=== PATIENT | male | born 1945 | race Caucasian/White ===

== ENCOUNTER → 2016-09-15 | Outpatient (CLI) | payer MEDICARE, OTHER ==
[2016-07-16 10:25] VITALS: BP 118/55
[~2016-09-15] MED LIST: ALLO300T PO; ASPI-482 PO; ATOR20TA PO; CEPH500C PO; CYAN1TAB28 PO; DICY10CA3 PO; FAMO-63 PO; FAMO20TA5 PO; FOLI0.8T3 PO; FURO80TA3 PO; HYDR-963 PO; HYDR200T5 PO; MAGN400C PO; OMEP40CA5 PO; OXYC-250 PO; POTA20TA4 PO; TAMS0.4C2 PO; TRAM50TA PO; VIT1CAPS7 PO; WARF1TAB7 PO; WARF3TAB7 PO
--- NOTE | 2016-09-15 11:56 | CARD ---
APPROVED REPORT EXAM: Two-dimensional and M-mode echocardiogram with Doppler and color Doppler. Other Information Quality : GoodHR: 82bpm Rhythm : NSR INDICATION Edema Surgery/Intervention Status/Post Mitral Valve Replacement: Bioprosthetic Pacemaker: CABD DIMENSIONS RVDd2.6 (2.9-3.5cm)Left Atrium(2D)5.6 (1.6-4.0cm) IVSd0.8 (0.7-1.1cm)Aortic Root(2D)2.8 (2.0-3.7cm) LVDd5.7 (3.9-5.9cm)LVOT Diameter2.4 (1.8-2.4cm) PWd0.8 (0.7-1.1cm)LVDs4.7 (2.5-4.0cm) FS (%) 17.1 %SV55.7 ml LVEF(%)35.3 (>50%) Aortic Valve AoV Peak Sher.126.9cm/sAoV VTI30.8cm AO Peak GR.6.4mmHgLVOT Peak Sher.89.7cm/s AO Mean GR.4mmHgAVA (VMAX)3.21cm2 Mitral Valve MV E Lrcihinu281.2cm/sMV E Peak Gr.29mmHg MV DECEL [id number] A Muwuxqqu717.1cm/s MV E Mean Gr.11mmHgE/A Ratio1.6 MV A Hfnegxzw96oo Pulmonary Valve PV Peak Inazecvx826.7cm/s Tricuspid Valve TR P. Fqizktzm880ur/sRAP CMGMDYBW9soLh TR Peak Gr.79zfJiTETL93hxKp Pulmonary Vein S1 Yzcstmrs53.4cm/sD2 Lmcnzxmx98.1cm/s PVa ezngukro44kadd LEFT VENTRICLE The left ventricle is normal size. There is normal left ventricular wall thickness. Left ventricle ej ection fraction is moderately impaired. The Ejection Fraction is 35-40%. There is global hypokinesis of the left ventricle. The anterior wall, septum and apex are moderately hypokinetic. Tissue Doppler imaging reveals moderate left ventricular diastolic dysfunction. RIGHT VENTRICLE The right ventricle is moderately dilated. There is normal right ventricular wall thickness. The righ t ventricular systolic function is normal. There is a pacemaker lead in the right ventricle. ATRIA The left atrium is severely dilated. The right atrium size is normal. The interatrial septum is intac t with no evidence for an atrial septal defect or patent foramen ovale as noted on 2-D or Doppler olvin ging. AORTIC VALVE The aortic valve is mildly sclerotic. Doppler and Color Flow revealed no significant aortic regurgita tion. There is no significant aortic valvular stenosis. MITRAL VALVE Mitral annular calcification is moderate. There is no evidence of mitral valve prolapse. Doppler and Color Flow revealed trace mitral regurgitation. There is a porcine mitral valve. TRICUSPID VALVE The tricuspid valve is normal in structure and function. Doppler and Color Flow revealed moderate tri cuspid regurgitation. There is moderate pulmonary hypertension. The PA pressure was estimated at 52 m mHg. PULMONIC VALVE Doppler and Color Flow revealed trace pulmonic valvular regurgitation. GREAT VESSELS The aortic root is normal in size. The ascending aorta is normal in size. The pulmonary artery is nor mal. The IVC is normal in size and collapses >50% with inspiration. PERICARDIAL EFFUSION There is no evidence of significant pericardial effusion. Critical Notification Critical Value: No <Conclusion> Left ventricle ejection fraction is moderately impaired. The Ejection Fraction is 35-40%. There is global hypokinesis of the left ventricle. The anterior wall, septum and apex are moderately hypokinetic. The right ventricle is moderately dilated. There is a pacemaker lead in the right ventricle. There is a porcine mitral valve. Doppler and Color Flow revealed moderate tricuspid regurgitation. There is moderate pulmonary hyperte nsion. The PA pressure was estimated at 52 mmHg.
--- NOTE | 2016-09-15 12:29 | RAD ---
APPROVED REPORT Patient Location : OUT-PATIENT Indications Lower Extremity Edema : Skin Changes Risk Factors Obesity Medications Aspirin Deep System Deep Venous Reflux present : No Accessory Veins Right Anterior Accessory Vein : Present : Yes Reflux : No Leftt Anterior Accessory Vein : Present : Yes Reflux : No Right Posterior Accessory Vein : Present : No Reflux : No Left Posterior Accessory Vein : Present : No Reflux : No Findings Grayscale images of the bilateral greater saphenous veins and saphenofemoral junctions were performed . Grayscale images were also obtained of the short saphenous veins bilaterally. The right great saphenous vein measures approximately 8.4 mm without any evidence of reflux. The lef t great saphenous vein measures approximately 10 mm without any evidence of reflux. The bilateral le sser saphenous veins did not demonstrate any reflux. Multiple Perforators are noted on the right karina e without any evidence of reflux. Critical Notification Critical Value: No <Conclusion> Negative for reflux in the bilateral greater saphenous and lesser saphenous veins. No evidence of reflux in the bilateral calf perforators.
== END | disposition home or self-care (01) ==
LOC: ECHO 08:42
PROVIDERS: ATTEND Internal Medicine Cardiovascular Disease
DX: R60.9 Edema, unspecified (principal); M79.89 Other specified soft tissue disorders
CPT/HCPCS: 93306; 93970

== ENCOUNTER 2016-09-22 07:49 | Inpatient (IN) | payer MEDICARE, OTHER ==
[~2016-09-22] VITALS: Ht 177.8 cm; Wt 102.5 kg
[2016-09-22] VITALS (14 sets, daily range): BP systolic 89–145; BP diastolic 48–75
[2016-09-22] MEDS ORDERED: L GA1CAP2 PO (08:12)
[2016-09-22] MEDS ORDERED: CEPH500C PO (08:12)
[2016-09-22] MEDS ORDERED: HYDR-2680 PO (08:18)
[2016-09-22 08:29] LABS: CALCIUM 8.8 mg/dL (8.5-10.1); CREATININE 2.7 mg/dL (0.7-1.3); GFR 23.5; POTASSIUM 4.2 mmol/L (3.5-5.1)
[2016-09-22 08:38] LABS: INR 1.2 (0.8-1.1); PROTHROMBIN TIME PATIENT 14.2 SEC (11.7-14.0)
[2016-09-22 08:41] LABS: BASO % 1 % (0-3); EOS % 3 % (0-3); HEMATOCRIT 43.4 % (39.0-53.0); HEMOGLOBIN 13.8 g/dL (13.0-17.5); LYMPH # 1.1 x10^3/uL (1.0-4.8); LYMPH % 22 % (24-48); MEAN CORPUSCULAR HEMOGLOBIN 29 pg (25-35); MEAN CORPUSCULAR HGB CONC 32 g/dL (31-37); MEAN CORPUSCULAR VOLUME 93 fL (79-100); MONO % 13 % (0-9); NEUT % 62 % (31-73); PLATELET COUNT 110 x10^3/uL (140-400); RED BLOOD COUNT 4.68 x10^6/uL (4.30-5.70); RED CELL DISTRIBUTION WIDTH 18.1 % (11.5-14.5); WHITE BLOOD COUNT 5.1 x10^3/uL (4.0-11.0)
[2016-09-22] MEDS: ACETYLCYSTEINE 20% ORAL SOLN 600 MG/3 ML SYRINGE. PO SCH ×2 (09:09→20:37)
[2016-09-22] MEDS: IV NORMAL SALINE 1000ML BAG 1,000 ML IV SCH (09:10)
[2016-09-22] MEDS ORDERED: LIDOCAINE 2% 20 ML VIAL. ONE (09:58)
[2016-09-22] MEDS ORDERED: IODIXANOL 320 MG/ML 100 ML VIAL. ONE (09:58)
[2016-09-22] MEDS ORDERED: VERAPAMIL 5 MG/2 ML VIAL. ONE (10:03)
[2016-09-22] MEDS ORDERED: NITROGLYCERIN 200 MCG/2 ML SYRINGE FOR CATH/VASC LAB. ONE (10:03)
[2016-09-22] MEDS ORDERED: HEPARIN for IV BOLUS 10,000 UNIT/10 ML VIAL. ONE (10:03)
[2016-09-22] MEDS ORDERED: FENTANYL PF 100 MCG/2 ML VIAL. ONE (10:03)
[2016-09-22] MEDS ORDERED: MIDAZOLAM HCL 2 MG/2 ML VIAL. ONE (10:04)
--- NOTE | 2016-09-22 10:05 | PDOC ---
MODERATE SEDATION ASSESSMENT RISKS/ALTERNATIVES Risks/Alternatives Risks and alternatives of this type of sedation and procedure discussed with: RISK/ALTERNATIVES: Patient H & P ON CHART H & P H & P on chart and reviewed for co-morbid conditions and appropriate labs. H&P ON CHART: Yes STATUS PREG STATUS ASSESSED: N/A MEDS/ALLERGIES REVIEWED Meds/Allergies Reviewed Medications and Allergies including time and route of recently administered narcotics and sedatives. MEDS/ALLERGIES REVIEWED: Yes ASA RATING ASA RATING: II AIRWAY ASSESSMENT Airway Assessment Airway patency, oral function limitations, presence of caps, crowns, dentures, partials, and ability to extend neck assessed. AIRWAY ASSESSMENT: Yes MALLAMPATI SCORE MALLAMPATI SCORE: II PRE-SEDATION ASSESSMENT PRE-SEDATION ASSESSMENT: Yes JUNIOR BURRIS MD Sep 22, 2016 10:05
[2016-09-22] MEDS ORDERED: LIDOCAINE 2% 20 ML VIAL. IJ ONE (10:45)
[2016-09-22] MEDS ORDERED: FENTANYL PF 100 MCG/2 ML VIAL. IV ONE (10:45)
[2016-09-22] MEDS ORDERED: IODIXANOL 320 MG/ML 100 ML VIAL. IART ONE (10:45)
[2016-09-22] MEDS ORDERED: MIDAZOLAM HCL 2 MG/2 ML VIAL. IV ONE (10:45)
[2016-09-22] MEDS ORDERED: NITROGLYCERIN SUBLINGUAL 0.4 MG BOTTLE OF 25. SL PRN (12:30)
--- NOTE | 2016-09-22 12:43 | CARD ---
APPROVED REPORT Procedure(s) performed: Left heart catheterization, selective coronary angiography and selective minoo ography of the bypass grafts via right transfemoral approach. INDICATION The indication(s) include : Acute on chronic systolic heart failure, cardiomyopathy with diminished L V function. PROCEDURE NARRATIVE After explaining the risks, benefits and alternative options, informed consent was obtained from caren ent. Patient brought to the cardiac geotechnical laboratory technician and his right groin was prepped and draped in the usual fashion. 20 mL of 2% lidocaine was infiltrated into the skin and subcutaneous tissues for local ane sthesia. Arterial access was obtained in the right common femoral artery and a 6 Ecuadorean sheath was i nserted. 6 Ecuadorean JL4 and 6 Ecuadorean JR4 catheters wished to perform selective angiography of the left and right coronary arteries. The 6 Ecuadorean JR4 catheter was used to perform selective angiography of the saphenous vein graft to the right coronary artery and sequential saphenous vein graft to the klaus gonal/second obtuse marginal/left PDA. A 6 Ecuadorean IM catheter was used to perform selective angiogra phy of the left internal mammary artery graft to the left anterior descending artery. Left ventricul ography was not performed due to elevated BUN/creatinine level. Patient tolerated the procedure well . Hemostasis was achieved using Angio-Seal. There were no immediate complications. FINDINGS 1. The left main coronary artery arose from the left sinus of Valsalva, gave rise to the left anteri or descending and left circumflex arteries and did not show any significant stenosis. 2. The left anterior descending artery showed 80% stenosis in the midsegment followed by 100% chroni c occlusion in the mid to distal segment. 3. The left circumflex artery appeared to be a codominant vessel that showed 80% stenosis in the pro ximal segment and 90% stenosis in the midsegment. 4. The right coronary artery showed 100% chronic occlusion in the midsegment. 5. The saphenous vein graft to the right coronary artery was widely patent. Distal to the anastomos is, the distal segment and the posterior descending branch did not show any significant stenosis. 6. The sequential saphenous vein graft to the diagonal branch, second obtuse marginal branch and lef t posterior descending branch of left circumflex artery did not show any significant stenosis. 7. The left internal mammary artery graft to the left anterior descending artery was widely patent. Distal to the anastomosis, the left anterior descending artery did not show any significant stenosis . Conclusion Severe [place] vessel coronary artery disease s/p coronary artery bypass surgery as stated above with patent left internal mammary artery graft to the left anterior descending artery, patent saphenous ve in graft to the right coronary artery, patent sequential saphenous vein graft to the diagonal branch of LAD/second obtuse marginal and left posterior descending branches of LCx. Recommendations Optimization of medical therapy.
[2016-09-22] MEDS: METOLAZONE 2.5 MG TABLET PO SCH (13:00)
[2016-09-22] MEDS ORDERED: ONDANSETRON PF 4 MG/2 ML VIAL. IV PRN (13:30)
[2016-09-22] MEDS ORDERED: ALBUTEROL SULFATE 2.5 MG/3 ML NEBU. NEB PRN (13:30)
[2016-09-22] MEDS ORDERED: hydrALAZINE 20 MG/ML VIAL. IVP PRN (13:30)
[2016-09-22] MEDS ORDERED: ACETAMINOPHEN 325 MG TABLET. PO PRN (13:30)
[2016-09-22] MEDS ORDERED: HYDROCODONE/APAP 5/325MG TABLET. PO PRN (13:30)
--- NOTE | 2016-09-22 16:00 | PDOC1 ---
History and Physical Past Medical History Cardiovascular: CAD, HTN Renal/: Chronic renal insuff Past Surgical History Past Surgical History: CABG, Other Family History Family History: Hypertension Social History ALCOHOL: none Drugs: None Current Medications Current Medications Current Medications Medications (Trade) Dose Ordered Sig/Toña Start Time Stop Time Status Last Admin Dose Admin Acetaminophen (Tylenol) 325 mg PRN Q6HRS PRN 09/22/16 13:30 Acetaminophen/ Hydrocodone Bitart (Lortab 5/325) 1 tab PRN Q6HRS PRN 09/22/16 13:30 Acetylcysteine (Mucomyst 20% Oral Solution) 600 mg BID 09/22/16 21:00 09/24/16 09:01 Cancel Albuterol Sulfate (Ventolin Neb Soln) 2.5 mg PRN Q4HRS PRN 09/22/16 13:30 Aspirin (Ecotrin) 81 mg DAILY 09/23/16 09:00 Atorvastatin Calcium (Lipitor) 20 mg HS 09/22/16 21:00 Famotidine (Pepcid) 40 mg DAILY 09/23/16 09:00 Fentanyl Citrate (Fentanyl 2ml Vial) 100 mcg 1X ONCE 09/22/16 10:45 09/22/16 11:06 DC 09/22/16 11:21 75 MCG Furosemide (Lasix) 80 mg BID92 09/22/16 21:00 Heparin Sodium (Porcine) 10,000 unit STK-MED ONCE 09/22/16 10:03 09/22/16 10:04 DC Heparin Sodium/ Sodium Chloride 1,000 unit 1X ONCE 09/22/16 10:45 09/22/16 11:06 DC 09/22/16 11:20 1,000 UNIT Hydralazine HCl (Apresoline) 10 mg PRN Q4HRS PRN 09/22/16 13:30 Iodixanol (Visipaque 320) 100 ml 1X ONCE 09/22/16 10:45 09/22/16 11:06 DC 09/22/16 11:20 117 ML Lidocaine HCl 20 ml 1X ONCE 09/22/16 10:45 09/22/16 11:06 DC 09/22/16 11:20 20 ML Metolazone (Zaroxolyn) 5 mg DAILY 09/22/16 13:00 Midazolam HCl (Versed) 2 mg 1X ONCE 09/22/16 10:45 09/22/16 11:06 DC 09/22/16 11:21 1.5 MG Nitroglycerin (Nitroglycerin) 200 mcg STK-MED ONCE 09/22/16 10:03 09/22/16 10:04 DC Nitroglycerin (Nitrostat) 0.4 mg PRN Q5MIN PRN 09/22/16 12:30 Ondansetron HCl (Zofran) 4 mg PRN Q8HRS PRN 09/22/16 13:30 Potassium Chloride (Klor-Con) 20 meq DAILY 09/23/16 09:00 Sodium Chloride (Iv Sodium Chloride 0.9% 1000ml Bag) 1,000 ml @ 100 mls/hr Q10H 09/22/16 08:30 09/22/16 09:10 100 MLS/HR Tamsulosin HCl (Flomax) 0.4 mg DAILY 09/23/16 09:00 Verapamil HCl (Verapamil) 5 mg STK-MED ONCE 09/22/16 10:03 09/22/16 10:04 DC Allergies Allergies Allergies Coded Allergies Type Severity Reaction Last Updated Verified NSAIDS (Non-Steroidal Anti-Inflamma Allergy Intermediate Hives 06/12/15 Yes Sulfa (Sulfonamide Antibiotics) Allergy Intermediate HIVES 07/08/14 Yes hydroxyzine Adverse Reaction Intermediate insomnia 06/12/15 Yes ROS Review of System CONSTITUTIONAL: No fever or chills EYES: No recent changes SKIN: No rash or itching CARDIOVASCULAR: No chest pain, syncope, palpitations, or edema RESPIRATORY: No SOB or cough GASTROINTESTINAL: No nausea, vomiting or abdominal pain NEUROLOGICAL: No headaches or weakness ENDOCRINE: No cold or heat intolerance GENITOURINARY: No urgency or frequency of urination MUSCULOSKELETAL: No back pain or joint pain LYMPHATICS: No enlarged lymph nodes PSYCHIATRIC: No anxiety or depression Physical Exam Physical Exam GEN.: No apparent distress. Alert and oriented. HEENT: Head is normocephalic, atraumatic NECK: Supple. no jvd LUNGS: Clear to auscultation. normal airflow HEART: RRR, S1, S2 present. Peripheral pulses intact ABDOMEN: Soft, nontender. Positive bowel sounds. EXTREMITIES: Without any cyanosis. edema bilateral. NEUROLOGIC: Normal speech, normal tone PSYCHIATRIC: Normal affect, normal mood. SKIN: No visible ulcerations Vitals Vitals Vital Signs Date Time Temp Pulse Resp B/P Pulse Ox O2 Delivery O2 Flow Rate FiO2 09/22/16 13:50 Room Air 09/22/16 13:45 97.5 80 20 112/65 95 97.5 Labs Labs Laboratory Tests Test 09/22/16 08:10 White Blood Count 5.1x10^3/uL (4.0-11.0) Red Blood Count 4.68x10^6/uL (4.30-5.70) Hemoglobin 13.8g/dL (13.0-17.5) Hematocrit 43.4% (39.0-53.0) Mean Corpuscular Volume 93fL (79-100) Mean Corpuscular Hemoglobin 29pg (25-35) Mean Corpuscular Hemoglobin Concent 32g/dL (31-37) Red Cell Distribution Width 18.1% (11.5-14.5) Platelet Count 110x10^3/uL (140-400) Neutrophils (%) (Auto) 62% (31-73) Lymphocytes (%) (Auto) 22% (24-48) Monocytes (%) (Auto) 13% (0-9) Eosinophils (%) (Auto) 3% (0-3) Basophils (%) (Auto) 1% (0-3) Neutrophils # (Auto) 3.2x10^3uL (1.8-7.7) Lymphocytes # (Auto) 1.1x10^3/uL (1.0-4.8) Monocytes # (Auto) 0.7x10^3/uL (0.0-1.1) Eosinophils # (Auto) 0.1x10^3/uL (0.0-0.7) Basophils # (Auto) 0.0x10^3/uL (0.0-0.2) Prothrombin Time 14.2SEC (11.7-14.0) Prothromb Time International Ratio 1.2 (0.8-1.1) Sodium Level 146mmol/L (136-145) Potassium Level 4.2mmol/L (3.5-5.1) Chloride Level 106mmol/L (98-107) Carbon Dioxide Level 31mmol/L (21-32) Anion Gap 9 (6-14) Blood Urea Nitrogen 36mg/dL (8-26) Creatinine 2.7mg/dL (0.7-1.3) Estimated GFR (Cockcroft-Gault) 23.5 Glucose Level 108mg/dL (70-99) Calcium Level 8.8mg/dL (8.5-10.1) Laboratory Tests Test 09/22/16 08:10 White Blood Count 5.1x10^3/uL (4.0-11.0) Red Blood Count 4.68x10^6/uL (4.30-5.70) Hemoglobin 13.8g/dL (13.0-17.5) Hematocrit 43.4% (39.0-53.0) Mean Corpuscular Volume 93fL (79-100) Mean Corpuscular Hemoglobin 29pg (25-35) Mean Corpuscular Hemoglobin Concent 32g/dL (31-37) Red Cell Distribution Width 18.1% (11.5-14.5) Platelet Count 110x10^3/uL (140-400) Neutrophils (%) (Auto) 62% (31-73) Lymphocytes (%) (Auto) 22% (24-48) Monocytes (%) (Auto) 13% (0-9) Eosinophils (%) (Auto) 3% (0-3) Basophils (%) (Auto) 1% (0-3) Neutrophils # (Auto) 3.2x10^3uL (1.8-7.7) Lymphocytes # (Auto) 1.1x10^3/uL (1.0-4.8) Monocytes # (Auto) 0.7x10^3/uL (0.0-1.1) Eosinophils # (Auto) 0.1x10^3/uL (0.0-0.7) Basophils # (Auto) 0.0x10^3/uL (0.0-0.2) Prothrombin Time 14.2SEC (11.7-14.0) Prothromb Time International Ratio 1.2 (0.8-1.1) Sodium Level 146mmol/L (136-145) Potassium Level 4.2mmol/L (3.5-5.1) Chloride Level 106mmol/L (98-107) Carbon Dioxide Level 31mmol/L (21-32) Anion Gap 9 (6-14) Blood Urea Nitrogen 36mg/dL (8-26) Creatinine 2.7mg/dL (0.7-1.3) Estimated GFR (Cockcroft-Gault) 23.5 Glucose Level 108mg/dL (70-99) Calcium Level 8.8mg/dL (8.5-10.1) VTE Prophylaxis Ordered VTE Prophylaxis Devices: Yes VTE Pharmacological Prophylaxi: No LUTHER BEE MD Sep 22, 2016 16:00
--- NOTE | 2016-09-22 17:16 | HP ---
ADMIT DATE: 09/22/2016 CHIEF COMPLAINT: Abnormal renal functions. HISTORY OF PRESENT ILLNESS: This is a 70-year-old male patient with prior history of hypertension, coronary artery disease and CKD 3/4 who had elective CABG today. As per Cardiology report, he has a clean normal cardiac catheterization, no PCI was done. However, the patient's renal functions, creatinine is 2.7 and bilateral lower extremity swellings were noted and the patient was on hemodialysis in 2011 and later he was not having any hemodialysis. Cardiology requested ____ for further evaluation by Nephrology. The patient denies any complaints of chest pain, shortness of breath or fever; however, he has chronic swellings in lower extremities which are slowly getting worse and he says he is getting good urine and his life specialist is Dr. Alvarez. Given his renal functions and contrast, we will give him low dose IV fluids and order CBC, BMP and consult Nephrology for further evaluation. PAST MEDICAL HISTORY: Please see my electronic H and P. REVIEW OF SYSTEMS: Please see my electronic H and P. PHYSICAL EXAMINATION: Please see my electronic H and P. LABORATORY FINDINGS: WBC 5.1, hemoglobin 13.8 and platelets 110. Chemistry: Sodium is 146, potassium is 4.2, chloride is 106, BUN is 36, GFR is 23.5, creatinine is 2.7 and glucose 108. ASSESSMENT: 1. Abnormal renal functions, SONNY with CKD 3/4. 2. Coronary artery disease. 3. Hypertension. 4. Peripheral artery disease. 5. Bilateral lower extremity swelling. PLAN: 1. IV fluids at 50 mL per hour. 2. Nephrology has been consulted ____. 3. Labs, CBC and BMP in a.m. 4. Home medications reviewed and reconciled. 5. Optimal medical therapy for severe coronary artery disease. 6. Echocardiogram as per Cardiology recommendations. LUTHER BEE MD DR: SABRINA/juancho JOB#: [id number] / [id number]
[2016-09-22] MEDS: HYDROCODONE/APAP 10/325 TABLET. PO PRN (18:37)
[2016-09-22] MEDS: FUROSEMIDE 80 MG TABLET PO SCH (20:16)
[2016-09-22] MEDS: CEPHALEXIN 250 MG CAPSULE PO SCH (20:36)
[2016-09-22] MEDS: ATORVASTATIN CALCIUM 20 MG TABLET PO SCH (20:36)
[2016-09-22] MEDS ORDERED: ACETYLCYSTEINE 20% ORAL SOLN 600 MG/3 ML SYRINGE. PO SCH (21:00)
[2016-09-23] MEDS: IV NORMAL SALINE 1000ML BAG 1,000 ML IV SCH ×2 (01:08→20:22)
[2016-09-23 03:25] VITALS: BP 126/63
[2016-09-23 03:41] LABS: BASO % 1 % (0-3); EOS % 3 % (0-3); HEMATOCRIT 40.3 % (39.0-53.0); HEMOGLOBIN 12.7 g/dL (13.0-17.5); LYMPH # 1.3 x10^3/uL (1.0-4.8); LYMPH % 27 % (24-48); MEAN CORPUSCULAR HEMOGLOBIN 29 pg (25-35); MEAN CORPUSCULAR HGB CONC 32 g/dL (31-37); MEAN CORPUSCULAR VOLUME 93 fL (79-100); MONO % 13 % (0-9); NEUT % 56 % (31-73); PLATELET COUNT 94 x10^3/uL (140-400); RED BLOOD COUNT 4.33 x10^6/uL (4.30-5.70); RED CELL DISTRIBUTION WIDTH 17.8 % (11.5-14.5); WHITE BLOOD COUNT 4.7 x10^3/uL (4.0-11.0)
[2016-09-23 04:04] LABS: CALCIUM 8.2 mg/dL (8.5-10.1); CREATININE 2.2 mg/dL (0.7-1.3); GFR 29.7; POTASSIUM 3.6 mmol/L (3.5-5.1)
[2016-09-23] MEDS: HYDROCODONE/APAP 10/325 TABLET. PO PRN (06:33)
[2016-09-23 07:12] VITALS: BP 99/73
[2016-09-23] MEDS: FAMOTIDINE 20 MG TABLET. PO SCH (08:40)
[2016-09-23] MEDS: MAGNESIUM OXIDE 400 MG TABLET PO SCH (08:40)
[2016-09-23] MEDS: ASPIRIN ENTERIC COATED 81 MG TABLET.DR. PO SCH (08:40)
[2016-09-23] MEDS: CEPHALEXIN 250 MG CAPSULE PO SCH ×2 (08:40→20:21)
[2016-09-23] MEDS: FOLIC/VIT B COMP W-C (RENAL) TABLET. PO SCH (08:41)
[2016-09-23] MEDS: TAMSULOSIN 0.4 MG CAP.ER.24H. PO SCH (08:41)
[2016-09-23] MEDS: PANTOPRAZOLE 40 MG TABLET. PO SCH (08:41)
[2016-09-23] MEDS: ACETYLCYSTEINE 20% ORAL SOLN 600 MG/3 ML SYRINGE. PO SCH ×2 (08:47→20:21)
[2016-09-23] MEDS: FUROSEMIDE 80 MG TABLET PO SCH ×2 (09:00→12:38)
[2016-09-23] MEDS: METOLAZONE 2.5 MG TABLET PO SCH (09:00)
--- NOTE | 2016-09-23 09:30 | PDOC ---
LISA ARCHER COMMUNICATIONS PROFESSIONAL 09/23/16 0930: CARDIO Progress Notes Date and Time Date of Service 09/23/16 Time of Evaluation 0930 Subjective Subjective: No Chest Pain, No shortness of breath, Other (frustrated, wanting to go home) Vitals Vitals Vital Signs Date Time Temp Pulse Resp B/P Pulse Ox O2 Delivery O2 Flow Rate FiO2 09/23/16 07:12 98.3 74 18 99/73 94 Room Air 98.3 09/22/16 19:30 2.0 Weight Weight [ ] Input and Output Intake and Output Intake and Output 09/23/16 07:00 Intake Total 1550 ml Balance 1550 ml Intake Oral 1300 ml IV Total 250 ml # Voids 3 Laboratory Labs Laboratory Tests Test 09/23/16 03:06 White Blood Count 4.7x10^3/uL (4.0-11.0) Red Blood Count 4.33x10^6/uL (4.30-5.70) Hemoglobin 12.7g/dL (13.0-17.5) Hematocrit 40.3% (39.0-53.0) Mean Corpuscular Volume 93fL (79-100) Mean Corpuscular Hemoglobin 29pg (25-35) Mean Corpuscular Hemoglobin Concent 32g/dL (31-37) Red Cell Distribution Width 17.8% (11.5-14.5) Platelet Count 94x10^3/uL (140-400) Neutrophils (%) (Auto) 56% (31-73) Lymphocytes (%) (Auto) 27% (24-48) Monocytes (%) (Auto) 13% (0-9) Eosinophils (%) (Auto) 3% (0-3) Basophils (%) (Auto) 1% (0-3) Neutrophils # (Auto) 2.7x10^3uL (1.8-7.7) Lymphocytes # (Auto) 1.3x10^3/uL (1.0-4.8) Monocytes # (Auto) 0.6x10^3/uL (0.0-1.1) Eosinophils # (Auto) 0.1x10^3/uL (0.0-0.7) Basophils # (Auto) 0.0x10^3/uL (0.0-0.2) Sodium Level 143mmol/L (136-145) Potassium Level 3.6mmol/L (3.5-5.1) Chloride Level 105mmol/L (98-107) Carbon Dioxide Level 29mmol/L (21-32) Anion Gap 9 (6-14) Blood Urea Nitrogen 33mg/dL (8-26) Creatinine 2.2mg/dL (0.7-1.3) Estimated GFR (Cockcroft-Gault) 29.7 Glucose Level 96mg/dL (70-99) Calcium Level 8.2mg/dL (8.5-10.1) Physical Exam HEENT: Neck Supple W Full Motion Chest: Symmetric LUNGS: Clear to Auscultation Heart: S1S2, RRR, other (SR with PVCs) Abdomen: Soft N/T Extremities: 2+ Dorsalis Pedis, Other (2+ pitting bilateral LE edema with chronic venous stasis changes. right groin arteriotomy site CDI. neurovascular status intact) Neurology: alert, oriented, follow commands Assessment Assessment 1. Coronary artery disease s/p CABG LHC revealed patent grafts Continue secondary prevention. Add low-dose BB. May discharge from a cardiac standpoint and f/u in our office with Dr. Rasheed in 1 month as previously scheduled 2. Ischemic cardiomyopathy 09/15/16 echo shows moderately impaired LV function with an EF of 35-40% along with moderate TR Add coreg for optimization will hold off on adding any nephrotoxic agents such as TIAGO given contrast exposure. Will re-evaluate on an outpatient basis. diuretics per renal Will repeat echo in 3 months to re-evaluate LV function and assess need for AICD implantation in prevention of SCD 3. Hypertension controlled 4. Pulmonary HTN PA pressure 52 per echo 5. H/o endocarditis s/p bioprosthetic MVR continue medical management 6. CKD Cr stable at 2.2. repeat BMP in am gentle hydration ongoing per renal . 7. Hyperlipidemia statin therapy 8. PAD s/p recent DRAFTING TEACHER to left SFA stable. no claudication symptoms. 9. SSS s/p PPM recent device check showed normal device function JUNIOR RASHEED MD 09/23/16 1521: CARDIO Progress Notes Assessment Assessment Patient seen and examined. Agree with INTERMEDIATE TEACHER's assessment and plan. Continue diuretics per nephrology team. CAD status stable. Cardiac catheterization results as noted. Continue medical management. Follow-up with our office in one month. LISA ARCHER APRN Sep 23, 2016 09:30 JUNIOR RASHEED MD Sep 23, 2016 15:21
[2016-09-23 11:13] VITALS: BP 138/65
--- NOTE | 2016-09-23 11:24 | PDOC2 ---
CONSULT Date of Consult Date of Consult DATE: 09/23/16 TIME: 11:19 Reason for Consult Reason for Consult: RENAL FAILURE Referring Physician Referring Physician: DAYTON Identification/Chief Complaint Chief Complaint SWELLING Source Source: Chart review, Patient History of Present Illness Reason for Visit: THIS IS A 70 YR OLD WHO UNDERWENT A HEART CATH YESTERDAY. HE HAS HAD A DECREASE IN HIS EF OVER THE LAST COUPLE YEARS. HE HAS ALSO BEEN HAVING PROGRESSIVE LE EDEMA AND SOME ORTHOPNEA. CR WAS 2.7 AND HE WAS GIVEN IVF'S AND HE UNDERWENT A HEART CATH AFTER THAT YESTERDAY. 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 AND HAS A HX OF SONNY REQUIRING HD IN 2011 Past Medical History Cardiovascular: CAD, HTN Renal/: Chronic renal insuff Past Surgical History Past Surgical History: CABG, Other Family History Family History: Hypertension Social History ALCOHOL: none Drugs: None Lives: with Family Current Medications Current Medications Current Medications Sodium Chloride (Iv Sodium Chloride 0.9% 1000ml Bag) 1,000 ml @ 50 mls/hr Q20H IV Last administered on 09/23/16 01:08; Start 09/22/16 at 08:30 Acetylcysteine 600 mg 600 mg BID PO Last administered on 09/23/16 08:47; Start 09/22/16 at 09:00; Stop 09/24/16 at 08:59 Heparin Sodium/ Sodium Chloride 500 ml @ As Directed STK-MED ONCE .ROUTE ; Start 09/22/16 at 09:58; Stop 09/22/16 at 09:59; Status DC Lidocaine HCl 20 ml STK-MED ONCE .ROUTE ; Start 09/22/16 at 09:58; Stop at 09:59; Status DC Iodixanol (Visipaque 320) 100 ml STK-MED ONCE .ROUTE ; Start 09/22/16 at 09:58; Stop 09/22/16 at 09:59; Status DC Nitroglycerin (Nitroglycerin) 200 mcg STK-MED ONCE .ROUTE ; Start 09/22/16 at 10 :03; Stop 09/22/16 at 10:04; Status DC Verapamil HCl (Verapamil) 5 mg STK-MED ONCE .ROUTE ; Start 09/22/16 at 10:03; Stop 09/22/16 at 10:04; Status DC Heparin Sodium (Porcine) 10,000 unit STK-MED ONCE .ROUTE ; Start 09/22/16 at 10: 03; Stop 09/22/16 at 10:04; Status DC Fentanyl Citrate (Fentanyl 2ml Vial) 100 mcg STK-MED ONCE .ROUTE ; Start at 10:03; Stop 09/22/16 at 10:04; Status DC Midazolam HCl (Versed) 2 mg STK-MED ONCE .ROUTE ; Start 09/22/16 at 10:04; Stop 09/22/16 at 10:05; Status DC Heparin Sodium/ Sodium Chloride 1,000 unit 1X ONCE IART Last administered on 11:20; Start 09/22/16 at 10:45; Stop 09/22/16 at 11:06; Status DC Heparin Sodium/ Sodium Chloride 1,000 unit 1X ONCE IART Last administered on 11:20; Start 09/22/16 at 10:45; Stop 09/22/16 at 11:06; Status DC Midazolam HCl (Versed) 2 mg 1X ONCE IV Last administered on 09/22/16 11:21; Start 09/22/16 at 10:45; Stop 09/22/16 at 11:06; Status DC Fentanyl Citrate (Fentanyl 2ml Vial) 100 mcg 1X ONCE IV Last administered on 11:21; Start 09/22/16 at 10:45; Stop 09/22/16 at 11:06; Status DC Iodixanol (Visipaque 320) 100 ml 1X ONCE IART Last administered on 09/22/16 11:20; Start 09/22/16 at 10:45; Stop 09/22/16 at 11:06; Status DC Lidocaine HCl 20 ml 1X ONCE IJ Last administered on 09/22/16 11:20; Start at 10:45; Stop 09/22/16 at 11:06; Status DC Nitroglycerin (Nitrostat) 0.4 mg PRN Q5MIN PRN SL CHEST PAIN; Start 09/22/16 at 12:30 Acetylcysteine (Mucomyst 20% Oral Solution) 600 mg BID PO ; Start 09/22/16 at 21 :00; Stop 09/24/16 at 09:01; Status Cancel Aspirin (Ecotrin) 81 mg DAILY PO Last administered on 09/23/16 08:40; Start at 09:00 Atorvastatin Calcium (Lipitor) 20 mg HS PO Last administered on 09/22/16 20:36 ; Start 09/22/16 at 21:00 Famotidine (Pepcid) 40 mg DAILY PO Last administered on 09/23/16 08:40; Start 09/23/16 at 09:00 Furosemide (Lasix) 80 mg BID92 PO ; Start 09/22/16 at 21:00 Potassium Chloride (Klor-Con) 20 meq DAILY PO ; Start 09/23/16 at 09:00 Tamsulosin HCl (Flomax) 0.4 mg DAILY PO Last administered on 09/23/16 08:41; Start 09/23/16 at 09:00 Metolazone (Zaroxolyn) 5 mg DAILY PO ; Start 09/22/16 at 13:00 Acetaminophen (Tylenol) 325 mg PRN Q6HRS PRN PO MILD PAIN / TEMP; Start at 13:30 Acetaminophen/ Hydrocodone Bitart (Lortab 5/325) 1 tab PRN Q6HRS PRN PO MODERATE TO SEVERE PAIN; Start 09/22/16 at 13:30 Hydralazine HCl (Apresoline) 10 mg PRN Q4HRS PRN IVP ELEVATED BP, SEE COMMENTS ; Start 09/22/16 at 13:30 Ondansetron HCl (Zofran) 4 mg PRN Q8HRS PRN IV NAUSEA/VOMITING; Start 09/22/16 at 13:30 Albuterol Sulfate (Ventolin Neb Soln) 2.5 mg PRN Q4HRS PRN NEB SHORTNESS OF BREATH; Start 09/22/16 at 13:30 Cephalexin HCl (Keflex) 500 mg BID PO Last administered on 09/23/16 08:40; Start 09/22/16 at 21:00 Folic Acid/ Multivitamins/Vit B12 (Nephro-Brett) 1 tab DAILY PO Last administered on 09/23/16 08:41; Start 09/23/16 at 09:00 Magnesium Oxide (Magnesium Oxide) 400 mg DAILY PO Last administered on 08:40; Start 09/23/16 at 09:00 Pantoprazole Sodium (Protonix) 40 mg DAILYAC PO Last administered on 1/24/17at 08:41; Start 09/23/16 at 07:30 Acetaminophen/ Hydrocodone Bitart (Lortab 10/325) 2 tab PRN Q6HRS PRN PO PAIN Last administered on 09/22/16t 18:37; Start 09/22/16 at 18:15 Active Scripts Active Reported Lortab 10-325 mg Tablet (Hydrocodone/Acetaminophen) 1 Each Tablet 1 Tab PO PRN Q6HRS PRN [place] Capsule (L Gasseri/B Bifidum/B Longum) 1 Each Capsule 1 Each PO DAILY Cephalexin 500 Mg Capsule 1 Cap PO BID Magnesium (Magnesium Oxide) 400 Mg Capsule 1 Cap PO DAILY Tart Sidhu Capsule (Vit C/Sidhu & Celery Ex/Grp E) 1 Each Capsule 1 Each PO DAILY Tamsulosin Hcl 0.4 Mg Cap.er.24h 0.4 Mg PO DAILY LAST DOSE GIVEN: DATE: 06-13-15 TIME: 9:00 am NEXT DOSE DUE: DATE: 06-14-15 TIME: 9:00 am Famotidine 20 Mg Tablet 40 Mg PO DAILY LAST DOSE GIVEN: DATE: 06-13-15 TIME: 9:00 am NEXT DOSE DUE: DATE: 06-13-15 TIME: 9 pm Vitamin [id number] Acid Tablet (Cyanocobalamin/Folic Acid) 1 Each Tablet 1 Each PO DAILY LAST DOSE GIVEN: DATE: 06-13-15 TIME: 9:00 am NEXT DOSE DUE: DATE: 06-14-15 TIME: 9 am Lipitor (Atorvastatin Calcium) 20 Mg Tablet 1 Tab PO DAILY LAST DOSE GIVEN: DATE: 06-12-15 TIME: 9:00 pm NEXT DOSE DUE: DATE: 06-13-15 TIME: 9 pm Dicyclomine Hcl 10 Mg Capsule 1 Cap PO TID LAST DOSE GIVEN: DATE: 06-13-15 TIME: 9:00 am NEXT DOSE DUE: DATE: 06-13-15 TIME: 9 pm Aspir 81 (Aspirin) 81 Mg Tablet.dr 1 Tab PO DAILY LAST DOSE GIVEN: DATE: 06-13-15 TIME: 9:00 am NEXT DOSE DUE: DATE: 06-14-15 TIME: 9 am Furosemide 80 Mg Tablet 1 Tab PO BID LAST DOSE GIVEN: DATE: 06-13-15 TIME: 9:00 am NEXT DOSE DUE: DATE: 06-13-15 TIME: 9:00 pm Omeprazole 40 Mg Capsule.dr 1 Cap PO DAILY LAST DOSE GIVEN: DATE: 06-13-15 TIME: 9:00 am NEXT DOSE DUE: DATE: 06-13-15 TIME: 9:00 pm Nephro-Brett Tablet (Folic Acid/Vitamin B Comp W-C) 0.8 Mg Tablet 1 Tab PO DAILY LAST DOSE GIVEN: DATE: 06-13-15 TIME: 9:00 am NEXT DOSE DUE: DATE: 06-14-15 TIME: 9 am Allergies Allergies: Coded Allergies: NSAIDS (Non-Steroidal Anti-Inflamma (Verified Allergy, Intermediate, Hives , 06/12/15) Sulfa (Sulfonamide Antibiotics) (Verified Allergy, Intermediate, HIVES, ) hydroxyzine (Verified Adverse Reaction, Intermediate, insomnia, 06/12/15) ROS General: YES: Fatigue PSYCHOLOGICAL ROS: YES: Anxiety Eyes: Yes Decreased vision HEENT: YES: Heacaches Respiratory: YES: Cough, Orthopnea, Shortness of breath Cardiovascular: yes Edema, yes Orthopnea Gastrointestinal: Yes Constipation Genitourinary: YES Other (NOCTURIA) Neurological: Yes Weakness Physical Exam General: Alert, Oriented X3, Cooperative, No acute distress HEENT: Atraumatic, PERRLA, EOMI, Mucous membr. moist/pink Lungs: Other (SOME BASILAR RALES) Heart: Regular rate, Normal S1 Abdomen: Normal bowel sounds, Soft Extremities: No clubbing, No cyanosis Skin: No rashes, No significant lesion Neuro: Normal speech, Cranial nerves 3-12 NL Psych/Mental Status: Mental status NL, Mood NL MUSCULOSKELETAL: No deformity, No swelling Vitals VITALS Vital Signs Date Time Temp Pulse Resp B/P Pulse Ox O2 Delivery O2 Flow Rate FiO2 09/23/16 08:00 Room Air 2.0 09/23/16 07:12 98.3 74 18 99/73 94 98.3 Labs Labs Laboratory Tests Test 09/22/16 08:10 09/23/16 03:06 White Blood Count 5.1x10^3/uL (4.0-11.0) 4.7x10^3/uL (4.0-11.0) Red Blood Count 4.68x10^6/uL (4.30-5.70) 4.33x10^6/uL (4.30-5.70) Hemoglobin 13.8g/dL (13.0-17.5) 12.7g/dL (13.0-17.5) Hematocrit 43.4% (39.0-53.0) 40.3% (39.0-53.0) Mean Corpuscular Volume 93fL (79-100) 93fL (79-100) Mean Corpuscular Hemoglobin 29pg (25-35) 29pg (25-35) Mean Corpuscular Hemoglobin Concent 32g/dL (31-37) 32g/dL (31-37) Red Cell Distribution Width 18.1% (11.5-14.5) 17.8% (11.5-14.5) Platelet Count 110x10^3/uL (140-400) 94x10^3/uL (140-400) Neutrophils (%) (Auto) 62% (31-73) 56% (31-73) Lymphocytes (%) (Auto) 22% (24-48) 27% (24-48) Monocytes (%) (Auto) 13% (0-9) 13% (0-9) Eosinophils (%) (Auto) 3% (0-3) 3% (0-3) Basophils (%) (Auto) 1% (0-3) 1% (0-3) Neutrophils # (Auto) 3.2x10^3uL (1.8-7.7) 2.7x10^3uL (1.8-7.7) Lymphocytes # (Auto) 1.1x10^3/uL (1.0-4.8) 1.3x10^3/uL (1.0-4.8) Monocytes # (Auto) 0.7x10^3/uL (0.0-1.1) 0.6x10^3/uL (0.0-1.1) Eosinophils # (Auto) 0.1x10^3/uL (0.0-0.7) 0.1x10^3/uL (0.0-0.7) Basophils # (Auto) 0.0x10^3/uL (0.0-0.2) 0.0x10^3/uL (0.0-0.2) Prothrombin Time 14.2SEC (11.7-14.0) Prothromb Time International Ratio 1.2 (0.8-1.1) Sodium Level 146mmol/L (136-145) 143mmol/L (136-145) Potassium Level 4.2mmol/L (3.5-5.1) 3.6mmol/L (3.5-5.1) Chloride Level 106mmol/L (98-107) 105mmol/L (98-107) Carbon Dioxide Level 31mmol/L (21-32) 29mmol/L (21-32) Anion Gap 9 (6-14) 9 (6-14) Blood Urea Nitrogen 36mg/dL (8-26) 33mg/dL (8-26) Creatinine 2.7mg/dL (0.7-1.3) 2.2mg/dL (0.7-1.3) Estimated GFR (Cockcroft-Gault) 23.5 29.7 Glucose Level 108mg/dL (70-99) 96mg/dL (70-99) Calcium Level 8.8mg/dL (8.5-10.1) 8.2mg/dL (8.5-10.1) Laboratory Tests Test 09/23/16 03:06 White Blood Count 4.7x10^3/uL (4.0-11.0) Red Blood Count 4.33x10^6/uL (4.30-5.70) Hemoglobin 12.7g/dL (13.0-17.5) Hematocrit 40.3% (39.0-53.0) Mean Corpuscular Volume 93fL (79-100) Mean Corpuscular Hemoglobin 29pg (25-35) Mean Corpuscular Hemoglobin Concent 32g/dL (31-37) Red Cell Distribution Width 17.8% (11.5-14.5) Platelet Count 94x10^3/uL (140-400) Neutrophils (%) (Auto) 56% (31-73) Lymphocytes (%) (Auto) 27% (24-48) Monocytes (%) (Auto) 13% (0-9) Eosinophils (%) (Auto) 3% (0-3) Basophils (%) (Auto) 1% (0-3) Neutrophils # (Auto) 2.7x10^3uL (1.8-7.7) Lymphocytes # (Auto) 1.3x10^3/uL (1.0-4.8) Monocytes # (Auto) 0.6x10^3/uL (0.0-1.1) Eosinophils # (Auto) 0.1x10^3/uL (0.0-0.7) Basophils # (Auto) 0.0x10^3/uL (0.0-0.2) Sodium Level 143mmol/L (136-145) Potassium Level 3.6mmol/L (3.5-5.1) Chloride Level 105mmol/L (98-107) Carbon Dioxide Level 29mmol/L (21-32) Anion Gap 9 (6-14) Blood Urea Nitrogen 33mg/dL (8-26) Creatinine 2.2mg/dL (0.7-1.3) Estimated GFR (Cockcroft-Gault) 29.7 Glucose Level 96mg/dL (70-99) Calcium Level 8.2mg/dL (8.5-10.1) Assessment/Plan Assessment/Plan IMP CKD STAGE 4 HYPERVOLEMIA MILD CHF-CHRONIC SYSTOLIC LE EDEMA PLAN LOW FLOW NS THROUGH TODAY HOLD THIS AM DOSE OF LASIX RESUME LASIX JANNETTE WILL ADD METOLAZONE TO HIS DIURETIC REGIMEN MOST LIKELY D/C TOMORROW HE WILL THEN F/U WITH MY PARTNER DR LUNA IN THE OFFICE WILL FOLLOW UPDATED FAMILY SANGEETHA PHILLIPS MD Sep 23, 2016 11:24
--- NOTE | 2016-09-23 11:52 | PDOC ---
PROGRESS NOTES Chief Complaint Chief Complaint - CAD with cardiac cath on 09/22/16 and hx of CABG - Chronic renal insufficiency - HTN - Pulmonary HTN - Ischemic cardiomyopathy with EF 35-40% - Hyperlipidemia History of Present Illness History of Present Illness 70 year old male examined with present in room. He was seated with feet of the side of the bed, apparently in pain. States he has chronic pain issues, noting that arthritis is flaring today and that nursing has been "slow to get here" with his pain medications, so he had taken some of his home Lortabs during this stay. Denies chest pain or SOA today. States that his renal issues have been going on for several years and that at one point he had been on dialysis from [id number]. Vitals Vitals Vital Signs Date Time Temp Pulse Resp B/P Pulse Ox O2 Delivery O2 Flow Rate FiO2 09/23/16 11:13 97.9 75 20 138/65 93 Room Air 97.9 09/23/16 08:00 2.0 Physical Exam General: Alert, Oriented X3, Cooperative, No acute distress Heart: Regular rate, Normal S1 Lungs: Clear, Other (No wheezes) Abdomen: Normal bowel sounds, Soft Extremities: No clubbing, No cyanosis Skin: No rashes, No significant lesion Labs LABS Laboratory Tests Test 09/23/16 03:06 White Blood Count 4.7x10^3/uL (4.0-11.0) Red Blood Count 4.33x10^6/uL (4.30-5.70) Hemoglobin 12.7g/dL (13.0-17.5) Hematocrit 40.3% (39.0-53.0) Mean Corpuscular Volume 93fL (79-100) Mean Corpuscular Hemoglobin 29pg (25-35) Mean Corpuscular Hemoglobin Concent 32g/dL (31-37) Red Cell Distribution Width 17.8% (11.5-14.5) Platelet Count 94x10^3/uL (140-400) Neutrophils (%) (Auto) 56% (31-73) Lymphocytes (%) (Auto) 27% (24-48) Monocytes (%) (Auto) 13% (0-9) Eosinophils (%) (Auto) 3% (0-3) Basophils (%) (Auto) 1% (0-3) Neutrophils # (Auto) 2.7x10^3uL (1.8-7.7) Lymphocytes # (Auto) 1.3x10^3/uL (1.0-4.8) Monocytes # (Auto) 0.6x10^3/uL (0.0-1.1) Eosinophils # (Auto) 0.1x10^3/uL (0.0-0.7) Basophils # (Auto) 0.0x10^3/uL (0.0-0.2) Sodium Level 143mmol/L (136-145) Potassium Level 3.6mmol/L (3.5-5.1) Chloride Level 105mmol/L (98-107) Carbon Dioxide Level 29mmol/L (21-32) Anion Gap 9 (6-14) Blood Urea Nitrogen 33mg/dL (8-26) Creatinine 2.2mg/dL (0.7-1.3) Estimated GFR (Cockcroft-Gault) 29.7 Glucose Level 96mg/dL (70-99) Calcium Level 8.2mg/dL (8.5-10.1) Review of Systems Review of Systems Denies chest pain or SOA Some LE swelling Assessment and Plan Assessmemt and Plan Assessment: - CAD with cardiac cath on 09/22/16 and hx of CABG - Chronic renal insufficiency - HTN - Pulmonary HTN - Ischemic cardiomyopathy with EF 35-40% - Hyperlipidemia Plan: - Nephrology following. Trend Cr, IVF management per their recommendations - Control pain. Patient counseled not to take his home supply of medications - Recheck labs in a.m. Trend Cr - Continue cardiac medications - PT/OT as tolerated - Appreciate subspecialty input Problems: Comment Review of Relevant I have reviewed the following items zoey (where applicable) has been applied. Labs Laboratory Tests Test 09/22/16 08:10 09/23/16 03:06 White Blood Count 5.1x10^3/uL (4.0-11.0) 4.7x10^3/uL (4.0-11.0) Red Blood Count 4.68x10^6/uL (4.30-5.70) 4.33x10^6/uL (4.30-5.70) Hemoglobin 13.8g/dL (13.0-17.5) 12.7g/dL (13.0-17.5) Hematocrit 43.4% (39.0-53.0) 40.3% (39.0-53.0) Mean Corpuscular Volume 93fL (79-100) 93fL (79-100) Mean Corpuscular Hemoglobin 29pg (25-35) 29pg (25-35) Mean Corpuscular Hemoglobin Concent 32g/dL (31-37) 32g/dL (31-37) Red Cell Distribution Width 18.1% (11.5-14.5) 17.8% (11.5-14.5) Platelet Count 110x10^3/uL (140-400) 94x10^3/uL (140-400) Neutrophils (%) (Auto) 62% (31-73) 56% (31-73) Lymphocytes (%) (Auto) 22% (24-48) 27% (24-48) Monocytes (%) (Auto) 13% (0-9) 13% (0-9) Eosinophils (%) (Auto) 3% (0-3) 3% (0-3) Basophils (%) (Auto) 1% (0-3) 1% (0-3) Neutrophils # (Auto) 3.2x10^3uL (1.8-7.7) 2.7x10^3uL (1.8-7.7) Lymphocytes # (Auto) 1.1x10^3/uL (1.0-4.8) 1.3x10^3/uL (1.0-4.8) Monocytes # (Auto) 0.7x10^3/uL (0.0-1.1) 0.6x10^3/uL (0.0-1.1) Eosinophils # (Auto) 0.1x10^3/uL (0.0-0.7) 0.1x10^3/uL (0.0-0.7) Basophils # (Auto) 0.0x10^3/uL (0.0-0.2) 0.0x10^3/uL (0.0-0.2) Prothrombin Time 14.2SEC (11.7-14.0) Prothromb Time International Ratio 1.2 (0.8-1.1) Sodium Level 146mmol/L (136-145) 143mmol/L (136-145) Potassium Level 4.2mmol/L (3.5-5.1) 3.6mmol/L (3.5-5.1) Chloride Level 106mmol/L (98-107) 105mmol/L (98-107) Carbon Dioxide Level 31mmol/L (21-32) 29mmol/L (21-32) Anion Gap 9 (6-14) 9 (6-14) Blood Urea Nitrogen 36mg/dL (8-26) 33mg/dL (8-26) Creatinine 2.7mg/dL (0.7-1.3) 2.2mg/dL (0.7-1.3) Estimated GFR (Cockcroft-Gault) 23.5 29.7 Glucose Level 108mg/dL (70-99) 96mg/dL (70-99) Calcium Level 8.8mg/dL (8.5-10.1) 8.2mg/dL (8.5-10.1) Laboratory Tests Test 09/23/16 03:06 White Blood Count 4.7x10^3/uL (4.0-11.0) Red Blood Count 4.33x10^6/uL (4.30-5.70) Hemoglobin 12.7g/dL (13.0-17.5) Hematocrit 40.3% (39.0-53.0) Mean Corpuscular Volume 93fL (79-100) Mean Corpuscular Hemoglobin 29pg (25-35) Mean Corpuscular Hemoglobin Concent 32g/dL (31-37) Red Cell Distribution Width 17.8% (11.5-14.5) Platelet Count 94x10^3/uL (140-400) Neutrophils (%) (Auto) 56% (31-73) Lymphocytes (%) (Auto) 27% (24-48) Monocytes (%) (Auto) 13% (0-9) Eosinophils (%) (Auto) 3% (0-3) Basophils (%) (Auto) 1% (0-3) Neutrophils # (Auto) 2.7x10^3uL (1.8-7.7) Lymphocytes # (Auto) 1.3x10^3/uL (1.0-4.8) Monocytes # (Auto) 0.6x10^3/uL (0.0-1.1) Eosinophils # (Auto) 0.1x10^3/uL (0.0-0.7) Basophils # (Auto) 0.0x10^3/uL (0.0-0.2) Sodium Level 143mmol/L (136-145) Potassium Level 3.6mmol/L (3.5-5.1) Chloride Level 105mmol/L (98-107) Carbon Dioxide Level 29mmol/L (21-32) Anion Gap 9 (6-14) Blood Urea Nitrogen 33mg/dL (8-26) Creatinine 2.2mg/dL (0.7-1.3) Estimated GFR (Cockcroft-Gault) 29.7 Glucose Level 96mg/dL (70-99) Calcium Level 8.2mg/dL (8.5-10.1) Medications Current Medications Sodium Chloride (Iv Sodium Chloride 0.9% 1000ml Bag) 1,000 ml @ 50 mls/hr Q20H IV Last administered on 09/23/16 01:08; Start 09/22/16 at 08:30 Acetylcysteine 600 mg 600 mg BID PO Last administered on 09/23/16 08:47; Start 09/22/16 at 09:00; Stop 09/24/16 at 08:59 Heparin Sodium/ Sodium Chloride 500 ml @ As Directed STK-MED ONCE .ROUTE ; Start 09/22/16 at 09:58; Stop 09/22/16 at 09:59; Status DC Lidocaine HCl 20 ml STK-MED ONCE .ROUTE ; Start 09/22/16 at 09:58; Stop at 09:59; Status DC Iodixanol (Visipaque 320) 100 ml STK-MED ONCE .ROUTE ; Start 09/22/16 at 09:58; Stop 09/22/16 at 09:59; Status DC Nitroglycerin (Nitroglycerin) 200 mcg STK-MED ONCE .ROUTE ; Start 09/22/16 at 10 :03; Stop 09/22/16 at 10:04; Status DC Verapamil HCl (Verapamil) 5 mg STK-MED ONCE .ROUTE ; Start 09/22/16 at 10:03; Stop 09/22/16 at 10:04; Status DC Heparin Sodium (Porcine) 10,000 unit STK-MED ONCE .ROUTE ; Start 09/22/16 at 10: 03; Stop 09/22/16 at 10:04; Status DC Fentanyl Citrate (Fentanyl 2ml Vial) 100 mcg STK-MED ONCE .ROUTE ; Start at 10:03; Stop 09/22/16 at 10:04; Status DC Midazolam HCl (Versed) 2 mg STK-MED ONCE .ROUTE ; Start 09/22/16 at 10:04; Stop 09/22/16 at 10:05; Status DC Heparin Sodium/ Sodium Chloride 1,000 unit 1X ONCE IART Last administered on 11:20; Start 09/22/16 at 10:45; Stop 09/22/16 at 11:06; Status DC Heparin Sodium/ Sodium Chloride 1,000 unit 1X ONCE IART Last administered on 11:20; Start 09/22/16 at 10:45; Stop 09/22/16 at 11:06; Status DC Midazolam HCl (Versed) 2 mg 1X ONCE IV Last administered on 09/22/16 11:21; Start 09/22/16 at 10:45; Stop 09/22/16 at 11:06; Status DC Fentanyl Citrate (Fentanyl 2ml Vial) 100 mcg 1X ONCE IV Last administered on 11:21; Start 09/22/16 at 10:45; Stop 09/22/16 at 11:06; Status DC Iodixanol (Visipaque 320) 100 ml 1X ONCE IART Last administered on 09/22/16 11:20; Start 09/22/16 at 10:45; Stop 09/22/16 at 11:06; Status DC Lidocaine HCl 20 ml 1X ONCE IJ Last administered on 09/22/16 11:20; Start at 10:45; Stop 09/22/16 at 11:06; Status DC Nitroglycerin (Nitrostat) 0.4 mg PRN Q5MIN PRN SL CHEST PAIN; Start 09/22/16 at 12:30 Acetylcysteine (Mucomyst 20% Oral Solution) 600 mg BID PO ; Start 09/22/16 at 21 :00; Stop 09/24/16 at 09:01; Status Cancel Aspirin (Ecotrin) 81 mg DAILY PO Last administered on 09/23/16 08:40; Start at 09:00 Atorvastatin Calcium (Lipitor) 20 mg HS PO Last administered on 09/22/16 20:36 ; Start 09/22/16 at 21:00 Famotidine (Pepcid) 40 mg DAILY PO Last administered on 09/23/16 08:40; Start 09/23/16 at 09:00 Furosemide (Lasix) 80 mg BID92 PO ; Start 09/22/16 at 21:00 Potassium Chloride (Klor-Con) 20 meq DAILY PO ; Start 09/23/16 at 09:00 Tamsulosin HCl (Flomax) 0.4 mg DAILY PO Last administered on 09/23/16 08:41; Start 09/23/16 at 09:00 Metolazone (Zaroxolyn) 5 mg DAILY PO ; Start 09/22/16 at 13:00 Acetaminophen (Tylenol) 325 mg PRN Q6HRS PRN PO MILD PAIN / TEMP; Start at 13:30 Acetaminophen/ Hydrocodone Bitart (Lortab 5/325) 1 tab PRN Q6HRS PRN PO MODERATE TO SEVERE PAIN; Start 09/22/16 at 13:30 Hydralazine HCl (Apresoline) 10 mg PRN Q4HRS PRN IVP ELEVATED BP, SEE COMMENTS ; Start 09/22/16 at 13:30 Ondansetron HCl (Zofran) 4 mg PRN Q8HRS PRN IV NAUSEA/VOMITING; Start 09/22/16 at 13:30 Albuterol Sulfate (Ventolin Neb Soln) 2.5 mg PRN Q4HRS PRN NEB SHORTNESS OF BREATH; Start 09/22/16 at 13:30 Cephalexin HCl (Keflex) 500 mg BID PO Last administered on 09/23/16 08:40; Start 09/22/16 at 21:00 Folic Acid/ Multivitamins/Vit B12 (Nephro-Brett) 1 tab DAILY PO Last administered on 09/23/16 08:41; Start 09/23/16 at 09:00 Magnesium Oxide (Magnesium Oxide) 400 mg DAILY PO Last administered on 08:40; Start 09/23/16 at 09:00 Pantoprazole Sodium (Protonix) 40 mg DAILYAC PO Last administered on 09/23/16 08:41; Start 09/23/16 at 07:30 Acetaminophen/ Hydrocodone Bitart (Lortab 10/325) 2 tab PRN Q6HRS PRN PO PAIN Last administered on 09/22/16 18:37; Start 09/22/16 at 18:15 Active Scripts Active Reported Lortab 10-325 mg Tablet (Hydrocodone/Acetaminophen) 1 Each Tablet 1 Tab PO PRN Q6HRS PRN [place] 1stdib[facility] Capsule (L Gasseri/B Bifidum/B Longum) 1 Each Capsule 1 Each PO DAILY Cephalexin 500 Mg Capsule 1 Cap PO BID Magnesium (Magnesium Oxide) 400 Mg Capsule 1 Cap PO DAILY Tart Sidhu Capsule (Vit C/Sidhu & Celery Ex/Grp E) 1 Each Capsule 1 Each PO DAILY Tamsulosin Hcl 0.4 Mg Cap.er.24h 0.4 Mg PO DAILY LAST DOSE GIVEN: DATE: 06-13-15 TIME: 9:00 am NEXT DOSE DUE: DATE: 06-14-15 TIME: 9:00 am Famotidine 20 Mg Tablet 40 Mg PO DAILY LAST DOSE GIVEN: DATE: 06-13-15 TIME: 9:00 am NEXT DOSE DUE: DATE: 06-13-15 TIME: 9 pm Vitamin Z10-Payws Acid Tablet (Cyanocobalamin/Folic Acid) 1 Each Tablet 1 Each PO DAILY LAST DOSE GIVEN: DATE: 06-13-15 TIME: 9:00 am NEXT DOSE DUE: DATE: 06-14-15 TIME: 9 am Lipitor (Atorvastatin Calcium) 20 Mg Tablet 1 Tab PO DAILY LAST DOSE GIVEN: DATE: 06-12-15 TIME: 9:00 pm NEXT DOSE DUE: DATE: 06-13-15 TIME: 9 pm Dicyclomine Hcl 10 Mg Capsule 1 Cap PO TID LAST DOSE GIVEN: DATE: 06-13-15 TIME: 9:00 am NEXT DOSE DUE: DATE: 06-13-15 TIME: 9 pm Aspir 81 (Aspirin) 81 Mg Tablet.dr 1 Tab PO DAILY LAST DOSE GIVEN: DATE: 06-13-15 TIME: 9:00 am NEXT DOSE DUE: DATE: 06-14-15 TIME: 9 am Furosemide 80 Mg Tablet 1 Tab PO BID LAST DOSE GIVEN: DATE: 06-13-15 TIME: 9:00 am NEXT DOSE DUE: DATE: 06-13-15 TIME: 9:00 pm Omeprazole 40 Mg Capsule. 1 Cap PO DAILY LAST DOSE GIVEN: DATE: 06-13-15 TIME: 9:00 am NEXT DOSE DUE: DATE: 06-13-15 TIME: 9:00 pm Nephro-Brett Tablet (Folic Acid/Vitamin B Comp W-C) 0.8 Mg Tablet 1 Tab PO DAILY LAST DOSE GIVEN: DATE: 06-13-15 TIME: 9:00 am NEXT DOSE DUE: DATE: 06-14-15 TIME: 9 am Vitals/I & O Vital Sign - Last 24 Hours 09/22/16 09/22/16 09/22/16 09/22/16 12:00 12:30 13:00 13:45 Temp 97.5 97.5 Pulse 70 70 70 80 Resp 17 20 B/P 112/65 Pulse Ox 95 95 95 95 O2 Delivery Room Air Room Air Room Air Room Air 09/22/16 09/22/16 09/22/16 09/22/16 13:50 13:50 14:10 14:40 Pulse 70 74 72 B/P 135/68 145/75 125/62 O2 Delivery Room Air 09/22/16 09/22/16 09/22/16 09/22/16 15:00 16:36 18:37 19:20 Temp 97.7 97.7 Pulse 72 Resp 20 B/P 111/62 Pulse Ox 95 90 90 O2 Delivery Nasal Cannula Room Air Room Air Room Air O2 Flow Rate 2.0 09/22/16 09/22/16 09/22/16 09/23/16 19:30 19:37 23:20 03:25 Temp 97.8 97.8 98.0 97.8 97.8 98.0 Pulse 70 78 70 Resp 18 20 20 18 B/P 115/56 136/70 126/63 Pulse Ox 95 94 93 O2 Delivery Nasal Cannula Room Air Room Air Room Air O2 Flow Rate 2.0 09/23/16 09/23/16 09/23/16 09/23/16 06:33 07:12 08:00 11:13 Temp 98.3 97.9 98.3 97.9 Pulse 74 75 Resp 20 18 20 B/P 99/73 138/65 Pulse Ox 94 93 O2 Delivery Room Air Room Air Room Air Room Air O2 Flow Rate 2.0 Intake and Output 09/22/16 09/22/1609/23/17 15:00 23:00 07:00 Intake Total 650 ml 900 ml Balance 650 ml 900 ml LOYD NORTH III, DO Sep 23, 2016 11:52
[2016-09-23] MEDS: POTASSIUM CHLORIDE 20 MEQ TABLET.ER. PO SCH (12:38)
[2016-09-23 14:20] VITALS: BP 105/71
[2016-09-23] MEDS: CARVEDILOL 3.125 MG TABLET PO SCH (17:00)
[2016-09-23 19:27] VITALS: BP 130/66
[2016-09-23] MEDS: ATORVASTATIN CALCIUM 20 MG TABLET PO SCH (20:21)
[2016-09-23 23:25] VITALS: BP 114/63
[2016-09-24 07:40] VITALS: BP 119/66
[2016-09-24] MEDS: CEPHALEXIN 250 MG CAPSULE PO SCH (09:26)
[2016-09-24] MEDS: ASPIRIN ENTERIC COATED 81 MG TABLET.DR. PO SCH (09:27)
[2016-09-24] MEDS: TAMSULOSIN 0.4 MG CAP.ER.24H. PO SCH (09:27)
[2016-09-24] MEDS: METOLAZONE 2.5 MG TABLET PO SCH (09:27)
[2016-09-24] MEDS: FOLIC/VIT B COMP W-C (RENAL) TABLET. PO SCH (09:27)
[2016-09-24] MEDS: POTASSIUM CHLORIDE 20 MEQ TABLET.ER. PO SCH (09:27)
[2016-09-24] MEDS: FAMOTIDINE 20 MG TABLET. PO SCH (09:27)
[2016-09-24] MEDS: MAGNESIUM OXIDE 400 MG TABLET PO SCH (09:28)
[2016-09-24] MEDS: FUROSEMIDE 80 MG TABLET PO SCH (09:28)
[2016-09-24] MEDS: CARVEDILOL 3.125 MG TABLET PO SCH (09:28)
[2016-09-24] MEDS: PANTOPRAZOLE 40 MG TABLET. PO SCH (09:28)
[2016-09-24 09:51] LABS: CALCIUM 8.9 mg/dL (8.5-10.1); CREATININE 2.1 mg/dL (0.7-1.3); GFR 31.4; POTASSIUM 3.7 mmol/L (3.5-5.1)
[2016-09-24 09:53] LABS: BASO % 1 % (0-3); EOS % 3 % (0-3); HEMATOCRIT 42.8 % (39.0-53.0); HEMOGLOBIN 13.7 g/dL (13.0-17.5); LYMPH # 1.4 x10^3/uL (1.0-4.8); LYMPH % 25 % (24-48); MEAN CORPUSCULAR HEMOGLOBIN 29 pg (25-35); MEAN CORPUSCULAR HGB CONC 32 g/dL (31-37); MEAN CORPUSCULAR VOLUME 92 fL (79-100); MONO % 10 % (0-9); NEUT % 62 % (31-73); PLATELET COUNT 102 x10^3/uL (140-400); RED BLOOD COUNT 4.67 x10^6/uL (4.30-5.70); RED CELL DISTRIBUTION WIDTH 18.2 % (11.5-14.5); WHITE BLOOD COUNT 5.4 x10^3/uL (4.0-11.0)
--- NOTE | 2016-09-24 10:27 | PDOC ---
Renal-Progress Notes Subjective Notes Notes FEELS WELL History of Present Illness Hx of present illness BETTER Vitals Vitals Vital Signs Date Time Temp Pulse Resp B/P Pulse Ox O2 Delivery O2 Flow Rate FiO2 09/24/16 09:28 67 119/66 09/24/16 07:40 97.9 16 93 Room Air 97.9 09/23/16 08:00 2.0 Weight Weight [ ] I.O. Intake and Output Intake and Output 09/24/16 07:00 Intake Total 2300 ml Balance 2300 ml Intake Oral 2300 ml # Voids 6 # Bowel Movements 1 Labs Labs Laboratory Tests Test 09/24/16 09:15 White Blood Count 5.4x10^3/uL (4.0-11.0) Red Blood Count 4.67x10^6/uL (4.30-5.70) Hemoglobin 13.7g/dL (13.0-17.5) Hematocrit 42.8% (39.0-53.0) Mean Corpuscular Volume 92fL (79-100) Mean Corpuscular Hemoglobin 29pg (25-35) Mean Corpuscular Hemoglobin Concent 32g/dL (31-37) Red Cell Distribution Width 18.2% (11.5-14.5) Platelet Count 102x10^3/uL (140-400) Neutrophils (%) (Auto) 62% (31-73) Lymphocytes (%) (Auto) 25% (24-48) Monocytes (%) (Auto) 10% (0-9) Eosinophils (%) (Auto) 3% (0-3) Basophils (%) (Auto) 1% (0-3) Neutrophils # (Auto) 3.3x10^3uL (1.8-7.7) Lymphocytes # (Auto) 1.4x10^3/uL (1.0-4.8) Monocytes # (Auto) 0.5x10^3/uL (0.0-1.1) Eosinophils # (Auto) 0.2x10^3/uL (0.0-0.7) Basophils # (Auto) 0.0x10^3/uL (0.0-0.2) Sodium Level 145mmol/L (136-145) Potassium Level 3.7mmol/L (3.5-5.1) Chloride Level 107mmol/L (98-107) Carbon Dioxide Level 27mmol/L (21-32) Anion Gap 11 (6-14) Blood Urea Nitrogen 29mg/dL (8-26) Creatinine 2.1mg/dL (0.7-1.3) Estimated GFR (Cockcroft-Gault) 31.4 Glucose Level 120mg/dL (70-99) Calcium Level 8.9mg/dL (8.5-10.1) Review of Systems Constitutional: yes: alert, oriented, weakness Ears/Nose/Throat: Yes: no symptom reported Eyes: Yes: no symptom reported Pulmonary: Yes no symptom reported Cardiovascular: Yes edema Gastrointestional: Yes: no symptom reported Genitourinary: Yes: no symptom reported Musculoskeletal: Yes: muscle stiffness Skin: Yes no symptom reported Physical Exam General Appearance: no apparent distress Skin: warm Respiratory: bilateral CTA Heart: S1S2, RRR Abdomen: soft, bowel sounds present Extremities: edema Neurology: alert, oriented, follow commands Assessment Assessment IMP CKD STAGE 4 CHF EDEMA PLAN RENAL FXN IS STABLE WITH CR OF 2.1 CONT LASIX AND ADD METOLAZONE ON D/C PT WILL F/U WITH MY PARTNER DR LUNA IN THE NEXT 4 TO 6 WEEKS INSTRUCTIONS GIVEN OK TO D/C FROM RENAL STANDPOINT SANGEETHA PHILLIPS MD Sep 24, 2016 10:26
[2016-09-24 11:14] VITALS: BP 122/71
[2016-09-24] MEDS ORDERED: METO2.5T PO (11:49)
--- NOTE | 2016-09-24 12:04 | PDOC3 ---
Discharge Summary Visit Information Date of Admission: Sep 22, 2016 Date of Discharge: Sep 24, 2016 Admitting Diagnosis: acute on chronic renal failure Final Diagnosis acute renal failure - CAD with cardiac cath on 09/22/16 and hx of CABG - Chronic renal insufficiency, CKD 4 - HTN - Pulmonary HTN - Ischemic cardiomyopathy with EF 35-40% - Hyperlipidemia Problems Medical Problems: (1) Acute renal failure Status: Acute Brief Hospital Course Allergies Allergies Coded Allergies Type Severity Reaction Last Updated Verified NSAIDS (Non-Steroidal Anti-Inflamma Allergy Intermediate Hives 06/12/15 Yes Sulfa (Sulfonamide Antibiotics) Allergy Intermediate HIVES 07/08/14 Yes hydroxyzine Adverse Reaction Intermediate insomnia 06/12/15 Yes Vital Signs Vital Signs Date Time Temp Pulse Resp B/P Pulse Ox O2 Delivery O2 Flow Rate FiO2 09/24/16 11:14 98.3 75 16 122/71 94 Room Air 98.3 09/23/16 08:00 2.0 Lab Results Laboratory Tests Test 09/23/16 03:06 09/24/16 09:15 White Blood Count 4.7x10^3/uL (4.0-11.0) 5.4x10^3/uL (4.0-11.0) Red Blood Count 4.33x10^6/uL (4.30-5.70) 4.67x10^6/uL (4.30-5.70) Hemoglobin 12.7g/dL (13.0-17.5) 13.7g/dL (13.0-17.5) Hematocrit 40.3% (39.0-53.0) 42.8% (39.0-53.0) Mean Corpuscular Volume 93fL (79-100) 92fL (79-100) Mean Corpuscular Hemoglobin 29pg (25-35) 29pg (25-35) Mean Corpuscular Hemoglobin Concent 32g/dL (31-37) 32g/dL (31-37) Red Cell Distribution Width 17.8% (11.5-14.5) 18.2% (11.5-14.5) Platelet Count 94x10^3/uL (140-400) 102x10^3/uL (140-400) Neutrophils (%) (Auto) 56% (31-73) 62% (31-73) Lymphocytes (%) (Auto) 27% (24-48) 25% (24-48) Monocytes (%) (Auto) 13% (0-9) 10% (0-9) Eosinophils (%) (Auto) 3% (0-3) 3% (0-3) Basophils (%) (Auto) 1% (0-3) 1% (0-3) Neutrophils # (Auto) 2.7x10^3uL (1.8-7.7) 3.3x10^3uL (1.8-7.7) Lymphocytes # (Auto) 1.3x10^3/uL (1.0-4.8) 1.4x10^3/uL (1.0-4.8) Monocytes # (Auto) 0.6x10^3/uL (0.0-1.1) 0.5x10^3/uL (0.0-1.1) Eosinophils # (Auto) 0.1x10^3/uL (0.0-0.7) 0.2x10^3/uL (0.0-0.7) Basophils # (Auto) 0.0x10^3/uL (0.0-0.2) 0.0x10^3/uL (0.0-0.2) Sodium Level 143mmol/L (136-145) 145mmol/L (136-145) Potassium Level 3.6mmol/L (3.5-5.1) 3.7mmol/L (3.5-5.1) Chloride Level 105mmol/L (98-107) 107mmol/L (98-107) Carbon Dioxide Level 29mmol/L (21-32) 27mmol/L (21-32) Anion Gap 9 (6-14) 11 (6-14) Blood Urea Nitrogen 33mg/dL (8-26) 29mg/dL (8-26) Creatinine 2.2mg/dL (0.7-1.3) 2.1mg/dL (0.7-1.3) Estimated GFR (Cockcroft-Gault) 29.7 31.4 Glucose Level 96mg/dL (70-99) 120mg/dL (70-99) Calcium Level 8.2mg/dL (8.5-10.1) 8.9mg/dL (8.5-10.1) Laboratory Tests Test 09/24/16 09:15 White Blood Count 5.4x10^3/uL (4.0-11.0) Red Blood Count 4.67x10^6/uL (4.30-5.70) Hemoglobin 13.7g/dL (13.0-17.5) Hematocrit 42.8% (39.0-53.0) Mean Corpuscular Volume 92fL (79-100) Mean Corpuscular Hemoglobin 29pg (25-35) Mean Corpuscular Hemoglobin Concent 32g/dL (31-37) Red Cell Distribution Width 18.2% (11.5-14.5) Platelet Count 102x10^3/uL (140-400) Neutrophils (%) (Auto) 62% (31-73) Lymphocytes (%) (Auto) 25% (24-48) Monocytes (%) (Auto) 10% (0-9) Eosinophils (%) (Auto) 3% (0-3) Basophils (%) (Auto) 1% (0-3) Neutrophils # (Auto) 3.3x10^3uL (1.8-7.7) Lymphocytes # (Auto) 1.4x10^3/uL (1.0-4.8) Monocytes # (Auto) 0.5x10^3/uL (0.0-1.1) Eosinophils # (Auto) 0.2x10^3/uL (0.0-0.7) Basophils # (Auto) 0.0x10^3/uL (0.0-0.2) Sodium Level 145mmol/L (136-145) Potassium Level 3.7mmol/L (3.5-5.1) Chloride Level 107mmol/L (98-107) Carbon Dioxide Level 27mmol/L (21-32) Anion Gap 11 (6-14) Blood Urea Nitrogen 29mg/dL (8-26) Creatinine 2.1mg/dL (0.7-1.3) Estimated GFR (Cockcroft-Gault) 31.4 Glucose Level 120mg/dL (70-99) Calcium Level 8.9mg/dL (8.5-10.1) Brief Hospital Course Mr. Dubois is a 70 old admit adter cardiac cath history of hypertension, coronary artery disease and CKD 4 who had elective had a clean normal cardiac catheterization, no PCI was done. the patient's renal functions, creatinine is 2.7 and bilateral lower extremity swellings were noted and the patient was on hemodialysis in 2011 and later he was not having any hemodialysis. Nephrology sheyla flores f/u Dr. Alvarez Discharge Information Condition at Discharge: Improved Follow Up: Weeks Disposition/Orders: D/C to Home Scheduled Aspirin (Aspir 81) 1 TAB PO DAILY (Reported) Atorvastatin Calcium (Lipitor) 1 TAB PO DAILY (Reported) Cephalexin (Cephalexin) 1 CAP PO BID (Reported) Cyanocobalamin/Folic Acid (Vitamin N96-Cqado Acid Tablet) 1 EACH PO DAILY ( Reported) Dicyclomine Hcl (Dicyclomine Hcl) 1 CAP PO TID (Reported) Famotidine (Famotidine) 40 MG PO DAILY (Reported) Folic Acid/Vitamin B Comp W-C (Nephro-Brett Tablet) 1 TAB PO DAILY (Reported) Furosemide (Furosemide) 1 TAB PO BID (Reported) L Gasseri/B Bifidum/B Longum (VerbalizeIt Colon Health Capsule) 1 EACH PO DAILY ( Reported) Magnesium Oxide (Magnesium) 1 CAP PO DAILY (Reported) Metolazone (Metolazone) 5 MG PO DAILY Omeprazole (Omeprazole) 1 CAP PO DAILY (Reported) Potassium Chloride (Klor-Con M20) 20 MEQ PO DAILY (Reported) Tamsulosin Hcl (Tamsulosin Hcl) 0.4 MG PO DAILY (Reported) Vit C/Sidhu & Celery Ex/Grp E (Tart Sidhu Capsule) 1 EACH PO DAILY (Reported) Scheduled PRN Hydrocodone/Acetaminophen (Lortab 10-325 mg Tablet) 1 TAB PO PRN Q6HRS PRN PRN PAIN (Reported) Patient Instructions Patient Instructions cont lassheyla melgoza, f/u Dr. Alvarez closely may need HD soon CORWIN BHAKTA MD Sep 24, 2016 12:04
--- NOTE | 2016-09-24 16:10 | PDOC ---
PROGRESS NOTES Subjective Subjective Patient feels slightly better today. Wants to go home. Objective Objective Vital Signs Date Time Temp Pulse Resp B/P Pulse Ox O2 Delivery O2 Flow Rate FiO2 09/24/16 11:14 98.3 75 16 122/71 94 Room Air 98.3 09/24/16 08:00 2.0 Intake and Output 09/24/16 07:00 Intake Total 2300 ml Balance 2300 ml Intake Oral 2300 ml # Voids 6 # Bowel Movements 1 Physical Exam Abdomen: Normal bowel sounds, Soft Heart: Regular rate, Normal S1 Extremities: Other (2+ edema) General: Alert, Oriented X3, Cooperative, No acute distress HEENT: Atraumatic, PERRLA, EOMI, Mucous membr. moist/pink Lungs: Other (SOME BASILAR RALES) MUSCULOSKELETAL: No deformity, No swelling Neuro: Normal speech, Cranial nerves 3-12 NL Psych/Mental Status: Mental status NL, Mood NL Skin: No rashes, No significant lesion Assessment Assessment 1. Coronary artery disease s/p CABG LHC revealed patent grafts Continue secondary prevention. Add low-dose BB. May discharge from a cardiac standpoint and f/u in our office in 1 month as previously scheduled 2. Ischemic cardiomyopathy, acute on chronic systolic heart failure 09/15/16 echo shows moderately impaired LV function with an EF of 35-40% along with moderate TR Continue diuretics per nephrology team including metolazone. Will repeat echo in 3 months to re-evaluate LV function and assess need for AICD implantation in prevention of SCD 3. Hypertension controlled 4. Pulmonary HTN PA pressure 52 per echo 5. H/o endocarditis s/p bioprosthetic MVR continue medical management 6. CKD Cr stable at 2.2. repeat BMP in am gentle hydration ongoing per renal . 7. Hyperlipidemia statin therapy 8. PAD s/p recent [employer] to left SFA stable. no claudication symptoms. 9. SSS s/p PPM recent device check showed normal device function Plan Plan of Care Problems Medical Problems: (1) Acute renal failure Status: Acute Comment Review of Relevant I have reviewed the following items zoey (where applicable) has been applied. Labs Laboratory Tests Test 09/24/16 09:15 White Blood Count 5.4x10^3/uL (4.0-11.0) Red Blood Count 4.67x10^6/uL (4.30-5.70) Hemoglobin 13.7g/dL (13.0-17.5) Hematocrit 42.8% (39.0-53.0) Mean Corpuscular Volume 92fL (79-100) Mean Corpuscular Hemoglobin 29pg (25-35) Mean Corpuscular Hemoglobin Concent 32g/dL (31-37) Red Cell Distribution Width 18.2% (11.5-14.5) Platelet Count 102x10^3/uL (140-400) Neutrophils (%) (Auto) 62% (31-73) Lymphocytes (%) (Auto) 25% (24-48) Monocytes (%) (Auto) 10% (0-9) Eosinophils (%) (Auto) 3% (0-3) Basophils (%) (Auto) 1% (0-3) Neutrophils # (Auto) 3.3x10^3uL (1.8-7.7) Lymphocytes # (Auto) 1.4x10^3/uL (1.0-4.8) Monocytes # (Auto) 0.5x10^3/uL (0.0-1.1) Eosinophils # (Auto) 0.2x10^3/uL (0.0-0.7) Basophils # (Auto) 0.0x10^3/uL (0.0-0.2) Sodium Level 145mmol/L (136-145) Potassium Level 3.7mmol/L (3.5-5.1) Chloride Level 107mmol/L (98-107) Carbon Dioxide Level 27mmol/L (21-32) Anion Gap 11 (6-14) Blood Urea Nitrogen 29mg/dL (8-26) Creatinine 2.1mg/dL (0.7-1.3) Estimated GFR (Cockcroft-Gault) 31.4 Glucose Level 120mg/dL (70-99) Calcium Level 8.9mg/dL (8.5-10.1) Medications Current Medications Carvedilol (Coreg) 3.125 mg BIDWMEALS PO Last administered on 09/24/16t 09:28; Start 09/23/16 at 17:00; Stop 09/24/16 at 13:53; Status DC Vitals/I & O Vital Sign - Last 24 Hours 09/23/16 09/23/16 09/23/16 09/23/16 17:00 19:27 20:00 23:25 Temp 98.1 97.1 98.1 97.1 Pulse 86 77 73 Resp 18 18 B/P 105/71 130/66 114/63 Pulse Ox 91 91 O2 Delivery Room Air Room Air Room Air 09/24/16 09/24/16 09/24/16 09/24/16 07:40 08:00 09:28 11:14 Temp 97.9 98.3 97.9 98.3 Pulse 67 67 75 Resp 16 16 B/P 119/66 119/66 122/71 Pulse Ox 93 94 O2 Delivery Room Air Room Air Room Air O2 Flow Rate 2.0 Intake and Output 09/23/16 09/23/16 09/24/16 15:00 23:00 07:00 Intake Total 300 ml 1400 ml 600 ml Balance 300 ml 1400 ml 600 ml JUNIOR BURRIS MD Sep 24, 2016 16:10
== END 2016-09-24 13:53 | disposition home or self-care (01) | DRG 286 ==
LOC: CCL 07:49 → 2 NORTH 11:11
PROVIDERS: ADMIT Internal Medicine; ATTEND Internal Medicine
PROC: 4A023N7 Measurement of Cardiac Sampling and Pressure, Left Heart, Percutaneous Approach (ICD-10-PCS; principal; 2016-09-22)
PROC: B2111ZZ Fluoroscopy of Multiple Coronary Arteries using Low Osmolar Contrast (ICD-10-PCS; 2016-09-22)
PROC: B2131ZZ Fluoroscopy of Multiple Coronary Artery Bypass Grafts using Low Osmolar Contrast (ICD-10-PCS; 2016-09-22)
PROC: B2151ZZ Fluoroscopy of Left Heart using Low Osmolar Contrast (ICD-10-PCS; 2016-09-22)
DX: I25.10 Atherosclerotic heart disease of native coronary artery without angina pectoris (principal); I50.23 Acute on chronic systolic (congestive) heart failure; I13.0 Hypertensive heart and chronic kidney disease with heart failure and stage 1 through stage 4 chronic kidney disease, or unspecified chronic kidney disease; N17.9 Acute kidney failure, unspecified; N18.4 Chronic kidney disease, stage 4 (severe); E78.5 Hyperlipidemia, unspecified; G89.29 Other chronic pain; I25.5 Ischemic cardiomyopathy; I27.2 Other secondary pulmonary hypertension; I49.5 Sick sinus syndrome; I73.9 Peripheral vascular disease, unspecified; M19.90 Unspecified osteoarthritis, unspecified site; Z82.49 Family history of ischemic heart disease and other diseases of the circulatory system; Z88.2 Allergy status to sulfonamides; Z95.2 Presence of prosthetic heart valve; Z99.2 Dependence on renal dialysis; Z88.8 Allergy status to other drugs, medicaments and biological substances
CPT/HCPCS: 36415; 80048; 85027; 85610; 93459; 94250; 94760; C1769; C1771; C1892; J2250; J3010; J7030

== ENCOUNTER → 2017-01-12 | Outpatient (CLI) | payer MEDICARE, OTHER ==
[~2017-01-12] MED LIST changes: +HYDR-2680 PO; +L GA1CAP2 PO; +METO2.5T PO
--- NOTE | 2017-01-12 11:27 | KCIC ---
PROCEDURE PA and lateral chest radiographs 01/12/2017 HISTORY Shortness of breath. Coronary artery disease. CHF. Productive cough. Significant smoking history. FINDINGS PA and lateral digital radiographs of the chest were obtained. The patient is status post CABG procedure. A pacemaker is seen within the right anterior chest. Leads extend to the right atrium and right ventricle of the heart. The cardiac silhouette is mildly enlarged. Atherosclerotic calcification of the thoracic aorta is seen. The thoracic aorta is mildly tortuous. No acute pulmonary infiltrate is seen. No pneumothorax or definite pleural effusion is noted. Degenerative changes are seen involving the thoracic spine. IMPRESSION Mild cardiomegaly. No acute pulmonary infiltrate is seen. Electronically signed by: Michael Nieves MD (January 12, 2017 11:26:14)
== END | disposition home or self-care (01) ==
LOC: KCIC 10:27
PROVIDERS: ATTEND Family Medicine
DX: I51.7 Cardiomegaly (principal); I25.10 Atherosclerotic heart disease of native coronary artery without angina pectoris; I50.9 Heart failure, unspecified; M47.894 Other spondylosis, thoracic region
CPT/HCPCS: 71020

== ENCOUNTER → 2017-03-18 | Outpatient (CLI) | payer MEDICARE, OTHER ==
[~2017-03-18] MED LIST changes: -OXYC-250 PO; +OXYC-328 PO
--- NOTE | 2017-03-18 15:22 | RAD ---
INDICATION:BENIGN PROSTATIC HYPERPLASIA WITH LOWER URINARY TRACT COMPARISON: CT abdomen from May 2012 FINDINGS: Focused ultrasound images were obtained through the bilateral kidneys and bladder. Right kidney is 8.2 cm Left kidney 8.5 cm. The kidneys have an atrophic appearance bilaterally with thin cortex. There are calcifications within. Within the right kidney and there is a 15 x 13 mm hypoechoic lesion. There may be some internal echoes versus artifact. 51 x 42 mm cystic lesion right kidney. 2 cm left renal cystic lesion and additional smaller cystic lesions. Urinary bladder partially distended. Prostate has calcifications within IMPRESSION: The kidneys have an atrophic appearance bilaterally with calcifications within. Calcifications could be within the parenchyma but some renal stones may also be present. Multiple bilateral cystic lesions of the kidneys are identified. A couple of these lesions have some internal echoes within which could be artifactual in nature but some degree of internal complexity is within the differential. Further workup options include either obtaining a follow-up ultrasound in a few months to ensure no growth or obtaining a renal protocol MRI to more completely characterize
== END | disposition home or self-care (01) ==
LOC: US 14:23
PROVIDERS: ATTEND Urology
DX: N40.0 Benign prostatic hyperplasia without lower urinary tract symptoms (principal); N28.89 Other specified disorders of kidney and ureter; N20.0 Calculus of kidney
CPT/HCPCS: 76770

== ENCOUNTER → 2017-08-20 | Outpatient (CLI) | payer MEDICARE, OTHER ==
--- NOTE | 2017-08-20 15:26 | KCIC ---
CT LUMBAR SPINE WO CONTRAST Indication: Low back pain, right hip pain Technique: NoncontrastCT imaging was performed of the lumbar spine, multiplanar reconstruction images submitted. One or more of the following individualized dose reduction techniques were utilized for this examination: 1. Automated exposure control 2. Adjustment of the mA and/or kV according to patient size 3. Use of iterative reconstruction technique. Contrast: None Comparison: None Findings: There is bone demineralization. There is advanced degenerative disc disease at L4-5 and L5-S1, minimally at L4-3. There is grade 1 anterior spondylolisthesis at L3-4, negligible anterior spondylolisthesis is L2-3. There is vacuum disc disease L5-S1. There is very mild lumbar levoscoliosis. There is multilevel lumbar facet hypertrophic change. There is suspected at least moderate spinal stenosis at L2-3 mostly from posteriorly by facet hypertrophic change. There is probable mild narrowing of the far lateral recesses bilaterally at L4-5 and L3-4. There is [id number] neural foramina compromise on the right at L4-5 and L5-S1 by disc osteophyte complexes and facet degenerative change, somewhat lesser degree of narrowing at other levels. There is calcified plaque of the abdominal aorta and iliac arteries. There are stenoses of the common iliac arteries bilaterally. There are multiple small calculi near the calyceal margins of the visualized right kidney. IMPRESSION: 1. There is advanced degenerative disc disease L4-5 and L5-S1 and to lesser degree at L2-3. 2. There is multilevel facet degenerative change, contributes to probable moderate spinal stenosis at L2-3 with some other variable lateral recess stenosis. 3. There are stenoses of the common iliac arteries bilaterally by calcified plaque. 4. There are multiple small calculi near the calyceal margin of the visualized right kidney. Electronically signed by: Felix Bergeron MD (08/20/2017 3:23 PM) [id number]
--- NOTE | 2017-08-20 15:28 | KCIC ---
LUMBAR SPINE 2-3V, THORACIC SPINE 3V History: Osteoarthritis at multiple sites Comparison: Two-view chest January 12, 2017 Thoracic spine: Findings: 3 views of the thoracic spine are submitted. Thoracic vertebral body stature and AP alignment have not convincingly changed. There is degenerative disc disease most notable about mid thoracic levels, multilevel mild spondylosis. There is relative bone demineralization. There has been a median sternotomy. There is enlargement of the pericardial cardiac silhouette. Impression: 1. There is degenerative disc disease greatest about mid thoracic levels. There is multilevel mild spondylosis. There is bone demineralization. Lumbar spine: FINDINGS: 3 views lumbar spine are submitted. There is bony demineralization. Lumbar vertebral body stature is overall preserved. There is multilevel mild spondylosis. There is multilevel facet degenerative change. There is degenerative disc disease greatest at L4-5 and L5-S1. There is atherosclerotic calcification of the abdominal aorta. IMPRESSION: 1. There is multilevel facet degenerative change. There is degenerative disc disease greatest L4-5 and L5-S1. There is bone demineralization. Electronically signed by: Felix Bergeron MD (08/20/2017 3:25 PM) [email or web address]
--- NOTE | 2017-08-20 15:31 | KCIC ---
HIP RIGHT 2 VIEW History: Osteoarthritis, right hip pain Comparison: None. Findings: 2 views of the right hip are submitted. No no displaced fracture is identified. There is some subtle lucency at the cortical surfaces of the femoral neck although difficult to identify discrete fracture plane otherwise. There is vascular calcification. There is suggestion there could be some mild chondrocalcinosis. Right femoral head morphology is preserved. There is mild narrowing of the right hip joint space Impression: 1. There is some subtle lucency of the cortical surfaces of the right femoral neck although discrete fracture plane otherwise not confidently identified. If there is clinical suspicion for occult recent fracture, MRI evaluation could be beneficial. There is mild osteoarthritic change of the right hip. There is bone demineralization. Electronically signed by: Felix Bergeron MD (08/20/2017 3:28 PM) [email or web address]
== END | disposition home or self-care (01) ==
LOC: KCIC CT 13:44
PROVIDERS: ATTEND Family Medicine
DX: M16.11 Unilateral primary osteoarthritis, right hip (principal); M48.061 Spinal stenosis, lumbar region without neurogenic claudication; M51.36 Other intervertebral disc degeneration, lumbar region; M51.37 Other intervertebral disc degeneration, lumbosacral region; M81.8 Other osteoporosis without current pathological fracture; I70.0 Atherosclerosis of aorta
CPT/HCPCS: 72072; 72100; 72131; 73502

== ENCOUNTER → 2017-10-15 | Outpatient (CLI) | payer MEDICARE, OTHER ==
[2017-10-15 12:00] LABS: PROSTATE SPECIFIC ANTIGEN 0.11 ng/mL (0.00-4.00)
== END | disposition home or self-care (01) ==
LOC: LAB 09:54
DX: Z12.5 Encounter for screening for malignant neoplasm of prostate (principal); N40.1 Benign prostatic hyperplasia with lower urinary tract symptoms
CPT/HCPCS: 36415; G0103

== ENCOUNTER → 2018-01-19 | Outpatient (CLI) | payer MEDICARE, OTHER | END | disposition home or self-care (01) | LOC: ECHO 07:50 | DX: I25.810 Atherosclerosis of coronary artery bypass graft(s) without angina pectoris (principal); I08.1 Rheumatic disorders of both mitral and tricuspid valves; I13.0 Hypertensive heart and chronic kidney disease with heart failure and stage 1 through stage 4 chronic kidney disease, or unspecified chronic kidney disease; I50.9 Heart failure, unspecified; N18.4 Chronic kidney disease, stage 4 (severe); Z95.1 Presence of aortocoronary bypass graft | CPT/HCPCS: 93306 ==

== ENCOUNTER 2018-03-19 10:01 | Outpatient (CLI) | payer MEDICARE, OTHER ==
[~2018-03-19] VITALS: Ht 177.8 cm; Wt 99.8 kg
[~2018-03-19 10:01] MED LIST changes: +CARV3.12 PO; +CEPH500T PO; +CYAN100070 PO; +FINA5TAB4 PO; +HYDR10CA3 PO; +MIDAZOLAM HCL/PF 5 MG/5 ML VIAL. ONE; +POTA20PA21 PO; +WARF1TAB69 PO; -WARF1TAB7 PO; +WARF3TAB50 PO; -WARF3TAB7 PO; +fentaNYL PF VIAL 100 MCG/2 ML VIAL ONE
[2018-03-19 10:33] VITALS: BP 134/68
[2018-03-19 10:51] LABS: BASO % 1 % (0-3); EOS % 1 % (0-3); HEMATOCRIT 23.6 % (39.0-53.0); HEMOGLOBIN 8.2 g/dL (13.0-17.5); LYMPH # 0.9 x10^3/uL (1.0-4.8); LYMPH % 40 % (24-48); MEAN CORPUSCULAR HEMOGLOBIN 36 pg (25-35); MEAN CORPUSCULAR HGB CONC 35 g/dL (31-37); MEAN CORPUSCULAR VOLUME 105 fL (79-100); MONO # 1.3 x10^3/uL (0.0-1.1); MONO % 55 % (0-9); NEUT # 0.1 x10^3uL (1.8-7.7); NEUT % 5 % (31-73); RED BLOOD COUNT 2.25 x10^6/uL (4.30-5.70); RED CELL DISTRIBUTION WIDTH 26.1 % (11.5-14.5); WHITE BLOOD COUNT 2.3 x10^3/uL (4.0-11.0)
[2018-03-19] MEDS ORDERED: LIDOCAINE 1%/EPI 1:100,000 20 ML VIAL. ONE (10:58)
[2018-03-19 10:59] LABS: PLATELET COUNT 13 x10^3/uL (140-400)
[2018-03-19 11:02] LABS: PROTHROMBIN TIME PATIENT 13.2 SEC (11.7-14.0)
[2018-03-19 12:56] LABS: % BANDS 4 % (0-9); % BLASTS 27 % (0-0); % LYMPHS 59 % (24-48); % METAS 1 % (0-0); % MONOS 3 % (0-10); % SEGS 6 % (35-66)
[2018-03-19 12:57] LABS: PLT ESTIMATE DECREASED (ADEQUATE)
[2018-03-19 12:58] LABS: ANISOCYTOSIS MARKED; OVALOCYTES FEW; SCHISTOCYTES OCC
[2018-03-28] MEDS ORDERED: ALLO100T PO (07:13)
[2018-03-28] MEDS ORDERED: FERR325T14 PO (07:13)
[2018-03-28] MEDS ORDERED: LIDO30CR TP (07:13)
[2018-03-28] MEDS ORDERED: CHOL10003 PO (07:13)
[2018-03-28] MEDS ORDERED: ACYC400T PO (07:13)
[2018-03-28] MEDS ORDERED: FLUC200T4 PO (07:13)
== END 2018-03-19 11:50 | disposition home or self-care (01) ==
LOC: INTRAD 10:01
PROVIDERS: ATTEND Internal Medicine Hematology & Oncology
DX: C92.00 Acute myeloblastic leukemia, not having achieved remission (principal); Z53.9 Procedure and treatment not carried out, unspecified reason; I13.2 Hypertensive heart and chronic kidney disease with heart failure and with stage 5 chronic kidney disease, or end stage renal disease; N18.5 Chronic kidney disease, stage 5; I50.20 Unspecified systolic (congestive) heart failure; M19.90 Unspecified osteoarthritis, unspecified site; I73.9 Peripheral vascular disease, unspecified; N25.81 Secondary hyperparathyroidism of renal origin; E78.00 Pure hypercholesterolemia, unspecified; I25.10 Atherosclerotic heart disease of native coronary artery without angina pectoris; I42.9 Cardiomyopathy, unspecified; K21.9 Gastro-esophageal reflux disease without esophagitis; Z96.1 Presence of intraocular lens; Z99.2 Dependence on renal dialysis; Z79.01 Long term (current) use of anticoagulants; Z79.899 Other long term (current) drug therapy; Z90.49 Acquired absence of other specified parts of digestive tract; Z88.1 Allergy status to other antibiotic agents; Z88.8 Allergy status to other drugs, medicaments and biological substances; Z88.2 Allergy status to sulfonamides; Z88.6 Allergy status to analgesic agent; Z72.89 Other problems related to lifestyle; Z98.42 Cataract extraction status, left eye; Z98.41 Cataract extraction status, right eye; Z86.14 Personal history of Methicillin resistant Staphylococcus aureus infection; Z95.1 Presence of aortocoronary bypass graft; Z95.5 Presence of coronary angioplasty implant and graft; Z95.0 Presence of cardiac pacemaker; Z87.891 Personal history of nicotine dependence; Z82.61 Family history of arthritis; Z83.2 Family history of diseases of the blood and blood-forming organs and certain disorders involving the immune mechanism; Z82.0 Family history of epilepsy and other diseases of the nervous system; Z81.8 Family history of other mental and behavioral disorders; Z83.79 Family history of other diseases of the digestive system; Z82.49 Family history of ischemic heart disease and other diseases of the circulatory system; Z82.5 Family history of asthma and other chronic lower respiratory diseases; Z83.3 Family history of diabetes mellitus; Z80.1 Family history of malignant neoplasm of trachea, bronchus and lung; Z80.59 Family history of malignant neoplasm of other urinary tract organ
CPT/HCPCS: 36415; 85007; 85025; 85610; 85730

== ENCOUNTER 2018-03-22 06:54 | Outpatient (CLI) | payer MEDICARE, OTHER ==
[2018-03-22 07:42] LABS: ADD MAN DIFF? NO
[2018-03-22 07:49] LABS: BASO % 1 % (0-3); EOS % 1 % (0-3); LYMPH # 0.9 x10^3/uL (1.0-4.8); LYMPH % 40 % (24-48); MEAN CORPUSCULAR HEMOGLOBIN 36 pg (25-35); MEAN CORPUSCULAR HGB CONC 34 g/dL (31-37); MEAN CORPUSCULAR VOLUME 105 fL (79-100); MONO # 1.2 x10^3/uL (0.0-1.1); MONO % 54 % (0-9); NEUT # 0.1 x10^3uL (1.8-7.7); NEUT % 4 % (31-73); RED BLOOD COUNT 1.94 x10^6/uL (4.30-5.70); RED CELL DISTRIBUTION WIDTH 26.5 % (11.5-14.5)
[2018-03-22 08:02] LABS: HEMATOCRIT 20.3 % (39.0-53.0); PLATELET COUNT 11 x10^3/uL (140-400)
[2018-03-22 08:04] LABS: WHITE BLOOD COUNT 2.1 x10^3/uL (4.0-11.0)
[2018-03-22 08:14] LABS: PROTHROMBIN TIME PATIENT 12.9 SEC (11.7-14.0)
[2018-03-22 08:48] LABS: IMMEDIATE SPIN CROSSMATCH 1 1
[2018-03-22 10:04] LABS: IMMEDIATE SPIN CROSSMATCH 1
[2018-03-22] MEDS ORDERED: LIDOCAINE 1%/EPI 1:100,000 20 ML VIAL. (11:34)
[2018-03-22] MEDS ORDERED: MIDAZOLAM HCL/PF 5 MG/5 ML VIAL. (12:09)
[2018-03-22] MEDS ORDERED: fentaNYL PF VIAL 100 MCG/2 ML VIAL (12:09)
[2018-03-22] MEDS: MIDAZOLAM HCL/PF 5 MG/5 ML VIAL. IV (12:52)
[2018-03-22] MEDS: LIDOCAINE 1%/EPI 1:100,000 20 ML VIAL. IJ (12:52)
[2018-03-22] MEDS: fentaNYL PF VIAL 100 MCG/2 ML VIAL IV (12:53)
== END 2018-03-22 14:30 | disposition home or self-care (01) ==
LOC: INTRAD 06:54
DX: C92.00 Acute myeloblastic leukemia, not having achieved remission (principal); Z98.42 Cataract extraction status, left eye; Z98.41 Cataract extraction status, right eye; Z96.1 Presence of intraocular lens; I49.5 Sick sinus syndrome; I42.9 Cardiomyopathy, unspecified; I25.10 Atherosclerotic heart disease of native coronary artery without angina pectoris; Z95.1 Presence of aortocoronary bypass graft; Z95.4 Presence of other heart-valve replacement; Z95.5 Presence of coronary angioplasty implant and graft; Z95.0 Presence of cardiac pacemaker; E78.00 Pure hypercholesterolemia, unspecified; Z86.010 Personal history of colon polyps; Z90.49 Acquired absence of other specified parts of digestive tract; K21.9 Gastro-esophageal reflux disease without esophagitis; Z96.653 Presence of artificial knee joint, bilateral; M19.90 Unspecified osteoarthritis, unspecified site; Z72.89 Other problems related to lifestyle; Z79.01 Long term (current) use of anticoagulants; F17.210 Nicotine dependence, cigarettes, uncomplicated; Z86.14 Personal history of Methicillin resistant Staphylococcus aureus infection; Z82.49 Family history of ischemic heart disease and other diseases of the circulatory system; Z83.79 Family history of other diseases of the digestive system; Z88.1 Allergy status to other antibiotic agents; Z88.8 Allergy status to other drugs, medicaments and biological substances; Z82.61 Family history of arthritis; Z83.3 Family history of diabetes mellitus; I13.2 Hypertensive heart and chronic kidney disease with heart failure and with stage 5 chronic kidney disease, or end stage renal disease; N18.6 End stage renal disease; I50.20 Unspecified systolic (congestive) heart failure; M10.9 Gout, unspecified; I25.2 Old myocardial infarction; I48.0 Paroxysmal atrial fibrillation; Z87.11 Personal history of peptic ulcer disease
CPT/HCPCS: 36415; 36561; 76937; 77001; 85025; 85610; 86850; 86900; 86901; 86920; 99152; 99153; C1751; C1788; C1892; J0690; J2250; J3010; J3490; P9016; P9035

== ENCOUNTER 2018-03-28 02:57 | Inpatient (IN) | payer MEDICARE, OTHER ==
[2018-03-28] MEDS ORDERED: IV NORMAL SALINE 1000ML BAG 1,000 ML IV (03:00)
[2018-03-28] MEDS ORDERED: 0.9 % SOD CHL for STERILE FIELD 10 ML DISP.SYRIN. (03:39)
[2018-03-28 04:06] LABS: BILIRUBIN,URINE NEGATIVE (NEG); CLARITY,URINE CLEAR; COLOR,URINE YELLOW; GLUCOSE,URINE NEGATIVE (NEG); NITRITE,URINE NEGATIVE (NEG); PROTEIN,URINE NEGATIVE (NEG-TRACE); UROBILINOGEN,URINE 0.2 mg/dL (0.2 mg/dL)
[2018-03-28 04:10] LABS: BACTERIA,URINE 0 /HPF (0-FEW); SQUAMOUS EPITHELIAL CELL,UR OCC /LPF; WBC,URINE 0 /HPF (0-4)
[2018-03-28 04:23] LABS: BASO % 1 % (0-3); EOS % 1 % (0-3); LYMPH # 0.5 x10^3/uL (1.0-4.8); LYMPH % 37 % (24-48); MEAN CORPUSCULAR HEMOGLOBIN 36 pg (25-35); MEAN CORPUSCULAR HGB CONC 36 g/dL (31-37); MEAN CORPUSCULAR VOLUME 101 fL (79-100); MONO # 0.8 x10^3/uL (0.0-1.1); MONO % 55 % (0-9); NEUT # 0.1 x10^3uL (1.8-7.7); NEUT % 7 % (31-73); RED BLOOD COUNT 1.86 x10^6/uL (4.30-5.70); RED CELL DISTRIBUTION WIDTH 26.1 % (11.5-14.5)
[2018-03-28 04:30] LABS: ANION GAP 7 (6-14); BLOOD UREA NITROGEN 79 mg/dL (8-26); BUN/CREATININE RATIO 19 (6-20); CALCIUM 9.4 mg/dL (8.5-10.1); CARBON DIOXIDE 27 mmol/L (21-32); CHLORIDE 102 mmol/L (98-107); CREATININE 4.1 mg/dL (0.7-1.3); GFR 14.4; GLUCOSE 114 mg/dL (70-99); HEMOGLOBIN 6.7 g/dL (13.0-17.5); POTASSIUM 5.5 mmol/L (3.5-5.1); SODIUM 136 mmol/L (136-145); WHITE BLOOD COUNT 1.4 x10^3/uL (4.0-11.0)
[2018-03-28 04:31] LABS: ADD MAN DIFF? YES; HEMATOCRIT 18.8 % (39.0-53.0); PLATELET COUNT 21 x10^3/uL (140-400)
[2018-03-28 04:36] LABS: ALBUMIN 3.1 g/dL (3.4-5.0); ALBUMIN/GLOBULIN RATIO 0.7 (1.0-1.7); ALK PHOS 140 U/L (46-116); ALT (SGPT) 26 U/L (16-63); AST (SGOT) 32 U/L (15-37); MAGNESIUM 2.3 mg/dL (1.8-2.4); TOTAL BILIRUBIN 0.5 mg/dL (0.2-1.0); TOTAL PROTEIN 7.3 g/dL (6.4-8.2)
[2018-03-28 04:36] LABS: TROPONINI 0.049 ng/mL (0.000-0.055)
[2018-03-28 04:44] LABS: NT-PRO BNP 9509 pg/mL (0-124)
[2018-03-28 04:44] LABS: CKMB MASS 2.1 ng/mL (0.0-3.6); CREATINE KINASE 53 U/L (39-308)
[2018-03-28] MEDS ORDERED: ONDANSETRON PF 4 MG/2 ML VIAL. IV ×2 (05:30→18:15)
[2018-03-28] MEDS: CEFEPIME HCL IV Push 2 GM VIAL. IVP (06:00)
[2018-03-28] MEDS ORDERED: CEFEPIME HCL 2 GM in IV DEXTROSE 5% 100ML 100 ML IV (06:00)
[2018-03-28 11:36] LABS: HEMOGLOBIN 7.1 g/dL (13.0-17.5)
[2018-03-28 11:39] LABS: PLATELET COUNT 18 x10^3/uL (140-400)
[2018-03-28 11:39] LABS: HEMATOCRIT 20.1 % (39.0-53.0)
[2018-03-28 11:42] LABS: FIBRINOGEN 379 mg/dL (200-440)
[2018-03-28 11:43] LABS: INR 1.3 (0.8-1.1); PROTHROMBIN TIME PATIENT 15.9 SEC (11.7-14.0)
[2018-03-28 14:18] LABS: IMMEDIATE SPIN CROSSMATCH 1
[2018-03-28] MEDS ORDERED: MORPHINE SULFATE 2 MG/ML DISP.SYRIN. IV (18:15)
[2018-03-28] MEDS ORDERED: ALBUTEROL SULFATE 2.5 MG/3 ML NEBU. NEB (18:15)
[2018-03-28] MEDS ORDERED: CALCIUM CARBONATE 500 MG TAB.CHEW PO (18:15)
[2018-03-28 18:25] LABS: HEMATOCRIT 23.2 % (39.0-53.0)
[2018-03-28 18:25] LABS: HEMOGLOBIN 8.2 g/dL (13.0-17.5)
[2018-03-28] MEDS: diphenhydrAMINE 50 MG/ML VIAL IVP (18:36)
[2018-03-28] MEDS: methylPREDNISolone SOD SUCC PF 125 MG/2 ML VIAL. IV (18:37)
[2018-03-28] MEDS: ACETAMINOPHEN 325 MG TABLET. PO (18:37)
[2018-03-28] MEDS: FAMOTIDINE 20 MG TABLET. PO (20:43)
[2018-03-28] MEDS: ATORVASTATIN CALCIUM 20 MG TABLET PO (20:43)
[2018-03-28] MEDS: ACYCLOVIR 200 MG CAPSULE. PO (20:43)
[2018-03-28] MEDS: DICYCLOMINE HCL 10 MG CAPSULE PO (20:43)
[2018-03-28] MEDS: TAMSULOSIN 0.4 MG CAP.ER.24H. PO (20:43)
[2018-03-28] MEDS: LIDOCAINE/PRILOCAINE TOPICAL CREAM 5GM TUBE. TP (20:45)
[2018-03-28] MEDS: HYDROCODONE PO (21:00)
[2018-03-29 05:20] LABS: ANION GAP 8 (6-14); BLOOD UREA NITROGEN 70 mg/dL (8-26); CALCIUM 9.5 mg/dL (8.5-10.1); CARBON DIOXIDE 28 mmol/L (21-32); CHLORIDE 101 mmol/L (98-107); CREATININE 3.1 mg/dL (0.7-1.3); GFR 19.9; GLUCOSE 139 mg/dL (70-99); POTASSIUM 4.9 mmol/L (3.5-5.1); SODIUM 137 mmol/L (136-145)
[2018-03-29] MEDS: CEFEPIME HCL IV Push 2 GM VIAL. IVP (05:23)
[2018-03-29] MEDS: HYDROcodone/APAP 10/325 1 TAB TABLET PO ×2 (07:31→19:06)
[2018-03-29] MEDS: CYANOCOBALAMIN (VITAMIN B-12) 1,000 MCG TABLET. PO (08:31)
[2018-03-29] MEDS: FERROUS SULFATE 325 MG TABLET. PO (08:31)
[2018-03-29] MEDS: metOLazone 2.5 MG TABLET PO ×3 (08:31→16:53)
[2018-03-29] MEDS: FLUCONAZOLE 100 MG TABLET. PO (08:31)
[2018-03-29] MEDS: FUROSEMIDE 80 MG TABLET. PO ×2 (08:31→16:53)
[2018-03-29] MEDS: FOLIC/VIT B COMP W-C (RENAL) TABLET. PO (08:31)
[2018-03-29] MEDS: LACTOBACILLUS RHAMNOSUS GG 1 CAPSULE. PO (08:31)
[2018-03-29] MEDS: TAMSULOSIN 0.4 MG CAP.ER.24H. PO ×2 (08:32→21:41)
[2018-03-29] MEDS: CHOLECALCIFEROL (VITAMIN D3) 1,000 UNIT TABLET PO (08:32)
[2018-03-29] MEDS: PANTOPRAZOLE 40 MG TABLET.DR. PO (08:32)
[2018-03-29] MEDS: ALLOPURINOL 300 MG TABLET. PO (08:32)
[2018-03-29] MEDS: MAGNESIUM OXIDE 400 MG TABLET PO (08:32)
[2018-03-29] MEDS: FINASTERIDE 5 MG TABLET. PO (08:32)
[2018-03-29] MEDS: DICYCLOMINE HCL 10 MG CAPSULE PO ×3 (08:32→21:40)
[2018-03-29] MEDS: ACYCLOVIR 200 MG CAPSULE. PO ×2 (08:33→21:40)
[2018-03-29] MEDS: HYDROCODONE PO ×2 (08:33→21:40)
[2018-03-29] MEDS ORDERED: DOCUSATE SODIUM 100 MG CAPSULE. PO (08:45)
[2018-03-29] MEDS ORDERED: POLYETHYLENE GLYCOL 3350 17 GM PACKET. PO (08:45)
[2018-03-29] MEDS ORDERED: NON FORMULARY ITEM (Omeprazole 1 CAP) PO (09:00)
[2018-03-29] MEDS ORDERED: GRP E PO (09:00)
[2018-03-29] MEDS ORDERED: CELERY EX PO (09:00)
[2018-03-29] MEDS ORDERED: HYDROcodone/APAP 10/325 1 TAB TABLET PO (09:00)
[2018-03-29] MEDS ORDERED: VIT C PO (09:00)
[2018-03-29] MEDS ORDERED: CHERRY PO (09:00)
[2018-03-29] MEDS: LIDOCAINE/PRILOCAINE TOPICAL CREAM 5GM TUBE. TP ×2 (09:00→21:00)
[2018-03-29 11:37] LABS: TRANSFUSION REACTION 1 1
[2018-03-29] MEDS: diphenhydrAMINE 50 MG/ML VIAL IVP (11:37)
[2018-03-29] MEDS: ACETAMINOPHEN 500 MG TABLET PO (11:37)
[2018-03-29 12:10] LABS: INR 1.2 (0.8-1.1); PROTHROMBIN TIME PATIENT 14.6 SEC (11.7-14.0)
[2018-03-29] MEDS: FAMOTIDINE 20 MG TABLET. PO (21:40)
[2018-03-29] MEDS: ATORVASTATIN CALCIUM 20 MG TABLET PO (21:41)
[2018-03-30] MEDS: CEFEPIME HCL IV Push 2 GM VIAL. IVP (05:34)
[2018-03-30 07:39] LABS: MRSA BY PCR Negative (Negative)
[2018-03-30] MEDS: LACTOBACILLUS RHAMNOSUS GG 1 CAPSULE. PO (09:00)
[2018-03-30] MEDS: LIDOCAINE/PRILOCAINE TOPICAL CREAM 5GM TUBE. TP (09:00)
[2018-03-30] MEDS: PANTOPRAZOLE 40 MG TABLET.DR. PO (09:45)
[2018-03-30] MEDS: HYDROCODONE PO (09:45)
[2018-03-30] MEDS: DICYCLOMINE HCL 10 MG CAPSULE PO ×2 (09:45→16:00)
[2018-03-30] MEDS: FLUCONAZOLE 100 MG TABLET. PO (09:45)
[2018-03-30] MEDS: CHOLECALCIFEROL (VITAMIN D3) 1,000 UNIT TABLET PO (09:46)
[2018-03-30] MEDS: FUROSEMIDE 80 MG TABLET. PO ×2 (09:46→16:00)
[2018-03-30] MEDS: CYANOCOBALAMIN (VITAMIN B-12) 1,000 MCG TABLET. PO (09:46)
[2018-03-30] MEDS: ACYCLOVIR 200 MG CAPSULE. PO (09:46)
[2018-03-30] MEDS: ALLOPURINOL 300 MG TABLET. PO (09:47)
[2018-03-30] MEDS: FOLIC/VIT B COMP W-C (RENAL) TABLET. PO (09:47)
[2018-03-30] MEDS: MAGNESIUM OXIDE 400 MG TABLET PO (09:47)
[2018-03-30] MEDS: FERROUS SULFATE 325 MG TABLET. PO (09:47)
[2018-03-30] MEDS: TAMSULOSIN 0.4 MG CAP.ER.24H. PO (09:48)
[2018-03-30] MEDS: FINASTERIDE 5 MG TABLET. PO (09:48)
[2018-03-30 12:32] LABS: % LYMPHS 28 % (24-48); % MONOS 52 % (0-10); % MYELOS 2 % (0-0); % SEGS 8 % (35-66)
[2018-03-30 12:34] LABS: % BLASTS 10 % (0-0); PLT ESTIMATE DECREASED (ADEQUATE)
[2018-03-30 13:08] LABS: ADD MAN DIFF? NO
[2018-03-30 13:10] LABS: BASO % 1 % (0-3); EOS % 0 % (0-3); HEMOGLOBIN 8.3 g/dL (13.0-17.5); LYMPH # 0.8 x10^3/uL (1.0-4.8); LYMPH % 52 % (24-48); MEAN CORPUSCULAR HEMOGLOBIN 34 pg (25-35); MEAN CORPUSCULAR HGB CONC 35 g/dL (31-37); MEAN CORPUSCULAR VOLUME 98 fL (79-100); MONO # 0.6 x10^3/uL (0.0-1.1); MONO % 43 % (0-9); NEUT # 0.1 x10^3uL (1.8-7.7); NEUT % 5 % (31-73); PLATELET COUNT 39 x10^3/uL (140-400); RED BLOOD COUNT 2.44 x10^6/uL (4.30-5.70); RED CELL DISTRIBUTION WIDTH 22.7 % (11.5-14.5)
[2018-03-30 13:22] LABS: WHITE BLOOD COUNT 1.5 x10^3/uL (4.0-11.0)
[2018-03-30 13:34] LABS: ANION GAP 8 (6-14); BLOOD UREA NITROGEN 79 mg/dL (8-26); CALCIUM 9.2 mg/dL (8.5-10.1); CARBON DIOXIDE 32 mmol/L (21-32); CHLORIDE 99 mmol/L (98-107); CREATININE 3.2 mg/dL (0.7-1.3); GFR 19.2; GLUCOSE 128 mg/dL (70-99); POTASSIUM 3.2 mmol/L (3.5-5.1); SODIUM 139 mmol/L (136-145)
[2018-03-30] MEDS: POTASSIUM CHLORIDE 20 MEQ TABLET.ER. PO (16:00)
== END 2018-03-30 18:00 | disposition home or self-care (01) | DRG 808 ==
LOC: ER 02:57 → 5 SOUTH 05:25
PROC: 30233R1 Transfusion of Nonautologous Platelets into Peripheral Vein, Percutaneous Approach (ICD-10-PCS; principal; 2018-03-28)
PROC: 30233N1 Transfusion of Nonautologous Red Blood Cells into Peripheral Vein, Percutaneous Approach (ICD-10-PCS; 2018-03-29)
DX: D61.810 Antineoplastic chemotherapy induced pancytopenia (principal); I50.23 Acute on chronic systolic (congestive) heart failure; C92.00 Acute myeloblastic leukemia, not having achieved remission; N17.9 Acute kidney failure, unspecified; I13.0 Hypertensive heart and chronic kidney disease with heart failure and stage 1 through stage 4 chronic kidney disease, or unspecified chronic kidney disease; D69.59 Other secondary thrombocytopenia; E78.5 Hyperlipidemia, unspecified; G89.29 Other chronic pain; I25.10 Atherosclerotic heart disease of native coronary artery without angina pectoris; I48.91 Unspecified atrial fibrillation; I25.2 Old myocardial infarction; K21.9 Gastro-esophageal reflux disease without esophagitis; N18.9 Chronic kidney disease, unspecified; N40.0 Benign prostatic hyperplasia without lower urinary tract symptoms; R04.0 Epistaxis; T45.1X5A Adverse effect of antineoplastic and immunosuppressive drugs, initial encounter; E21.3 Hyperparathyroidism, unspecified; M10.9 Gout, unspecified; M19.90 Unspecified osteoarthritis, unspecified site; Z96.659 Presence of unspecified artificial knee joint; Z80.1 Family history of malignant neoplasm of trachea, bronchus and lung; Z82.49 Family history of ischemic heart disease and other diseases of the circulatory system; Z87.891 Personal history of nicotine dependence; Z87.11 Personal history of peptic ulcer disease; Z95.0 Presence of cardiac pacemaker; Z95.1 Presence of aortocoronary bypass graft; Z95.2 Presence of prosthetic heart valve; Z99.2 Dependence on renal dialysis; Z87.01 Personal history of pneumonia (recurrent); Z88.8 Allergy status to other drugs, medicaments and biological substances; Z90.49 Acquired absence of other specified parts of digestive tract
CPT/HCPCS: 36415; 71046; 80048; 80053; 81001; 82553; 83605; 83735; 83880; 84484; 85007; 85014; 85018; 85025; 85049; 85384; 85610; 86078; 86850; 86900; 86901; 86920; 87040; 87641; 93005; 96374; 97161-GP; 97166-GO; 99285; 99285-25; J0692; J1200; J2930; P9016; P9035

== ENCOUNTER 2018-04-08 17:01 | Inpatient (IN) | payer MEDICARE, OTHER ==
[~2018-04-08] VITALS: Ht 177.8 cm; Wt 99.8 kg
[~2018-04-08 17:01] MED LIST changes: +ACYC400T PO; +ALLO100T PO; +CHOL10003 PO; +FERR325T14 PO; +FLUC200T4 PO; +LIDO30CR TP; -MIDAZOLAM HCL/PF 5 MG/5 ML VIAL. ONE; -fentaNYL PF VIAL 100 MCG/2 ML VIAL ONE
[2018-04-08 17:36] LABS: BASO % 0 % (0-3); EOS % 2 % (0-3); HEMATOCRIT 24.4 % (39.0-53.0); HEMOGLOBIN 8.5 g/dL (13.0-17.5); LYMPH # 0.6 x10^3/uL (1.0-4.8); LYMPH % 69 % (24-48); MEAN CORPUSCULAR HEMOGLOBIN 33 pg (25-35); MEAN CORPUSCULAR HGB CONC 35 g/dL (31-37); MEAN CORPUSCULAR VOLUME 94 fL (79-100); MONO % 0 % (0-9); NEUT # 0.2 x10^3uL (1.8-7.7); NEUT % 28 % (31-73); RED BLOOD COUNT 2.59 x10^6/uL (4.30-5.70); RED CELL DISTRIBUTION WIDTH 18.9 % (11.5-14.5)
[2018-04-08 17:43] LABS: CALCIUM 9.4 mg/dL (8.5-10.1); CREATININE 4.6 mg/dL (0.7-1.3); GFR 12.6; POTASSIUM 4.9 mmol/L (3.5-5.1)
[2018-04-08 17:49] LABS: PLATELET COUNT 20 x10^3/uL (140-400); WHITE BLOOD COUNT 0.9 x10^3/uL (4.0-11.0)
[2018-04-08 17:52] LABS: PROTHROMBIN TIME PATIENT 14.2 SEC (11.7-14.0)
--- NOTE | 2018-04-08 18:31 | PHYS DOC ---
Past Medical History Past Medical History: CAD, GERD, High Cholesterol, Hypertension, [place], Pancreatitis, Other Additional Past Medical Histor: ANGIOPLASTY, BLD TRANSFUSION, FORMER DIALYSIS, BPH, ULCERS, STAPH BLD Past Surgical History: Angioplasty, Cholecystectomy, Coronary Bypass Surgery, Knee Replacement, Pacemaker Additional Past Surgical Histo: MITRAL VALVE REPLACEMENT, Alcohol Use: Rarely Drug Use: None Adult General Chief Complaint Chief Complaint: ABNORMAL LABS HPI HPI Patient is a 72 year old male with history of leukemia currently on treatment, CAD, hypertension, high cholesterol, who presents today with abnormal labs. Patient states he was seen at [facility]. states they jenna blood this morning and patient's hemoglobin was 5.9 with potassium of 6.3 and creatinine was elevated. He was given 2 units of blood and 20 mg of Lasix. states they sent to the Ed by Dr. Demarco oncologist. states patient has chronic disorientation and is usually more disoriented when he doesn't wear his oxygen. She states he does not like wearing oxygen and has been slightly more disoriented around the times he has no oxygen. He was seen by the PCP this week and they addressed his disorientation. denies patient having any more disorientation than normal. Patient denies any chest pain states patient has history of renal failure. He was on dialysis around 2008 and it was discontinued after patient had an infection. PCP Dr. Morris Review of Systems Review of Systems Constitutional: Denies fever or chills [] Eyes: Denies change in visual acuity, redness, or eye pain [] HENT: Denies nasal congestion or sore throat [] Respiratory: Denies cough or shortness of breath [] Cardiovascular: Elevated potassium GI: Denies abdominal pain, nausea, vomiting, bloody stools or diarrhea [] : Denies dysuria or hematuria [] Musculoskeletal: Denies back pain or joint pain [] Integument: Denies rash or skin lesions [] Neurologic: Chronic disorientation. Denies headache, focal weakness or sensory changes [] Endocrine: Elevated creatinine All other systems were reviewed and found to be within normal limits, except as documented in this note. Allergies Allergies Allergies Coded Allergies Type Severity Reaction Last Updated Verified NSAIDS (Non-Steroidal Anti-Inflamma Allergy Intermediate Hives 04/05/18 Yes Sulfa (Sulfonamide Antibiotics) Allergy Intermediate HIVES 04/05/18 Yes I S O L A T I O N *CONTACT* Allergy Unknown 04/05/18 Yes hydroxyzine Adverse Reaction Intermediate insomnia 04/05/18 Yes Physical Exam Physical Exam Constitutional: Well developed, well nourished, no acute distress, non-toxic appearance. [] HENT: Normocephalic, atraumatic, bilateral external ears normal, oropharynx moist, no oral exudates, nose normal. [] Eyes: PERRLA, EOMI, conjunctiva normal, no discharge. [] Neck: Normal range of motion, no tenderness, supple, no stridor. [] Cardiovascular: Paced rhythm, left upper chest pacemaker, left chest port cath. Lungs & Thorax: Slightly diminished breath sounds to posterior lung bases, patient is on oxygen 3 L. Abdomen: Bowel sounds normal, soft, no tenderness, no masses, no pulsatile masses. [] Skin: Warm, dry, and jaundice Back: No tenderness, no CVA tenderness. [] Extremities: No tenderness, no cyanosis, no clubbing, ROM intact, +2 chronic bilateral lower extremity edema Neurologic: Alert and oriented X 3, normal motor function, normal sensory function, no focal deficits noted. Cranial nerves II through XII intact Psychologic: Affect normal, judgement normal, mood normal. [] Current Patient Data Vital Signs Vital Signs Date Time Temp Pulse Resp B/P (MAP) Pulse Ox O2 Delivery O2 Flow Rate FiO2 04/08/18 17:01 98.1 94 20 126/59 (81) 93 Nasal Cannula 3.0 98.1 Lab Values Laboratory Tests Test 04/08/18 17:20 White Blood Count 0.9 x10^3/uL (4.0-11.0) *L Red Blood Count 2.59 x10^6/uL (4.30-5.70) L Hemoglobin 8.5 g/dL (13.0-17.5) #L Hematocrit 24.4 % (39.0-53.0) L Mean Corpuscular Volume 94 fL (79-100) Mean Corpuscular Hemoglobin 33 pg (25-35) Mean Corpuscular Hemoglobin Concent 35 g/dL (31-37) Red Cell Distribution Width 18.9 % (11.5-14.5) H Platelet Count 20 x10^3/uL (140-400) *L Neutrophils (%) (Auto) 28 % (31-73) L Lymphocytes (%) (Auto) 69 % (24-48) H Monocytes (%) (Auto) 0 % (0-9) Eosinophils (%) (Auto) 2 % (0-3) Basophils (%) (Auto) 0 % (0-3) Neutrophils # (Auto) 0.2 x10^3uL (1.8-7.7) L Lymphocytes # (Auto) 0.6 x10^3/uL (1.0-4.8) L Monocytes # (Auto) 0.0 x10^3/uL (0.0-1.1) Eosinophils # (Auto) 0.0 x10^3/uL (0.0-0.7) Basophils # (Auto) 0.0 x10^3/uL (0.0-0.2) Platelet Estimate Pending Prothrombin Time 14.2 SEC (11.7-14.0) H Prothrombin Time INR 1.2 (0.8-1.1) H PTT 38 SEC (24-38) Sodium Level 132 mmol/L (136-145) L Potassium Level 4.9 mmol/L (3.5-5.1) Chloride Level 96 mmol/L (98-107) L Carbon Dioxide Level 29 mmol/L (21-32) Anion Gap 7 (6-14) Blood Urea Nitrogen 103 mg/dL (8-26) H Creatinine 4.6 mg/dL (0.7-1.3) H Estimated GFR (Cockcroft-Gault) 12.6 Glucose Level 148 mg/dL (70-99) H Calcium Level 9.4 mg/dL (8.5-10.1) Laboratory Tests 04/08/18 17:20 Laboratory Tests 04/08/18 17:20 EKG EKG 17:[address] Alonzo paced rhythm, peaked T waves in V1 and V2, no STEMI, heart rate 90 Radiology/Procedures Radiology/Procedures [] Course & Med Decision Making Course & Med Decision Making Pertinent Labs and Imaging studies reviewed. (See chart for details) This is a 72-year-old male patient presenting to the ED today with abnormal labs. Patient has leukemia and is currently on treatment. Had labs drawn at the doctors office and his hemoglobin was 5.9 he was given 2 units of blood, potassium of 6.3, patient was also given Lasix 20 mg. His creatinine was elevated at the doctors office and he was sent to the emergency room to be evaluated. Patient has history of renal failure. Has been on dialysis before. His last dialysis session was in 2011, he had to be removed from dialysis because of infection. CBC with a WBC of 0.9 platelet 20 neutrophils 0.2 this is all chronic patient was placed on neutropenic precautions. Patient received platelets a couple days ago. Hemoglobin 8.5 hematocrit 24.4. BMP with sodium of 132, BUN 100 creatinine 4.6. Spoke with Dr. Fang requested we admit patient and have nephrology see patient. Spoke with Dr. Deluca who accepted patient for admission. 18:[address] Porter nephrology who will follow-up with patient-she states patient was removed from dialysis because his kidney function and got better. She requested we start patient on IV fluids unless he has signs of fluid overload. Patient does not have signs of fluid overload. Dragon Disclaimer Dragon Disclaimer This electronic medical record was generated, in whole or in part, using a voice recognition dictation system. Departure Departure Impression: Primary Impression: Leukemia Additional Impressions: Acute on chronic renal failure Leukocytopenia Pancytopenia Anemia Neutropenia Disposition: ADMITTED INPATIENT Condition: STABLE Referrals: DANIEL TROY MD (PCP) Problem Qualifiers Primary Impression: Leukemia Leukemia type: unspecified Leukemia Active/Remission status: without remission Qualified Codes: C95.90 - Leukemia, unspecified not having achieved remission Additional Impressions: Acute on chronic renal failure Acute renal failure type: unspecified Chronic kidney disease stage: stage 3 (moderate) Qualified Codes: N17.9 - Acute kidney failure, unspecified; N18.3 - Chronic kidney disease, stage 3 (moderate) Leukocytopenia Leukopenia type: neutropenia Neutropenia type: other Qualified Codes: D70.8 - Other neutropenia Anemia Anemia type: unspecified type Qualified Codes: D64.9 - Anemia, unspecified Neutropenia Neutropenia type: other Qualified Codes: D70.8 - Other neutropenia PURNIMA MENDOSA WHEEL ALIGNER Apr 08, 2018 18:31
[2018-04-08] MEDS ORDERED: ONDANSETRON PF 4 MG/2 ML VIAL. IV PRN (19:00)
[2018-04-08] MEDS ORDERED: IV NORMAL SALINE 1000ML BAG 1,000 ML IV ONE ×2 (19:00)
[2018-04-08] MEDS ORDERED: MORPHINE SULFATE 4 MG/ML DISP.SYRIN. IV PRN (19:00)
[2018-04-08] MEDS ORDERED: ACETAMINOPHEN 325 MG TABLET. PO PRN (19:00)
[2018-04-08 19:30] VITALS: BP 133/66
[2018-04-08 20:44] LABS: % EOS 1 % (0-5); PLT ESTIMATE DECREASED (ADEQUATE)
[2018-04-08 20:45] LABS: ANISOCYTOSIS SLIGHT; POIKILOCYTOSIS SLIGHT
[2018-04-08 20:46] LABS: OVALOCYTES OCC
[2018-04-08 20:47] LABS: % BLASTS 12 % (0-0); % LYMPHS 81 % (24-48); % MONOS 1 % (0-10); % OTHERS 2 % (0-0); % SEGS 3 % (35-66); SCHISTOCYTES OCC
[2018-04-08 23:00] VITALS: BP 119/83
[2018-04-09] VITALS (10 sets, daily range): BP systolic 91–131; BP diastolic 49–75
--- NOTE | 2018-04-09 06:22 | EKG ---
[facility] [address] [place] [address] Test Date: 2018-04-08 Test Time: 17:25:53 Pat Name: LEONIDAS GRECO Department: Room: Gender: M Marinator: : 1945 Requested By: PURNIMA MENDOSA Order Number: [id number] Reading MD: Measurements Intervals [place] Rate: 90 P: 126 NE: 242 QRS: -28 QRSD: 142 T: 139 QT: 390 QTc: 481 Interpretive Statements SINUS RHYTHM PROLONGED NE INTERVAL LEFTWARD AXIS RIGHT BUNDLE BRANCH BLOCK RVH WITH REPOLARIZATION ABNORMALITY QRS(T) CONTOUR ABNORMALITY CONSIDER ANTEROSEPTAL MYOCARDIAL DAMAGE ABNORMAL ECG RI6.01 No previous ECG available for comparison
[2018-04-09 08:41] LABS: BASO % 1 % (0-3); EOS % 2 % (0-3); HEMOGLOBIN 7.1 g/dL (13.0-17.5); LYMPH # 0.3 x10^3/uL (1.0-4.8); LYMPH % 69 % (24-48); MEAN CORPUSCULAR HEMOGLOBIN 33 pg (25-35); MEAN CORPUSCULAR HGB CONC 35 g/dL (31-37); MEAN CORPUSCULAR VOLUME 94 fL (79-100); MONO % 0 % (0-9); NEUT # 0.1 x10^3uL (1.8-7.7); NEUT % 28 % (31-73); RED BLOOD COUNT 2.17 x10^6/uL (4.30-5.70); RED CELL DISTRIBUTION WIDTH 18.4 % (11.5-14.5)
[2018-04-09 08:46] LABS: ALBUMIN 2.7 g/dL (3.4-5.0); ALBUMIN/GLOBULIN RATIO 0.8 (1.0-1.7); CALCIUM 8.5 mg/dL (8.5-10.1); CREATININE 3.7 mg/dL (0.7-1.3); GFR 16.2; PHOSPHORUS 4.7 mg/dL (2.6-4.7); POTASSIUM 4.3 mmol/L (3.5-5.1); TOTAL PROTEIN 6.2 g/dL (6.4-8.2); URIC ACID 8.4 mg/dL (3.5-7.2)
[2018-04-09 09:00] LABS: WHITE BLOOD COUNT 0.4 x10^3/uL (4.0-11.0)
[2018-04-09] MEDS ORDERED: LIDOCAINE/PRILOCAINE TOPICAL CREAM 5GM TUBE. TP PRN (09:00)
[2018-04-09] MEDS ORDERED: HYDROCODONE BITARTRATE 20 MG PO SCH (09:00)
--- NOTE | 2018-04-09 09:11 | PDOC1 ---
History and Physical Date of Admission Date of Admission DATE: 04/09/18 TIME: 08:56 Identification/Chief Complaint Chief Complaint weakness Source Source: Caregiver, Chart review, Patient History of Present Illness History of Present Illness Mr. 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 no pain, Dr. Demarco is his Hematologis,t, and outpatient Hgb 5.9 with potassium of 6.3. Past Medical History Past Medical History CAD, hypertension, high cholesterol, CHF Cardiovascular: AFIB, CAD, HTN, Hyperlipidemia, Valve insufficiency, Other GI: GERD Heme/Onc: Anemia NOS, Cancer Hepatobiliary: No pertinent hx Psych: No pertinent hx Musculoskeletal: Other Rheumatologic: Gout Infectious disease: Other Renal/: Chronic renal insuff Endocrine: No pertinent hx Past Surgical History Past Surgical History: Pacemaker, CABG Family History Family History: No Significant, Other Social History ALCOHOL: none Drugs: None Current Problem List Problem List Problems Medical Problems: (1) Anemia Status: Acute (2) Leukocytopenia Status: Acute (3) Neutropenia Status: Acute (4) Pancytopenia Status: Acute Current Medications Current Medications Current Medications Sodium Chloride 1,000 ml @ 125 mls/hr 1X ONCE IV Last administered on at 22:14; Start 04/08/18 at 19:00; Stop 04/09/18 at 01:33; Status DC Ondansetron HCl (Zofran) 4 mg PRN Q8HRS PRN IV NAUSEA/VOMITING; Start 04/08/18 at 19:00; Stop 04/09/18 at 18:59 Morphine Sulfate (Morphine Sulfate) 4 mg PRN Q2HR PRN IV MODERATE PAIN; Start 04/08/18 at 19:00; Stop 04/09/18 at 18:59 Acetaminophen (Tylenol) 650 mg PRN Q4HRS PRN PO FEVER; Start 04/08/18 at 19:00; Stop 04/09/18 at 18:59 Sodium Chloride 1,000 ml @ 125 mls/hr 1X ONCE IV ; Start 04/08/18 at 19:00; Stop 04/09/18 at 02:59; Status DC Allopurinol (Zyloprim) 150 mg DAILY PO ; Start 04/09/18 at 09:00; Status UNV Aspirin (Ecotrin) 81 mg DAILY PO ; Start 04/09/18 at 09:00; Status UNV Atorvastatin Calcium (Lipitor) 20 mg HS PO ; Start 04/09/18 at 21:00; Status UNV Dicyclomine HCl (Bentyl) 10 mg TID PO ; Start 04/09/18 at 09:00; Status UNV Famotidine (Pepcid) 40 mg BID PO ; Start 04/09/18 at 09:00; Status UNV Ferrous Sulfate (Feosol) 325 mg DAILY PO ; Start 04/09/18 at 09:00; Status UNV Finasteride (Proscar) 5 mg DAILY PO ; Start 04/09/18 at 09:00; Status UNV Vitamin B Complex/ Vitamin C (Lupis-Brett) 1 tab DAILY PO ; Start 04/09/18 at 09: 00; Status UNV Furosemide (Lasix) 40 mg BID PO ; Start 04/09/18 at 09:00; Status UNV Lidocaine/ Prilocaine (Emla) 1 meka Q4HRS PRN TP rash; Start 04/09/18 at 09:00; Status UNV Tamsulosin HCl (Flomax) 0.4 mg BID PO ; Start 04/09/18 at 09:00; Status UNV Non-Formulary Medication (Acyclovir ) 1 tab BID PO ; Start 04/09/18 at 09:00; Status UNV Non-Formulary Medication (Fluconazole ) 1 tab DAILY PO ; Start 04/09/18 at 09:00 ; Status UNV Non-Formulary Medication (Hydrocodone Bitartrate (Zohydro ER)) 20 mg BID PO ; Start 04/09/18 at 09:00; Status UNV Non-Formulary Medication (Hydrocodone/ Acetaminophen (Lortab 10-325 mg Tablet)) 1 tab PRN Q4HRS PRN PO PAIN; Start 04/09/18 at 09:00; Status UNV Non-Formulary Medication (Magnesium Oxide (Magnesium)) 1 cap DAILY PO ; Start at 09:00; Status UNV Non-Formulary Medication (Omeprazole ) 1 cap DAILY PO ; Start 04/09/18 at 09:00 ; Status UNV Active Scripts Active Reported Vitamin D3 (Cholecalciferol (Vitamin D3)) 1,000 Unit Tablet 1 Tab PO DAILY Lidocaine-Prilocaine Cream (Lidocaine/Prilocaine) 30 Gm Cream..g. 1 Meka TP UD Fluconazole 200 Mg Tablet 1 Tab PO DAILY Ferrous Sulfate 325 Mg Tablet 1 Tab PO DAILY Allopurinol 100 Mg Tablet 150 Mg PO DAILY Acyclovir 400 Mg Tablet 1 Tab PO BID Galeano Fortumo Capsule (L Gasseri/B Bifidum/B Longum) 1 Each Capsule 1 Each PO DAILY Not given on this admission May resume tomorrow Tart Sidhu Capsule (Vit C/Sidhu & Celery Ex/Grp E) 1 Each Capsule 1 Each PO DAILY not given on this admission May resume tomorrow Zohydro ER (Hydrocodone Bitartrate) 10 Mg Cap.er.12h 20 Mg PO BID LAST DOSE GIVEN: DATE: today TIME: 6:40 NEXT DOSE DUE: DATE: Tonight Magnesium (Magnesium Oxide) 400 Mg Capsule 1 Cap PO DAILY Medication not given here May resume tomorrow Potassium Chloride Packet (Potassium Chloride) 20 Meq Packet 20 Meq PO DAILY Not given today due to procedure Take a dose tonight Metolazone 2.5 Mg Tablet 2.5 Mg PO QMWF Dose given Thursday morning Take a dose Thursday morning Finasteride 5 Mg Tablet 5 Mg PO DAILY LAST DOSE GIVEN: DATE: last night TIME: 9pm NEXT DOSE DUE: DATE: Tonight TIME: 9 pm Furosemide 80 Mg Tablet 80 Mg PO BID LAST DOSE GIVEN: DATE: today TIME: 3pm NEXT DOSE DUE: DATE: Tomorrow TIME: 9 am Dicyclomine Hcl 10 Mg Capsule 1 Cap PO TID Not given on this admission Take this evening Vitamin B-12 (Cyanocobalamin (Vitamin B-12)) 1,000 Mcg Tablet.er 1,000 Mcg PO DAILY LAST DOSE GIVEN: DATE: today TIME: 3pm NEXT DOSE DUE: DATE: Tomorrow TIME: 9 am Lortab 10-325 mg Tablet (Hydrocodone/Acetaminophen) 1 Each Tablet 1 Tab PO PRN Q4HRS PRN LAST DOSE GIVEN: DATE: last night TIME: 11pm NEXT DOSE DUE: when needed Tamsulosin Hcl 0.4 Mg Cap.er.24h 0.4 Mg PO BID LAST DOSE GIVEN: DATE: last night TIME: 9 pm NEXT DOSE DUE: DATE: Tonight TIME: 9pm Famotidine 20 Mg Tablet 40 Mg PO BID Famotidine 20mg was given last night may take tonight Lipitor (Atorvastatin Calcium) 20 Mg Tablet 1 Tab PO HS LAST DOSE GIVEN: DATE: last night TIME: 9pm NEXT DOSE DUE: DATE: Tonight TIME: 9 pm Aspir 81 (Aspirin) 81 Mg Tablet. 1 Tab PO DAILY LAST DOSE GIVEN: DATE: today TIME: 3pm NEXT DOSE DUE: DATE: Tomorrow TIME: 9 am Omeprazole 40 Mg Capsule.dr 1 Cap PO DAILY Not given on this admission May resume in the morning TIME: 9:00 am NEXT DOSE DUE: DATE: 06-13-15 TIME: 9:00 pm Nephro-Brett Tablet (Folic Acid/Vitamin B Comp W-C) 0.8 Mg Tablet 1 Tab PO DAILY LAST DOSE GIVEN: DATE: today TIME: 3pm NEXT DOSE DUE: DATE: Tomorrow TIME: 9 am Allergies Allergies: Coded Allergies: NSAIDS (Non-Steroidal Anti-Inflamma (Verified Allergy, Intermediate, Hives , 04/05/18) Sulfa (Sulfonamide Antibiotics) (Verified Allergy, Intermediate, HIVES, 04/05/18) I S O L A T I O N *CONTACT* (Verified Allergy, Unknown, 04/05/18) mrsa hydroxyzine (Verified Adverse Reaction, Intermediate, insomnia, 04/05/18) ROS General: No: Chills, Night Sweats, Fatigue, Malaise, Appetite, Other PSYCHOLOGICAL ROS: No: Anxiety, Behavioral Disorder, Concentration difficultie , Decreased libido, Depression, Disorientation, Hallucinations, Hostility, Irritablity, Memory difficulties, Mood Swings, Obsessive thoughts, Physical abuse, Sexual abuse, Sleep disturbances, Suicidal ideation, Other Eyes: No Blurry vision, No Decreased vision, No Double vision, No Dry eyes, No Excessive tearing, No Eye Pain, No Itchy Eyes, No Loss of vision, No Photophobia , No Scotomata, No Uses contacts, No Uses glasses, No Other HEENT: No: Heacaches, Visual Changes, Hearing change, Nasal congestion, Nasal discharge, Oral lesions, Sinus pain, Sore Throat, Epistaxis, Sneezing, Snoring, Tinnitus, Vertigo, Vocal changes, Other Respiratory: No: Cough, Hemoptysis, Orthopnea, Pleuritic Pain, Shortness of breath, SOB with excertion, Sputum Changes, Stridor, Tachypnea, Wheezing, Other Cardiovascular: No Chest Pain, No Palpitations, No Orthopnea, No Paroxysmal Noc. Dyspnea, No Edema, No Lt Headedness, No Other Gastrointestinal: No Nausea, No Vomiting, No Abdominal Pain, No Diarrhea, No Constipation, No Melena, No Hematochezia, No Other Genitourinary: No Dysuria, No Frequency, No Incontinence, No Hematuria, No Retention, No Discharge, No Urgency, No Pain, No Flank Pain, No Other, No , No , No , No , No , No , No Musculoskeletal: No Gait Disturbance, No Joint Pain, No Joint Stiffness, No Joint Swelling, No Muscle Pain, No Muscular Weakness, No Pain In:, No Swelling In:, No Other Neurological: No Behavorial Changes, No Bowel/Bladder ControlChng, No Confusion , No Dizziness, No Gait Disturbance, No Headaches, No Impaired Coord/balance, No Memory Loss, No Numbness/Tingling, No Seizures, No Speech Problems, No Tremors, No Visual Changes, No Weakness, No Other Skin: Yes Dry Skin; No Eczema, No Hair Changes, No Lumps, No Mole Changes, No Mottling, No Nail Changes, No Pruritus, No Rash, No Skin Lesion Changes, No Other, No Acne Vitals Vitals Vital Signs Date Time Temp Pulse Resp B/P (MAP) Pulse Ox O2 Delivery O2 Flow Rate FiO2 04/09/18 07:00 97.7 89 18 120/68 (85) 96 Room Air 97.7 04/08/18 19:30 2.0 Labs Labs Laboratory Tests Test 04/08/18 17:20 04/09/18 08:15 White Blood Count 0.9 x10^3/uL (4.0-11.0) Red Blood Count 2.59 x10^6/uL (4.30-5.70) Hemoglobin 8.5 g/dL (13.0-17.5) Hematocrit 24.4 % (39.0-53.0) Mean Corpuscular Volume 94 fL (79-100) Mean Corpuscular Hemoglobin 33 pg (25-35) Mean Corpuscular Hemoglobin Concent 35 g/dL (31-37) Red Cell Distribution Width 18.9 % (11.5-14.5) Platelet Count 20 x10^3/uL (140-400) Neutrophils (%) (Auto) 28 % (31-73) Lymphocytes (%) (Auto) 69 % (24-48) Monocytes (%) (Auto) 0 % (0-9) Eosinophils (%) (Auto) 2 % (0-3) Basophils (%) (Auto) 0 % (0-3) Neutrophils # (Auto) 0.2 x10^3uL (1.8-7.7) Lymphocytes # (Auto) 0.6 x10^3/uL (1.0-4.8) Monocytes # (Auto) 0.0 x10^3/uL (0.0-1.1) Eosinophils # (Auto) 0.0 x10^3/uL (0.0-0.7) Basophils # (Auto) 0.0 x10^3/uL (0.0-0.2) Segmented Neutrophils % 3 % (35-66) Lymphocytes % 81 % (24-48) Monocytes % 1 % (0-10) Eosinophils % 1 % (0-5) Blast Cells % (Manual) 12 % (0-0) Other Cells % 2 % (0-0) Platelet Estimate Decreased (ADEQUATE) Poikilocytosis Slight Anisocytosis Slight Ovalocytes Occ Schistocytes Occ Prothrombin Time 14.2 SEC (11.7-14.0) Prothromb Time International Ratio 1.2 (0.8-1.1) Activated Partial Thromboplast Time 38 SEC (24-38) Sodium Level 132 mmol/L (136-145) 135 mmol/L (136-145) Potassium Level 4.9 mmol/L (3.5-5.1) 4.3 mmol/L (3.5-5.1) Chloride Level 96 mmol/L (98-107) 99 mmol/L (98-107) Carbon Dioxide Level 29 mmol/L (21-32) 29 mmol/L (21-32) Anion Gap 7 (6-14) 7 (6-14) Blood Urea Nitrogen 103 mg/dL (8-26) 85 mg/dL (8-26) Creatinine 4.6 mg/dL (0.7-1.3) 3.7 mg/dL (0.7-1.3) Estimated GFR (Cockcroft-Gault) 12.6 16.2 Glucose Level 148 mg/dL (70-99) 115 mg/dL (70-99) Calcium Level 9.4 mg/dL (8.5-10.1) 8.5 mg/dL (8.5-10.1) BUN/Creatinine Ratio 23 (6-20) Uric Acid 8.4 mg/dL (3.5-7.2) Phosphorus Level 4.7 mg/dL (2.6-4.7) Total Bilirubin 1.0 mg/dL (0.2-1.0) Aspartate Amino Transf (AST/SGOT) 27 U/L (15-37) Alanine Aminotransferase (ALT/SGPT) 22 U/L (16-63) Alkaline Phosphatase 121 U/L (46-116) Total Protein 6.2 g/dL (6.4-8.2) Albumin 2.7 g/dL (3.4-5.0) Albumin/Globulin Ratio 0.8 (1.0-1.7) Laboratory Tests Test 04/08/18 17:20 04/09/18 08:15 White Blood Count 0.9 x10^3/uL (4.0-11.0) Red Blood Count 2.59 x10^6/uL (4.30-5.70) Hemoglobin 8.5 g/dL (13.0-17.5) Hematocrit 24.4 % (39.0-53.0) Mean Corpuscular Volume 94 fL (79-100) Mean Corpuscular Hemoglobin 33 pg (25-35) Mean Corpuscular Hemoglobin Concent 35 g/dL (31-37) Red Cell Distribution Width 18.9 % (11.5-14.5) Platelet Count 20 x10^3/uL (140-400) Neutrophils (%) (Auto) 28 % (31-73) Lymphocytes (%) (Auto) 69 % (24-48) Monocytes (%) (Auto) 0 % (0-9) Eosinophils (%) (Auto) 2 % (0-3) Basophils (%) (Auto) 0 % (0-3) Neutrophils # (Auto) 0.2 x10^3uL (1.8-7.7) Lymphocytes # (Auto) 0.6 x10^3/uL (1.0-4.8) Monocytes # (Auto) 0.0 x10^3/uL (0.0-1.1) Eosinophils # (Auto) 0.0 x10^3/uL (0.0-0.7) Basophils # (Auto) 0.0 x10^3/uL (0.0-0.2) Segmented Neutrophils % 3 % (35-66) Lymphocytes % 81 % (24-48) Monocytes % 1 % (0-10) Eosinophils % 1 % (0-5) Blast Cells % (Manual) 12 % (0-0) Other Cells % 2 % (0-0) Platelet Estimate Decreased (ADEQUATE) Poikilocytosis Slight Anisocytosis Slight Ovalocytes Occ Schistocytes Occ Prothrombin Time 14.2 SEC (11.7-14.0) Prothromb Time International Ratio 1.2 (0.8-1.1) Activated Partial Thromboplast Time 38 SEC (24-38) Sodium Level 132 mmol/L (136-145) 135 mmol/L (136-145) Potassium Level 4.9 mmol/L (3.5-5.1) 4.3 mmol/L (3.5-5.1) Chloride Level 96 mmol/L (98-107) 99 mmol/L (98-107) Carbon Dioxide Level 29 mmol/L (21-32) 29 mmol/L (21-32) Anion Gap 7 (6-14) 7 (6-14) Blood Urea Nitrogen 103 mg/dL (8-26) 85 mg/dL (8-26) Creatinine 4.6 mg/dL (0.7-1.3) 3.7 mg/dL (0.7-1.3) Estimated GFR (Cockcroft-Gault) 12.6 16.2 Glucose Level 148 mg/dL (70-99) 115 mg/dL (70-99) Calcium Level 9.4 mg/dL (8.5-10.1) 8.5 mg/dL (8.5-10.1) BUN/Creatinine Ratio 23 (6-20) Uric Acid 8.4 mg/dL (3.5-7.2) Phosphorus Level 4.7 mg/dL (2.6-4.7) Total Bilirubin 1.0 mg/dL (0.2-1.0) Aspartate Amino Transf (AST/SGOT) 27 U/L (15-37) Alanine Aminotransferase (ALT/SGPT) 22 U/L (16-63) Alkaline Phosphatase 121 U/L (46-116) Total Protein 6.2 g/dL (6.4-8.2) Albumin 2.7 g/dL (3.4-5.0) Albumin/Globulin Ratio 0.8 (1.0-1.7) VTE Prophylaxis Ordered VTE Prophylaxis Devices: Contraindicated VTE Pharmacological Prophylaxi: Contraindicated Assessment/Plan Assessment/Plan acute on chronic renal failure, acute on chronic systolic CHF< with exacerbationm, LE edema severe malnutrition, with obesity, BMI 31 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 Fermin and his , and they seem to have no idea about the problems to be faced with AML CORWIN BHAKTA MD Apr 09, 2018 09:11
[2018-04-09] MEDS ORDERED: LEVO750T5 PO (09:13)
[2018-04-09] MEDS ORDERED: CARV3.12 PO (09:13)
[2018-04-09] MEDS ORDERED: ONDA4TAB12 PO (09:14)
[2018-04-09] MEDS ORDERED: ONDANSETRON ODT 4 MG TAB.RAPDIS. PO PRN (09:30)
[2018-04-09] MEDS: FUROSEMIDE 40 MG TABLET. PO SCH ×2 (09:30→14:48)
[2018-04-09] MEDS ORDERED: FAMOTIDINE 20 MG TABLET. PO SCH (09:30)
[2018-04-09] MEDS: FERROUS SULFATE 325 MG TABLET. PO SCH (09:30)
--- NOTE | 2018-04-09 09:30 | PDOC2 ---
CONSULT Date of Consult Date of Consult DATE: 04/09/18 TIME: 09:25 Reason for Consult Reason for Consult: SONNY on CKD Identification/Chief Complaint Chief Complaint SONNY Source Source: Chart review, Patient History of Present Illness Reason for Visit: Hx Obtained from , Pt is resting Mr. Fermin is a 72 year old CM- Multiple Hospitalizations recently - admitted with hyperkalemia, renal failure and anemia He has AML Dx in in 02/2018, He was started on chemotherapy with Dacogen on . His reports he recently got PRBC (Hgb 5.9) as OP and after that his K was 6 .3 and he was sent to the ER for abnormal labs. He continues to take PO KCL as its the only thing which helps him with leg cramps . He has had poor oral intake, weakness. His thinks he is looking better. She denies that he has confusion. No fevers or chills. No nose bleeds or gum bleeding. No hematemesis,melena or hematochezia. No hemoptysis or hematuria. No nausea, vomiting, diarrhea . No urinary complaint. He was on HD in 2011 . He follows with Dr. toney Diagnosed on 03/04/2018 with a bone marrow biopsy that revealed 65% blasts consistent with AML. Significant PMHx chronic back pain, coronary artery disease, on hemodialysis in 2011; femur fracture, , gout, pneumonia, mitral regurgitation, myocardial infarction, pacemaker placement, atrial fibrillation. Past Medical History Cardiovascular: AFIB, CAD, HTN, Hyperlipidemia, Valve insufficiency, Other GI: GERD Heme/Onc: Anemia NOS, Cancer Hepatobiliary: No pertinent hx Psych: No pertinent hx Musculoskeletal: Other Rheumatologic: Gout Infectious disease: Other Renal/: Chronic renal insuff Endocrine: No pertinent hx Past Surgical History Past Surgical History: Pacemaker, CABG Family History Family History: No Significant, Other Social History ALCOHOL: none Drugs: None Lives: with Family Current Problem List Problem List Problems Medical Problems: (1) Anemia Status: Acute (2) Leukocytopenia Status: Acute (3) Neutropenia Status: Acute (4) Pancytopenia Status: Acute Current Medications Current Medications Current Medications Sodium Chloride 1,000 ml @ 125 mls/hr 1X ONCE IV Last administered on at 22:14; Start 04/08/18 at 19:00; Stop 04/09/18 at 01:33; Status DC Ondansetron HCl (Zofran) 4 mg PRN Q8HRS PRN IV NAUSEA/VOMITING; Start 04/08/18 at 19:00; Stop 04/09/18 at 18:59 Morphine Sulfate (Morphine Sulfate) 4 mg PRN Q2HR PRN IV MODERATE PAIN; Start 04/08/18 at 19:00; Stop 04/09/18 at 18:59 Acetaminophen (Tylenol) 650 mg PRN Q4HRS PRN PO FEVER; Start 04/08/18 at 19:00; Stop 04/09/18 at 18:59 Sodium Chloride 1,000 ml @ 125 mls/hr 1X ONCE IV ; Start 04/08/18 at 19:00; Stop 04/09/18 at 02:59; Status DC Allopurinol (Zyloprim) 150 mg DAILY PO ; Start 04/09/18 at 09:30 Aspirin (Ecotrin) 81 mg DAILY08 PO ; Start 04/09/18 at 09:30 Atorvastatin Calcium (Lipitor) 20 mg HS PO ; Start 04/09/18 at 21:00 Dicyclomine HCl (Bentyl) 10 mg TID PO ; Start 04/09/18 at 09:30 Famotidine (Pepcid) 20 mg BID PO ; Start 04/09/18 at 09:30; Status Cancel Ferrous Sulfate (Feosol) 325 mg DAILY08 PO ; Start 04/09/18 at 09:30 Finasteride (Proscar) 5 mg DAILY PO ; Start 04/09/18 at 09:30 Vitamin B Complex/ Vitamin C (Lupis-Brett) 1 tab DAILY PO ; Start 04/09/18 at 09: 30 Furosemide (Lasix) 40 mg BID92 PO ; Start 04/09/18 at 09:30 Lidocaine/ Prilocaine (Emla) 1 meka PRN Q4HRS PRN TP rash; Start 04/09/18 at 09: 00 Tamsulosin HCl (Flomax) 0.4 mg BID PO ; Start 04/09/18 at 09:30 Non-Formulary Medication (Acyclovir ) 1 tab BID PO ; Start 04/09/18 at 09:00; Status UNV Non-Formulary Medication (Fluconazole ) 1 tab DAILY PO ; Start 04/09/18 at 09:00 ; Status UNV Non-Formulary Medication (Hydrocodone Bitartrate (Zohydro ER)) 20 mg BID PO ; Start 04/09/18 at 09:00; Status UNV Acetaminophen/ Hydrocodone Bitart (Lortab 10/325) 1 tab PRN Q4HRS PRN PO PAIN MILD TO MODERATE; Start 04/09/18 at 09:15 Magnesium Oxide (Magnesium Oxide) 400 mg DAILY PO ; Start 04/09/18 at 09:30 Pantoprazole Sodium (Protonix) 40 mg DAILYAC PO ; Start 04/09/18 at 09:30 Active Scripts Active Reported Ondansetron Odt (Ondansetron) 4 Mg Tab.rapdis 1 Tab PO PRN Q8HRS PRN Levofloxacin 750 Mg Tablet 1 Tab PO QODAY Coreg (Carvedilol) 3.125 Mg Tablet 1 Tab PO BID Vitamin D3 (Cholecalciferol (Vitamin D3)) 1,000 Unit Tablet 1 Tab PO DAILY Lidocaine-Prilocaine Cream (Lidocaine/Prilocaine) 30 Gm Cream..g. 1 Meka TP UD Fluconazole 200 Mg Tablet 1 Tab PO DAILY Allopurinol 100 Mg Tablet 150 Mg PO DAILY Acyclovir 400 Mg Tablet 1 Tab PO BID [place] Capsule (L Gasseri/B Bifidum/B Longum) 1 Each Capsule 1 Each PO DAILY Not given on this admission May resume tomorrow Zohydro ER (Hydrocodone Bitartrate) 10 Mg Cap.er.12h 20 Mg PO BID LAST DOSE GIVEN: DATE: today TIME: 6:40 NEXT DOSE DUE: DATE: Tonight Magnesium (Magnesium Oxide) 400 Mg Capsule 1 Cap PO DAILY Medication not given here May resume tomorrow Potassium Chloride Packet (Potassium Chloride) 20 Meq Packet 20 Meq PO DAILY Not given today due to procedure Take a dose tonight Metolazone 2.5 Mg Tablet 2.5 Mg PO QMWF Dose given Thursday morning Take a dose Thursday morning Finasteride 5 Mg Tablet 5 Mg PO DAILY LAST DOSE GIVEN: DATE: last night TIME: 9pm NEXT DOSE DUE: DATE: Tonight TIME: 9 pm Furosemide 80 Mg Tablet 80 Mg PO BID LAST DOSE GIVEN: DATE: today TIME: 3pm NEXT DOSE DUE: DATE: Tomorrow TIME: 9 am Dicyclomine Hcl 10 Mg Capsule 1 Cap PO TID Not given on this admission Take this evening Vitamin B-12 (Cyanocobalamin (Vitamin B-12)) 1,000 Mcg Tablet.er 1,000 Mcg PO DAILY LAST DOSE GIVEN: DATE: today TIME: 3pm NEXT DOSE DUE: DATE: Tomorrow TIME: 9 am Lortab 10-325 mg Tablet (Hydrocodone/Acetaminophen) 1 Each Tablet 1 Tab PO PRN Q4HRS PRN LAST DOSE GIVEN: DATE: last night TIME: 11pm NEXT DOSE DUE: when needed Tamsulosin Hcl 0.4 Mg Cap.er.24h 0.4 Mg PO BID LAST DOSE GIVEN: DATE: last night TIME: 9 pm NEXT DOSE DUE: DATE: Tonight TIME: 9pm Famotidine 20 Mg Tablet 80 Mg PO BID Famotidine 20mg was given last night may take tonight Lipitor (Atorvastatin Calcium) 20 Mg Tablet 1 Tab PO HS LAST DOSE GIVEN: DATE: last night TIME: 9pm NEXT DOSE DUE: DATE: Tonight TIME: 9 pm Aspir 81 (Aspirin) 81 Mg Tablet.dr 1 Tab PO DAILY LAST DOSE GIVEN: DATE: today TIME: 3pm NEXT DOSE DUE: DATE: Tomorrow TIME: 9 am Omeprazole 40 Mg Capsule.dr 1 Cap PO BID Not given on this admission May resume in the morning TIME: 9:00 am NEXT DOSE DUE: DATE: 06-13-15 TIME: 9:00 pm Nephro-Brett Tablet (Folic Acid/Vitamin B Comp W-C) 0.8 Mg Tablet 1 Tab PO DAILY LAST DOSE GIVEN: DATE: today TIME: 3pm NEXT DOSE DUE: DATE: Tomorrow TIME: 9 am Allergies Allergies: Coded Allergies: NSAIDS (Non-Steroidal Anti-Inflamma (Verified Allergy, Intermediate, Hives , 04/05/18) Sulfa (Sulfonamide Antibiotics) (Verified Allergy, Intermediate, HIVES, 04/05/18) I S O L A T I O N *CONTACT* (Verified Allergy, Unknown, 04/05/18) mrsa hydroxyzine (Verified Adverse Reaction, Intermediate, insomnia, 04/05/18) ROS Review of System As per HPI Physical Exam Physical Exam GENERAL - NAD HEENT: No icterus. NECK: Supple. Lungs- CTA Bilat HEART: S1, S2 normal.RR ABDOMEN: Soft, nontender. FLASK [employer]KER: No focal deficits. LYMPHATICS: No lymphadenopathy. SKIN: No rashes. 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 toney as OP Hyperkalemia- Resolved Takes KCL PO Monitor Anemia- Hem/ Onc Following AML diagnosed on 03/04/2018 - 65% blasts and complex cytogenetics. He was started on chemotherapy with Dacogen on 03/22/2018 Severe pancytopenia CHF- compensated DW and RN Labs Labs Laboratory Tests Test 04/08/18 17:20 04/09/18 08:15 White Blood Count 0.9 x10^3/uL (4.0-11.0) 0.4 x10^3/uL (4.0-11.0) Red Blood Count 2.59 x10^6/uL (4.30-5.70) 2.17 x10^6/uL (4.30-5.70) Hemoglobin 8.5 g/dL (13.0-17.5) 7.1 g/dL (13.0-17.5) Hematocrit 24.4 % (39.0-53.0) 20.5 % (39.0-53.0) Mean Corpuscular Volume 94 fL (79-100) 94 fL (79-100) Mean Corpuscular Hemoglobin 33 pg (25-35) 33 pg (25-35) Mean Corpuscular Hemoglobin Concent 35 g/dL (31-37) 35 g/dL (31-37) Red Cell Distribution Width 18.9 % (11.5-14.5) 18.4 % (11.5-14.5) Platelet Count 20 x10^3/uL (140-400) 14 x10^3/uL (140-400) Neutrophils (%) (Auto) 28 % (31-73) 28 % (31-73) Lymphocytes (%) (Auto) 69 % (24-48) 69 % (24-48) Monocytes (%) (Auto) 0 % (0-9) 0 % (0-9) Eosinophils (%) (Auto) 2 % (0-3) 2 % (0-3) Basophils (%) (Auto) 0 % (0-3) 1 % (0-3) Neutrophils # (Auto) 0.2 x10^3uL (1.8-7.7) 0.1 x10^3uL (1.8-7.7) Lymphocytes # (Auto) 0.6 x10^3/uL (1.0-4.8) 0.3 x10^3/uL (1.0-4.8) Monocytes # (Auto) 0.0 x10^3/uL (0.0-1.1) 0.0 x10^3/uL (0.0-1.1) Eosinophils # (Auto) 0.0 x10^3/uL (0.0-0.7) 0.0 x10^3/uL (0.0-0.7) Basophils # (Auto) 0.0 x10^3/uL (0.0-0.2) 0.0 x10^3/uL (0.0-0.2) Segmented Neutrophils % 3 % (35-66) Lymphocytes % 81 % (24-48) Monocytes % 1 % (0-10) Eosinophils % 1 % (0-5) Blast Cells % (Manual) 12 % (0-0) Other Cells % 2 % (0-0) Platelet Estimate Decreased (ADEQUATE) Poikilocytosis Slight Anisocytosis Slight Ovalocytes Occ Schistocytes Occ Prothrombin Time 14.2 SEC (11.7-14.0) Prothromb Time International Ratio 1.2 (0.8-1.1) Activated Partial Thromboplast Time 38 SEC (24-38) Sodium Level 132 mmol/L (136-145) 135 mmol/L (136-145) Potassium Level 4.9 mmol/L (3.5-5.1) 4.3 mmol/L (3.5-5.1) Chloride Level 96 mmol/L (98-107) 99 mmol/L (98-107) Carbon Dioxide Level 29 mmol/L (21-32) 29 mmol/L (21-32) Anion Gap 7 (6-14) 7 (6-14) Blood Urea Nitrogen 103 mg/dL (8-26) 85 mg/dL (8-26) Creatinine 4.6 mg/dL (0.7-1.3) 3.7 mg/dL (0.7-1.3) Estimated GFR (Cockcroft-Gault) 12.6 16.2 Glucose Level 148 mg/dL (70-99) 115 mg/dL (70-99) Calcium Level 9.4 mg/dL (8.5-10.1) 8.5 mg/dL (8.5-10.1) BUN/Creatinine Ratio 23 (6-20) Uric Acid 8.4 mg/dL (3.5-7.2) Phosphorus Level 4.7 mg/dL (2.6-4.7) Total Bilirubin 1.0 mg/dL (0.2-1.0) Aspartate Amino Transf (AST/SGOT) 27 U/L (15-37) Alanine Aminotransferase (ALT/SGPT) 22 U/L (16-63) Alkaline Phosphatase 121 U/L (46-116) Total Protein 6.2 g/dL (6.4-8.2) Albumin 2.7 g/dL (3.4-5.0) Albumin/Globulin Ratio 0.8 (1.0-1.7) Laboratory Tests Test 04/08/18 17:20 04/09/18 08:15 White Blood Count 0.9 x10^3/uL (4.0-11.0) 0.4 x10^3/uL (4.0-11.0) Red Blood Count 2.59 x10^6/uL (4.30-5.70) 2.17 x10^6/uL (4.30-5.70) Hemoglobin 8.5 g/dL (13.0-17.5) 7.1 g/dL (13.0-17.5) Hematocrit 24.4 % (39.0-53.0) 20.5 % (39.0-53.0) Mean Corpuscular Volume 94 fL (79-100) 94 fL (79-100) Mean Corpuscular Hemoglobin 33 pg (25-35) 33 pg (25-35) Mean Corpuscular Hemoglobin Concent 35 g/dL (31-37) 35 g/dL (31-37) Red Cell Distribution Width 18.9 % (11.5-14.5) 18.4 % (11.5-14.5) Platelet Count 20 x10^3/uL (140-400) 14 x10^3/uL (140-400) Neutrophils (%) (Auto) 28 % (31-73) 28 % (31-73) Lymphocytes (%) (Auto) 69 % (24-48) 69 % (24-48) Monocytes (%) (Auto) 0 % (0-9) 0 % (0-9) Eosinophils (%) (Auto) 2 % (0-3) 2 % (0-3) Basophils (%) (Auto) 0 % (0-3) 1 % (0-3) Neutrophils # (Auto) 0.2 x10^3uL (1.8-7.7) 0.1 x10^3uL (1.8-7.7) Lymphocytes # (Auto) 0.6 x10^3/uL (1.0-4.8) 0.3 x10^3/uL (1.0-4.8) Monocytes # (Auto) 0.0 x10^3/uL (0.0-1.1) 0.0 x10^3/uL (0.0-1.1) Eosinophils # (Auto) 0.0 x10^3/uL (0.0-0.7) 0.0 x10^3/uL (0.0-0.7) Basophils # (Auto) 0.0 x10^3/uL (0.0-0.2) 0.0 x10^3/uL (0.0-0.2) Segmented Neutrophils % 3 % (35-66) Lymphocytes % 81 % (24-48) Monocytes % 1 % (0-10) Eosinophils % 1 % (0-5) Blast Cells % (Manual) 12 % (0-0) Other Cells % 2 % (0-0) Platelet Estimate Decreased (ADEQUATE) Poikilocytosis Slight Anisocytosis Slight Ovalocytes Occ Schistocytes Occ Prothrombin Time 14.2 SEC (11.7-14.0) Prothromb Time International Ratio 1.2 (0.8-1.1) Activated Partial Thromboplast Time 38 SEC (24-38) Sodium Level 132 mmol/L (136-145) 135 mmol/L (136-145) Potassium Level 4.9 mmol/L (3.5-5.1) 4.3 mmol/L (3.5-5.1) Chloride Level 96 mmol/L (98-107) 99 mmol/L (98-107) Carbon Dioxide Level 29 mmol/L (21-32) 29 mmol/L (21-32) Anion Gap 7 (6-14) 7 (6-14) Blood Urea Nitrogen 103 mg/dL (8-26) 85 mg/dL (8-26) Creatinine 4.6 mg/dL (0.7-1.3) 3.7 mg/dL (0.7-1.3) Estimated GFR (Cockcroft-Gault) 12.6 16.2 Glucose Level 148 mg/dL (70-99) 115 mg/dL (70-99) Calcium Level 9.4 mg/dL (8.5-10.1) 8.5 mg/dL (8.5-10.1) BUN/Creatinine Ratio 23 (6-20) Uric Acid 8.4 mg/dL (3.5-7.2) Phosphorus Level 4.7 mg/dL (2.6-4.7) Total Bilirubin 1.0 mg/dL (0.2-1.0) Aspartate Amino Transf (AST/SGOT) 27 U/L (15-37) Alanine Aminotransferase (ALT/SGPT) 22 U/L (16-63) Alkaline Phosphatase 121 U/L (46-116) Total Protein 6.2 g/dL (6.4-8.2) Albumin 2.7 g/dL (3.4-5.0) Albumin/Globulin Ratio 0.8 (1.0-1.7) Review All relevant outside records, renal labs, imaging studies, telemetry/EKG's were reviewed. Images Images None at this admission FREDI MINOR MD Apr 09, 2018 09:30
[2018-04-09] MEDS: FINASTERIDE 5 MG TABLET. PO SCH (10:42)
[2018-04-09] MEDS: ACYCLOVIR 200 MG CAPSULE. PO SCH ×2 (10:42→20:17)
[2018-04-09] MEDS: MAGNESIUM OXIDE 400 MG TABLET PO SCH (10:43)
[2018-04-09] MEDS: TAMSULOSIN 0.4 MG CAP.ER.24H. PO SCH ×2 (10:43→20:16)
[2018-04-09] MEDS: ALLOPURINOL 100 MG TABLET. PO SCH (10:43)
[2018-04-09] MEDS: PANTOPRAZOLE 40 MG TABLET.DR. PO SCH (10:43)
[2018-04-09] MEDS: FOLIC/VIT B COMP W-C (RENAL) TABLET. PO SCH (10:43)
[2018-04-09] MEDS: CARVEDILOL 3.125 MG TABLET. PO SCH ×2 (10:44→17:00)
[2018-04-09] MEDS: DICYCLOMINE HCL 10 MG CAPSULE PO SCH ×3 (10:44→20:16)
[2018-04-09] MEDS: ASPIRIN ENTERIC COATED 81 MG TABLET.DR. PO SCH (10:44)
[2018-04-09] MEDS: FLUCONAZOLE 100 MG TABLET. PO SCH (10:44)
--- NOTE | 2018-04-09 15:19 | PDOC2 ---
PALLIATIVE CARE Palliative Care Note Palliative Care Consult requested by Dr. Fang to address AD and code status. Medical condition per assessment and Dr. Fang Anemia--receiving blood transfusion; Neutropenia, Pancytopenia, AML; A/C Renal Failure; Patient alert. Visiting with . Discussed medical condition as above. Patient adamant that he wants attempt at resuscitation. tearful. Informed of risks and benefits. Patient has AD at home. will bring copy of the document when she returns. Will continue to follow and support ELINOR LEE Apr 09, 2018 15:19
[2018-04-09 15:55] LABS: HEMATOCRIT 23.2 % (39.0-53.0); HEMOGLOBIN 8.2 g/dL (13.0-17.5)
[2018-04-09] MEDS: POLYETHYLENE GLYCOL 3350 17 GM PACKET. PO PRN (16:02)
--- NOTE | 2018-04-09 17:02 | PDOC ---
Provider Note Provider Note Med Onc consult: Acute Myeloid Leukemia Not Having Achieved Remission (Hcc) Admission February 2018 due to pancytopenia@noted at dialysis facility, white count 1500, hemoglobin 7.8, platelets 17,000 Bone marrow biopsy 04 March 2018 showed hypercellular marrow, dyspoiesis with increased blasts to 65%, consistent with AML with MDS related changes, dyspoiesis noted in all cell lines, flow cytometry showed 54% blasts, positive for CD7 partial, 13, 33, 34, 38 partial, 117, HLA-DR, and myeloperoxidase. @ Cytogenetics complex@showing 43-44 XY cecily (2;17) (resulting in deletion of 2p and 17p TP53), add (3)p13, add 5(q31), -7, -8, cecily (11;12), + r, +13 mar cp[18]/ 46 XY [2] Plan to begin 10 day decitabine Received Dacogen x 10 days from 03/23/18 through 04/02/18. Was hospitalized on 03/28 with worsening renal function and pancytopenia. On 04/08/18, found to have hemoglobin of 5.8 and platelets of 21K. Sent to [facility] for 2 units of PRBC. CMP showed creatinine of 4.3, K+ 6.3 and uric acid of 9.1. Sent to [facility] ER for work up and admitted. Patient on renally-adjusted levaquin, diflucan and acyclovir for prophylaxis. Continue to monitor cbc and transfusional support. See dictation [id number] JANNETH SERRANO MD Apr 09, 2018 17:02
[2018-04-09] MEDS: ATORVASTATIN CALCIUM 20 MG TABLET PO SCH (20:16)
[2018-04-10] VITALS (14 sets, daily range): BP systolic 106–172; BP diastolic 47–65
--- NOTE | 2018-04-10 07:31 | CONS ---
DATE OF CONSULTATION: 04/09/2018 REQUESTING PHYSICIAN: Latisha Dickerson MD REASON FOR CONSULTATION: Acute myeloid leukemia, on chemotherapy, now admitted with worsening generalized weakness. HISTORY OF PRESENTING ILLNESS: The patient is a 72-year-old gentleman who was diagnosed with acute myeloid leukemia, on 03/04/2018 by a bone marrow aspiration and biopsy. Flow cytometry revealed 54% blasts and he had evidence of complex cytogenetics. He was started on chemotherapy with Dacogen from 03/23/2018 through 04/02/2018 for a total of 10 days. He was hospitalized on 03/28/2018 with worsening renal function and pancytopenia. On 04/08/2018, he was noted to have severe anemia with a hemoglobin of 5.8 and a creatinine of 4.3 and a potassium of 6.3 and uric acid of 9.1. He received 2 units of PRBC transfusion and subsequently sent to the Emergency Room for further evaluation. He was subsequently admitted and Nephrology consultation was also requested. He reports profound generalized weakness. No fevers or chills. No nausea or vomiting. Follow up CBC on 04/09/2018 revealed a WBC of 0.4 with a hemoglobin of 7.1 and a platelet count of 14,000. 12% blasts noted on 04/08/2018. PAST MEDICAL HISTORY: BPH, C. diff colitis, chronic back pain, coronary artery disease, end-stage renal disease with history of hemodialysis since 2011, GERD, gout, pneumonia, mitral regurgitation, myocardial infarction, pacemaker, paroxysmal atrial fibrillation. FAMILY HISTORY: Positive for coronary artery disease and lung cancer. SOCIAL HISTORY: He is , former smoker, quit in 2009. REVIEW OF SYSTEMS: A 12-point review of system was performed. Pertinent positives are mentioned in the history of presenting illness. Rest of the system review is negative. PHYSICAL EXAMINATION: GENERAL APPEARANCE: The patient is a 72-year-old gentleman who is in no acute cardiorespiratory distress. VITAL SIGNS: Blood pressure 91/49, temperature 99.1. HEENT: Head: Atraumatic, normocephalic. Eyes: No icterus. NECK: Supple. CHEST: Bilaterally symmetrical. HEART: S1, S2 normal. ABDOMEN: Soft, nontender. CENTRAL NERVOUS SYSTEM: No focal deficits. LYMPHATICS: No lymphadenopathy. SKIN: No rashes. PSYCHOLOGIC: Mood and affect are appropriate. LABORATORY DATA: WBC 0.4, hemoglobin 7.1, platelet count 14 on 04/09/2018. Creatinine 3.7 on 04/09/2018 and 4.6 on 04/08/2018. His phosphorus was normal at 4.7, calcium 8.5. Uric acid 8.4. IMPRESSION AND PLAN: 1. Acute myeloid leukemia diagnosed on 03/04/2018. He received chemotherapy with Dacogen for one cycle for a total of 10 days from 03/23/2018 through 04/02/2018. He has developed significant weakness and persistent pancytopenia. Agree to continue aggressive supportive care and transfusion as needed. I will also consult palliative care to discuss code status as the patient is still full code. 2. Severe neutropenia due to leukemia and chemotherapy. Continue neutropenic precautions. 3. Anemia due to leukemia and chemotherapy. Proceed with one more unit of packed red blood transfusion on 04/09/2018. 4. Thrombocytopenia due to leukemia. Continue to monitor. Plan to transfuse to keep the platelet count more than 10,000. At this point, his platelets are at 14,000. 5. Renal failure. He has chronic renal disease. Appreciate Nephrology consultation and management. JANNETH SERRANO MD DR: AARON/juancho JOB#: [id number] / [id number]
[2018-04-10] MEDS: HYDROcodone/APAP 10/325 1 TAB TABLET PO PRN (09:24)
[2018-04-10] MEDS: FLUCONAZOLE 100 MG TABLET. PO SCH (09:25)
[2018-04-10] MEDS: FOLIC/VIT B COMP W-C (RENAL) TABLET. PO SCH (09:25)
[2018-04-10] MEDS: ACYCLOVIR 200 MG CAPSULE. PO SCH ×2 (09:25→20:28)
[2018-04-10] MEDS: MAGNESIUM OXIDE 400 MG TABLET PO SCH (09:27)
[2018-04-10] MEDS: ALLOPURINOL 100 MG TABLET. PO SCH (09:27)
[2018-04-10] MEDS: FERROUS SULFATE 325 MG TABLET. PO SCH (09:27)
[2018-04-10] MEDS: TAMSULOSIN 0.4 MG CAP.ER.24H. PO SCH ×2 (09:27→20:28)
[2018-04-10] MEDS: DICYCLOMINE HCL 10 MG CAPSULE PO SCH ×3 (09:27→20:28)
[2018-04-10] MEDS: ASPIRIN ENTERIC COATED 81 MG TABLET.DR. PO SCH (09:27)
[2018-04-10] MEDS: FUROSEMIDE 40 MG TABLET. PO SCH ×2 (09:27→13:52)
[2018-04-10] MEDS: PANTOPRAZOLE 40 MG TABLET.DR. PO SCH (09:27)
[2018-04-10] MEDS: FINASTERIDE 5 MG TABLET. PO SCH (09:28)
[2018-04-10] MEDS: CARVEDILOL 3.125 MG TABLET. PO SCH ×2 (09:29→16:56)
--- NOTE | 2018-04-10 10:51 | PDOC ---
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 which began February, with pancytopenia acute on chronic systolic CHF with exacerbation , LE edema severe malnutrition, with obesity, BMI 31 symptomatic anemia, improved s/p 2 u PRBC CAD, lipids, weakness prior confusion, metabolic encephalopathy, Uremia, History of Present Illness History of Present Illness he has coughed up some blood some nosebleed, dry nose and congestion LE edema and str improved, he is up to chair, feels much better, has various complaints not related to his medical condition Vitals Vitals Vital Signs Date Time Temp Pulse Resp B/P (MAP) Pulse Ox O2 Delivery O2 Flow Rate FiO2 04/10/18 09:29 84 111/59 04/10/18 09:24 Room Air 04/10/18 07:40 98.3 18 95 3.0 98.3 Physical Exam Physical Exam nasal turbinates boggy and erythemtous, blood visualized, + epistaxis General: Alert, mild distress Heart: No murmurs Lungs: Clear, Other Abdomen: Normal bowel sounds Extremities: No cyanosis Skin: No breakdown Labs LABS Laboratory Tests Test 04/09/18 15:45 Hemoglobin 8.2 g/dL (13.0-17.5) Hematocrit 23.2 % (39.0-53.0) Review of Systems Review of Systems no n.v.d Assessment and Plan Assessmemt and Plan Problems Medical Problems: (1) Anemia Status: Acute (2) Leukocytopenia Status: Acute (3) Neutropenia Status: Acute (4) Pancytopenia Status: Acute Comment Review of Relevant I have reviewed the following items zoey (where applicable) has been applied. Labs Laboratory Tests Test 04/08/18 17:20 04/09/18 08:15 04/09/18 15:45 White Blood Count 0.9 x10^3/uL (4.0-11.0) 0.4 x10^3/uL (4.0-11.0) Red Blood Count 2.59 x10^6/uL (4.30-5.70) 2.17 x10^6/uL (4.30-5.70) Hemoglobin 8.5 g/dL (13.0-17.5) 7.1 g/dL (13.0-17.5) 8.2 g/dL (13.0-17.5) Hematocrit 24.4 % (39.0-53.0) 20.5 % (39.0-53.0) 23.2 % (39.0-53.0) Mean Corpuscular Volume 94 fL (79-100) 94 fL (79-100) Mean Corpuscular Hemoglobin 33 pg (25-35) 33 pg (25-35) Mean Corpuscular Hemoglobin Concent 35 g/dL (31-37) 35 g/dL (31-37) Red Cell Distribution Width 18.9 % (11.5-14.5) 18.4 % (11.5-14.5) Platelet Count 20 x10^3/uL (140-400) 14 x10^3/uL (140-400) Neutrophils (%) (Auto) 28 % (31-73) 28 % (31-73) Lymphocytes (%) (Auto) 69 % (24-48) 69 % (24-48) Monocytes (%) (Auto) 0 % (0-9) 0 % (0-9) Eosinophils (%) (Auto) 2 % (0-3) 2 % (0-3) Basophils (%) (Auto) 0 % (0-3) 1 % (0-3) Neutrophils # (Auto) 0.2 x10^3uL (1.8-7.7) 0.1 x10^3uL (1.8-7.7) Lymphocytes # (Auto) 0.6 x10^3/uL (1.0-4.8) 0.3 x10^3/uL (1.0-4.8) Monocytes # (Auto) 0.0 x10^3/uL (0.0-1.1) 0.0 x10^3/uL (0.0-1.1) Eosinophils # (Auto) 0.0 x10^3/uL (0.0-0.7) 0.0 x10^3/uL (0.0-0.7) Basophils # (Auto) 0.0 x10^3/uL (0.0-0.2) 0.0 x10^3/uL (0.0-0.2) Segmented Neutrophils % 3 % (35-66) Lymphocytes % 81 % (24-48) Monocytes % 1 % (0-10) Eosinophils % 1 % (0-5) Blast Cells % (Manual) 12 % (0-0) Other Cells % 2 % (0-0) Platelet Estimate Decreased (ADEQUATE) Poikilocytosis Slight Anisocytosis Slight Ovalocytes Occ Schistocytes Occ Prothrombin Time 14.2 SEC (11.7-14.0) Prothromb Time International Ratio 1.2 (0.8-1.1) Activated Partial Thromboplast Time 38 SEC (24-38) Sodium Level 132 mmol/L (136-145) 135 mmol/L (136-145) Potassium Level 4.9 mmol/L (3.5-5.1) 4.3 mmol/L (3.5-5.1) Chloride Level 96 mmol/L (98-107) 99 mmol/L (98-107) Carbon Dioxide Level 29 mmol/L (21-32) 29 mmol/L (21-32) Anion Gap 7 (6-14) 7 (6-14) Blood Urea Nitrogen 103 mg/dL (8-26) 85 mg/dL (8-26) Creatinine 4.6 mg/dL (0.7-1.3) 3.7 mg/dL (0.7-1.3) Estimated GFR (Cockcroft-Gault) 12.6 16.2 Glucose Level 148 mg/dL (70-99) 115 mg/dL (70-99) Calcium Level 9.4 mg/dL (8.5-10.1) 8.5 mg/dL (8.5-10.1) BUN/Creatinine Ratio 23 (6-20) Uric Acid 8.4 mg/dL (3.5-7.2) Phosphorus Level 4.7 mg/dL (2.6-4.7) Total Bilirubin 1.0 mg/dL (0.2-1.0) Aspartate Amino Transf (AST/SGOT) 27 U/L (15-37) Alanine Aminotransferase (ALT/SGPT) 22 U/L (16-63) Alkaline Phosphatase 121 U/L (46-116) Total Protein 6.2 g/dL (6.4-8.2) Albumin 2.7 g/dL (3.4-5.0) Albumin/Globulin Ratio 0.8 (1.0-1.7) Laboratory Tests Test 04/09/18 15:45 Hemoglobin 8.2 g/dL (13.0-17.5) Hematocrit 23.2 % (39.0-53.0) Medications Current Medications Sodium Chloride 1,000 ml @ 125 mls/hr 1X ONCE IV Last administered on at 22:14; Start 04/08/18 at 19:00; Stop 04/09/18 at 01:33; Status DC Ondansetron HCl (Zofran) 4 mg PRN Q8HRS PRN IV NAUSEA/VOMITING; Start 04/08/18 at 19:00; Stop 04/09/18 at 18:59; Status DC Morphine Sulfate (Morphine Sulfate) 4 mg PRN Q2HR PRN IV MODERATE PAIN; Start 04/08/18 at 19:00; Stop 04/09/18 at 18:59; Status DC Acetaminophen (Tylenol) 650 mg PRN Q4HRS PRN PO FEVER; Start 04/08/18 at 19:00; Stop 04/09/18 at 18:59; Status DC Sodium Chloride 1,000 ml @ 125 mls/hr 1X ONCE IV ; Start 04/08/18 at 19:00; Stop 04/09/18 at 02:59; Status DC Allopurinol (Zyloprim) 150 mg DAILY PO Last administered on 04/10/18at 09:27; Start 04/09/18 at 09:30 Aspirin (Ecotrin) 81 mg DAILY08 PO Last administered on 04/10/18at 09:27; Start 04/09/18 at 09:30 Atorvastatin Calcium (Lipitor) 20 mg HS PO Last administered on 04/09/18at 20:16 ; Start 04/09/18 at 21:00 Dicyclomine HCl (Bentyl) 10 mg TID PO Last administered on 04/10/18at 09:27; Start 04/09/18 at 09:30 Famotidine (Pepcid) 20 mg BID PO ; Start 04/09/18 at 09:30; Status Cancel Ferrous Sulfate (Feosol) 325 mg DAILY08 PO Last administered on 04/10/18at 09:27 ; Start 04/09/18 at 09:30 Finasteride (Proscar) 5 mg DAILY PO Last administered on 04/10/18at 09:28; Start 04/09/18 at 09:30 Vitamin B Complex/ Vitamin C (Lupis-Brett) 1 tab DAILY PO Last administered on 09:25; Start 04/09/18 at 09:30 Furosemide (Lasix) 40 mg BID92 PO Last administered on 04/10/18 09:27; Start 04/09/18 at 09:30 Lidocaine/ Prilocaine (Emla) 1 meka PRN Q4HRS PRN TP rash; Start 04/09/18 at 09: 00 Tamsulosin HCl (Flomax) 0.4 mg BID PO Last administered on 04/10/18 09:27; Start 04/09/18 at 09:30 Acyclovir (Zovirax) 400 mg BID PO Last administered on 04/10/18 09:25; Start 04/09/18 at 10:00 Fluconazole (Diflucan) 200 mg DAILY PO Last administered on 04/10/18 09:25; Start 04/09/18 at 10:00 Non-Formulary Medication (Hydrocodone Bitartrate (Zohydro ER)) 20 mg BID PO ; Start 04/09/18 at 09:00; Stop 04/09/18 at 15:02; Status DC Acetaminophen/ Hydrocodone Bitart (Lortab 10/325) 1 tab PRN Q4HRS PRN PO PAIN MILD TO MODERATE Last administered on 04/10/18 09:24; Start 04/09/18 at 09:15 Magnesium Oxide (Magnesium Oxide) 400 mg DAILY PO Last administered on 09:27; Start 04/09/18 at 09:30 Pantoprazole Sodium (Protonix) 40 mg DAILYAC PO Last administered on 04/10/18 09:27; Start 04/09/18 at 09:30 Carvedilol (Coreg) 3.125 mg BIDWMEALS PO Last administered on 04/10/18 09:29; Start 04/09/18 at 10:00 Levofloxacin (Levaquin) 750 mg Q48H PO Last administered on 04/09/18 10:43; Start 04/09/18 at 10:00 Ondansetron HCl (Zofran Odt) 4 mg PRN Q8HRS PRN PO NAUSEA 1ST CHOICE PO; Start 04/09/18 at 09:30 Polyethylene Glycol (miraLAX PACKET) 17 gm PRN BID PRN PO CONSTIPATION 1ST CHOICE Last administered on 04/09/18at 16:02; Start 04/09/18 at 15:45 Active Scripts Active Reported Ondansetron Odt (Ondansetron) 4 Mg Tab.rapdis 1 Tab PO PRN Q8HRS PRN Levofloxacin 750 Mg Tablet 1 Tab PO QODAY Coreg (Carvedilol) 3.125 Mg Tablet 1 Tab PO BID Vitamin D3 (Cholecalciferol (Vitamin D3)) 1,000 Unit Tablet 1 Tab PO DAILY Lidocaine-Prilocaine Cream (Lidocaine/Prilocaine) 30 Gm Cream..g. 1 Meka TP UD Fluconazole 200 Mg Tablet 1 Tab PO DAILY Allopurinol 100 Mg Tablet 150 Mg PO DAILY Acyclovir 400 Mg Tablet 1 Tab PO BID Bioregency Capsule (L Gasseri/B Bifidum/B Longum) 1 Each Capsule 1 Each PO DAILY Not given on this admission May resume tomorrow Zohydro ER (Hydrocodone Bitartrate) 10 Mg Cap.er.12h 20 Mg PO BID LAST DOSE GIVEN: DATE: today TIME: 6:40 NEXT DOSE DUE: DATE: Tonight Magnesium (Magnesium Oxide) 400 Mg Capsule 1 Cap PO DAILY Medication not given here May resume tomorrow Potassium Chloride Packet (Potassium Chloride) 20 Meq Packet 20 Meq PO DAILY Not given today due to procedure Take a dose tonight Metolazone 2.5 Mg Tablet 2.5 Mg PO QMWF Dose given Thursday morning Take a dose Thursday morning Finasteride 5 Mg Tablet 5 Mg PO DAILY LAST DOSE GIVEN: DATE: last night TIME: 9pm NEXT DOSE DUE: DATE: Tonight TIME: 9 pm Furosemide 80 Mg Tablet 80 Mg PO BID LAST DOSE GIVEN: DATE: today TIME: 3pm NEXT DOSE DUE: DATE: Tomorrow TIME: 9 am Dicyclomine Hcl 10 Mg Capsule 1 Cap PO TID Not given on this admission Take this evening Vitamin B-12 (Cyanocobalamin (Vitamin B-12)) 1,000 Mcg Tablet.er 1,000 Mcg PO DAILY LAST DOSE GIVEN: DATE: today TIME: 3pm NEXT DOSE DUE: DATE: Tomorrow TIME: 9 am Lortab 10-325 mg Tablet (Hydrocodone/Acetaminophen) 1 Each Tablet 1 Tab PO PRN Q4HRS PRN LAST DOSE GIVEN: DATE: last night TIME: 11pm NEXT DOSE DUE: when needed Tamsulosin Hcl 0.4 Mg Cap.er.24h 0.4 Mg PO BID LAST DOSE GIVEN: DATE: last night TIME: 9 pm NEXT DOSE DUE: DATE: Tonight TIME: 9pm Famotidine 20 Mg Tablet 80 Mg PO BID Famotidine 20mg was given last night may take tonight Lipitor (Atorvastatin Calcium) 20 Mg Tablet 1 Tab PO HS LAST DOSE GIVEN: DATE: last night TIME: 9pm NEXT DOSE DUE: DATE: Tonight TIME: 9 pm Aspir 81 (Aspirin) 81 Mg Tablet.dr 1 Tab PO DAILY LAST DOSE GIVEN: DATE: today TIME: 3pm NEXT DOSE DUE: DATE: Tomorrow TIME: 9 am Omeprazole 40 Mg Capsule.dr 1 Cap PO BID Not given on this admission May resume in the morning TIME: 9:00 am NEXT DOSE DUE: DATE: 06-13-15 TIME: 9:00 pm Nephro-Brett Tablet (Folic Acid/Vitamin B Comp W-C) 0.8 Mg Tablet 1 Tab PO DAILY LAST DOSE GIVEN: DATE: today TIME: 3pm NEXT DOSE DUE: DATE: Tomorrow TIME: 9 am Vitals/I & O Vital Sign - Last 24 Hours 04/09/18 04/09/18 04/09/18 04/09/18 11:45 12:00 13:00 14:02 Temp 98.6 99.0 99.1 98.4 98.6 99.0 99.1 98.4 Pulse 91 91 98 92 Resp 16 12 18 18 B/P (MAP) 112/53 114/58 107/75 100/52 04/09/18 04/09/18 04/09/18 04/09/18 15:00 15:04 17:00 19:43 Temp 99.1 99.1 97.3 99.1 99.1 97.3 Pulse 89 89 89 115 Resp 18 18 20 B/P (MAP) 91/49 (63) 91/49 91/49 131/70 (90) Pulse Ox 97 92 O2 Delivery Nasal Cannula Nasal Cannula O2 Flow Rate 3.0 3.0 04/09/18 04/09/18 04/10/18 04/10/18 20:00 23:13 03:02 07:40 Temp 97.3 98.3 98.3 97.3 98.3 98.3 Pulse 104 79 84 Resp 20 20 18 B/P (MAP) 108/61 (77) 112/59 (76) 111/59 (76) Pulse Ox 97 94 95 O2 Delivery Nasal Cannula Nasal Cannula Nasal Cannula Nasal Cannula O2 Flow Rate 3.0 3.0 3.0 3.0 04/10/18 04/10/18 09:24 09:29 Pulse 84 B/P (MAP) 111/59 O2 Delivery Room Air Intake and Output 04/09/18 04/09/18 04/10/18 15:00 23:00 07:00 Intake Total 32 ml 900 ml 500 ml Output Total 600 ml 500 ml 302 ml Balance -568 ml 400 ml 198 ml CORWIN BHAKTA MD Apr 10, 2018 10:51
[2018-04-10] MEDS ORDERED: OXYMETAZOLINE 0.05% NASAL SPRAY 30ML BOTTLE. NS ONE (11:00)
[2018-04-10 11:32] LABS: BASO % 1 % (0-3); EOS % 1 % (0-3); HEMATOCRIT 22.7 % (39.0-53.0); HEMOGLOBIN 7.9 g/dL (13.0-17.5); LYMPH # 0.4 x10^3/uL (1.0-4.8); LYMPH % 72 % (24-48); MEAN CORPUSCULAR HEMOGLOBIN 33 pg (25-35); MEAN CORPUSCULAR HGB CONC 35 g/dL (31-37); MEAN CORPUSCULAR VOLUME 94 fL (79-100); MONO # 0.1 x10^3/uL (0.0-1.1); MONO % 23 % (0-9); NEUT % 3 % (31-73); RED CELL DISTRIBUTION WIDTH 17.4 % (11.5-14.5)
[2018-04-10 11:39] LABS: CALCIUM 8.8 mg/dL (8.5-10.1); CREATININE 2.9 mg/dL (0.7-1.3); GFR 21.5; POTASSIUM 4.2 mmol/L (3.5-5.1)
[2018-04-10 11:42] LABS: PLATELET COUNT 10 x10^3/uL (140-400); WHITE BLOOD COUNT 0.6 x10^3/uL (4.0-11.0)
--- NOTE | 2018-04-10 12:31 | PDOC ---
Renal-Progress Notes Subjective Notes Notes TIRED History of Present Illness Hx of present illness STABLE Vitals Vitals Vital Signs Date Time Temp Pulse Resp B/P (MAP) Pulse Ox O2 Delivery O2 Flow Rate FiO2 04/10/18 11:47 98.3 82 18 112/51 (71) 91 Nasal Cannula 3.0 98.3 Weight Weight [ ] I.O. Intake and Output Intake and Output 04/10/18 07:00 Intake Total 1432 ml Output Total 1402 ml Balance 30 ml Intake Oral 1400 ml Blood Product IV Normal Saline Flush 32 ml Output Urine Total 1402 ml # Bowel Movements 2 Labs Labs Laboratory Tests Test 04/09/18 15:45 04/10/18 11:10 Hemoglobin 8.2 g/dL (13.0-17.5) 7.9 g/dL (13.0-17.5) Hematocrit 23.2 % (39.0-53.0) 22.7 % (39.0-53.0) White Blood Count 0.6 x10^3/uL (4.0-11.0) Red Blood Count 2.40 x10^6/uL (4.30-5.70) Mean Corpuscular Volume 94 fL (79-100) Mean Corpuscular Hemoglobin 33 pg (25-35) Mean Corpuscular Hemoglobin Concent 35 g/dL (31-37) Red Cell Distribution Width 17.4 % (11.5-14.5) Platelet Count 10 x10^3/uL (140-400) Neutrophils (%) (Auto) 3 % (31-73) Lymphocytes (%) (Auto) 72 % (24-48) Monocytes (%) (Auto) 23 % (0-9) Eosinophils (%) (Auto) 1 % (0-3) Basophils (%) (Auto) 1 % (0-3) Neutrophils # (Auto) 0.0 x10^3uL (1.8-7.7) Lymphocytes # (Auto) 0.4 x10^3/uL (1.0-4.8) Monocytes # (Auto) 0.1 x10^3/uL (0.0-1.1) Eosinophils # (Auto) 0.0 x10^3/uL (0.0-0.7) Basophils # (Auto) 0.0 x10^3/uL (0.0-0.2) Sodium Level 132 mmol/L (136-145) Potassium Level 4.2 mmol/L (3.5-5.1) Chloride Level 98 mmol/L (98-107) Carbon Dioxide Level 30 mmol/L (21-32) Anion Gap 4 (6-14) Blood Urea Nitrogen 60 mg/dL (8-26) Creatinine 2.9 mg/dL (0.7-1.3) Estimated GFR (Cockcroft-Gault) 21.5 Glucose Level 140 mg/dL (70-99) Calcium Level 8.8 mg/dL (8.5-10.1) Review of Systems Constitutional: yes: alert Ears/Nose/Throat: Yes: no symptom reported Eyes: Yes: no symptom reported Pulmonary: Yes no symptom reported Cardiovascular: Yes no symptom reported Gastrointestional: Yes: no symptom reported Genitourinary: Yes: no symptom reported Musculoskeletal: Yes: no symptom reported Skin: Yes no symptom reported Psychiatric/Neurological: Yes: no symptom reported Endocrine: Yes: no symptom reported Physical Exam General Appearance: no apparent distress Skin: warm Respiratory: decreased breath sounds Heart: S1S2 Abdomen: soft, bowel sounds present Genitourinary: bladder flat Extremities: pulses present Neurology: alert Musculoskeletal: Other Assessment Assessment IMP AML PANCYTOPENIA S/P CHEMO CKD STAGE 3 TO 4 WITH CR OF 3.0 SONNY-CR TO 3.7 FROM 4.6 PLAN PER HEME/ONC ENC PO WILL FOLLOW SANGEETHA PHILLIPS MD Apr 10, 2018 12:31
[2018-04-10] MEDS: OXYMETAZOLINE 0.05% NASAL SPRAY 30ML BOTTLE. NS SCH ×2 (13:53→20:27)
[2018-04-10] MEDS: FLUTICASONE 50MCG/NASAL SPRAY 16GM BOTTLE. NS SCH ×2 (13:53→20:27)
[2018-04-10] MEDS: ATORVASTATIN CALCIUM 20 MG TABLET PO SCH (20:29)
--- NOTE | 2018-04-11 00:40 | PN ---
DATE: ONCOLOGY PROGRESS NOTE SUBJECTIVE: Follow up AML, status post Dacogen. The patient is tired, but was able to sit up in chair. He complains of arthritic pain in his hands and feet, which his at bedside stated to be chronic and unchanged for years. He has had some oral secretion that was slightly bloody, but no bleeding elsewhere. He has been cold, but no shaking chills nor sweats or fever. PHYSICAL EXAMINATION: GENERAL: Examination reveals an ill-appearing, frail 72-year-old gentleman sitting up in chair. He was occasionally interactive, but his provided most of the information. VITAL SIGNS: Temperature 98.3, pulse 84, respiratory rate 18, blood pressure 111/59 and satting 95% on 3 liters of oxygen by nasal cannula. HEENT: No overt bleeding noted in the mouth or nose on inspection. CARDIOVASCULAR: Regular rhythm. No murmur. CHEST: Clear to auscultation, although slightly diminished breath sounds. ABDOMEN: Soft. EXTREMITIES: Show swollen hands and lower extremity edema with stasis changes in bilateral lower extremity. LABORATORY STUDIES: Most recent CBC was done yesterday morning, shows total white count 0.4, hemoglobin 7.1 and platelets of 14,000. This was a decrease from the previous day when platelet was 20,000. There is no lab done this morning. CMP from yesterday shows creatinine of 3.7. Uric acid 8.4. Total protein 6.2 and albumin 2.7. ASSESSMENT AND PLAN: 1. Acute myeloid leukemia, Dacogen treatment from 03/23/2018 through 04/02/2018. 2. Pancytopenia, due to a combination of acute myeloid leukemia as well as recent treatment with Dacogen. 3. Blood-tinged oral secretions, no bleeding elsewhere. However, his platelet counts could very well be lower today. I asked for a stat CBC, discussed this with nursing staff Howard this morning and asked to have results called to me upon availability. PLAN: 1. We will transfuse to keep hemoglobin above 8 and platelet count above 10 or higher threshold for platelet count if he exhibits more concerning bleeding. 2. We will obtain daily morning CBC. 3. I encouraged the patient to drink liquids and eat his food as best he can, although he reported the food in the hospital not being palatable. His will bring him some food from outside. 4. Morning CBC and daily morning CBC. SANAM Natalie JOHNSON MD DR: BABITA/juancho JOB#: [id number] / [id number]
[2018-04-11 03:08] VITALS: BP 96/49
[2018-04-11 06:27] LABS: BASO % 1 % (0-3); EOS % 2 % (0-3); HEMATOCRIT 24.3 % (39.0-53.0); HEMOGLOBIN 8.6 g/dL (13.0-17.5); LYMPH # 0.3 x10^3/uL (1.0-4.8); LYMPH % 67 % (24-48); MEAN CORPUSCULAR HEMOGLOBIN 33 pg (25-35); MEAN CORPUSCULAR HGB CONC 35 g/dL (31-37); MEAN CORPUSCULAR VOLUME 94 fL (79-100); MONO % 1 % (0-9); NEUT # 0.1 x10^3uL (1.8-7.7); NEUT % 30 % (31-73); PLATELET COUNT 32 x10^3/uL (140-400); RED BLOOD COUNT 2.59 x10^6/uL (4.30-5.70); RED CELL DISTRIBUTION WIDTH 16.4 % (11.5-14.5)
[2018-04-11 06:47] LABS: ALBUMIN 2.5 g/dL (3.4-5.0); ALBUMIN/GLOBULIN RATIO 0.7 (1.0-1.7); CALCIUM 8.6 mg/dL (8.5-10.1); CREATININE 2.7 mg/dL (0.7-1.3); GFR 23.3; POTASSIUM 3.6 mmol/L (3.5-5.1); TOTAL PROTEIN 6.1 g/dL (6.4-8.2)
[2018-04-11 06:54] LABS: WHITE BLOOD COUNT 0.5 x10^3/uL (4.0-11.0)
[2018-04-11 07:55] VITALS: BP 126/52
[2018-04-11] MEDS: OXYMETAZOLINE 0.05% NASAL SPRAY 30ML BOTTLE. NS SCH ×2 (09:00→20:28)
[2018-04-11] MEDS: FINASTERIDE 5 MG TABLET. PO SCH (09:05)
[2018-04-11] MEDS: DICYCLOMINE HCL 10 MG CAPSULE PO SCH ×3 (09:06→20:28)
[2018-04-11] MEDS: FLUCONAZOLE 100 MG TABLET. PO SCH (09:06)
[2018-04-11] MEDS: CARVEDILOL 3.125 MG TABLET. PO SCH ×2 (09:06→17:03)
[2018-04-11] MEDS: TAMSULOSIN 0.4 MG CAP.ER.24H. PO SCH ×2 (09:06→20:28)
[2018-04-11] MEDS: FERROUS SULFATE 325 MG TABLET. PO SCH (09:06)
[2018-04-11] MEDS: ALLOPURINOL 100 MG TABLET. PO SCH (09:07)
[2018-04-11] MEDS: MAGNESIUM OXIDE 400 MG TABLET PO SCH (09:07)
[2018-04-11] MEDS: FUROSEMIDE 40 MG TABLET. PO SCH ×2 (09:07→17:03)
[2018-04-11] MEDS: FOLIC/VIT B COMP W-C (RENAL) TABLET. PO SCH (09:07)
[2018-04-11] MEDS: ASPIRIN ENTERIC COATED 81 MG TABLET.DR. PO SCH (09:07)
[2018-04-11] MEDS: PANTOPRAZOLE 40 MG TABLET.DR. PO SCH (09:08)
[2018-04-11] MEDS ORDERED: POTASSIUM CHLORIDE 20 MEQ TABLET.ER. PO ONE (10:00)
--- NOTE | 2018-04-11 11:40 | PDOC ---
Renal-Progress Notes Subjective Notes Notes NO NEW COMPLAINTS History of Present Illness Hx of present illness STABLE Vitals Vitals Vital Signs Date Time Temp Pulse Resp B/P (MAP) Pulse Ox O2 Delivery O2 Flow Rate FiO2 04/11/18 09:06 96 126/52 04/11/18 08:00 Nasal Cannula 3.0 04/11/18 07:55 99.0 16 96 99.0 Weight Weight [ ] I.O. Intake and Output Intake and Output 04/11/18 07:00 Intake Total 831 ml Output Total 402 ml Balance 429 ml Intake Oral 800 ml Blood Product IV Normal Saline Flush 31 ml Output Urine Total 402 ml Labs Labs Laboratory Tests Test 04/11/18 06:00 White Blood Count 0.5 x10^3/uL (4.0-11.0) Red Blood Count 2.59 x10^6/uL (4.30-5.70) Hemoglobin 8.6 g/dL (13.0-17.5) Hematocrit 24.3 % (39.0-53.0) Mean Corpuscular Volume 94 fL (79-100) Mean Corpuscular Hemoglobin 33 pg (25-35) Mean Corpuscular Hemoglobin Concent 35 g/dL (31-37) Red Cell Distribution Width 16.4 % (11.5-14.5) Platelet Count 32 x10^3/uL (140-400) Neutrophils (%) (Auto) 30 % (31-73) Lymphocytes (%) (Auto) 67 % (24-48) Monocytes (%) (Auto) 1 % (0-9) Eosinophils (%) (Auto) 2 % (0-3) Basophils (%) (Auto) 1 % (0-3) Neutrophils # (Auto) 0.1 x10^3uL (1.8-7.7) Lymphocytes # (Auto) 0.3 x10^3/uL (1.0-4.8) Monocytes # (Auto) 0.0 x10^3/uL (0.0-1.1) Eosinophils # (Auto) 0.0 x10^3/uL (0.0-0.7) Basophils # (Auto) 0.0 x10^3/uL (0.0-0.2) Sodium Level 134 mmol/L (136-145) Potassium Level 3.6 mmol/L (3.5-5.1) Chloride Level 99 mmol/L (98-107) Carbon Dioxide Level 30 mmol/L (21-32) Anion Gap 5 (6-14) Blood Urea Nitrogen 58 mg/dL (8-26) Creatinine 2.7 mg/dL (0.7-1.3) Estimated GFR (Cockcroft-Gault) 23.3 BUN/Creatinine Ratio 21 (6-20) Glucose Level 129 mg/dL (70-99) Calcium Level 8.6 mg/dL (8.5-10.1) Total Bilirubin 1.0 mg/dL (0.2-1.0) Aspartate Amino Transf (AST/SGOT) 24 U/L (15-37) Alanine Aminotransferase (ALT/SGPT) 15 U/L (16-63) Alkaline Phosphatase 108 U/L (46-116) Total Protein 6.1 g/dL (6.4-8.2) Albumin 2.5 g/dL (3.4-5.0) Albumin/Globulin Ratio 0.7 (1.0-1.7) Review of Systems Constitutional: yes: alert Ears/Nose/Throat: Yes: no symptom reported Eyes: Yes: no symptom reported Pulmonary: Yes no symptom reported Cardiovascular: Yes no symptom reported Gastrointestional: Yes: no symptom reported Genitourinary: Yes: no symptom reported Musculoskeletal: Yes: no symptom reported Skin: Yes no symptom reported Psychiatric/Neurological: Yes: no symptom reported Endocrine: Yes: no symptom reported Physical Exam General Appearance: no apparent distress Skin: warm Respiratory: decreased breath sounds Heart: S1S2 Abdomen: soft, bowel sounds present Genitourinary: bladder flat Extremities: pulses present Neurology: alert Musculoskeletal: Other Assessment Assessment IMP AML PANCYTOPENIA S/P CHEMO CKD STAGE 3 TO 4 WITH CR OF 3.0 SONNY-CR TO 2.7 FROM 4.6 PLAN PER HEME/ONC ENC PO WILL FOLLOW SANGEETHA PHILLIPS MD Apr 11, 2018 11:40
[2018-04-11 12:00] VITALS: BP 113/64
[2018-04-11] MEDS: ACYCLOVIR 200 MG CAPSULE. PO SCH ×2 (13:31→20:28)
--- NOTE | 2018-04-11 14:42 | PDOC ---
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 which began February, with pancytopenia acute on chronic systolic CHF with exacerbation , LE edema severe malnutrition, with obesity, BMI 31 symptomatic anemia, improved s/p 2 u PRBC CAD, lipids, weakness prior confusion, metabolic encephalopathy, Uremia, History of Present Illness History of Present Illness very sleepy, lethargic today ate well last night, better today LE edema and str has been improved he wants to go home whenever I talk to him Vitals Vitals Vital Signs Date Time Temp Pulse Resp B/P (MAP) Pulse Ox O2 Delivery O2 Flow Rate FiO2 04/11/18 12:00 97.7 92 18 113/64 (80) 96 Nasal Cannula 3.0 97.7 Physical Exam Physical Exam nasal turbinates boggy and erythemtous, blood visualized, + epistaxis General: Alert, mild distress Heart: No murmurs Lungs: Clear, Other Abdomen: Normal bowel sounds Extremities: No cyanosis Skin: No breakdown Labs LABS Laboratory Tests Test 04/11/18 06:00 White Blood Count 0.5 x10^3/uL (4.0-11.0) Red Blood Count 2.59 x10^6/uL (4.30-5.70) Hemoglobin 8.6 g/dL (13.0-17.5) Hematocrit 24.3 % (39.0-53.0) Mean Corpuscular Volume 94 fL (79-100) Mean Corpuscular Hemoglobin 33 pg (25-35) Mean Corpuscular Hemoglobin Concent 35 g/dL (31-37) Red Cell Distribution Width 16.4 % (11.5-14.5) Platelet Count 32 x10^3/uL (140-400) Neutrophils (%) (Auto) 30 % (31-73) Lymphocytes (%) (Auto) 67 % (24-48) Monocytes (%) (Auto) 1 % (0-9) Eosinophils (%) (Auto) 2 % (0-3) Basophils (%) (Auto) 1 % (0-3) Neutrophils # (Auto) 0.1 x10^3uL (1.8-7.7) Lymphocytes # (Auto) 0.3 x10^3/uL (1.0-4.8) Monocytes # (Auto) 0.0 x10^3/uL (0.0-1.1) Eosinophils # (Auto) 0.0 x10^3/uL (0.0-0.7) Basophils # (Auto) 0.0 x10^3/uL (0.0-0.2) Sodium Level 134 mmol/L (136-145) Potassium Level 3.6 mmol/L (3.5-5.1) Chloride Level 99 mmol/L (98-107) Carbon Dioxide Level 30 mmol/L (21-32) Anion Gap 5 (6-14) Blood Urea Nitrogen 58 mg/dL (8-26) Creatinine 2.7 mg/dL (0.7-1.3) Estimated GFR (Cockcroft-Gault) 23.3 BUN/Creatinine Ratio 21 (6-20) Glucose Level 129 mg/dL (70-99) Calcium Level 8.6 mg/dL (8.5-10.1) Total Bilirubin 1.0 mg/dL (0.2-1.0) Aspartate Amino Transf (AST/SGOT) 24 U/L (15-37) Alanine Aminotransferase (ALT/SGPT) 15 U/L (16-63) Alkaline Phosphatase 108 U/L (46-116) Total Protein 6.1 g/dL (6.4-8.2) Albumin 2.5 g/dL (3.4-5.0) Albumin/Globulin Ratio 0.7 (1.0-1.7) Assessment and Plan Assessmemt and Plan Problems Medical Problems: (1) Anemia Status: Acute (2) Leukocytopenia Status: Acute (3) Neutropenia Status: Acute (4) Pancytopenia Status: Acute Comment Review of Relevant I have reviewed the following items zoey (where applicable) has been applied. Labs Laboratory Tests Test 04/09/18 15:45 04/10/18 11:10 04/11/18 06:00 Hemoglobin 8.2 g/dL (13.0-17.5) 7.9 g/dL (13.0-17.5) 8.6 g/dL (13.0-17.5) Hematocrit 23.2 % (39.0-53.0) 22.7 % (39.0-53.0) 24.3 % (39.0-53.0) White Blood Count 0.6 x10^3/uL (4.0-11.0) 0.5 x10^3/uL (4.0-11.0) Red Blood Count 2.40 x10^6/uL (4.30-5.70) 2.59 x10^6/uL (4.30-5.70) Mean Corpuscular Volume 94 fL (79-100) 94 fL (79-100) Mean Corpuscular Hemoglobin 33 pg (25-35) 33 pg (25-35) Mean Corpuscular Hemoglobin Concent 35 g/dL (31-37) 35 g/dL (31-37) Red Cell Distribution Width 17.4 % (11.5-14.5) 16.4 % (11.5-14.5) Platelet Count 10 x10^3/uL (140-400) 32 x10^3/uL (140-400) Neutrophils (%) (Auto) 3 % (31-73) 30 % (31-73) Lymphocytes (%) (Auto) 72 % (24-48) 67 % (24-48) Monocytes (%) (Auto) 23 % (0-9) 1 % (0-9) Eosinophils (%) (Auto) 1 % (0-3) 2 % (0-3) Basophils (%) (Auto) 1 % (0-3) 1 % (0-3) Neutrophils # (Auto) 0.0 x10^3uL (1.8-7.7) 0.1 x10^3uL (1.8-7.7) Lymphocytes # (Auto) 0.4 x10^3/uL (1.0-4.8) 0.3 x10^3/uL (1.0-4.8) Monocytes # (Auto) 0.1 x10^3/uL (0.0-1.1) 0.0 x10^3/uL (0.0-1.1) Eosinophils # (Auto) 0.0 x10^3/uL (0.0-0.7) 0.0 x10^3/uL (0.0-0.7) Basophils # (Auto) 0.0 x10^3/uL (0.0-0.2) 0.0 x10^3/uL (0.0-0.2) Sodium Level 132 mmol/L (136-145) 134 mmol/L (136-145) Potassium Level 4.2 mmol/L (3.5-5.1) 3.6 mmol/L (3.5-5.1) Chloride Level 98 mmol/L (98-107) 99 mmol/L (98-107) Carbon Dioxide Level 30 mmol/L (21-32) 30 mmol/L (21-32) Anion Gap 4 (6-14) 5 (6-14) Blood Urea Nitrogen 60 mg/dL (8-26) 58 mg/dL (8-26) Creatinine 2.9 mg/dL (0.7-1.3) 2.7 mg/dL (0.7-1.3) Estimated GFR (Cockcroft-Gault) 21.5 23.3 Glucose Level 140 mg/dL (70-99) 129 mg/dL (70-99) Calcium Level 8.8 mg/dL (8.5-10.1) 8.6 mg/dL (8.5-10.1) BUN/Creatinine Ratio 21 (6-20) Total Bilirubin 1.0 mg/dL (0.2-1.0) Aspartate Amino Transf (AST/SGOT) 24 U/L (15-37) Alanine Aminotransferase (ALT/SGPT) 15 U/L (16-63) Alkaline Phosphatase 108 U/L (46-116) Total Protein 6.1 g/dL (6.4-8.2) Albumin 2.5 g/dL (3.4-5.0) Albumin/Globulin Ratio 0.7 (1.0-1.7) Laboratory Tests Test 04/11/18 06:00 White Blood Count 0.5 x10^3/uL (4.0-11.0) Red Blood Count 2.59 x10^6/uL (4.30-5.70) Hemoglobin 8.6 g/dL (13.0-17.5) Hematocrit 24.3 % (39.0-53.0) Mean Corpuscular Volume 94 fL (79-100) Mean Corpuscular Hemoglobin 33 pg (25-35) Mean Corpuscular Hemoglobin Concent 35 g/dL (31-37) Red Cell Distribution Width 16.4 % (11.5-14.5) Platelet Count 32 x10^3/uL (140-400) Neutrophils (%) (Auto) 30 % (31-73) Lymphocytes (%) (Auto) 67 % (24-48) Monocytes (%) (Auto) 1 % (0-9) Eosinophils (%) (Auto) 2 % (0-3) Basophils (%) (Auto) 1 % (0-3) Neutrophils # (Auto) 0.1 x10^3uL (1.8-7.7) Lymphocytes # (Auto) 0.3 x10^3/uL (1.0-4.8) Monocytes # (Auto) 0.0 x10^3/uL (0.0-1.1) Eosinophils # (Auto) 0.0 x10^3/uL (0.0-0.7) Basophils # (Auto) 0.0 x10^3/uL (0.0-0.2) Sodium Level 134 mmol/L (136-145) Potassium Level 3.6 mmol/L (3.5-5.1) Chloride Level 99 mmol/L (98-107) Carbon Dioxide Level 30 mmol/L (21-32) Anion Gap 5 (6-14) Blood Urea Nitrogen 58 mg/dL (8-26) Creatinine 2.7 mg/dL (0.7-1.3) Estimated GFR (Cockcroft-Gault) 23.3 BUN/Creatinine Ratio 21 (6-20) Glucose Level 129 mg/dL (70-99) Calcium Level 8.6 mg/dL (8.5-10.1) Total Bilirubin 1.0 mg/dL (0.2-1.0) Aspartate Amino Transf (AST/SGOT) 24 U/L (15-37) Alanine Aminotransferase (ALT/SGPT) 15 U/L (16-63) Alkaline Phosphatase 108 U/L (46-116) Total Protein 6.1 g/dL (6.4-8.2) Albumin 2.5 g/dL (3.4-5.0) Albumin/Globulin Ratio 0.7 (1.0-1.7) Medications Current Medications Sodium Chloride 1,000 ml @ 125 mls/hr 1X ONCE IV Last administered on at 22:14; Start 04/08/18 at 19:00; Stop 04/09/18 at 01:33; Status DC Ondansetron HCl (Zofran) 4 mg PRN Q8HRS PRN IV NAUSEA/VOMITING; Start 04/08/18 at 19:00; Stop 04/09/18 at 18:59; Status DC Morphine Sulfate (Morphine Sulfate) 4 mg PRN Q2HR PRN IV MODERATE PAIN; Start 04/08/18 at 19:00; Stop 04/09/18 at 18:59; Status DC Acetaminophen (Tylenol) 650 mg PRN Q4HRS PRN PO FEVER; Start 04/08/18 at 19:00; Stop 04/09/18 at 18:59; Status DC Sodium Chloride 1,000 ml @ 125 mls/hr 1X ONCE IV ; Start 04/08/18 at 19:00; Stop 04/09/18 at 02:59; Status DC Allopurinol (Zyloprim) 150 mg DAILY PO Last administered on 04/11/18 09:07; Start 04/09/18 at 09:30 Aspirin (Ecotrin) 81 mg DAILY08 PO Last administered on 04/11/18 09:07; Start 04/09/18 at 09:30 Atorvastatin Calcium (Lipitor) 20 mg HS PO Last administered on 04/10/18at 20:29 ; Start 04/09/18 at 21:00 Dicyclomine HCl (Bentyl) 10 mg TID PO Last administered on 04/11/18 09:06; Start 04/09/18 at 09:30 Famotidine (Pepcid) 20 mg BID PO ; Start 04/09/18 at 09:30; Status Cancel Ferrous Sulfate (Feosol) 325 mg DAILY08 PO Last administered on 04/11/18at 09:06 ; Start 04/09/18 at 09:30 Finasteride (Proscar) 5 mg DAILY PO Last administered on 04/11/18 09:05; Start 04/09/18 at 09:30 Vitamin B Complex/ Vitamin C (Lupis-Brett) 1 tab DAILY PO Last administered on 09:07; Start 04/09/18 at 09:30 Furosemide (Lasix) 40 mg BID92 PO Last administered on 04/11/18 09:07; Start 04/09/18 at 09:30 Lidocaine/ Prilocaine (Emla) 1 meka PRN Q4HRS PRN TP rash; Start 04/09/18 at 09: 00 Tamsulosin HCl (Flomax) 0.4 mg BID PO Last administered on 04/11/18 09:06; Start 04/09/18 at 09:30 Acyclovir (Zovirax) 400 mg BID PO Last administered on 04/11/18 13:31; Start 04/09/18 at 10:00 Fluconazole (Diflucan) 200 mg DAILY PO Last administered on 04/11/18 09:06; Start 04/09/18 at 10:00 Non-Formulary Medication (Hydrocodone Bitartrate (Zohydro ER)) 20 mg BID PO ; Start 04/09/18 at 09:00; Stop 04/09/18 at 15:02; Status DC Acetaminophen/ Hydrocodone Bitart (Lortab 10) 1 tab PRN Q4HRS PRN PO PAIN MILD TO MODERATE Last administered on 04/10/18 09:24; Start 04/09/18 at 09:15 Magnesium Oxide (Magnesium Oxide) 400 mg DAILY PO Last administered on 09:07; Start 04/09/18 at 09:30 Pantoprazole Sodium (Protonix) 40 mg DAILYAC PO Last administered on 04/11/18 09:08; Start 04/09/18 at 09:30 Carvedilol (Coreg) 3.125 mg BIDWMEALS PO Last administered on 04/11/18 09:06; Start 04/09/18 at 10:00 Levofloxacin (Levaquin) 750 mg Q48H PO Last administered on 04/11/18 13:31; Start 04/09/18 at 10:00 Ondansetron HCl (Zofran Odt) 4 mg PRN Q8HRS PRN PO NAUSEA 1ST CHOICE PO; Start 04/09/18 at 09:30 Polyethylene Glycol (miraLAX PACKET) 17 gm PRN BID PRN PO CONSTIPATION 1ST CHOICE Last administered on 04/09/18 16:02; Start 04/09/18 at 15:45 Oxymetazoline HCl (Afrin) 2 spray BID NS Last administered on 04/10/18 20:27; Start 04/10/18 at 11:30 Oxymetazoline HCl (Afrin) 2 spray 1X ONCE NS ; Start 04/10/18 at 11:00; Stop at 11:01; Status UNV Fluticasone Propionate (Flonase) 2 spray DAILY NS Last administered on at 20:27; Start 04/10/18 at 11:30 Potassium Chloride (Klor-Con) 20 meq 1X ONCE PO Last administered on at 13:35; Start 04/11/18 at 10:00; Stop 04/11/18 at 10:01; Status DC Active Scripts Active Reported Ondansetron Odt (Ondansetron) 4 Mg Tab.rapdis 1 Tab PO PRN Q8HRS PRN Levofloxacin 750 Mg Tablet 1 Tab PO QODAY Coreg (Carvedilol) 3.125 Mg Tablet 1 Tab PO BID Vitamin D3 (Cholecalciferol (Vitamin D3)) 1,000 Unit Tablet 1 Tab PO DAILY Lidocaine-Prilocaine Cream (Lidocaine/Prilocaine) 30 Gm Cream..g. 1 Meka TP UD Fluconazole 200 Mg Tablet 1 Tab PO DAILY Allopurinol 100 Mg Tablet 150 Mg PO DAILY Acyclovir 400 Mg Tablet 1 Tab PO BID CureDM Capsule (L Gasseri/B Bifidum/B Longum) 1 Each Capsule 1 Each PO DAILY Not given on this admission May resume tomorrow Zohydro ER (Hydrocodone Bitartrate) 10 Mg Cap.er.12h 20 Mg PO BID LAST DOSE GIVEN: DATE: today TIME: 6:40 NEXT DOSE DUE: DATE: Tonight Magnesium (Magnesium Oxide) 400 Mg Capsule 1 Cap PO DAILY Medication not given here May resume tomorrow Potassium Chloride Packet (Potassium Chloride) 20 Meq Packet 20 Meq PO DAILY Not given today due to procedure Take a dose tonight Metolazone 2.5 Mg Tablet 2.5 Mg PO QMWF Dose given Thursday morning Take a dose Thursday morning Finasteride 5 Mg Tablet 5 Mg PO DAILY LAST DOSE GIVEN: DATE: last night TIME: 9pm NEXT DOSE DUE: DATE: Tonight TIME: 9 pm Furosemide 80 Mg Tablet 80 Mg PO BID LAST DOSE GIVEN: DATE: today TIME: 3pm NEXT DOSE DUE: DATE: Tomorrow TIME: 9 am Dicyclomine Hcl 10 Mg Capsule 1 Cap PO TID Not given on this admission Take this evening Vitamin B-12 (Cyanocobalamin (Vitamin B-12)) 1,000 Mcg Tablet.er 1,000 Mcg PO DAILY LAST DOSE GIVEN: DATE: today TIME: 3pm NEXT DOSE DUE: DATE: Tomorrow TIME: 9 am Lortab 10-325 mg Tablet (Hydrocodone/Acetaminophen) 1 Each Tablet 1 Tab PO PRN Q4HRS PRN LAST DOSE GIVEN: DATE: last night TIME: 11pm NEXT DOSE DUE: when needed Tamsulosin Hcl 0.4 Mg Cap.er.24h 0.4 Mg PO BID LAST DOSE GIVEN: DATE: last night TIME: 9 pm NEXT DOSE DUE: DATE: Tonight TIME: 9pm Famotidine 20 Mg Tablet 80 Mg PO BID Famotidine 20mg was given last night may take tonight Lipitor (Atorvastatin Calcium) 20 Mg Tablet 1 Tab PO HS LAST DOSE GIVEN: DATE: last night TIME: 9pm NEXT DOSE DUE: DATE: Tonight TIME: 9 pm Aspir 81 (Aspirin) 81 Mg Tablet.dr 1 Tab PO DAILY LAST DOSE GIVEN: DATE: today TIME: 3pm NEXT DOSE DUE: DATE: Tomorrow TIME: 9 am Omeprazole 40 Mg Capsule.dr 1 Cap PO BID Not given on this admission May resume in the morning TIME: 9:00 am NEXT DOSE DUE: DATE: 06-13-15 TIME: 9:00 pm Nephro-Brett Tablet (Folic Acid/Vitamin B Comp W-C) 0.8 Mg Tablet 1 Tab PO DAILY LAST DOSE GIVEN: DATE: today TIME: 3pm NEXT DOSE DUE: DATE: Tomorrow TIME: 9 am Vitals/I & O Vital Sign - Last 24 Hours 04/10/18 04/10/18 04/10/18 04/10/18 14:46 15:29 16:53 16:56 Temp 97.7 98.7 98.5 97.7 98.7 98.5 Pulse 77 72 81 81 Resp 18 B/P (MAP) 116/51 106/65 (79) 115/53 115/53 Pulse Ox 93 O2 Delivery Nasal Cannula O2 Flow Rate 3.0 04/10/18 04/10/18 04/10/18 04/10/18 18:17 19:15 19:56 20:00 Temp 98.9 96.4 98.9 96.4 Pulse 61 79 79 Resp 18 19 B/P (MAP) 117/57 125/51 125/51 (75) Pulse Ox 97 O2 Delivery Nasal Cannula Nasal Cannula O2 Flow Rate 3.0 3.0 8/11/18 8/11/18 8/11/18 8/12/18 20:10 21:10 23:51 03:08 Temp 98.1 96.4 97.9 97.9 98.1 96.4 97.9 97.9 Pulse 79 85 80 89 Resp 19 19 20 18 B/P (MAP) 127/61 146/54 172/55 (94) 96/49 (65) Pulse Ox 100 96 O2 Delivery Nasal Cannula Nasal Cannula O2 Flow Rate 3.0 3.0 04/11/18 04/11/18 04/11/18 04/11/18 07:55 08:00 09:06 12:00 Temp 99.0 97.7 99.0 97.7 Pulse 96 96 92 Resp 16 18 B/P (MAP) 126/52 (76) 126/52 113/64 (80) Pulse Ox 96 96 O2 Delivery Nasal Cannula Nasal Cannula Nasal Cannula O2 Flow Rate 3.0 3.0 3.0 Intake and Output 04/10/18 04/10/18 04/11/18 15:00 23:00 07:00 Intake Total 31 ml 800 ml Output Total 2 ml 400 ml Balance 31 ml 798 ml -400 ml CORWIN HBAKTA MD Apr 11, 2018 14:42
[2018-04-11 15:55] VITALS: BP 115/58
[2018-04-11] MEDS: HYDROcodone/APAP 10/325 1 TAB TABLET PO PRN (17:03)
[2018-04-11 19:38] VITALS: BP 122/54
[2018-04-11] MEDS: ATORVASTATIN CALCIUM 20 MG TABLET PO SCH (20:28)
[2018-04-11 23:46] VITALS: BP 124/54
[2018-04-12] VITALS (8 sets, daily range): BP systolic 109–125; BP diastolic 53–68
--- NOTE | 2018-04-12 00:06 | PN ---
DATE: REASON FOR VISIT: Followup AML, pancytopenia. SUBJECTIVE: The patient states that he feels about the same as yesterday. No shaking chills nor overt fever, although he has a low-grade temperature elevation to 99.0 this morning. He denies any cough and denies any abdominal pain, diarrhea or dysuria. His at bedside states that he has not been eating reasonably well. She has not noted any further bloody secretion since we gave him 1 unit of platelet as well as one unit of packed red cells yesterday. PHYSICAL EXAMINATION: GENERAL: Reveals an elderly ill and somewhat flat affected gentleman, resting in bed. He does not appear to be in any distress or discomfort. VITAL SIGNS: Temperature 99.0 axilla, pulse 96, respiratory rate 16, blood pressure 126/52 and satting 96% on 3 liters by oxygen nasal cannula. HEENT: Oropharynx shows no mucosal lesions. NECK: Supple. CHEST: Clear. CARDIOVASCULAR: Regular rhythm. ABDOMEN: Soft and nontender. No palpable masses. EXTREMITIES: Shows lower leg edema with stasis changes as well as finger edema, similar to yesterday. LABORATORY DATA: Hemoglobin improved from 7.9 yesterday to 8.6 this morning with 1 unit of packed red cell transfusion. His platelet count improved from 10-32 today with 1 unit of single donor platelet. His total white count remains profoundly low at 0.5 with absolute neutrophil count of 0.1. RADIOLOGICAL DATA: No imaging studies over the last 2 days. ASSESSMENT AND PLAN: 1. Acute myeloid leukemia, recent Dacogen from March 03 through April 02. 2. Neutropenia, now with low-grade fever. He is on Levaquin. I reviewed with the patient, family member as well as nursing staff that we will take oral temperature and if temperature is over 100.5 orally, we will obtain blood culture, chest x-ray and Infectious Disease consultation to assist in management of his antibiotic coverage. 3. Anemia and thrombocytopenia, I have ordered 1 unit of packed red cells and 1 unit of platelet since yesterday morning and both improved as expected. Hold transfusion today and monitor blood counts again in the morning. PLAN: See above, Dr. Demarco will return tomorrow. SANAM JOHNSON MD DR: BABITA/nts JOB#: [id number] / [id number]
[2018-04-12 03:59] LABS: BASO % 1 % (0-3); EOS % 2 % (0-3); HEMATOCRIT 23.4 % (39.0-53.0); HEMOGLOBIN 8.4 g/dL (13.0-17.5); LYMPH # 0.3 x10^3/uL (1.0-4.8); LYMPH % 74 % (24-48); MEAN CORPUSCULAR HEMOGLOBIN 34 pg (25-35); MEAN CORPUSCULAR HGB CONC 36 g/dL (31-37); MEAN CORPUSCULAR VOLUME 94 fL (79-100); MONO # 0.1 x10^3/uL (0.0-1.1); MONO % 21 % (0-9); NEUT % 3 % (31-73); RED BLOOD COUNT 2.49 x10^6/uL (4.30-5.70); RED CELL DISTRIBUTION WIDTH 16.4 % (11.5-14.5)
[2018-04-12 04:06] LABS: CALCIUM 8.6 mg/dL (8.5-10.1); CREATININE 2.3 mg/dL (0.7-1.3); GFR 28.1; POTASSIUM 3.4 mmol/L (3.5-5.1)
[2018-04-12 04:25] LABS: PLATELET COUNT 24 x10^3/uL (140-400); WHITE BLOOD COUNT 0.4 x10^3/uL (4.0-11.0)
[2018-04-12] MEDS: HYDROcodone/APAP 10/325 1 TAB TABLET PO PRN ×2 (06:06→14:54)
[2018-04-12] MEDS: FLUTICASONE 50MCG/NASAL SPRAY 16GM BOTTLE. NS SCH (09:00)
[2018-04-12] MEDS: OXYMETAZOLINE 0.05% NASAL SPRAY 30ML BOTTLE. NS SCH (09:00)
--- NOTE | 2018-04-12 09:21 | PDOC ---
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 which began February, with pancytopenia acute on chronic systolic CHF with exacerbation , LE edema severe malnutrition, with obesity, BMI 31 symptomatic anemia, improved s/p 2 u PRBC CAD, lipids, weakness prior confusion, metabolic encephalopathy, Uremia, transfused with one unit plts, ok with dr garland for d/c today History of Present Illness History of Present Illness very sleepy, lethargic today ate well last night, better today LE edema and str has been improved he wants to go home whenever I talk to him Vitals Vitals Vital Signs Date Time Temp Pulse Resp B/P (MAP) Pulse Ox O2 Delivery O2 Flow Rate FiO2 04/12/18 07:10 99.0 94 18 115/61 (79) 96 Nasal Cannula 3.0 99.0 Physical Exam Physical Exam nasal turbinates boggy and erythemtous, blood visualized, + epistaxis General: Alert, mild distress Heart: Regular rate, No murmurs Lungs: Clear, Other Abdomen: Normal bowel sounds Extremities: No cyanosis Skin: No breakdown Labs LABS Laboratory Tests Test 04/12/18 03:30 White Blood Count 0.4 x10^3/uL (4.0-11.0) Red Blood Count 2.49 x10^6/uL (4.30-5.70) Hemoglobin 8.4 g/dL (13.0-17.5) Hematocrit 23.4 % (39.0-53.0) Mean Corpuscular Volume 94 fL (79-100) Mean Corpuscular Hemoglobin 34 pg (25-35) Mean Corpuscular Hemoglobin Concent 36 g/dL (31-37) Red Cell Distribution Width 16.4 % (11.5-14.5) Platelet Count 24 x10^3/uL (140-400) Neutrophils (%) (Auto) 3 % (31-73) Lymphocytes (%) (Auto) 74 % (24-48) Monocytes (%) (Auto) 21 % (0-9) Eosinophils (%) (Auto) 2 % (0-3) Basophils (%) (Auto) 1 % (0-3) Neutrophils # (Auto) 0.0 x10^3uL (1.8-7.7) Lymphocytes # (Auto) 0.3 x10^3/uL (1.0-4.8) Monocytes # (Auto) 0.1 x10^3/uL (0.0-1.1) Eosinophils # (Auto) 0.0 x10^3/uL (0.0-0.7) Basophils # (Auto) 0.0 x10^3/uL (0.0-0.2) Sodium Level 134 mmol/L (136-145) Potassium Level 3.4 mmol/L (3.5-5.1) Chloride Level 99 mmol/L (98-107) Carbon Dioxide Level 31 mmol/L (21-32) Anion Gap 4 (6-14) Blood Urea Nitrogen 49 mg/dL (8-26) Creatinine 2.3 mg/dL (0.7-1.3) Estimated GFR (Cockcroft-Gault) 28.1 Glucose Level 121 mg/dL (70-99) Calcium Level 8.6 mg/dL (8.5-10.1) Assessment and Plan Assessmemt and Plan Problems Medical Problems: (1) Anemia Status: Acute (2) Leukocytopenia Status: Acute (3) Neutropenia Status: Acute (4) Pancytopenia Status: Acute Comment Review of Relevant I have reviewed the following items zoey (where applicable) has been applied. Labs Laboratory Tests Test 04/10/18 11:10 04/11/18 06:00 04/12/18 03:30 White Blood Count 0.6 x10^3/uL (4.0-11.0) 0.5 x10^3/uL (4.0-11.0) 0.4 x10^3/uL (4.0-11.0) Red Blood Count 2.40 x10^6/uL (4.30-5.70) 2.59 x10^6/uL (4.30-5.70) 2.49 x10^6/uL (4.30-5.70) Hemoglobin 7.9 g/dL (13.0-17.5) 8.6 g/dL (13.0-17.5) 8.4 g/dL (13.0-17.5) Hematocrit 22.7 % (39.0-53.0) 24.3 % (39.0-53.0) 23.4 % (39.0-53.0) Mean Corpuscular Volume 94 fL (79-100) 94 fL (79-100) 94 fL (79-100) Mean Corpuscular Hemoglobin 33 pg (25-35) 33 pg (25-35) 34 pg (25-35) Mean Corpuscular Hemoglobin Concent 35 g/dL (31-37) 35 g/dL (31-37) 36 g/dL (31-37) Red Cell Distribution Width 17.4 % (11.5-14.5) 16.4 % (11.5-14.5) 16.4 % (11.5-14.5) Platelet Count 10 x10^3/uL (140-400) 32 x10^3/uL (140-400) 24 x10^3/uL (140-400) Neutrophils (%) (Auto) 3 % (31-73) 30 % (31-73) 3 % (31-73) Lymphocytes (%) (Auto) 72 % (24-48) 67 % (24-48) 74 % (24-48) Monocytes (%) (Auto) 23 % (0-9) 1 % (0-9) 21 % (0-9) Eosinophils (%) (Auto) 1 % (0-3) 2 % (0-3) 2 % (0-3) Basophils (%) (Auto) 1 % (0-3) 1 % (0-3) 1 % (0-3) Neutrophils # (Auto) 0.0 x10^3uL (1.8-7.7) 0.1 x10^3uL (1.8-7.7) 0.0 x10^3uL (1.8-7.7) Lymphocytes # (Auto) 0.4 x10^3/uL (1.0-4.8) 0.3 x10^3/uL (1.0-4.8) 0.3 x10^3/uL (1.0-4.8) Monocytes # (Auto) 0.1 x10^3/uL (0.0-1.1) 0.0 x10^3/uL (0.0-1.1) 0.1 x10^3/uL (0.0-1.1) Eosinophils # (Auto) 0.0 x10^3/uL (0.0-0.7) 0.0 x10^3/uL (0.0-0.7) 0.0 x10^3/uL (0.0-0.7) Basophils # (Auto) 0.0 x10^3/uL (0.0-0.2) 0.0 x10^3/uL (0.0-0.2) 0.0 x10^3/uL (0.0-0.2) Sodium Level 132 mmol/L (136-145) 134 mmol/L (136-145) 134 mmol/L (136-145) Potassium Level 4.2 mmol/L (3.5-5.1) 3.6 mmol/L (3.5-5.1) 3.4 mmol/L (3.5-5.1) Chloride Level 98 mmol/L (98-107) 99 mmol/L (98-107) 99 mmol/L (98-107) Carbon Dioxide Level 30 mmol/L (21-32) 30 mmol/L (21-32) 31 mmol/L (21-32) Anion Gap 4 (6-14) 5 (6-14) 4 (6-14) Blood Urea Nitrogen 60 mg/dL (8-26) 58 mg/dL (8-26) 49 mg/dL (8-26) Creatinine 2.9 mg/dL (0.7-1.3) 2.7 mg/dL (0.7-1.3) 2.3 mg/dL (0.7-1.3) Estimated GFR (Cockcroft-Gault) 21.5 23.3 28.1 Glucose Level 140 mg/dL (70-99) 129 mg/dL (70-99) 121 mg/dL (70-99) Calcium Level 8.8 mg/dL (8.5-10.1) 8.6 mg/dL (8.5-10.1) 8.6 mg/dL (8.5-10.1) BUN/Creatinine Ratio 21 (6-20) Total Bilirubin 1.0 mg/dL (0.2-1.0) Aspartate Amino Transf (AST/SGOT) 24 U/L (15-37) Alanine Aminotransferase (ALT/SGPT) 15 U/L (16-63) Alkaline Phosphatase 108 U/L (46-116) Total Protein 6.1 g/dL (6.4-8.2) Albumin 2.5 g/dL (3.4-5.0) Albumin/Globulin Ratio 0.7 (1.0-1.7) Laboratory Tests Test 04/12/18 03:30 White Blood Count 0.4 x10^3/uL (4.0-11.0) Red Blood Count 2.49 x10^6/uL (4.30-5.70) Hemoglobin 8.4 g/dL (13.0-17.5) Hematocrit 23.4 % (39.0-53.0) Mean Corpuscular Volume 94 fL (79-100) Mean Corpuscular Hemoglobin 34 pg (25-35) Mean Corpuscular Hemoglobin Concent 36 g/dL (31-37) Red Cell Distribution Width 16.4 % (11.5-14.5) Platelet Count 24 x10^3/uL (140-400) Neutrophils (%) (Auto) 3 % (31-73) Lymphocytes (%) (Auto) 74 % (24-48) Monocytes (%) (Auto) 21 % (0-9) Eosinophils (%) (Auto) 2 % (0-3) Basophils (%) (Auto) 1 % (0-3) Neutrophils # (Auto) 0.0 x10^3uL (1.8-7.7) Lymphocytes # (Auto) 0.3 x10^3/uL (1.0-4.8) Monocytes # (Auto) 0.1 x10^3/uL (0.0-1.1) Eosinophils # (Auto) 0.0 x10^3/uL (0.0-0.7) Basophils # (Auto) 0.0 x10^3/uL (0.0-0.2) Sodium Level 134 mmol/L (136-145) Potassium Level 3.4 mmol/L (3.5-5.1) Chloride Level 99 mmol/L (98-107) Carbon Dioxide Level 31 mmol/L (21-32) Anion Gap 4 (6-14) Blood Urea Nitrogen 49 mg/dL (8-26) Creatinine 2.3 mg/dL (0.7-1.3) Estimated GFR (Cockcroft-Gault) 28.1 Glucose Level 121 mg/dL (70-99) Calcium Level 8.6 mg/dL (8.5-10.1) Medications Current Medications Sodium Chloride 1,000 ml @ 125 mls/hr 1X ONCE IV Last administered on at 22:14; Start 04/08/18 at 19:00; Stop 04/09/18 at 01:33; Status DC Ondansetron HCl (Zofran) 4 mg PRN Q8HRS PRN IV NAUSEA/VOMITING; Start 04/08/18 at 19:00; Stop 04/09/18 at 18:59; Status DC Morphine Sulfate (Morphine Sulfate) 4 mg PRN Q2HR PRN IV MODERATE PAIN; Start 04/08/18 at 19:00; Stop 04/09/18 at 18:59; Status DC Acetaminophen (Tylenol) 650 mg PRN Q4HRS PRN PO FEVER; Start 04/08/18 at 19:00; Stop 04/09/18 at 18:59; Status DC Sodium Chloride 1,000 ml @ 125 mls/hr 1X ONCE IV ; Start 04/08/18 at 19:00; Stop 04/09/18 at 02:59; Status DC Allopurinol (Zyloprim) 150 mg DAILY PO Last administered on 04/11/18 09:07; Start 04/09/18 at 09:30 Aspirin (Ecotrin) 81 mg DAILY08 PO Last administered on 04/11/18 09:07; Start 04/09/18 at 09:30 Atorvastatin Calcium (Lipitor) 20 mg HS PO Last administered on 04/11/18 20:28 ; Start 04/09/18 at 21:00 Dicyclomine HCl (Bentyl) 10 mg TID PO Last administered on 04/11/18 20:28; Start 04/09/18 at 09:30 Famotidine (Pepcid) 20 mg BID PO ; Start 04/09/18 at 09:30; Status Cancel Ferrous Sulfate (Feosol) 325 mg DAILY08 PO Last administered on 04/11/18 09:06 ; Start 04/09/18 at 09:30 Finasteride (Proscar) 5 mg DAILY PO Last administered on 04/11/18 09:05; Start 04/09/18 at 09:30 Vitamin B Complex/ Vitamin C (Lupis-Brett) 1 tab DAILY PO Last administered on 09:07; Start 04/09/18 at 09:30 Furosemide (Lasix) 40 mg BID92 PO Last administered on 04/11/18 17:03; Start 04/09/18 at 09:30 Lidocaine/ Prilocaine (Emla) 1 meka PRN Q4HRS PRN TP rash; Start 04/09/18 at 09: 00 Tamsulosin HCl (Flomax) 0.4 mg BID PO Last administered on 04/11/18 20:28; Start 04/09/18 at 09:30 Acyclovir (Zovirax) 400 mg BID PO Last administered on 04/11/18 20:28; Start 04/09/18 at 10:00 Fluconazole (Diflucan) 200 mg DAILY PO Last administered on 04/11/18 09:06; Start 04/09/18 at 10:00 Non-Formulary Medication (Hydrocodone Bitartrate (Zohydro ER)) 20 mg BID PO ; Start 04/09/18 at 09:00; Stop 04/09/18 at 15:02; Status DC Acetaminophen/ Hydrocodone Bitart (Lortab 10/325) 1 tab PRN Q4HRS PRN PO PAIN MILD TO MODERATE Last administered on 04/12/18 06:06; Start 04/09/18 at 09:15 Magnesium Oxide (Magnesium Oxide) 400 mg DAILY PO Last administered on 09:07; Start 04/09/18 at 09:30 Pantoprazole Sodium (Protonix) 40 mg DAILYAC PO Last administered on 04/11/18 09:08; Start 04/09/18 at 09:30 Carvedilol (Coreg) 3.125 mg BIDWMEALS PO Last administered on 04/11/18 17:03; Start 04/09/18 at 10:00 Levofloxacin (Levaquin) 750 mg Q48H PO Last administered on 04/11/18 13:31; Start 04/09/18 at 10:00 Ondansetron HCl (Zofran Odt) 4 mg PRN Q8HRS PRN PO NAUSEA 1ST CHOICE PO; Start 04/09/18 at 09:30 Polyethylene Glycol (miraLAX PACKET) 17 gm PRN BID PRN PO CONSTIPATION 1ST CHOICE Last administered on 04/09/18at 16:02; Start 04/09/18 at 15:45 Oxymetazoline HCl (Afrin) 2 spray BID NS Last administered on 04/10/18at 20:27; Start 04/10/18 at 11:30 Oxymetazoline HCl (Afrin) 2 spray 1X ONCE NS ; Start 04/10/18 at 11:00; Stop at 11:01; Status UNV Fluticasone Propionate (Flonase) 2 spray DAILY NS Last administered on at 20:27; Start 04/10/18 at 11:30 Potassium Chloride (Klor-Con) 20 meq 1X ONCE PO Last administered on at 13:35; Start 04/11/18 at 10:00; Stop 04/11/18 at 10:01; Status DC Active Scripts Active Reported Ondansetron Odt (Ondansetron) 4 Mg Tab.rapdis 1 Tab PO PRN Q8HRS PRN Levofloxacin 750 Mg Tablet 1 Tab PO QODAY Coreg (Carvedilol) 3.125 Mg Tablet 1 Tab PO BID Vitamin D3 (Cholecalciferol (Vitamin D3)) 1,000 Unit Tablet 1 Tab PO DAILY Lidocaine-Prilocaine Cream (Lidocaine/Prilocaine) 30 Gm Cream..g. 1 Meka TP UD Fluconazole 200 Mg Tablet 1 Tab PO DAILY Allopurinol 100 Mg Tablet 150 Mg PO DAILY Acyclovir 400 Mg Tablet 1 Tab PO BID [facility] Capsule (L Gasseri/B Bifidum/B Longum) 1 Each Capsule 1 Each PO DAILY Not given on this admission May resume tomorrow Zohydro ER (Hydrocodone Bitartrate) 10 Mg Cap.er.12h 20 Mg PO BID LAST DOSE GIVEN: DATE: today TIME: 6:40 NEXT DOSE DUE: DATE: Tonight Magnesium (Magnesium Oxide) 400 Mg Capsule 1 Cap PO DAILY Medication not given here May resume tomorrow Potassium Chloride Packet (Potassium Chloride) 20 Meq Packet 20 Meq PO DAILY Not given today due to procedure Take a dose tonight Metolazone 2.5 Mg Tablet 2.5 Mg PO QMWF Dose given Thursday morning Take a dose Thursday morning Finasteride 5 Mg Tablet 5 Mg PO DAILY LAST DOSE GIVEN: DATE: last night TIME: 9pm NEXT DOSE DUE: DATE: Tonight TIME: 9 pm Furosemide 80 Mg Tablet 80 Mg PO BID LAST DOSE GIVEN: DATE: today TIME: 3pm NEXT DOSE DUE: DATE: Tomorrow TIME: 9 am Dicyclomine Hcl 10 Mg Capsule 1 Cap PO TID Not given on this admission Take this evening Vitamin B-12 (Cyanocobalamin (Vitamin B-12)) 1,000 Mcg Tablet.er 1,000 Mcg PO DAILY LAST DOSE GIVEN: DATE: today TIME: 3pm NEXT DOSE DUE: DATE: Tomorrow TIME: 9 am Lortab 10-325 mg Tablet (Hydrocodone/Acetaminophen) 1 Each Tablet 1 Tab PO PRN Q4HRS PRN LAST DOSE GIVEN: DATE: last night TIME: 11pm NEXT DOSE DUE: when needed Tamsulosin Hcl 0.4 Mg Cap.er.24h 0.4 Mg PO BID LAST DOSE GIVEN: DATE: last night TIME: 9 pm NEXT DOSE DUE: DATE: Tonight TIME: 9pm Famotidine 20 Mg Tablet 80 Mg PO BID Famotidine 20mg was given last night may take tonight Lipitor (Atorvastatin Calcium) 20 Mg Tablet 1 Tab PO HS LAST DOSE GIVEN: DATE: last night TIME: 9pm NEXT DOSE DUE: DATE: Tonight TIME: 9 pm Aspir 81 (Aspirin) 81 Mg Tablet.dr 1 Tab PO DAILY LAST DOSE GIVEN: DATE: today TIME: 3pm NEXT DOSE DUE: DATE: Tomorrow TIME: 9 am Omeprazole 40 Mg Capsule.dr 1 Cap PO BID Not given on this admission May resume in the morning TIME: 9:00 am NEXT DOSE DUE: DATE: 06-13-15 TIME: 9:00 pm Nephro-Brett Tablet (Folic Acid/Vitamin B Comp W-C) 0.8 Mg Tablet 1 Tab PO DAILY LAST DOSE GIVEN: DATE: today TIME: 3pm NEXT DOSE DUE: DATE: Tomorrow TIME: 9 am Vitals/I & O Vital Sign - Last 24 Hours 04/11/18 04/11/18 04/11/18 04/11/18 12:00 15:55 17:03 17:03 Temp 97.7 97.9 97.7 97.9 Pulse 92 92 92 Resp 18 16 B/P (MAP) 113/64 (80) 115/58 (77) 115/58 Pulse Ox 96 96 96 O2 Delivery Nasal Cannula Nasal Cannula Nasal Cannula O2 Flow Rate 3.0 3.0 3.0 04/11/18 04/11/18 04/11/18 04/11/18 18:15 19:38 20:00 23:46 Temp 98.3 98.4 98.3 98.4 Pulse 72 82 Resp 16 16 B/P (MAP) 122/54 (76) 124/54 (77) Pulse Ox 96 96 95 O2 Delivery Nasal Cannula Nasal Cannula Nasal Cannula Nasal Cannula O2 Flow Rate 3.0 3.0 3.0 3.0 04/12/18 04/12/18 04/12/18 03:27 06:06 07:10 Temp 97.7 99.0 97.7 99.0 Pulse 104 94 Resp 16 18 18 B/P (MAP) 125/53 (77) 115/61 (79) Pulse Ox 96 96 O2 Delivery Nasal Cannula Nasal Cannula Nasal Cannula O2 Flow Rate 3.0 3.0 3.0 Intake and Output 04/11/18 04/11/18 04/12/18 15:00 23:00 07:00 Intake Total 300 ml 300 ml Output Total 1000 ml Balance 300 ml -700 ml LITZY STEVENS MD Apr 12, 2018 09:21
[2018-04-12 09:40] LABS: HEMATOCRIT 20.5 % (39.0-53.0)
[2018-04-12 09:41] LABS: PLATELET COUNT 14 x10^3/uL (140-400)
--- NOTE | 2018-04-12 09:59 | PDOC ---
SUBJECTIVE Subjective S: would like to go home, platelet count 24,000 but still feeling like he's having some left inner ear bleeding O: Physical exam: Gen.: Well-nourished and well-developed, resting at side of bed Lungs: Breathing comfortably with no evidence of respiratory distress Labs: White count 0.4, hemoglobin 8.4, platelets 24 Assessment and Plan: 72-year-old male with acute myelogenous leukemia who just recently completed cycle 2 of 10 day dacogen, admitted for hyperkalemia and with ongoing transfusion needs Thrombocytopenia: Improved after platelet transfusion but will give one more platelet transfusion today due to ongoing bleeding Feels like he has some inner ear bleeding: Will send ENT consult as an outpatient Neutropenia: Will continue his prophylactics hyperkalemia: Resolved He will be discharged today after platelet transfusion and can follow-up with us in our clinic. Thank you kindly and please do not hesitate to call with questions. OBJECTIVE Vital Signs Vital Signs Date Time Temp Pulse Resp B/P (MAP) Pulse Ox O2 Delivery O2 Flow Rate FiO2 04/12/18 07:10 99.0 94 18 115/61 (79) 96 Nasal Cannula 3.0 99.0 04/12/18 06:06 18 Nasal Cannula 3.0 04/12/18 03:27 97.7 104 16 125/53 (77) 96 Nasal Cannula 3.0 97.7 04/11/18 23:46 98.4 82 16 124/54 (77) 95 Nasal Cannula 3.0 98.4 04/11/18 20:00 Nasal Cannula 3.0 04/11/18 19:38 98.3 72 16 122/54 (76) 96 Nasal Cannula 3.0 98.3 04/11/18 18:15 96 Nasal Cannula 3.0 04/11/18 17:03 92 115/58 04/11/18 17:03 96 Nasal Cannula 3.0 04/11/18 15:55 97.9 92 16 115/58 (77) 96 Nasal Cannula 3.0 97.9 04/11/18 12:00 97.7 92 18 113/64 (80) 96 Nasal Cannula 3.0 97.7 I & O Intake and Output 04/12/18 07:00 Intake Total 600 ml Output Total 1000 ml Balance -400 ml Intake Oral 600 ml Output Urine Total 1000 ml # Voids 2 COMMENT Lab Laboratory Tests Test 04/12/18 03:30 White Blood Count 0.4 x10^3/uL (4.0-11.0) Red Blood Count 2.49 x10^6/uL (4.30-5.70) Hemoglobin 8.4 g/dL (13.0-17.5) Hematocrit 23.4 % (39.0-53.0) Mean Corpuscular Volume 94 fL (79-100) Mean Corpuscular Hemoglobin 34 pg (25-35) Mean Corpuscular Hemoglobin Concent 36 g/dL (31-37) Red Cell Distribution Width 16.4 % (11.5-14.5) Platelet Count 24 x10^3/uL (140-400) Neutrophils (%) (Auto) 3 % (31-73) Lymphocytes (%) (Auto) 74 % (24-48) Monocytes (%) (Auto) 21 % (0-9) Eosinophils (%) (Auto) 2 % (0-3) Basophils (%) (Auto) 1 % (0-3) Neutrophils # (Auto) 0.0 x10^3uL (1.8-7.7) Lymphocytes # (Auto) 0.3 x10^3/uL (1.0-4.8) Monocytes # (Auto) 0.1 x10^3/uL (0.0-1.1) Eosinophils # (Auto) 0.0 x10^3/uL (0.0-0.7) Basophils # (Auto) 0.0 x10^3/uL (0.0-0.2) Sodium Level 134 mmol/L (136-145) Potassium Level 3.4 mmol/L (3.5-5.1) Chloride Level 99 mmol/L (98-107) Carbon Dioxide Level 31 mmol/L (21-32) Anion Gap 4 (6-14) Blood Urea Nitrogen 49 mg/dL (8-26) Creatinine 2.3 mg/dL (0.7-1.3) Estimated GFR (Cockcroft-Gault) 28.1 Glucose Level 121 mg/dL (70-99) Calcium Level 8.6 mg/dL (8.5-10.1) BASILIO GARCIA MD Apr 12, 2018 09:59
[2018-04-12] MEDS: FERROUS SULFATE 325 MG TABLET. PO SCH (10:11)
[2018-04-12] MEDS: ACYCLOVIR 200 MG CAPSULE. PO SCH (10:12)
[2018-04-12] MEDS: PANTOPRAZOLE 40 MG TABLET.DR. PO SCH (10:13)
[2018-04-12] MEDS: MAGNESIUM OXIDE 400 MG TABLET PO SCH (10:13)
[2018-04-12] MEDS: CARVEDILOL 3.125 MG TABLET. PO SCH (10:13)
[2018-04-12] MEDS: TAMSULOSIN 0.4 MG CAP.ER.24H. PO SCH (10:14)
[2018-04-12] MEDS: FUROSEMIDE 40 MG TABLET. PO SCH ×2 (10:14→14:53)
[2018-04-12] MEDS: DICYCLOMINE HCL 10 MG CAPSULE PO SCH ×2 (10:14→14:53)
[2018-04-12] MEDS: ASPIRIN ENTERIC COATED 81 MG TABLET.DR. PO SCH (10:15)
[2018-04-12] MEDS: FINASTERIDE 5 MG TABLET. PO SCH (10:16)
[2018-04-12] MEDS: ALLOPURINOL 100 MG TABLET. PO SCH (10:16)
[2018-04-12] MEDS: FLUCONAZOLE 100 MG TABLET. PO SCH (10:31)
[2018-04-12] MEDS: FOLIC/VIT B COMP W-C (RENAL) TABLET. PO SCH (10:32)
--- NOTE | 2018-04-12 13:38 | PDOC ---
Renal-Progress Notes Subjective Notes Notes NOTHING NEW History of Present Illness Hx of present illness STABLE Vitals Vitals Vital Signs Date Time Temp Pulse Resp B/P (MAP) Pulse Ox O2 Delivery O2 Flow Rate FiO2 04/12/18 11:13 97.5 95 17 113/65 (81) 98 Nasal Cannula 3.0 97.5 Weight Weight [ ] I.O. Intake and Output Intake and Output 04/12/18 07:00 Intake Total 600 ml Output Total 1000 ml Balance -400 ml Intake Oral 600 ml Output Urine Total 1000 ml # Voids 2 Labs Labs Laboratory Tests Test 04/12/18 03:30 White Blood Count 0.4 x10^3/uL (4.0-11.0) Red Blood Count 2.49 x10^6/uL (4.30-5.70) Hemoglobin 8.4 g/dL (13.0-17.5) Hematocrit 23.4 % (39.0-53.0) Mean Corpuscular Volume 94 fL (79-100) Mean Corpuscular Hemoglobin 34 pg (25-35) Mean Corpuscular Hemoglobin Concent 36 g/dL (31-37) Red Cell Distribution Width 16.4 % (11.5-14.5) Platelet Count 24 x10^3/uL (140-400) Neutrophils (%) (Auto) 3 % (31-73) Lymphocytes (%) (Auto) 74 % (24-48) Monocytes (%) (Auto) 21 % (0-9) Eosinophils (%) (Auto) 2 % (0-3) Basophils (%) (Auto) 1 % (0-3) Neutrophils # (Auto) 0.0 x10^3uL (1.8-7.7) Lymphocytes # (Auto) 0.3 x10^3/uL (1.0-4.8) Monocytes # (Auto) 0.1 x10^3/uL (0.0-1.1) Eosinophils # (Auto) 0.0 x10^3/uL (0.0-0.7) Basophils # (Auto) 0.0 x10^3/uL (0.0-0.2) Sodium Level 134 mmol/L (136-145) Potassium Level 3.4 mmol/L (3.5-5.1) Chloride Level 99 mmol/L (98-107) Carbon Dioxide Level 31 mmol/L (21-32) Anion Gap 4 (6-14) Blood Urea Nitrogen 49 mg/dL (8-26) Creatinine 2.3 mg/dL (0.7-1.3) Estimated GFR (Cockcroft-Gault) 28.1 Glucose Level 121 mg/dL (70-99) Calcium Level 8.6 mg/dL (8.5-10.1) Review of Systems Constitutional: yes: alert Ears/Nose/Throat: Yes: no symptom reported Eyes: Yes: no symptom reported Pulmonary: Yes no symptom reported Cardiovascular: Yes no symptom reported Gastrointestional: Yes: no symptom reported Genitourinary: Yes: no symptom reported Musculoskeletal: Yes: no symptom reported Skin: Yes no symptom reported Psychiatric/Neurological: Yes: no symptom reported Endocrine: Yes: no symptom reported Physical Exam General Appearance: no apparent distress Skin: warm Respiratory: decreased breath sounds Heart: S1S2 Abdomen: soft, bowel sounds present Genitourinary: bladder flat Extremities: pulses present Neurology: alert Musculoskeletal: Other Assessment Assessment IMP AML PANCYTOPENIA S/P CHEMO CKD STAGE 3 TO 4 WITH CR OF 3.0 SONNY-CR TO 2.3 FROM 4.6 PLAN PER HEME/ONC ENC PO WILL FOLLOW SANGEETHA PHILLIPS MD Apr 12, 2018 13:38
[2018-04-12] MEDS: POLYETHYLENE GLYCOL 3350 17 GM PACKET. PO PRN (13:40)
--- NOTE | 2018-04-12 17:10 | PDOC3 ---
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 which began February, with pancytopenia acute on chronic systolic CHF with exacerbation , LE edema severe malnutrition, with obesity, BMI 31 symptomatic anemia, improved s/p 2 u PRBC CAD, lipids, weakness prior confusion, metabolic encephalopathy, Uremia, transfused with one unit plts, ok with dr garland for d/c today History of Present Illness History of Present Illness very sleepy, lethargic today ate well last night, better today LE edema and str has been improved he wants to go home whenever I talk to him Vitals Vitals Vital Signs Date Time Temp Pulse Resp B/P (MAP) Pulse Ox O2 Delivery O2 Flow Rate FiO2 04/12/18 07:10 99.0 94 18 115/61 (79) 96 Nasal Cannula 3.0 99.0 Physical Exam Physical Exam nasal turbinates boggy and erythemtous, blood visualized, + epistaxis General: Alert, mild distress Heart: Regular rate, No murmurs Lungs: Clear, Other Abdomen: Normal bowel sounds Extremities: No cyanosis Skin: No breakdown FINAL DIAGNOSIS Problems Medical Problems: (1) Anemia Status: Acute (2) Leukocytopenia Status: Acute (3) Neutropenia Status: Acute (4) Pancytopenia Status: Acute Brief Hospital Course Mr. Dubois is a 72 old [sex] who presented with [ ] CONDITION AT DISCHARGE: Comment (guarded) Discharge Medications Current Medications Sodium Chloride 1,000 ml @ 125 mls/hr 1X ONCE IV Last administered on at 22:14; Start 04/08/18 at 19:00; Stop 04/09/18 at 01:33; Status DC Ondansetron HCl (Zofran) 4 mg PRN Q8HRS PRN IV NAUSEA/VOMITING; Start 04/08/18 at 19:00; Stop 04/09/18 at 18:59; Status DC Morphine Sulfate (Morphine Sulfate) 4 mg PRN Q2HR PRN IV MODERATE PAIN; Start 04/08/18 at 19:00; Stop 04/09/18 at 18:59; Status DC Acetaminophen (Tylenol) 650 mg PRN Q4HRS PRN PO FEVER; Start 04/08/18 at 19:00; Stop 04/09/18 at 18:59; Status DC Sodium Chloride 1,000 ml @ 125 mls/hr 1X ONCE IV ; Start 04/08/18 at 19:00; Stop 04/09/18 at 02:59; Status DC Allopurinol (Zyloprim) 150 mg DAILY PO Last administered on 04/12/18 10:16; Start 04/09/18 at 09:30 Aspirin (Ecotrin) 81 mg DAILY08 PO Last administered on 04/12/18 10:15; Start 04/09/18 at 09:30 Atorvastatin Calcium (Lipitor) 20 mg HS PO Last administered on 04/11/18 20:28 ; Start 04/09/18 at 21:00 Dicyclomine HCl (Bentyl) 10 mg TID PO Last administered on 04/12/18 14:53; Start 04/09/18 at 09:30 Famotidine (Pepcid) 20 mg BID PO ; Start 04/09/18 at 09:30; Status Cancel Ferrous Sulfate (Feosol) 325 mg DAILY08 PO Last administered on 04/12/18 10:11 ; Start 04/09/18 at 09:30 Finasteride (Proscar) 5 mg DAILY PO Last administered on 04/12/18 10:16; Start 04/09/18 at 09:30 Vitamin B Complex/ Vitamin C (Lupis-Brett) 1 tab DAILY PO Last administered on 10:32; Start 04/09/18 at 09:30 Furosemide (Lasix) 40 mg BID92 PO Last administered on 04/12/18 14:53; Start 04/09/18 at 09:30 Lidocaine/ Prilocaine (Emla) 1 meka PRN Q4HRS PRN TP rash; Start 04/09/18 at 09: 00 Tamsulosin HCl (Flomax) 0.4 mg BID PO Last administered on 04/12/18 10:14; Start 04/09/18 at 09:30 Acyclovir (Zovirax) 400 mg BID PO Last administered on 04/12/18 10:12; Start 04/09/18 at 10:00 Fluconazole (Diflucan) 200 mg DAILY PO Last administered on 8/13/18at 10:31; Start 04/09/18 at 10:00 Non-Formulary Medication (Hydrocodone Bitartrate (Zohydro ER)) 20 mg BID PO ; Start 04/09/18 at 09:00; Stop 04/09/18 at 15:02; Status DC Acetaminophen/ Hydrocodone Bitart (Lortab 10/325) 1 tab PRN Q4HRS PRN PO PAIN MILD TO MODERATE Last administered on 04/12/18 14:54; Start 04/09/18 at 09:15 Magnesium Oxide (Magnesium Oxide) 400 mg DAILY PO Last administered on 10:13; Start 04/09/18 at 09:30 Pantoprazole Sodium (Protonix) 40 mg DAILYAC PO Last administered on 04/12/18 10:13; Start 04/09/18 at 09:30 Carvedilol (Coreg) 3.125 mg BIDWMEALS PO Last administered on 04/12/18 10:13; Start 04/09/18 at 10:00 Levofloxacin (Levaquin) 750 mg Q48H PO Last administered on 04/11/18 13:31; Start 04/09/18 at 10:00 Ondansetron HCl (Zofran Odt) 4 mg PRN Q8HRS PRN PO NAUSEA 1ST CHOICE PO; Start 04/09/18 at 09:30 Polyethylene Glycol (miraLAX PACKET) 17 gm PRN BID PRN PO CONSTIPATION 1ST CHOICE Last administered on 04/12/18at 13:40; Start 04/09/18 at 15:45 Oxymetazoline HCl (Afrin) 2 spray BID NS Last administered on 04/10/18at 20:27; Start 04/10/18 at 11:30 Oxymetazoline HCl (Afrin) 2 spray 1X ONCE NS ; Start 04/10/18 at 11:00; Stop at 11:01; Status UNV Fluticasone Propionate (Flonase) 2 spray DAILY NS Last administered on 20:27; Start 04/10/18 at 11:30 Potassium Chloride (Klor-Con) 20 meq 1X ONCE PO Last administered on 13:35; Start 04/11/18 at 10:00; Stop 04/11/18 at 10:01; Status DC Active Scripts Active Reported Ondansetron Odt (Ondansetron) 4 Mg Tab.rapdis 1 Tab PO PRN Q8HRS PRN Levofloxacin 750 Mg Tablet 1 Tab PO QODAY Coreg (Carvedilol) 3.125 Mg Tablet 1 Tab PO BID Vitamin D3 (Cholecalciferol (Vitamin D3)) 1,000 Unit Tablet 1 Tab PO DAILY Lidocaine-Prilocaine Cream (Lidocaine/Prilocaine) 30 Gm Cream..g. 1 Meka TP UD Fluconazole 200 Mg Tablet 1 Tab PO DAILY Allopurinol 100 Mg Tablet 150 Mg PO DAILY Acyclovir 400 Mg Tablet 1 Tab PO BID Meeps Capsule (L Gasseri/B Bifidum/B Longum) 1 Each Capsule 1 Each PO DAILY Not given on this admission May resume tomorrow Zohydro ER (Hydrocodone Bitartrate) 10 Mg Cap.er.12h 20 Mg PO BID LAST DOSE GIVEN: DATE: today TIME: 6:40 NEXT DOSE DUE: DATE: Tonight Magnesium (Magnesium Oxide) 400 Mg Capsule 1 Cap PO DAILY Medication not given here May resume tomorrow Potassium Chloride Packet (Potassium Chloride) 20 Meq Packet 20 Meq PO DAILY Not given today due to procedure Take a dose tonight Metolazone 2.5 Mg Tablet 2.5 Mg PO QMWF Dose given Thursday morning Take a dose Thursday morning Finasteride 5 Mg Tablet 5 Mg PO DAILY LAST DOSE GIVEN: DATE: last night TIME: 9pm NEXT DOSE DUE: DATE: Tonight TIME: 9 pm Furosemide 80 Mg Tablet 80 Mg PO BID LAST DOSE GIVEN: DATE: today TIME: 3pm NEXT DOSE DUE: DATE: Tomorrow TIME: 9 am Dicyclomine Hcl 10 Mg Capsule 1 Cap PO TID Not given on this admission Take this evening Vitamin B-12 (Cyanocobalamin (Vitamin B-12)) 1,000 Mcg Tablet.er 1,000 Mcg PO DAILY LAST DOSE GIVEN: DATE: today TIME: 3pm NEXT DOSE DUE: DATE: Tomorrow TIME: 9 am Lortab 10-325 mg Tablet (Hydrocodone/Acetaminophen) 1 Each Tablet 1 Tab PO PRN Q4HRS PRN LAST DOSE GIVEN: DATE: last night TIME: 11pm NEXT DOSE DUE: when needed Tamsulosin Hcl 0.4 Mg Cap.er.24h 0.4 Mg PO BID LAST DOSE GIVEN: DATE: last night TIME: 9 pm NEXT DOSE DUE: DATE: Tonight TIME: 9pm Famotidine 20 Mg Tablet 80 Mg PO BID Famotidine 20mg was given last night may take tonight Lipitor (Atorvastatin Calcium) 20 Mg Tablet 1 Tab PO HS LAST DOSE GIVEN: DATE: last night TIME: 9pm NEXT DOSE DUE: DATE: Tonight TIME: 9 pm Aspir 81 (Aspirin) 81 Mg Tablet.dr 1 Tab PO DAILY LAST DOSE GIVEN: DATE: today TIME: 3pm NEXT DOSE DUE: DATE: Tomorrow TIME: 9 am Omeprazole 40 Mg Capsule.dr 1 Cap PO BID Not given on this admission May resume in the morning TIME: 9:00 am NEXT DOSE DUE: DATE: 06-13-15 TIME: 9:00 pm Nephro-Brett Tablet (Folic Acid/Vitamin B Comp W-C) 0.8 Mg Tablet 1 Tab PO DAILY LAST DOSE GIVEN: DATE: today TIME: 3pm NEXT DOSE DUE: DATE: Tomorrow TIME: 9 am Vital Signs Vital Signs Date Time Temp Pulse Resp B/P (MAP) Pulse Ox O2 Delivery O2 Flow Rate FiO2 04/12/18 16:38 98.6 85 18 109/68 (82) 96 Nasal Cannula 3.0 98.6 Labs Laboratory Tests Test 04/11/18 06:00 04/12/18 03:30 White Blood Count 0.5 x10^3/uL (4.0-11.0) 0.4 x10^3/uL (4.0-11.0) Red Blood Count 2.59 x10^6/uL (4.30-5.70) 2.49 x10^6/uL (4.30-5.70) Hemoglobin 8.6 g/dL (13.0-17.5) 8.4 g/dL (13.0-17.5) Hematocrit 24.3 % (39.0-53.0) 23.4 % (39.0-53.0) Mean Corpuscular Volume 94 fL (79-100) 94 fL (79-100) Mean Corpuscular Hemoglobin 33 pg (25-35) 34 pg (25-35) Mean Corpuscular Hemoglobin Concent 35 g/dL (31-37) 36 g/dL (31-37) Red Cell Distribution Width 16.4 % (11.5-14.5) 16.4 % (11.5-14.5) Platelet Count 32 x10^3/uL (140-400) 24 x10^3/uL (140-400) Neutrophils (%) (Auto) 30 % (31-73) 3 % (31-73) Lymphocytes (%) (Auto) 67 % (24-48) 74 % (24-48) Monocytes (%) (Auto) 1 % (0-9) 21 % (0-9) Eosinophils (%) (Auto) 2 % (0-3) 2 % (0-3) Basophils (%) (Auto) 1 % (0-3) 1 % (0-3) Neutrophils # (Auto) 0.1 x10^3uL (1.8-7.7) 0.0 x10^3uL (1.8-7.7) Lymphocytes # (Auto) 0.3 x10^3/uL (1.0-4.8) 0.3 x10^3/uL (1.0-4.8) Monocytes # (Auto) 0.0 x10^3/uL (0.0-1.1) 0.1 x10^3/uL (0.0-1.1) Eosinophils # (Auto) 0.0 x10^3/uL (0.0-0.7) 0.0 x10^3/uL (0.0-0.7) Basophils # (Auto) 0.0 x10^3/uL (0.0-0.2) 0.0 x10^3/uL (0.0-0.2) Sodium Level 134 mmol/L (136-145) 134 mmol/L (136-145) Potassium Level 3.6 mmol/L (3.5-5.1) 3.4 mmol/L (3.5-5.1) Chloride Level 99 mmol/L (98-107) 99 mmol/L (98-107) Carbon Dioxide Level 30 mmol/L (21-32) 31 mmol/L (21-32) Anion Gap 5 (6-14) 4 (6-14) Blood Urea Nitrogen 58 mg/dL (8-26) 49 mg/dL (8-26) Creatinine 2.7 mg/dL (0.7-1.3) 2.3 mg/dL (0.7-1.3) Estimated GFR (Cockcroft-Gault) 23.3 28.1 BUN/Creatinine Ratio 21 (6-20) Glucose Level 129 mg/dL (70-99) 121 mg/dL (70-99) Calcium Level 8.6 mg/dL (8.5-10.1) 8.6 mg/dL (8.5-10.1) Total Bilirubin 1.0 mg/dL (0.2-1.0) Aspartate Amino Transf (AST/SGOT) 24 U/L (15-37) Alanine Aminotransferase (ALT/SGPT) 15 U/L (16-63) Alkaline Phosphatase 108 U/L (46-116) Total Protein 6.1 g/dL (6.4-8.2) Albumin 2.5 g/dL (3.4-5.0) Albumin/Globulin Ratio 0.7 (1.0-1.7) Laboratory Tests Test 04/12/18 03:30 White Blood Count 0.4 x10^3/uL (4.0-11.0) Red Blood Count 2.49 x10^6/uL (4.30-5.70) Hemoglobin 8.4 g/dL (13.0-17.5) Hematocrit 23.4 % (39.0-53.0) Mean Corpuscular Volume 94 fL (79-100) Mean Corpuscular Hemoglobin 34 pg (25-35) Mean Corpuscular Hemoglobin Concent 36 g/dL (31-37) Red Cell Distribution Width 16.4 % (11.5-14.5) Platelet Count 24 x10^3/uL (140-400) Neutrophils (%) (Auto) 3 % (31-73) Lymphocytes (%) (Auto) 74 % (24-48) Monocytes (%) (Auto) 21 % (0-9) Eosinophils (%) (Auto) 2 % (0-3) Basophils (%) (Auto) 1 % (0-3) Neutrophils # (Auto) 0.0 x10^3uL (1.8-7.7) Lymphocytes # (Auto) 0.3 x10^3/uL (1.0-4.8) Monocytes # (Auto) 0.1 x10^3/uL (0.0-1.1) Eosinophils # (Auto) 0.0 x10^3/uL (0.0-0.7) Basophils # (Auto) 0.0 x10^3/uL (0.0-0.2) Sodium Level 134 mmol/L (136-145) Potassium Level 3.4 mmol/L (3.5-5.1) Chloride Level 99 mmol/L (98-107) Carbon Dioxide Level 31 mmol/L (21-32) Anion Gap 4 (6-14) Blood Urea Nitrogen 49 mg/dL (8-26) Creatinine 2.3 mg/dL (0.7-1.3) Estimated GFR (Cockcroft-Gault) 28.1 Glucose Level 121 mg/dL (70-99) Calcium Level 8.6 mg/dL (8.5-10.1) Allergies Allergies Coded Allergies Type Severity Reaction Last Updated Verified NSAIDS (Non-Steroidal Anti-Inflamma Allergy Intermediate Hives 04/05/18 Yes Sulfa (Sulfonamide Antibiotics) Allergy Intermediate HIVES 04/05/18 Yes I S O L A T I O N *CONTACT* Allergy Unknown 04/05/18 Yes hydroxyzine Adverse Reaction Intermediate insomnia 04/05/18 Yes Disposition/Orders: D/C to Home w/ HH Patient Instructions d/c planning 35 min LITZY STEVENS MD Apr 12, 2018 17:10
== END 2018-04-12 18:05 | disposition home health service (06) | DRG 834 ==
LOC: ER 17:01 → 6 SOUTH 18:22
PROVIDERS: ADMIT Family Medicine; ATTEND Family Medicine
PROC: 30233R1 Transfusion of Nonautologous Platelets into Peripheral Vein, Percutaneous Approach (ICD-10-PCS; principal; 2018-04-09)
PROC: 30233N1 Transfusion of Nonautologous Red Blood Cells into Peripheral Vein, Percutaneous Approach (ICD-10-PCS; 2018-04-10)
DX: C92.00 Acute myeloblastic leukemia, not having achieved remission (principal); I50.23 Acute on chronic systolic (congestive) heart failure; E43 Unspecified severe protein-calorie malnutrition; G93.41 Metabolic encephalopathy; N17.9 Acute kidney failure, unspecified; I13.0 Hypertensive heart and chronic kidney disease with heart failure and stage 1 through stage 4 chronic kidney disease, or unspecified chronic kidney disease; N18.4 Chronic kidney disease, stage 4 (severe); D61.818 Other pancytopenia; E87.5 Hyperkalemia; R50.81 Fever presenting with conditions classified elsewhere; D63.0 Anemia in neoplastic disease; D69.59 Other secondary thrombocytopenia; I34.0 Nonrheumatic mitral (valve) insufficiency; I48.0 Paroxysmal atrial fibrillation; G89.29 Other chronic pain; I25.10 Atherosclerotic heart disease of native coronary artery without angina pectoris; K21.9 Gastro-esophageal reflux disease without esophagitis; E78.00 Pure hypercholesterolemia, unspecified; I25.2 Old myocardial infarction; N40.0 Benign prostatic hyperplasia without lower urinary tract symptoms; Z96.659 Presence of unspecified artificial knee joint; E78.5 Hyperlipidemia, unspecified; M10.9 Gout, unspecified; E66.9 Obesity, unspecified; Z51.5 Encounter for palliative care; Z95.0 Presence of cardiac pacemaker; Z95.2 Presence of prosthetic heart valve; Z95.1 Presence of aortocoronary bypass graft; Z88.6 Allergy status to analgesic agent; Z88.2 Allergy status to sulfonamides; Z88.8 Allergy status to other drugs, medicaments and biological substances; Z68.31 Body mass index [BMI] 31.0-31.9, adult; Z92.21 Personal history of antineoplastic chemotherapy; Z80.1 Family history of malignant neoplasm of trachea, bronchus and lung; Z82.49 Family history of ischemic heart disease and other diseases of the circulatory system; Z87.891 Personal history of nicotine dependence
CPT/HCPCS: 36415; 80048; 80053; 84100; 84550; 85007; 85014; 85018; 85025; 85049; 85610; 85730; 86850; 86900; 86901; 86920; 93005; J7030; P9016; P9035; 97116; 97530; 99285-25

== ENCOUNTER 2018-04-15 11:36 | Inpatient (IN) | payer MEDICARE, OTHER ==
[~2018-04-15] VITALS: Ht 177.8 cm; Wt 89.8 kg
[~2018-04-15 11:36] MED LIST changes: +LEVO750T5 PO; +ONDA4TAB12 PO
[2018-04-15 12:45] LABS: BASO % 0 % (0-3); EOS % 1 % (0-3); LYMPH # 0.2 x10^3/uL (1.0-4.8); LYMPH % 67 % (24-48); MEAN CORPUSCULAR HEMOGLOBIN 33 pg (25-35); MEAN CORPUSCULAR HGB CONC 35 g/dL (31-37); MEAN CORPUSCULAR VOLUME 94 fL (79-100); MONO # 0.1 x10^3/uL (0.0-1.1); MONO % 27 % (0-9); NEUT % 5 % (31-73); RED CELL DISTRIBUTION WIDTH 16.2 % (11.5-14.5)
[2018-04-15 12:47] LABS: CALCIUM 8.6 mg/dL (8.5-10.1); CREATININE 3.4 mg/dL (0.7-1.3); GFR 17.9; POTASSIUM 3.3 mmol/L (3.5-5.1)
[2018-04-15 13:02] LABS: ALBUMIN 2.2 g/dL (3.4-5.0); ALBUMIN/GLOBULIN RATIO 0.6 (1.0-1.7); PROTHROMBIN TIME PATIENT 16.4 SEC (11.7-14.0); TOTAL BILIRUBIN 0.8 mg/dL (0.2-1.0); TOTAL PROTEIN 6.2 g/dL (6.4-8.2)
[2018-04-15 13:05] LABS: HEMATOCRIT 19.7 % (39.0-53.0); HEMOGLOBIN 6.9 g/dL (13.0-17.5); WHITE BLOOD COUNT 0.3 x10^3/uL (4.0-11.0)
[2018-04-15 13:06] LABS: PLATELET COUNT 21 x10^3/uL (140-400)
--- NOTE | 2018-04-15 13:25 | RAD ---
CHEST AP ONLY Clinical Indication: Weakness, pt denies chest pain. Comparison: Two-view chest March 28, 2018. Findings: Stable median sternotomy wires. Left chest Port-A-Cath the right chest dual-chamber pacer is stable. Tortuous and atherosclerotic thoracic aorta. Cardiac size upper limits of normal. Pulmonary vascular congestion and interstitial opacities are improved. There is right midlung airspace disease. No pleural abnormality. IMPRESSION: 1. Pulmonary vascular congestion and interstitial edema are improved. 2. There is new right midlung airspace disease. Electronically signed by: Akbar Becerra MD (04/15/2018 1:21 PM) [id number]
--- NOTE | 2018-04-15 13:36 | PHYS DOC ---
Past Medical History Past Medical History: CAD, GERD, High Cholesterol, Hypertension, [place], Pancreatitis, Other Additional Past Medical Histor: ANGIOPLASTY, BLD TRANSFUSION, FORMER DIALYSIS, BPH, ULCERS, STAPH BLD Past Surgical History: Angioplasty, Cholecystectomy, Coronary Bypass Surgery, Knee Replacement, Pacemaker Additional Past Surgical Histo: MITRAL VALVE REPLACEMENT, Alcohol Use: Rarely Drug Use: None Adult General Chief Complaint Chief Complaint: WEAKNESS/GENERALIZED HPI HPI Patient is a 72 year old male who presents to the ER for evaluation. History of AML currently undergoing chemotherapy. Patient has required frequent blood transfusions during the course of his treatment. Patient was at his oncologist office for evaluation and was sent to the ER. Patient is unable to provide history. Torted history obtained from spouse. Spouse reports progressive weakness over the last 3-4 days. Also notes some intermittent confusion which can be normal. Spouse reports that patient required assistance getting into the car and out of the car and she was unable to care for him today. Patient is typically able to ambulate with walker. Given weakened state patient was sent from oncology clinic rather than arranging for outpatient transfusions. Last reports no GI bleed symptoms, no fever. Patient denies any dysuria but is an unreliable historian. Review of Systems Review of Systems Unable to obtain secondary to medical status. Allergies Allergies Allergies Coded Allergies Type Severity Reaction Last Updated Verified NSAIDS (Non-Steroidal Anti-Inflamma Allergy Intermediate Hives 04/05/18 Yes Sulfa (Sulfonamide Antibiotics) Allergy Intermediate HIVES 04/05/18 Yes I S O L A T I O N *CONTACT* Allergy Unknown 04/05/18 Yes hydroxyzine Adverse Reaction Intermediate insomnia 04/05/18 Yes Physical Exam Physical Exam Constitutional: Frail, chronically ill-appearing. HENT: Normocephalic, atraumatic, Eyes: PERRLA, EOMI, no icterus Neck: no stridor. [] Cardiovascular:Heart rate regular rhythm, no murmur [] Lungs & Thorax: Bilateral breath sounds clear to auscultation []respiratory distress Abdomen: Bowel sounds normal, soft, no tenderness, no masses, no pulsatile masses. [] Skin: Warm, dry, no erythema, no rash. [] Back: No tenderness, no CVA tenderness. [] Extremities: No tenderness, no cyanosis, no clubbing, ROM intact, no edema. [] Neurologic: Alert and oriented X 3, normal motor function, normal sensory function, no focal deficits noted. [] Psychologic: Affect normal, judgement normal, mood normal. [] Current Patient Data Vital Signs Vital Signs Date Time Temp Pulse Resp B/P (MAP) Pulse Ox O2 Delivery O2 Flow Rate FiO2 04/15/18 12:43 86 18 95 04/15/18 11:54 98.1 94/51 (65) Nasal Cannula 2.5 98.1 Lab Values Laboratory Tests Test 04/15/18 12:25 White Blood Count 0.3 x10^3/uL (4.0-11.0) *L Red Blood Count 2.10 x10^6/uL (4.30-5.70) L Hemoglobin 6.9 g/dL (13.0-17.5) *L Hematocrit 19.7 % (39.0-53.0) *L Mean Corpuscular Volume 94 fL (79-100) Mean Corpuscular Hemoglobin 33 pg (25-35) Mean Corpuscular Hemoglobin Concent 35 g/dL (31-37) Red Cell Distribution Width 16.2 % (11.5-14.5) H Platelet Count 21 x10^3/uL (140-400) *L Neutrophils (%) (Auto) 5 % (31-73) L Lymphocytes (%) (Auto) 67 % (24-48) H Monocytes (%) (Auto) 27 % (0-9) H Eosinophils (%) (Auto) 1 % (0-3) Basophils (%) (Auto) 0 % (0-3) Neutrophils # (Auto) 0.0 x10^3uL (1.8-7.7) L Lymphocytes # (Auto) 0.2 x10^3/uL (1.0-4.8) L Monocytes # (Auto) 0.1 x10^3/uL (0.0-1.1) Eosinophils # (Auto) 0.0 x10^3/uL (0.0-0.7) Basophils # (Auto) 0.0 x10^3/uL (0.0-0.2) Platelet Estimate Pending Prothrombin Time 16.4 SEC (11.7-14.0) H Prothrombin Time INR 1.4 (0.8-1.1) H PTT 44 SEC (24-38) H Sodium Level 129 mmol/L (136-145) L Potassium Level 3.3 mmol/L (3.5-5.1) L Chloride Level 93 mmol/L (98-107) L Carbon Dioxide Level 31 mmol/L (21-32) Anion Gap 5 (6-14) L Blood Urea Nitrogen 67 mg/dL (8-26) H Creatinine 3.4 mg/dL (0.7-1.3) H Estimated GFR (Cockcroft-Gault) 17.9 BUN/Creatinine Ratio 20 (6-20) Glucose Level 127 mg/dL (70-99) H Lactic Acid Level 1.6 mmol/L (0.4-2.0) Calcium Level 8.6 mg/dL (8.5-10.1) Magnesium Level 2.0 mg/dL (1.8-2.4) Total Bilirubin 0.8 mg/dL (0.2-1.0) Aspartate Amino Transferase (AST) 81 U/L (15-37) H Alanine Aminotransferase (ALT) 71 U/L (16-63) H Alkaline Phosphatase 128 U/L (46-116) H Ammonia 12 mcmol/L (11-34) Total Protein 6.2 g/dL (6.4-8.2) L Albumin 2.2 g/dL (3.4-5.0) L Albumin/Globulin Ratio 0.6 (1.0-1.7) L Laboratory Tests 04/15/18 12:25 Laboratory Tests 04/15/18 12:25 EKG EKG [] Radiology/Procedures Radiology/Procedures [] Course & Med Decision Making Course & Med Decision Making Pertinent Labs and Imaging studies reviewed. (See chart for details) [] Dragon Disclaimer Dragon Disclaimer This electronic medical record was generated, in whole or in part, using a voice recognition dictation system. Departure Departure Referrals: DANIEL TROY MD (PCP) JAMES BOLIVAR DO Apr 15, 2018 13:36
[2018-04-15] MEDS ORDERED: VANCOMYCIN PER PHARMACY MC PRN (13:45)
[2018-04-15] MEDS ORDERED: PIPERACILLIN/TAZOBACTAM 3.375 GM in IV NORMAL SALINE 50ML 50 ML IV ONE (13:45)
[2018-04-15] MEDS ORDERED: VANCOMYCIN 2 GM in IV NORMAL SALINE 500ML BAG 500 ML IV ONE (13:45)
[2018-04-15] MEDS ORDERED: IV NORMAL SALINE 1000ML BAG 1,000 ML IV ONE (14:00)
[2018-04-15 14:36] LABS: PLT ESTIMATE DECREASED (ADEQUATE)
[2018-04-15 14:37] LABS: ANISOCYTOSIS SLIGHT; POIKILOCYTOSIS SLIGHT
[2018-04-15 16:34] VITALS: BP 99/38
[2018-04-15 16:59] VITALS: BP 88/30
--- NOTE | 2018-04-15 17:25 | PDOC1 ---
History and Physical Date of Admission Date of Admission DATE: 04/15/18 TIME: 17:24 Identification/Chief Complaint Chief Complaint cc was at his oncologist office for evaluation and was sent to the ER. Patient is unable to provide history. Spouse reports progressive weakness over the last 3-4 days. notes some intermittent confusion which can be normal. patient required assistance getting into the car and out of the car and she was unable to care for him today. Patient is typically able to ambulate with walker. Given weakened state patient was sent from oncology clinic rather than arranging for outpatient transfusions cxr in er c/w pneumonia Past Medical History Past Medical History Past Medical History Past Medical History: CAD, GERD, High Cholesterol, Hypertension, HI, Pancreatitis, Other Additional Past Medical Histor: ANGIOPLASTY, BLD TRANSFUSION, FORMER DIALYSIS, BPH, ULCERS, STAPH BLD Past Surgical History: Angioplasty, Cholecystectomy, Coronary Bypass Surgery, Knee Replacement, Pacemaker Additional Past Surgical Histo: MITRAL VALVE REPLACEMENT, Alcohol Use: Rarely Drug Use: None FAMILY HX HTN Cardiovascular: AFIB, CAD, HTN, Hyperlipidemia, Valve insufficiency, Other GI: GERD Heme/Onc: Anemia NOS, Cancer Hepatobiliary: No pertinent hx Psych: No pertinent hx Musculoskeletal: Other Rheumatologic: Gout Infectious disease: Other Renal/: Chronic renal insuff Endocrine: No pertinent hx Past Surgical History Past Surgical History: Pacemaker, CABG Family History Family History: No Significant, Other Social History Smoke: No ALCOHOL: none Drugs: None Current Problem List Problem List Problems Medical Problems: (1) Pneumonia Status: Acute (2) Weakness Status: Acute Current Medications Current Medications Current Medications Piperacillin Sod/ Tazobactam Sod 3.375 gm/Sodium Chloride 50 ml @ 100 mls/hr 1X ONCE IV Last administered on 04/15/18at 13:57; Start 04/15/18 at 13:45; Stop 04/15/18 at 14:14; Status DC Vancomycin HCl (Vanco Per Pharmacy) 1 each PRN DAILY PRN MC SEE COMMENTS Last administered on 04/15/18at 15:19; Start 04/15/18 at 13:45 Vancomycin HCl 2 gm/Sodium Chloride 500 ml @ 250 mls/hr 1X ONCE IV Last administered on 04/15/18at 14:46; Start 04/15/18 at 13:45; Stop 04/15/18 at 15:44 ; Status DC Sodium Chloride 1,000 ml @ 1,000 mls/hr 1X ONCE IV Last administered on at 14:06; Start 04/15/18 at 14:00; Stop 04/15/18 at 14:59; Status DC Vancomycin HCl 1.5 gm/Sodium Chloride 500 ml @ 250 mls/hr Q48H IV ; Start 04/17 at 14:00 Vancomycin HCl (Vancomycin Trough Level) 1 each 1X ONCE MC ; Start 04/19/18 at 13:30; Stop 04/19/18 at 13:31 Active Scripts Active Reported Ondansetron Odt (Ondansetron) 4 Mg Tab.rapdis 1 Tab PO PRN Q8HRS PRN Levofloxacin 750 Mg Tablet 1 Tab PO QODAY Coreg (Carvedilol) 3.125 Mg Tablet 1 Tab PO BID Vitamin D3 (Cholecalciferol (Vitamin D3)) 1,000 Unit Tablet 1 Tab PO DAILY Lidocaine-Prilocaine Cream (Lidocaine/Prilocaine) 30 Gm Cream..g. 1 Meka TP UD Fluconazole 200 Mg Tablet 1 Tab PO DAILY Allopurinol 100 Mg Tablet 150 Mg PO DAILY Acyclovir 400 Mg Tablet 1 Tab PO BID Zenput Capsule (L Gasseri/B Bifidum/B Longum) 1 Each Capsule 1 Each PO DAILY Not given on this admission May resume tomorrow Zohydro ER (Hydrocodone Bitartrate) 10 Mg Cap.er.12h 20 Mg PO BID LAST DOSE GIVEN: DATE: today TIME: 6:40 NEXT DOSE DUE: DATE: Tonight Magnesium (Magnesium Oxide) 400 Mg Capsule 1 Cap PO DAILY Medication not given here May resume tomorrow Potassium Chloride Packet (Potassium Chloride) 20 Meq Packet 20 Meq PO DAILY Not given today due to procedure Take a dose tonight Metolazone 2.5 Mg Tablet 2.5 Mg PO QMWF Dose given Thursday morning Take a dose Thursday morning Finasteride 5 Mg Tablet 5 Mg PO DAILY LAST DOSE GIVEN: DATE: last night TIME: 9pm NEXT DOSE DUE: DATE: Tonight TIME: 9 pm Furosemide 80 Mg Tablet 80 Mg PO BID LAST DOSE GIVEN: DATE: today TIME: 3pm NEXT DOSE DUE: DATE: Tomorrow TIME: 9 am Dicyclomine Hcl 10 Mg Capsule 1 Cap PO TID Not given on this admission Take this evening Vitamin B-12 (Cyanocobalamin (Vitamin B-12)) 1,000 Mcg Tablet.er 1,000 Mcg PO DAILY LAST DOSE GIVEN: DATE: today TIME: 3pm NEXT DOSE DUE: DATE: Tomorrow TIME: 9 am Lortab 10-325 mg Tablet (Hydrocodone/Acetaminophen) 1 Each Tablet 1 Tab PO PRN Q4HRS PRN LAST DOSE GIVEN: DATE: last night TIME: 11pm NEXT DOSE DUE: when needed Tamsulosin Hcl 0.4 Mg Cap.er.24h 0.4 Mg PO BID LAST DOSE GIVEN: DATE: last night TIME: 9 pm NEXT DOSE DUE: DATE: Tonight TIME: 9pm Famotidine 20 Mg Tablet 80 Mg PO BID Famotidine 20mg was given last night may take tonight Lipitor (Atorvastatin Calcium) 20 Mg Tablet 1 Tab PO HS LAST DOSE GIVEN: DATE: last night TIME: 9pm NEXT DOSE DUE: DATE: Tonight TIME: 9 pm Aspir 81 (Aspirin) 81 Mg Tablet.dr 1 Tab PO DAILY LAST DOSE GIVEN: DATE: today TIME: 3pm NEXT DOSE DUE: DATE: Tomorrow TIME: 9 am Omeprazole 40 Mg Capsule.dr 1 Cap PO BID Not given on this admission May resume in the morning TIME: 9:00 am NEXT DOSE DUE: DATE: 06-13-15 TIME: 9:00 pm Nephro-Brett Tablet (Folic Acid/Vitamin B Comp W-C) 0.8 Mg Tablet 1 Tab PO DAILY LAST DOSE GIVEN: DATE: today TIME: 3pm NEXT DOSE DUE: DATE: Tomorrow TIME: 9 am Allergies Allergies: Coded Allergies: NSAIDS (Non-Steroidal Anti-Inflamma (Verified Allergy, Intermediate, Hives , 04/05/18) Sulfa (Sulfonamide Antibiotics) (Verified Allergy, Intermediate, HIVES, 04/05/18) I S O L A T I O N *CONTACT* (Verified Allergy, Unknown, 04/05/18) mrsa hydroxyzine (Verified Adverse Reaction, Intermediate, insomnia, 04/05/18) Vitals Vitals Vital Signs Date Time Temp Pulse Resp B/P (MAP) Pulse Ox O2 Delivery O2 Flow Rate FiO2 04/15/18 16:59 98.8 94 18 88/30 98.8 04/15/18 14:43 96 04/15/18 11:54 Nasal Cannula 2.5 Labs Labs Laboratory Tests Test 04/15/18 12:25 White Blood Count 0.3 x10^3/uL (4.0-11.0) Red Blood Count 2.10 x10^6/uL (4.30-5.70) Hemoglobin 6.9 g/dL (13.0-17.5) Hematocrit 19.7 % (39.0-53.0) Mean Corpuscular Volume 94 fL (79-100) Mean Corpuscular Hemoglobin 33 pg (25-35) Mean Corpuscular Hemoglobin Concent 35 g/dL (31-37) Red Cell Distribution Width 16.2 % (11.5-14.5) Platelet Count 21 x10^3/uL (140-400) Neutrophils (%) (Auto) 5 % (31-73) Lymphocytes (%) (Auto) 67 % (24-48) Monocytes (%) (Auto) 27 % (0-9) Eosinophils (%) (Auto) 1 % (0-3) Basophils (%) (Auto) 0 % (0-3) Neutrophils # (Auto) 0.0 x10^3uL (1.8-7.7) Lymphocytes # (Auto) 0.2 x10^3/uL (1.0-4.8) Monocytes # (Auto) 0.1 x10^3/uL (0.0-1.1) Eosinophils # (Auto) 0.0 x10^3/uL (0.0-0.7) Basophils # (Auto) 0.0 x10^3/uL (0.0-0.2) Platelet Estimate Decreased (ADEQUATE) Poikilocytosis Slight Anisocytosis Slight Prothrombin Time 16.4 SEC (11.7-14.0) Prothromb Time International Ratio 1.4 (0.8-1.1) Activated Partial Thromboplast Time 44 SEC (24-38) Sodium Level 129 mmol/L (136-145) Potassium Level 3.3 mmol/L (3.5-5.1) Chloride Level 93 mmol/L (98-107) Carbon Dioxide Level 31 mmol/L (21-32) Anion Gap 5 (6-14) Blood Urea Nitrogen 67 mg/dL (8-26) Creatinine 3.4 mg/dL (0.7-1.3) Estimated GFR (Cockcroft-Gault) 17.9 BUN/Creatinine Ratio 20 (6-20) Glucose Level 127 mg/dL (70-99) Lactic Acid Level 1.6 mmol/L (0.4-2.0) Calcium Level 8.6 mg/dL (8.5-10.1) Magnesium Level 2.0 mg/dL (1.8-2.4) Total Bilirubin 0.8 mg/dL (0.2-1.0) Aspartate Amino Transf (AST/SGOT) 81 U/L (15-37) Alanine Aminotransferase (ALT/SGPT) 71 U/L (16-63) Alkaline Phosphatase 128 U/L (46-116) Ammonia 12 mcmol/L (11-34) Total Protein 6.2 g/dL (6.4-8.2) Albumin 2.2 g/dL (3.4-5.0) Albumin/Globulin Ratio 0.6 (1.0-1.7) Procalcitonin 0.70 ng/mL (0.00-0.10) Laboratory Tests Test 04/15/18 12:25 White Blood Count 0.3 x10^3/uL (4.0-11.0) Red Blood Count 2.10 x10^6/uL (4.30-5.70) Hemoglobin 6.9 g/dL (13.0-17.5) Hematocrit 19.7 % (39.0-53.0) Mean Corpuscular Volume 94 fL (79-100) Mean Corpuscular Hemoglobin 33 pg (25-35) Mean Corpuscular Hemoglobin Concent 35 g/dL (31-37) Red Cell Distribution Width 16.2 % (11.5-14.5) Platelet Count 21 x10^3/uL (140-400) Neutrophils (%) (Auto) 5 % (31-73) Lymphocytes (%) (Auto) 67 % (24-48) Monocytes (%) (Auto) 27 % (0-9) Eosinophils (%) (Auto) 1 % (0-3) Basophils (%) (Auto) 0 % (0-3) Neutrophils # (Auto) 0.0 x10^3uL (1.8-7.7) Lymphocytes # (Auto) 0.2 x10^3/uL (1.0-4.8) Monocytes # (Auto) 0.1 x10^3/uL (0.0-1.1) Eosinophils # (Auto) 0.0 x10^3/uL (0.0-0.7) Basophils # (Auto) 0.0 x10^3/uL (0.0-0.2) Platelet Estimate Decreased (ADEQUATE) Poikilocytosis Slight Anisocytosis Slight Prothrombin Time 16.4 SEC (11.7-14.0) Prothromb Time International Ratio 1.4 (0.8-1.1) Activated Partial Thromboplast Time 44 SEC (24-38) Sodium Level 129 mmol/L (136-145) Potassium Level 3.3 mmol/L (3.5-5.1) Chloride Level 93 mmol/L (98-107) Carbon Dioxide Level 31 mmol/L (21-32) Anion Gap 5 (6-14) Blood Urea Nitrogen 67 mg/dL (8-26) Creatinine 3.4 mg/dL (0.7-1.3) Estimated GFR (Cockcroft-Gault) 17.9 BUN/Creatinine Ratio 20 (6-20) Glucose Level 127 mg/dL (70-99) Lactic Acid Level 1.6 mmol/L (0.4-2.0) Calcium Level 8.6 mg/dL (8.5-10.1) Magnesium Level 2.0 mg/dL (1.8-2.4) Total Bilirubin 0.8 mg/dL (0.2-1.0) Aspartate Amino Transf (AST/SGOT) 81 U/L (15-37) Alanine Aminotransferase (ALT/SGPT) 71 U/L (16-63) Alkaline Phosphatase 128 U/L (46-116) Ammonia 12 mcmol/L (11-34) Total Protein 6.2 g/dL (6.4-8.2) Albumin 2.2 g/dL (3.4-5.0) Albumin/Globulin Ratio 0.6 (1.0-1.7) Procalcitonin 0.70 ng/mL (0.00-0.10) Images Images Findings: Stable median sternotomy wires. Left chest Port-A-Cath the right chest dual-chamber pacer is stable. Tortuous and atherosclerotic thoracic aorta. Cardiac size upper limits of normal. Pulmonary vascular congestion and interstitial opacities are improved. There is right midlung airspace disease. No pleural abnormality. IMPRESSION: 1. Pulmonary vascular congestion and interstitial edema are improved. 2. There is new right midlung airspace disease. 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
[2018-04-15 17:34] VITALS: BP 108/48
[2018-04-15 18:35] VITALS: BP 95/46
[2018-04-15 20:30] VITALS: BP 112/49
[2018-04-15] MEDS: MEROPENEM 500 MG in IV NORMAL SALINE 50ML 50 ML IV SCH (20:57)
[2018-04-15] MEDS ORDERED: ACETAMINOPHEN 325 MG TABLET. PO PRN (21:00)
[2018-04-15 23:00] VITALS: BP 108/49
[2018-04-16] VITALS (11 sets, daily range): BP systolic 102–133; BP diastolic 42–61
--- NOTE | 2018-04-16 04:16 | EKG ---
[facility] [address] [place] [address] Test Date: 2018-04-15 Test Time: 11:45:32 Pat Name: LEONIDAS GRECO Department: Room: 562 1 Gender: M [employer] Off[employer]arer: : 1945 Requested By: JAMES BOLVIAR Order Number: [id number] Reading MD: Michael Barraza MD Measurements Intervals [place] Rate: 100 P: NM: QRS: -32 QRSD: 152 T: 96 QT: 380 QTc: 494 Interpretive Statements SINUS RHYTHM PROBABLE 1ST DEGREE AVB LEFT ANTERIOR FASCICULAR BLOCK RIGHT BUNDLE BRANCH BLOCK RVH WITH REPOLARIZATION ABNORMALITY Electronically Signed On 04-19-2018 10:31:19 CDT by Michael Barraza MD
[2018-04-16] MEDS ORDERED: ACETAMINOPHEN 500 MG TABLET PO PRN (08:30)
[2018-04-16] MEDS ORDERED: ONDANSETRON ODT 4 MG TAB.RAPDIS. PO PRN (08:30)
[2018-04-16] MEDS ORDERED: ONDANSETRON PF 4 MG/2 ML VIAL. IV PRN (08:30)
--- NOTE | 2018-04-16 08:31 | PDOC2 ---
CONSULT Date of Consult Date of Consult DATE: 04/16/18 TIME: 08:21 Reason for consultation: Pneumonia with acute leukemia Consult: Hematology oncology, Dr. Basilio Demarco History of present illness: The patient is a 72-year-old male who came in for labs yesterday, was noted to be confused, weak, his was not able to care for him yesterday and he had a chest x-ray in the ER showing new right mid lung airspace disease and had a fever to 101.3 yesterday, and has been placed on broad-spectrum antibiotics and received 1 unit blood transfusion and still has significant pains from his usual arthralgias but otherwise was admitted for further treatment of his pneumonia. He had been on prophylactic antibiotics. Past medical history: Acute myelogenous leukemia CHF Chronic renal failure, currently not on hemodialysis BPH History of C. 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 , quit tobacco in , occasional alcohol Family history: Aunt with lung cancer, coronary artery disease Review of systems: Confusion improved, weakness, tired, grumpy, in pain with joint pains Physical exam: Vitals reviewed Gen.: 70s male resting in bed in no acute distress HEENT: mucous membranes moist, head normocephalic atraumatic Lungs: Breathing comfortably on oxygen, no evidence of respiratory distress Neuro: Alert and oriented 3 Psych: Irritable mood and affect Lab reviewed: White count 0.3, hemoglobin 6.9, platelets 21, INR 1.4, PTT 44, creatinine 3.4 Rads reviewed: Chest x-ray shows new right mid lung airspace disease, improved pulmonary vascular congestion and interstitial edema Case discussed with: Patient, records reviewed in [email or web address] and [email or web address] including labs and radiology, please see note for summary details. Assessment and Plan: He is a 72-year-old male with acute myelogenous leukemia, he would be due for cycle 2 day 1 of decitabine 10 day dosing on 21 April, he' s had significant issues with low blood counts and CHF and infections prompting frequent admissions in the last few months, it would be reasonable to consider palliative care, however currently our goal is to treat the pneumonia Pneumonia: On broad-spectrum antibiotics Neutropenia: Related to acute leukemia, would not give G-CSF unless he was decompensating as it can increase the risk of leukemic blast growth, on neut precautions Anemia: Would transfuse when necessary hemoglobin less than 7 Thrombocytopenia: Would transfuse if platelet count less than 50,000 with bleeding, less than 20,000 with fever, or less than 10,000 spontaneously, he has had frequent epistaxis and what he feels like is inner bleeding (ENT con placed recently) that has prompted platelet transfusions in the past Poor prognosis with acute leukemia and frequent admissions: Would be reasonable to consider palliative care consult if he is ready, his will be in today, could discuss further in follow-up as needed Thank you kindly for this consultation, and please don't hesitate to call with any further questions. Past Medical History Cardiovascular: AFIB, CAD, HTN, Hyperlipidemia, Valve insufficiency, Other GI: GERD Heme/Onc: Anemia NOS, Cancer Hepatobiliary: No pertinent hx Psych: No pertinent hx Musculoskeletal: Other Rheumatologic: Gout Infectious disease: Other Renal/: Chronic renal insuff Endocrine: No pertinent hx Past Surgical History Past Surgical History: Pacemaker, CABG Family History Family History: No Significant, Other Social History No ALCOHOL: none Drugs: None Lives: with Family Current Problem List Problem List Problems Medical Problems: (1) Pneumonia Status: Acute (2) Weakness Status: Acute Current Medications Current Medications Current Medications Piperacillin Sod/ Tazobactam Sod 3.375 gm/Sodium Chloride 50 ml @ 100 mls/hr 1X ONCE IV Last administered on 04/15/18at 13:57; Start 04/15/18 at 13:45; Stop 04/15/18 at 14:14; Status DC Vancomycin HCl (Vanco Per Pharmacy) 1 each PRN DAILY PRN MC SEE COMMENTS Last administered on 04/15/18at 15:19; Start 04/15/18 at 13:45 Vancomycin HCl 2 gm/Sodium Chloride 500 ml @ 250 mls/hr 1X ONCE IV Last administered on 04/15/18at 14:46; Start 04/15/18 at 13:45; Stop 04/15/18 at 15:44 ; Status DC Sodium Chloride 1,000 ml @ 1,000 mls/hr 1X ONCE IV Last administered on at 14:06; Start 04/15/18 at 14:00; Stop 04/15/18 at 14:59; Status DC Vancomycin HCl 1.5 gm/Sodium Chloride 500 ml @ 250 mls/hr Q48H IV ; Start 04/17 at 14:00 Vancomycin HCl (Vancomycin Trough Level) 1 each 1X ONCE MC ; Start 04/19/18 at 13:30; Stop 04/19/18 at 13:31 Meropenem 500 mg/ Sodium Chloride 50 ml @ 100 mls/hr Q8HRS IV Last administered on 04/15/18at 20:57; Start 04/15/18 at 18:00 Acetaminophen (Tylenol) 650 mg PRN Q6HRS PRN PO FEVER Last administered on 04/15at 20:57; Start 04/15/18 at 21:00 Active Scripts Active Reported Ondansetron Odt (Ondansetron) 4 Mg Tab.rapdis 1 Tab PO PRN Q8HRS PRN Levofloxacin 750 Mg Tablet 1 Tab PO QODAY Coreg (Carvedilol) 3.125 Mg Tablet 1 Tab PO BID Vitamin D3 (Cholecalciferol (Vitamin D3)) 1,000 Unit Tablet 1 Tab PO DAILY Lidocaine-Prilocaine Cream (Lidocaine/Prilocaine) 30 Gm Cream..g. 1 Meka TP UD Fluconazole 200 Mg Tablet 1 Tab PO DAILY Allopurinol 100 Mg Tablet 150 Mg PO DAILY Acyclovir 400 Mg Tablet 1 Tab PO BID BitWave Capsule (L Gasseri/B Bifidum/B Longum) 1 Each Capsule 1 Each PO DAILY Not given on this admission May resume tomorrow Zohydro ER (Hydrocodone Bitartrate) 10 Mg Cap.er.12h 20 Mg PO BID LAST DOSE GIVEN: DATE: today TIME: 6:40 NEXT DOSE DUE: DATE: Tonight Magnesium (Magnesium Oxide) 400 Mg Capsule 1 Cap PO DAILY Medication not given here May resume tomorrow Potassium Chloride Packet (Potassium Chloride) 20 Meq Packet 20 Meq PO DAILY Not given today due to procedure Take a dose tonight Metolazone 2.5 Mg Tablet 2.5 Mg PO QMWF Dose given Thursday Take a dose Thursday morning Finasteride 5 Mg Tablet 5 Mg PO DAILY LAST DOSE GIVEN: DATE: last night TIME: 9pm NEXT DOSE DUE: DATE: Tonight TIME: 9 pm Furosemide 80 Mg Tablet 80 Mg PO BID LAST DOSE GIVEN: DATE: today TIME: 3pm NEXT DOSE DUE: DATE: Tomorrow TIME: 9 am Dicyclomine Hcl 10 Mg Capsule 1 Cap PO TID Not given on this admission Take this evening Vitamin B-12 (Cyanocobalamin (Vitamin B-12)) 1,000 Mcg Tablet.er 1,000 Mcg PO DAILY LAST DOSE GIVEN: DATE: today TIME: 3pm NEXT DOSE DUE: DATE: Tomorrow TIME: 9 am Lortab 10-325 mg Tablet (Hydrocodone/Acetaminophen) 1 Each Tablet 1 Tab PO PRN Q4HRS PRN LAST DOSE GIVEN: DATE: last night TIME: 11pm NEXT DOSE DUE: when needed Tamsulosin Hcl 0.4 Mg Cap.er.24h 0.4 Mg PO BID LAST DOSE GIVEN: DATE: last night TIME: 9 pm NEXT DOSE DUE: DATE: Tonight TIME: 9pm Famotidine 20 Mg Tablet 80 Mg PO BID Famotidine 20mg was given last night may take tonight Lipitor (Atorvastatin Calcium) 20 Mg Tablet 1 Tab PO HS LAST DOSE GIVEN: DATE: last night TIME: 9pm NEXT DOSE DUE: DATE: Tonight TIME: 9 pm Aspir 81 (Aspirin) 81 Mg Tablet.dr 1 Tab PO DAILY LAST DOSE GIVEN: DATE: today TIME: 3pm NEXT DOSE DUE: DATE: Tomorrow TIME: 9 am Omeprazole 40 Mg Capsule.dr 1 Cap PO BID Not given on this admission May resume in the morning TIME: 9:00 am NEXT DOSE DUE: DATE: 06-13-15 TIME: 9:00 pm Nephro-Brett Tablet (Folic Acid/Vitamin B Comp W-C) 0.8 Mg Tablet 1 Tab PO DAILY LAST DOSE GIVEN: DATE: today TIME: 3pm NEXT DOSE DUE: DATE: Tomorrow TIME: 9 am Allergies Allergies: Coded Allergies: NSAIDS (Non-Steroidal Anti-Inflamma (Verified Allergy, Intermediate, Hives , 04/05/18) Sulfa (Sulfonamide Antibiotics) (Verified Allergy, Intermediate, HIVES, 04/05/18) I S O L A T I O N *CONTACT* (Verified Allergy, Unknown, 04/05/18) mrsa hydroxyzine (Verified Adverse Reaction, Intermediate, insomnia, 8/6/18) Vitals VITALS Vital Signs Date Time Temp Pulse Resp B/P (MAP) Pulse Ox O2 Delivery O2 Flow Rate FiO2 04/16/18 08:11 99.1 93 16 106/50 99.1 04/16/18 07:00 92 Nasal Cannula 3.0 Labs Labs Laboratory Tests Test 04/15/18 12:25 White Blood Count 0.3 x10^3/uL (4.0-11.0) Red Blood Count 2.10 x10^6/uL (4.30-5.70) Hemoglobin 6.9 g/dL (13.0-17.5) Hematocrit 19.7 % (39.0-53.0) Mean Corpuscular Volume 94 fL (79-100) Mean Corpuscular Hemoglobin 33 pg (25-35) Mean Corpuscular Hemoglobin Concent 35 g/dL (31-37) Red Cell Distribution Width 16.2 % (11.5-14.5) Platelet Count 21 x10^3/uL (140-400) Neutrophils (%) (Auto) 5 % (31-73) Lymphocytes (%) (Auto) 67 % (24-48) Monocytes (%) (Auto) 27 % (0-9) Eosinophils (%) (Auto) 1 % (0-3) Basophils (%) (Auto) 0 % (0-3) Neutrophils # (Auto) 0.0 x10^3uL (1.8-7.7) Lymphocytes # (Auto) 0.2 x10^3/uL (1.0-4.8) Monocytes # (Auto) 0.1 x10^3/uL (0.0-1.1) Eosinophils # (Auto) 0.0 x10^3/uL (0.0-0.7) Basophils # (Auto) 0.0 x10^3/uL (0.0-0.2) Platelet Estimate Decreased (ADEQUATE) Poikilocytosis Slight Anisocytosis Slight Prothrombin Time 16.4 SEC (11.7-14.0) Prothromb Time International Ratio 1.4 (0.8-1.1) Activated Partial Thromboplast Time 44 SEC (24-38) Sodium Level 129 mmol/L (136-145) Potassium Level 3.3 mmol/L (3.5-5.1) Chloride Level 93 mmol/L (98-107) Carbon Dioxide Level 31 mmol/L (21-32) Anion Gap 5 (6-14) Blood Urea Nitrogen 67 mg/dL (8-26) Creatinine 3.4 mg/dL (0.7-1.3) Estimated GFR (Cockcroft-Gault) 17.9 BUN/Creatinine Ratio 20 (6-20) Glucose Level 127 mg/dL (70-99) Lactic Acid Level 1.6 mmol/L (0.4-2.0) Calcium Level 8.6 mg/dL (8.5-10.1) Magnesium Level 2.0 mg/dL (1.8-2.4) Total Bilirubin 0.8 mg/dL (0.2-1.0) Aspartate Amino Transf (AST/SGOT) 81 U/L (15-37) Alanine Aminotransferase (ALT/SGPT) 71 U/L (16-63) Alkaline Phosphatase 128 U/L (46-116) Ammonia 12 mcmol/L (11-34) Total Protein 6.2 g/dL (6.4-8.2) Albumin 2.2 g/dL (3.4-5.0) Albumin/Globulin Ratio 0.6 (1.0-1.7) Procalcitonin 0.70 ng/mL (0.00-0.10) Laboratory Tests Test 04/15/18 12:25 White Blood Count 0.3 x10^3/uL (4.0-11.0) Red Blood Count 2.10 x10^6/uL (4.30-5.70) Hemoglobin 6.9 g/dL (13.0-17.5) Hematocrit 19.7 % (39.0-53.0) Mean Corpuscular Volume 94 fL (79-100) Mean Corpuscular Hemoglobin 33 pg (25-35) Mean Corpuscular Hemoglobin Concent 35 g/dL (31-37) Red Cell Distribution Width 16.2 % (11.5-14.5) Platelet Count 21 x10^3/uL (140-400) Neutrophils (%) (Auto) 5 % (31-73) Lymphocytes (%) (Auto) 67 % (24-48) Monocytes (%) (Auto) 27 % (0-9) Eosinophils (%) (Auto) 1 % (0-3) Basophils (%) (Auto) 0 % (0-3) Neutrophils # (Auto) 0.0 x10^3uL (1.8-7.7) Lymphocytes # (Auto) 0.2 x10^3/uL (1.0-4.8) Monocytes # (Auto) 0.1 x10^3/uL (0.0-1.1) Eosinophils # (Auto) 0.0 x10^3/uL (0.0-0.7) Basophils # (Auto) 0.0 x10^3/uL (0.0-0.2) Platelet Estimate Decreased (ADEQUATE) Poikilocytosis Slight Anisocytosis Slight Prothrombin Time 16.4 SEC (11.7-14.0) Prothromb Time International Ratio 1.4 (0.8-1.1) Activated Partial Thromboplast Time 44 SEC (24-38) Sodium Level 129 mmol/L (136-145) Potassium Level 3.3 mmol/L (3.5-5.1) Chloride Level 93 mmol/L (98-107) Carbon Dioxide Level 31 mmol/L (21-32) Anion Gap 5 (6-14) Blood Urea Nitrogen 67 mg/dL (8-26) Creatinine 3.4 mg/dL (0.7-1.3) Estimated GFR (Cockcroft-Gault) 17.9 BUN/Creatinine Ratio 20 (6-20) Glucose Level 127 mg/dL (70-99) Lactic Acid Level 1.6 mmol/L (0.4-2.0) Calcium Level 8.6 mg/dL (8.5-10.1) Magnesium Level 2.0 mg/dL (1.8-2.4) Total Bilirubin 0.8 mg/dL (0.2-1.0) Aspartate Amino Transf (AST/SGOT) 81 U/L (15-37) Alanine Aminotransferase (ALT/SGPT) 71 U/L (16-63) Alkaline Phosphatase 128 U/L (46-116) Ammonia 12 mcmol/L (11-34) Total Protein 6.2 g/dL (6.4-8.2) Albumin 2.2 g/dL (3.4-5.0) Albumin/Globulin Ratio 0.6 (1.0-1.7) Procalcitonin 0.70 ng/mL (0.00-0.10) BASILIO DEMARCO MD Apr 16, 2018 08:31
[2018-04-16] MEDS: LIDOCAINE/PRILOCAINE TOPICAL CREAM 5GM TUBE. TP SCH (09:00)
[2018-04-16] MEDS: CARVEDILOL 3.125 MG TABLET. PO SCH ×3 (09:00→16:21)
[2018-04-16] MEDS ORDERED: HYDROcodone/APAP 10/325 1 TAB TABLET PO PRN (09:00)
[2018-04-16] MEDS ORDERED: metOLazone 2.5 MG TABLET PO SCH (09:00)
[2018-04-16] MEDS ORDERED: POTASSIUM CHLORIDE 20 MEQ TABLET.ER. PO SCH (09:00)
[2018-04-16] MEDS ORDERED: FAMOTIDINE 20 MG TABLET. PO SCH (09:00)
[2018-04-16 09:53] LABS: BASO % 0 % (0-3); EOS % 3 % (0-3); HEMATOCRIT 21.5 % (39.0-53.0); HEMOGLOBIN 7.7 g/dL (13.0-17.5); LYMPH # 0.2 x10^3/uL (1.0-4.8); LYMPH % 67 % (24-48); MEAN CORPUSCULAR HEMOGLOBIN 33 pg (25-35); MEAN CORPUSCULAR HGB CONC 36 g/dL (31-37); MEAN CORPUSCULAR VOLUME 92 fL (79-100); MONO % 1 % (0-9); NEUT # 0.1 x10^3uL (1.8-7.7); NEUT % 30 % (31-73); RED BLOOD COUNT 2.34 x10^6/uL (4.30-5.70); RED CELL DISTRIBUTION WIDTH 15.2 % (11.5-14.5)
[2018-04-16 09:58] LABS: PLATELET COUNT 15 x10^3/uL (140-400); WHITE BLOOD COUNT 0.3 x10^3/uL (4.0-11.0)
[2018-04-16 10:13] LABS: CALCIUM 8.5 mg/dL (8.5-10.1); CREATININE 2.8 mg/dL (0.7-1.3); GFR 22.4; POTASSIUM 3.3 mmol/L (3.5-5.1)
--- NOTE | 2018-04-16 10:26 | PDOC ---
Infectious Disease Note Vital Sign Vital Signs Vital Signs Date Time Temp Pulse Resp B/P (MAP) Pulse Ox O2 Delivery O2 Flow Rate FiO2 04/16/18 09:16 97.7 101 18 121/61 97.7 04/16/18 08:00 Nasal Cannula 3.0 04/16/18 07:00 92 Labs Lab Laboratory Tests Test 04/15/18 12:25 04/16/18 09:40 White Blood Count 0.3 x10^3/uL (4.0-11.0) 0.3 x10^3/uL (4.0-11.0) Red Blood Count 2.10 x10^6/uL (4.30-5.70) 2.34 x10^6/uL (4.30-5.70) Hemoglobin 6.9 g/dL (13.0-17.5) 7.7 g/dL (13.0-17.5) Hematocrit 19.7 % (39.0-53.0) 21.5 % (39.0-53.0) Mean Corpuscular Volume 94 fL (79-100) 92 fL (79-100) Mean Corpuscular Hemoglobin 33 pg (25-35) 33 pg (25-35) Mean Corpuscular Hemoglobin Concent 35 g/dL (31-37) 36 g/dL (31-37) Red Cell Distribution Width 16.2 % (11.5-14.5) 15.2 % (11.5-14.5) Platelet Count 21 x10^3/uL (140-400) 15 x10^3/uL (140-400) Neutrophils (%) (Auto) 5 % (31-73) 30 % (31-73) Lymphocytes (%) (Auto) 67 % (24-48) 67 % (24-48) Monocytes (%) (Auto) 27 % (0-9) 1 % (0-9) Eosinophils (%) (Auto) 1 % (0-3) 3 % (0-3) Basophils (%) (Auto) 0 % (0-3) 0 % (0-3) Neutrophils # (Auto) 0.0 x10^3uL (1.8-7.7) 0.1 x10^3uL (1.8-7.7) Lymphocytes # (Auto) 0.2 x10^3/uL (1.0-4.8) 0.2 x10^3/uL (1.0-4.8) Monocytes # (Auto) 0.1 x10^3/uL (0.0-1.1) 0.0 x10^3/uL (0.0-1.1) Eosinophils # (Auto) 0.0 x10^3/uL (0.0-0.7) 0.0 x10^3/uL (0.0-0.7) Basophils # (Auto) 0.0 x10^3/uL (0.0-0.2) 0.0 x10^3/uL (0.0-0.2) Platelet Estimate Decreased (ADEQUATE) Poikilocytosis Slight Anisocytosis Slight Prothrombin Time 16.4 SEC (11.7-14.0) Prothromb Time International Ratio 1.4 (0.8-1.1) Activated Partial Thromboplast Time 44 SEC (24-38) Sodium Level 129 mmol/L (136-145) Potassium Level 3.3 mmol/L (3.5-5.1) Chloride Level 93 mmol/L (98-107) Carbon Dioxide Level 31 mmol/L (21-32) Anion Gap 5 (6-14) Blood Urea Nitrogen 67 mg/dL (8-26) Creatinine 3.4 mg/dL (0.7-1.3) Estimated GFR (Cockcroft-Gault) 17.9 BUN/Creatinine Ratio 20 (6-20) Glucose Level 127 mg/dL (70-99) Lactic Acid Level 1.6 mmol/L (0.4-2.0) Calcium Level 8.6 mg/dL (8.5-10.1) Magnesium Level 2.0 mg/dL (1.8-2.4) Total Bilirubin 0.8 mg/dL (0.2-1.0) Aspartate Amino Transf (AST/SGOT) 81 U/L (15-37) Alanine Aminotransferase (ALT/SGPT) 71 U/L (16-63) Alkaline Phosphatase 128 U/L (46-116) Ammonia 12 mcmol/L (11-34) Total Protein 6.2 g/dL (6.4-8.2) Albumin 2.2 g/dL (3.4-5.0) Albumin/Globulin Ratio 0.6 (1.0-1.7) Procalcitonin 0.70 ng/mL (0.00-0.10) Objective Assessment Fever Encephalopathy Pneumonia Neutropenia Debility AML on chemo Plan Plan of Care d/c vanc,, ( renal failure) cont Meropenem check cultures supportive care d/w CHRISTIE OSHEA MD Apr 16, 2018 10:26
[2018-04-16] MEDS: LACTOBACILLUS RHAMNOSUS GG 1 CAPSULE. PO SCH (10:44)
[2018-04-16] MEDS: MAGNESIUM OXIDE 400 MG TABLET PO SCH (10:44)
[2018-04-16] MEDS: HYDROCODONE BITARTRATE 10 MG PO SCH ×2 (10:44→22:18)
[2018-04-16] MEDS: MEROPENEM 500 MG in IV NORMAL SALINE 50ML 50 ML IV SCH ×3 (10:44→20:34)
[2018-04-16] MEDS: CYANOCOBALAMIN (VITAMIN B-12) 1,000 MCG TABLET. PO SCH (10:45)
[2018-04-16] MEDS: FUROSEMIDE 80 MG TABLET. PO SCH ×2 (10:45→13:47)
[2018-04-16] MEDS: FOLIC/VIT B COMP W-C (RENAL) TABLET. PO SCH (10:45)
[2018-04-16] MEDS: PANTOPRAZOLE 40 MG TABLET.DR. PO SCH ×2 (10:45→16:21)
[2018-04-16] MEDS: ASPIRIN ENTERIC COATED 81 MG TABLET.DR. PO SCH (10:45)
[2018-04-16] MEDS: CHOLECALCIFEROL (VITAMIN D3) 1,000 UNIT TABLET PO SCH (10:45)
[2018-04-16] MEDS: ALLOPURINOL 300 MG TABLET. PO SCH (10:46)
[2018-04-16] MEDS: FINASTERIDE 5 MG TABLET. PO SCH (10:47)
[2018-04-16] MEDS: TAMSULOSIN 0.4 MG CAP.ER.24H. PO SCH ×2 (10:47→20:33)
[2018-04-16] MEDS: FAMOTIDINE 20 MG TABLET. PO SCH (10:47)
[2018-04-16] MEDS: DICYCLOMINE HCL 10 MG CAPSULE PO SCH ×3 (10:47→20:33)
[2018-04-16] MEDS: POTASSIUM CHLORIDE 20 MEQ/15 ML ORAL LIQUID. PO SCH (10:48)
--- NOTE | 2018-04-16 10:52 | PDOC ---
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 Now hemoglobin is 7.7 Platelets was 21,000 last night now down to 15,000, no bleeding though Known patient of Dr. Kelin Demarco, AML on treatment White count still low, 0.3 on neutropenia precautions. Labs sodium 129, potassium 3.3. Patient has history of trach and cannot swallow big pills, could not overemphasize that it should be KCl powder and I am okay with this. Creatinine 3.4, I will consult renal Heme onc and infectious disease on board Plan: Follow subspecialists input Transfuse usually if febrile or less than 10,000 platelets Would keep hemoglobin greater than 7 if that is the goal also of heme Onc Neutropenic precautions Neupogen if needed per heme Onc Broad spectrum, antibiotics per ID I will consult renal given the creatinine in this very sick or immune compromise patient PT OT Supportive care Replace potassium Normal saline. K containing normal saline to address the hypernatremia and hypokalemia Full code per chart Fevers, blood cultures, Tylenol when necessary Okay for powdered potassium since dysphagia and history of trach Check bilateral venous Doppler, legs very swollen, in this cancer patient dw and RN Vitals Vitals Vital Signs Date Time Temp Pulse Resp B/P (MAP) Pulse Ox O2 Delivery O2 Flow Rate FiO2 04/16/18 09:16 97.7 101 18 121/61 97.7 04/16/18 08:00 Nasal Cannula 3.0 04/16/18 07:00 92 Physical Exam General: Oriented X3, No acute distress, Other (sleep I did not awaken) Heart: Regular rate, Normal S1, Normal S2 Lungs: Clear, Other Abdomen: Normal bowel sounds Extremities: No clubbing, No cyanosis, Other (bilateral lateral lower extremity swelling more than usual, very pronounced engorged veins on the left calf) Skin: No rashes, No breakdown Labs LABS Laboratory Tests Test 04/15/18 12:25 04/16/18 09:40 White Blood Count 0.3 x10^3/uL (4.0-11.0) 0.3 x10^3/uL (4.0-11.0) Red Blood Count 2.10 x10^6/uL (4.30-5.70) 2.34 x10^6/uL (4.30-5.70) Hemoglobin 6.9 g/dL (13.0-17.5) 7.7 g/dL (13.0-17.5) Hematocrit 19.7 % (39.0-53.0) 21.5 % (39.0-53.0) Mean Corpuscular Volume 94 fL (79-100) 92 fL (79-100) Mean Corpuscular Hemoglobin 33 pg (25-35) 33 pg (25-35) Mean Corpuscular Hemoglobin Concent 35 g/dL (31-37) 36 g/dL (31-37) Red Cell Distribution Width 16.2 % (11.5-14.5) 15.2 % (11.5-14.5) Platelet Count 21 x10^3/uL (140-400) 15 x10^3/uL (140-400) Neutrophils (%) (Auto) 5 % (31-73) 30 % (31-73) Lymphocytes (%) (Auto) 67 % (24-48) 67 % (24-48) Monocytes (%) (Auto) 27 % (0-9) 1 % (0-9) Eosinophils (%) (Auto) 1 % (0-3) 3 % (0-3) Basophils (%) (Auto) 0 % (0-3) 0 % (0-3) Neutrophils # (Auto) 0.0 x10^3uL (1.8-7.7) 0.1 x10^3uL (1.8-7.7) Lymphocytes # (Auto) 0.2 x10^3/uL (1.0-4.8) 0.2 x10^3/uL (1.0-4.8) Monocytes # (Auto) 0.1 x10^3/uL (0.0-1.1) 0.0 x10^3/uL (0.0-1.1) Eosinophils # (Auto) 0.0 x10^3/uL (0.0-0.7) 0.0 x10^3/uL (0.0-0.7) Basophils # (Auto) 0.0 x10^3/uL (0.0-0.2) 0.0 x10^3/uL (0.0-0.2) Platelet Estimate Decreased (ADEQUATE) Poikilocytosis Slight Anisocytosis Slight Prothrombin Time 16.4 SEC (11.7-14.0) Prothromb Time International Ratio 1.4 (0.8-1.1) Activated Partial Thromboplast Time 44 SEC (24-38) Sodium Level 129 mmol/L (136-145) 133 mmol/L (136-145) Potassium Level 3.3 mmol/L (3.5-5.1) 3.3 mmol/L (3.5-5.1) Chloride Level 93 mmol/L (98-107) 98 mmol/L (98-107) Carbon Dioxide Level 31 mmol/L (21-32) 31 mmol/L (21-32) Anion Gap 5 (6-14) 4 (6-14) Blood Urea Nitrogen 67 mg/dL (8-26) 61 mg/dL (8-26) Creatinine 3.4 mg/dL (0.7-1.3) 2.8 mg/dL (0.7-1.3) Estimated GFR (Cockcroft-Gault) 17.9 22.4 BUN/Creatinine Ratio 20 (6-20) Glucose Level 127 mg/dL (70-99) 122 mg/dL (70-99) Lactic Acid Level 1.6 mmol/L (0.4-2.0) Calcium Level 8.6 mg/dL (8.5-10.1) 8.5 mg/dL (8.5-10.1) Magnesium Level 2.0 mg/dL (1.8-2.4) Total Bilirubin 0.8 mg/dL (0.2-1.0) Aspartate Amino Transf (AST/SGOT) 81 U/L (15-37) Alanine Aminotransferase (ALT/SGPT) 71 U/L (16-63) Alkaline Phosphatase 128 U/L (46-116) Ammonia 12 mcmol/L (11-34) Total Protein 6.2 g/dL (6.4-8.2) Albumin 2.2 g/dL (3.4-5.0) Albumin/Globulin Ratio 0.6 (1.0-1.7) Procalcitonin 0.70 ng/mL (0.00-0.10) Review of Systems Review of Systems Asleep I did not awaken - but I did discussed with at bedside Assessment and Plan Assessmemt and Plan Problems Medical Problems: (1) Pneumonia Status: Acute (2) Weakness Status: Acute Comment Review of Relevant I have reviewed the following items zoey (where applicable) has been applied. Labs Laboratory Tests Test 04/15/18 12:25 04/16/18 09:40 White Blood Count 0.3 x10^3/uL (4.0-11.0) 0.3 x10^3/uL (4.0-11.0) Red Blood Count 2.10 x10^6/uL (4.30-5.70) 2.34 x10^6/uL (4.30-5.70) Hemoglobin 6.9 g/dL (13.0-17.5) 7.7 g/dL (13.0-17.5) Hematocrit 19.7 % (39.0-53.0) 21.5 % (39.0-53.0) Mean Corpuscular Volume 94 fL (79-100) 92 fL (79-100) Mean Corpuscular Hemoglobin 33 pg (25-35) 33 pg (25-35) Mean Corpuscular Hemoglobin Concent 35 g/dL (31-37) 36 g/dL (31-37) Red Cell Distribution Width 16.2 % (11.5-14.5) 15.2 % (11.5-14.5) Platelet Count 21 x10^3/uL (140-400) 15 x10^3/uL (140-400) Neutrophils (%) (Auto) 5 % (31-73) 30 % (31-73) Lymphocytes (%) (Auto) 67 % (24-48) 67 % (24-48) Monocytes (%) (Auto) 27 % (0-9) 1 % (0-9) Eosinophils (%) (Auto) 1 % (0-3) 3 % (0-3) Basophils (%) (Auto) 0 % (0-3) 0 % (0-3) Neutrophils # (Auto) 0.0 x10^3uL (1.8-7.7) 0.1 x10^3uL (1.8-7.7) Lymphocytes # (Auto) 0.2 x10^3/uL (1.0-4.8) 0.2 x10^3/uL (1.0-4.8) Monocytes # (Auto) 0.1 x10^3/uL (0.0-1.1) 0.0 x10^3/uL (0.0-1.1) Eosinophils # (Auto) 0.0 x10^3/uL (0.0-0.7) 0.0 x10^3/uL (0.0-0.7) Basophils # (Auto) 0.0 x10^3/uL (0.0-0.2) 0.0 x10^3/uL (0.0-0.2) Platelet Estimate Decreased (ADEQUATE) Poikilocytosis Slight Anisocytosis Slight Prothrombin Time 16.4 SEC (11.7-14.0) Prothromb Time International Ratio 1.4 (0.8-1.1) Activated Partial Thromboplast Time 44 SEC (24-38) Sodium Level 129 mmol/L (136-145) 133 mmol/L (136-145) Potassium Level 3.3 mmol/L (3.5-5.1) 3.3 mmol/L (3.5-5.1) Chloride Level 93 mmol/L (98-107) 98 mmol/L (98-107) Carbon Dioxide Level 31 mmol/L (21-32) 31 mmol/L (21-32) Anion Gap 5 (6-14) 4 (6-14) Blood Urea Nitrogen 67 mg/dL (8-26) 61 mg/dL (8-26) Creatinine 3.4 mg/dL (0.7-1.3) 2.8 mg/dL (0.7-1.3) Estimated GFR (Cockcroft-Gault) 17.9 22.4 BUN/Creatinine Ratio 20 (6-20) Glucose Level 127 mg/dL (70-99) 122 mg/dL (70-99) Lactic Acid Level 1.6 mmol/L (0.4-2.0) Calcium Level 8.6 mg/dL (8.5-10.1) 8.5 mg/dL (8.5-10.1) Magnesium Level 2.0 mg/dL (1.8-2.4) Total Bilirubin 0.8 mg/dL (0.2-1.0) Aspartate Amino Transf (AST/SGOT) 81 U/L (15-37) Alanine Aminotransferase (ALT/SGPT) 71 U/L (16-63) Alkaline Phosphatase 128 U/L (46-116) Ammonia 12 mcmol/L (11-34) Total Protein 6.2 g/dL (6.4-8.2) Albumin 2.2 g/dL (3.4-5.0) Albumin/Globulin Ratio 0.6 (1.0-1.7) Procalcitonin 0.70 ng/mL (0.00-0.10) Laboratory Tests Test 04/15/18 12:25 04/16/18 09:40 White Blood Count 0.3 x10^3/uL (4.0-11.0) 0.3 x10^3/uL (4.0-11.0) Red Blood Count 2.10 x10^6/uL (4.30-5.70) 2.34 x10^6/uL (4.30-5.70) Hemoglobin 6.9 g/dL (13.0-17.5) 7.7 g/dL (13.0-17.5) Hematocrit 19.7 % (39.0-53.0) 21.5 % (39.0-53.0) Mean Corpuscular Volume 94 fL (79-100) 92 fL (79-100) Mean Corpuscular Hemoglobin 33 pg (25-35) 33 pg (25-35) Mean Corpuscular Hemoglobin Concent 35 g/dL (31-37) 36 g/dL (31-37) Red Cell Distribution Width 16.2 % (11.5-14.5) 15.2 % (11.5-14.5) Platelet Count 21 x10^3/uL (140-400) 15 x10^3/uL (140-400) Neutrophils (%) (Auto) 5 % (31-73) 30 % (31-73) Lymphocytes (%) (Auto) 67 % (24-48) 67 % (24-48) Monocytes (%) (Auto) 27 % (0-9) 1 % (0-9) Eosinophils (%) (Auto) 1 % (0-3) 3 % (0-3) Basophils (%) (Auto) 0 % (0-3) 0 % (0-3) Neutrophils # (Auto) 0.0 x10^3uL (1.8-7.7) 0.1 x10^3uL (1.8-7.7) Lymphocytes # (Auto) 0.2 x10^3/uL (1.0-4.8) 0.2 x10^3/uL (1.0-4.8) Monocytes # (Auto) 0.1 x10^3/uL (0.0-1.1) 0.0 x10^3/uL (0.0-1.1) Eosinophils # (Auto) 0.0 x10^3/uL (0.0-0.7) 0.0 x10^3/uL (0.0-0.7) Basophils # (Auto) 0.0 x10^3/uL (0.0-0.2) 0.0 x10^3/uL (0.0-0.2) Platelet Estimate Decreased (ADEQUATE) Poikilocytosis Slight Anisocytosis Slight Prothrombin Time 16.4 SEC (11.7-14.0) Prothromb Time International Ratio 1.4 (0.8-1.1) Activated Partial Thromboplast Time 44 SEC (24-38) Sodium Level 129 mmol/L (136-145) 133 mmol/L (136-145) Potassium Level 3.3 mmol/L (3.5-5.1) 3.3 mmol/L (3.5-5.1) Chloride Level 93 mmol/L (98-107) 98 mmol/L (98-107) Carbon Dioxide Level 31 mmol/L (21-32) 31 mmol/L (21-32) Anion Gap 5 (6-14) 4 (6-14) Blood Urea Nitrogen 67 mg/dL (8-26) 61 mg/dL (8-26) Creatinine 3.4 mg/dL (0.7-1.3) 2.8 mg/dL (0.7-1.3) Estimated GFR (Cockcroft-Gault) 17.9 22.4 BUN/Creatinine Ratio 20 (6-20) Glucose Level 127 mg/dL (70-99) 122 mg/dL (70-99) Lactic Acid Level 1.6 mmol/L (0.4-2.0) Calcium Level 8.6 mg/dL (8.5-10.1) 8.5 mg/dL (8.5-10.1) Magnesium Level 2.0 mg/dL (1.8-2.4) Total Bilirubin 0.8 mg/dL (0.2-1.0) Aspartate Amino Transf (AST/SGOT) 81 U/L (15-37) Alanine Aminotransferase (ALT/SGPT) 71 U/L (16-63) Alkaline Phosphatase 128 U/L (46-116) Ammonia 12 mcmol/L (11-34) Total Protein 6.2 g/dL (6.4-8.2) Albumin 2.2 g/dL (3.4-5.0) Albumin/Globulin Ratio 0.6 (1.0-1.7) Procalcitonin 0.70 ng/mL (0.00-0.10) Medications Current Medications Piperacillin Sod/ Tazobactam Sod 3.375 gm/Sodium Chloride 50 ml @ 100 mls/hr 1X ONCE IV Last administered on 04/15/18at 13:57; Start 04/15/18 at 13:45; Stop 04/15/18 at 14:14; Status DC Vancomycin HCl (Vanco Per Pharmacy) 1 each PRN DAILY PRN MC SEE COMMENTS Last administered on 04/15/18at 15:19; Start 04/15/18 at 13:45; Stop 04/16/18 at 10:33 ; Status DC Vancomycin HCl 2 gm/Sodium Chloride 500 ml @ 250 mls/hr 1X ONCE IV Last administered on 04/15/18at 14:46; Start 04/15/18 at 13:45; Stop 04/15/18 at 15:44 ; Status DC Sodium Chloride 1,000 ml @ 1,000 mls/hr 1X ONCE IV Last administered on at 14:06; Start 04/15/18 at 14:00; Stop 04/15/18 at 14:59; Status DC Vancomycin HCl 1.5 gm/Sodium Chloride 500 ml @ 250 mls/hr Q48H IV ; Start 04/17 at 14:00; Stop 04/17/18 at 14:00; Status DC Vancomycin HCl (Vancomycin Trough Level) 1 each 1X ONCE MC ; Start 04/19/18 at 13:30; Stop 04/19/18 at 13:30; Status DC Meropenem 500 mg/ Sodium Chloride 50 ml @ 100 mls/hr Q8HRS IV Last administered on 04/15/18at 20:57; Start 04/15/18 at 18:00 Acetaminophen (Tylenol) 650 mg PRN Q6HRS PRN PO FEVER Last administered on 04/15at 20:57; Start 04/15/18 at 21:00 Acetaminophen (Tylenol) 500 mg PRN Q6HRS PRN PO MILD PAIN / TEMP; Start at 08:30 Ondansetron HCl (Zofran) 4 mg PRN Q6HRS PRN IV NAUSEA/VOMITING; Start 04/16/18 at 08:30 Ondansetron HCl (Zofran Odt) 4 mg PRN Q6HRS PRN PO NAUSEA/VOMITING; Start 04/16 at 08:30 Allopurinol (Zyloprim) 150 mg DAILY PO ; Start 04/16/18 at 09:00 Aspirin (Ecotrin) 81 mg DAILY PO ; Start 04/16/18 at 09:00 Atorvastatin Calcium (Lipitor) 20 mg HS PO ; Start 04/16/18 at 21:00 Carvedilol (Coreg) 3.125 mg BIDWMEALS PO ; Start 04/16/18 at 09:00 Vitamin D (Vitamin D3) 1,000 unit DAILY PO ; Start 04/16/18 at 09:00 Dicyclomine HCl (Bentyl) 10 mg TID PO ; Start 04/16/18 at 09:00 Famotidine (Pepcid) 80 mg DAILY PO ; Start 04/16/18 at 09:00; Status Cancel Finasteride (Proscar) 5 mg DAILY PO ; Start 04/16/18 at 09:00 Vitamin B Complex/ Vitamin C (Lupis-Brett) 1 tab DAILY PO ; Start 04/16/18 at 09: 00 Furosemide (Lasix) 80 mg BID92 PO ; Start 04/16/18 at 09:00 Lidocaine/ Prilocaine (Emla) 1 meka DAILY TP ; Start 04/16/18 at 09:00 Tamsulosin HCl (Flomax) 0.4 mg BID PO ; Start 04/16/18 at 09:00 Cyanocobalamin (Vitamin B-12) 1,000 mcg DAILY PO ; Start 04/16/18 at 09:00 Non-Formulary Medication (Hydrocodone Bitartrate (Zohydro ER)) 20 mg BID PO ; Start 04/16/18 at 09:00 Acetaminophen/ Hydrocodone Bitart (Lortab 10/325) 1 tab PRN Q4HRS PRN PO MODERATE PAIN; Start 04/16/18 at 09:00 Lactobacillus Rhamnosus (Culturelle) 1 cap DAILY PO ; Start 04/16/18 at 09:00 Magnesium Oxide (Magnesium Oxide) 400 mg DAILY PO ; Start 04/16/18 at 09:00 Metolazone (Zaroxolyn) 2.5 mg MoWeFr PO ; Start 04/16/18 at 09:00 Pantoprazole Sodium (Protonix) 40 mg BIDAC PO ; Start 04/16/18 at 09:00 Potassium Chloride (Klor-Con) 20 meq [id number] PO ; Start 04/16/18 at 09:00; Status Cancel Famotidine (Pepcid) 20 mg DAILY PO ; Start 04/16/18 at 09:00 Potassium Chloride (KCl Oral Soln) 20 meq DAILY08 PO ; Start 04/16/18 at 11:00 Active Scripts Active Reported Ondansetron Odt (Ondansetron) 4 Mg Tab.rapdis 1 Tab PO PRN Q8HRS PRN Levofloxacin 750 Mg Tablet 1 Tab PO QODAY Coreg (Carvedilol) 3.125 Mg Tablet 1 Tab PO BID Vitamin D3 (Cholecalciferol (Vitamin D3)) 1,000 Unit Tablet 1 Tab PO DAILY Lidocaine-Prilocaine Cream (Lidocaine/Prilocaine) 30 Gm Cream..g. 1 Meka TP UD Fluconazole 200 Mg Tablet 1 Tab PO DAILY Allopurinol 100 Mg Tablet 150 Mg PO DAILY Acyclovir 400 Mg Tablet 1 Tab PO BID Money On Mobile Capsule (L Gasseri/B Bifidum/B Longum) 1 Each Capsule 1 Each PO DAILY Not given on this admission May resume tomorrow Zohydro ER (Hydrocodone Bitartrate) 10 Mg Cap.er.12h 20 Mg PO BID LAST DOSE GIVEN: DATE: today TIME: 6:40 NEXT DOSE DUE: DATE: Tonight Magnesium (Magnesium Oxide) 400 Mg Capsule 1 Cap PO DAILY Medication not given here May resume tomorrow Potassium Chloride Packet (Potassium Chloride) 20 Meq Packet 20 Meq PO DAILY Not given today due to procedure Take a dose tonight Metolazone 2.5 Mg Tablet 2.5 Mg PO QMWF Dose given Thursday morning Take a dose Thursday morning Finasteride 5 Mg Tablet 5 Mg PO DAILY LAST DOSE GIVEN: DATE: last night TIME: 9pm NEXT DOSE DUE: DATE: Tonight TIME: 9 pm Furosemide 80 Mg Tablet 80 Mg PO BID LAST DOSE GIVEN: DATE: today TIME: 3pm NEXT DOSE DUE: DATE: Tomorrow TIME: 9 am Dicyclomine Hcl 10 Mg Capsule 1 Cap PO TID Not given on this admission Take this evening Vitamin B-12 (Cyanocobalamin (Vitamin B-12)) 1,000 Mcg Tablet.er 1,000 Mcg PO DAILY LAST DOSE GIVEN: DATE: today TIME: 3pm NEXT DOSE DUE: DATE: Tomorrow TIME: 9 am Lortab 10-325 mg Tablet (Hydrocodone/Acetaminophen) 1 Each Tablet 1 Tab PO PRN Q4HRS PRN LAST DOSE GIVEN: DATE: last night TIME: 11pm NEXT DOSE DUE: when needed Tamsulosin Hcl 0.4 Mg Cap.er.24h 0.4 Mg PO BID LAST DOSE GIVEN: DATE: last night TIME: 9 pm NEXT DOSE DUE: DATE: Tonight TIME: 9pm Famotidine 20 Mg Tablet 80 Mg PO BID Famotidine 20mg was given last night may take tonight Lipitor (Atorvastatin Calcium) 20 Mg Tablet 1 Tab PO HS LAST DOSE GIVEN: DATE: last night TIME: 9pm NEXT DOSE DUE: DATE: Tonight TIME: 9 pm Aspir 81 (Aspirin) 81 Mg Tablet.dr 1 Tab PO DAILY LAST DOSE GIVEN: DATE: today TIME: 3pm NEXT DOSE DUE: DATE: Tomorrow TIME: 9 am Omeprazole 40 Mg Capsule.dr 1 Cap PO BID Not given on this admission May resume in the morning TIME: 9:00 am NEXT DOSE DUE: DATE: 06-13-15 TIME: 9:00 pm Nephro-Brett Tablet (Folic Acid/Vitamin B Comp W-C) 0.8 Mg Tablet 1 Tab PO DAILY LAST DOSE GIVEN: DATE: today TIME: 3pm NEXT DOSE DUE: DATE: Tomorrow TIME: 9 am Vitals/I & O Vital Sign - Last 24 Hours 04/15/18 04/15/18 04/15/18 04/15/18 11:43 11:54 12:13 12:43 Temp 98.1 98.1 Pulse 90 96 94 86 Resp 18 B/P (MAP) 94/51 (65) Pulse Ox 93 97 93 95 O2 Delivery Nasal Cannula O2 Flow Rate 2.5 04/15/18 04/15/18 04/15/18 04/15/18 13:13 13:43 14:13 14:43 Pulse 76 92 92 94 Resp 18 18 Pulse Ox 95 96 96 96 04/15/18 04/15/18 04/15/18 04/15/18 16:34 16:59 17:34 17:49 Temp 98.2 98.8 97.8 98.2 98.8 97.8 Pulse 94 94 99 Resp 18 20 B/P (MAP) 99/38 88/30 108/48 O2 Delivery Nasal Cannula O2 Flow Rate 3.0 04/15/18 04/15/18 04/15/18 04/15/18 18:35 19:00 20:00 20:30 Temp 99.1 101.3 99.1 101.3 Pulse 95 97 Resp 20 20 B/P (MAP) 95/46 112/49 O2 Delivery Nasal Cannula O2 Flow Rate 2.0 04/15/18 04/15/18 04/16/18 04/16/18 20:30 23:00 03:00 05:47 Temp 101.3 100.2 98.8 98.6 101.3 100.2 98.8 98.6 Pulse 97 94 92 94 Resp 18 18 B/P (MAP) 112/49 (70) 108/49 (68) 102/42 (62) 122/50 Pulse Ox 97 95 92 O2 Delivery Nasal Cannula O2 Flow Rate 2.0 04/16/18 04/16/18 04/16/18 04/16/18 06:47 07:00 07:46 08:00 Temp 98.6 99.7 99.7 98.6 99.7 99.7 Pulse 98 96 95 Resp 18 18 14 B/P (MAP) 112/53 109/55 (73) 109/55 Pulse Ox 92 O2 Delivery Nasal Cannula Nasal Cannula O2 Flow Rate 3.0 3.0 04/16/18 04/16/18 08:11 09:16 Temp 99.1 97.7 99.1 97.7 Pulse 93 101 Resp 16 18 B/P (MAP) 106/50 121/61 Intake and Output 04/15/18 04/15/18 04/16/18 15:00 23:00 07:00 Intake Total 550 ml 640 ml 30 ml Output Total 300 ml 200 ml Balance 550 ml 340 ml -170 ml GONZALEZ SIEGEL MD Apr 16, 2018 10:52
--- NOTE | 2018-04-16 11:08 | PDOC2 ---
CONSULT Date of Consult Date of Consult DATE: 04/16/18 TIME: 10:57 Reason for Consult Reason for Consult: RENAL FAILURE Referring Physician Referring Physician: RODNEY Identification/Chief Complaint Chief Complaint CONFUSION Source Source: Chart review History of Present Illness Reason for Visit: THIS IS A 72 YR OLD WITH CONFUSION. HAS BEEN DX WITH PNEUMONIA. HAS AML AND PANCYTOPENIA WELL. CR IS 3.4 ON ADMIT. 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 ALSO NOTED TO HAVE SOME LE EDEMA AND PULMONARY VASCULAR CONGESTION ON CXRAY. PT NOW ON ANTIBIOTICS. HE HAS BPH AND HAS BEEN ON FLOMAX. NO OTHER HX. NO NEPHROTOXIN EXPOSURE Past Medical History Cardiovascular: AFIB, CAD, HTN, Hyperlipidemia, Valve insufficiency, Other GI: GERD Heme/Onc: Anemia NOS, Cancer Hepatobiliary: No pertinent hx Psych: No pertinent hx Musculoskeletal: Other Rheumatologic: Gout Infectious disease: Other Renal/: Chronic renal insuff Endocrine: No pertinent hx Past Surgical History Past Surgical History: Pacemaker, CABG Family History Family History: No Significant, Other Social History No ALCOHOL: none Drugs: None Lives: with Family Current Problem List Problem List Problems Medical Problems: (1) Pneumonia Status: Acute (2) Weakness Status: Acute Current Medications Current Medications Current Medications Piperacillin Sod/ Tazobactam Sod 3.375 gm/Sodium Chloride 50 ml @ 100 mls/hr 1X ONCE IV Last administered on 04/15/18at 13:57; Start 04/15/18 at 13:45; Stop 04/15/18 at 14:14; Status DC Vancomycin HCl (Vanco Per Pharmacy) 1 each PRN DAILY PRN MC SEE COMMENTS Last administered on 04/15/18at 15:19; Start 04/15/18 at 13:45; Stop 04/16/18 at 10:33 ; Status DC Vancomycin HCl 2 gm/Sodium Chloride 500 ml @ 250 mls/hr 1X ONCE IV Last administered on 04/15/18at 14:46; Start 04/15/18 at 13:45; Stop 04/15/18 at 15:44 ; Status DC Sodium Chloride 1,000 ml @ 1,000 mls/hr 1X ONCE IV Last administered on at 14:06; Start 04/15/18 at 14:00; Stop 04/15/18 at 14:59; Status DC Vancomycin HCl 1.5 gm/Sodium Chloride 500 ml @ 250 mls/hr Q48H IV ; Start 04/17 at 14:00; Stop 04/17/18 at 14:00; Status DC Vancomycin HCl (Vancomycin Trough Level) 1 each 1X ONCE MC ; Start 04/19/18 at 13:30; Stop 04/19/18 at 13:30; Status DC Meropenem 500 mg/ Sodium Chloride 50 ml @ 100 mls/hr Q8HRS IV Last administered on 04/16/18at 10:44; Start 04/15/18 at 18:00 Acetaminophen (Tylenol) 650 mg PRN Q6HRS PRN PO FEVER Last administered on 04/15at 20:57; Start 04/15/18 at 21:00 Acetaminophen (Tylenol) 500 mg PRN Q6HRS PRN PO MILD PAIN / TEMP; Start at 08:30 Ondansetron HCl (Zofran) 4 mg PRN Q6HRS PRN IV NAUSEA/VOMITING; Start 04/16/18 at 08:30 Ondansetron HCl (Zofran Odt) 4 mg PRN Q6HRS PRN PO NAUSEA/VOMITING; Start 04/16 at 08:30 Allopurinol (Zyloprim) 150 mg DAILY PO Last administered on 04/16/18at 10:46; Start 04/16/18 at 09:00 Aspirin (Ecotrin) 81 mg DAILY PO Last administered on 04/16/18at 10:45; Start at 09:00 Atorvastatin Calcium (Lipitor) 20 mg HS PO ; Start 04/16/18 at 21:00 Carvedilol (Coreg) 3.125 mg BIDWMEALS PO ; Start 04/16/18 at 09:00 Vitamin D (Vitamin D3) 1,000 unit DAILY PO Last administered on 04/16/18at 10:45 ; Start 04/16/18 at 09:00 Dicyclomine HCl (Bentyl) 10 mg TID PO Last administered on 04/16/18at 10:47; Start 04/16/18 at 09:00 Famotidine (Pepcid) 80 mg DAILY PO ; Start 04/16/18 at 09:00; Status Cancel Finasteride (Proscar) 5 mg DAILY PO Last administered on 04/16/18 10:47; Start 04/16/18 at 09:00 Vitamin B Complex/ Vitamin C (Lupis-Brett) 1 tab DAILY PO Last administered on 10:45; Start 04/16/18 at 09:00 Furosemide (Lasix) 80 mg BID92 PO Last administered on 04/16/18 10:45; Start 04/16/18 at 09:00 Lidocaine/ Prilocaine (Emla) 1 meka DAILY TP ; Start 04/16/18 at 09:00 Tamsulosin HCl (Flomax) 0.4 mg BID PO Last administered on 04/16/18 10:47; Start 04/16/18 at 09:00 Cyanocobalamin (Vitamin B-12) 1,000 mcg DAILY PO Last administered on 10:45; Start 04/16/18 at 09:00 Non-Formulary Medication (Hydrocodone Bitartrate (Zohydro ER)) 20 mg BID PO Last administered on 04/16/18at 10:44; Start 04/16/18 at 09:00 Acetaminophen/ Hydrocodone Bitart (Lortab 10/325) 1 tab PRN Q4HRS PRN PO MODERATE PAIN; Start 04/16/18 at 09:00 Lactobacillus Rhamnosus (Culturelle) 1 cap DAILY PO Last administered on at 10:44; Start 04/16/18 at 09:00 Magnesium Oxide (Magnesium Oxide) 400 mg DAILY PO Last administered on at 10:44; Start 04/16/18 at 09:00 Metolazone (Zaroxolyn) 2.5 mg MoWeFr PO Last administered on 04/16/18at 10:47; Start 04/16/18 at 09:00 Pantoprazole Sodium (Protonix) 40 mg BIDAC PO Last administered on 04/16/18 10 :45; Start 04/16/18 at 09:00 Potassium Chloride (Klor-Con) 20 meq DAILYWBKFT PO ; Start 04/16/18 at 09:00; Status Cancel Famotidine (Pepcid) 20 mg DAILY PO Last administered on 04/16/18at 10:47; Start 04/16/18 at 09:00 Potassium Chloride (KCl Oral Soln) 20 meq DAILY08 PO Last administered on at 10:48; Start 04/16/18 at 11:00 Active Scripts Active Reported Ondansetron Odt (Ondansetron) 4 Mg Tab.rapdis 1 Tab PO PRN Q8HRS PRN Levofloxacin 750 Mg Tablet 1 Tab PO QODAY Coreg (Carvedilol) 3.125 Mg Tablet 1 Tab PO BID Vitamin D3 (Cholecalciferol (Vitamin D3)) 1,000 Unit Tablet 1 Tab PO DAILY Lidocaine-Prilocaine Cream (Lidocaine/Prilocaine) 30 Gm Cream..g. 1 Meka TP UD Fluconazole 200 Mg Tablet 1 Tab PO DAILY Allopurinol 100 Mg Tablet 150 Mg PO DAILY Acyclovir 400 Mg Tablet 1 Tab PO BID Pharma Two B Capsule (L Gasseri/B Bifidum/B Longum) 1 Each Capsule 1 Each PO DAILY Not given on this admission May resume tomorrow Zohydro ER (Hydrocodone Bitartrate) 10 Mg Cap.er.12h 20 Mg PO BID LAST DOSE GIVEN: DATE: today TIME: 6:40 NEXT DOSE DUE: DATE: Tonight Magnesium (Magnesium Oxide) 400 Mg Capsule 1 Cap PO DAILY Medication not given here May resume tomorrow Potassium Chloride Packet (Potassium Chloride) 20 Meq Packet 20 Meq PO DAILY Not given today due to procedure Take a dose tonight Metolazone 2.5 Mg Tablet 2.5 Mg PO QMWF Dose given Thursday morning Take a dose Thursday morning Finasteride 5 Mg Tablet 5 Mg PO DAILY LAST DOSE GIVEN: DATE: last night TIME: 9pm NEXT DOSE DUE: DATE: Tonight TIME: 9 pm Furosemide 80 Mg Tablet 80 Mg PO BID LAST DOSE GIVEN: DATE: today TIME: 3pm NEXT DOSE DUE: DATE: Tomorrow TIME: 9 am Dicyclomine Hcl 10 Mg Capsule 1 Cap PO TID Not given on this admission Take this evening Vitamin B-12 (Cyanocobalamin (Vitamin B-12)) 1,000 Mcg Tablet.er 1,000 Mcg PO DAILY LAST DOSE GIVEN: DATE: today TIME: 3pm NEXT DOSE DUE: DATE: Tomorrow TIME: 9 am Lortab 10-325 mg Tablet (Hydrocodone/Acetaminophen) 1 Each Tablet 1 Tab PO PRN Q4HRS PRN LAST DOSE GIVEN: DATE: last night TIME: 11pm NEXT DOSE DUE: when needed Tamsulosin Hcl 0.4 Mg Cap.er.24h 0.4 Mg PO BID LAST DOSE GIVEN: DATE: last night TIME: 9 pm NEXT DOSE DUE: DATE: Tonight TIME: 9pm Famotidine 20 Mg Tablet 80 Mg PO BID Famotidine 20mg was given last night may take tonight Lipitor (Atorvastatin Calcium) 20 Mg Tablet 1 Tab PO HS LAST DOSE GIVEN: DATE: last night TIME: 9pm NEXT DOSE DUE: DATE: Tonight TIME: 9 pm Aspir 81 (Aspirin) 81 Mg Tablet.dr 1 Tab PO DAILY LAST DOSE GIVEN: DATE: today TIME: 3pm NEXT DOSE DUE: DATE: Tomorrow TIME: 9 am Omeprazole 40 Mg Capsule.dr 1 Cap PO BID Not given on this admission May resume in the morning TIME: 9:00 am NEXT DOSE DUE: DATE: 06-13-15 TIME: 9:00 pm Nephro-Brett Tablet (Folic Acid/Vitamin B Comp W-C) 0.8 Mg Tablet 1 Tab PO DAILY LAST DOSE GIVEN: DATE: today TIME: 3pm NEXT DOSE DUE: DATE: Tomorrow TIME: 9 am Allergies Allergies: Coded Allergies: NSAIDS (Non-Steroidal Anti-Inflamma (Verified Allergy, Intermediate, Hives , 04/05/18) Sulfa (Sulfonamide Antibiotics) (Verified Allergy, Intermediate, HIVES, 04/05/18) I S O L A T I O N *CONTACT* (Verified Allergy, Unknown, 04/05/18) mrsa hydroxyzine (Verified Adverse Reaction, Intermediate, insomnia, 04/05/18) ROS Review of System UNABLE TO OBTAIN FROM PT Physical Exam General: Cooperative, No acute distress HEENT: Atraumatic, PERRLA Lungs: Other (DECREASE AT BASES) Heart: Regular rate Abdomen: Soft, No hepatosplenomegaly Extremities: No clubbing, Normal pulses Skin: No rashes, No significant lesion Neuro: Other (CONFUSED) Psych/Mental Status: Other (CONFUSED) MUSCULOSKELETAL: No deformity, Other (DIFFUSE MUSCLE ATROPHY) Vitals VITALS Vital Signs Date Time Temp Pulse Resp B/P (MAP) Pulse Ox O2 Delivery O2 Flow Rate FiO2 04/16/18 09:16 97.7 101 18 121/61 97.7 04/16/18 08:00 Nasal Cannula 3.0 04/16/18 07:00 92 Labs Labs Laboratory Tests Test 04/15/18 12:25 04/16/18 09:40 White Blood Count 0.3 x10^3/uL (4.0-11.0) 0.3 x10^3/uL (4.0-11.0) Red Blood Count 2.10 x10^6/uL (4.30-5.70) 2.34 x10^6/uL (4.30-5.70) Hemoglobin 6.9 g/dL (13.0-17.5) 7.7 g/dL (13.0-17.5) Hematocrit 19.7 % (39.0-53.0) 21.5 % (39.0-53.0) Mean Corpuscular Volume 94 fL (79-100) 92 fL (79-100) Mean Corpuscular Hemoglobin 33 pg (25-35) 33 pg (25-35) Mean Corpuscular Hemoglobin Concent 35 g/dL (31-37) 36 g/dL (31-37) Red Cell Distribution Width 16.2 % (11.5-14.5) 15.2 % (11.5-14.5) Platelet Count 21 x10^3/uL (140-400) 15 x10^3/uL (140-400) Neutrophils (%) (Auto) 5 % (31-73) 30 % (31-73) Lymphocytes (%) (Auto) 67 % (24-48) 67 % (24-48) Monocytes (%) (Auto) 27 % (0-9) 1 % (0-9) Eosinophils (%) (Auto) 1 % (0-3) 3 % (0-3) Basophils (%) (Auto) 0 % (0-3) 0 % (0-3) Neutrophils # (Auto) 0.0 x10^3uL (1.8-7.7) 0.1 x10^3uL (1.8-7.7) Lymphocytes # (Auto) 0.2 x10^3/uL (1.0-4.8) 0.2 x10^3/uL (1.0-4.8) Monocytes # (Auto) 0.1 x10^3/uL (0.0-1.1) 0.0 x10^3/uL (0.0-1.1) Eosinophils # (Auto) 0.0 x10^3/uL (0.0-0.7) 0.0 x10^3/uL (0.0-0.7) Basophils # (Auto) 0.0 x10^3/uL (0.0-0.2) 0.0 x10^3/uL (0.0-0.2) Platelet Estimate Decreased (ADEQUATE) Poikilocytosis Slight Anisocytosis Slight Prothrombin Time 16.4 SEC (11.7-14.0) Prothromb Time International Ratio 1.4 (0.8-1.1) Activated Partial Thromboplast Time 44 SEC (24-38) Sodium Level 129 mmol/L (136-145) 133 mmol/L (136-145) Potassium Level 3.3 mmol/L (3.5-5.1) 3.3 mmol/L (3.5-5.1) Chloride Level 93 mmol/L (98-107) 98 mmol/L (98-107) Carbon Dioxide Level 31 mmol/L (21-32) 31 mmol/L (21-32) Anion Gap 5 (6-14) 4 (6-14) Blood Urea Nitrogen 67 mg/dL (8-26) 61 mg/dL (8-26) Creatinine 3.4 mg/dL (0.7-1.3) 2.8 mg/dL (0.7-1.3) Estimated GFR (Cockcroft-Gault) 17.9 22.4 BUN/Creatinine Ratio 20 (6-20) Glucose Level 127 mg/dL (70-99) 122 mg/dL (70-99) Lactic Acid Level 1.6 mmol/L (0.4-2.0) Calcium Level 8.6 mg/dL (8.5-10.1) 8.5 mg/dL (8.5-10.1) Magnesium Level 2.0 mg/dL (1.8-2.4) Total Bilirubin 0.8 mg/dL (0.2-1.0) Aspartate Amino Transf (AST/SGOT) 81 U/L (15-37) Alanine Aminotransferase (ALT/SGPT) 71 U/L (16-63) Alkaline Phosphatase 128 U/L (46-116) Ammonia 12 mcmol/L (11-34) Total Protein 6.2 g/dL (6.4-8.2) Albumin 2.2 g/dL (3.4-5.0) Albumin/Globulin Ratio 0.6 (1.0-1.7) Procalcitonin 0.70 ng/mL (0.00-0.10) Laboratory Tests Test 04/15/18 12:25 04/16/18 09:40 White Blood Count 0.3 x10^3/uL (4.0-11.0) 0.3 x10^3/uL (4.0-11.0) Red Blood Count 2.10 x10^6/uL (4.30-5.70) 2.34 x10^6/uL (4.30-5.70) Hemoglobin 6.9 g/dL (13.0-17.5) 7.7 g/dL (13.0-17.5) Hematocrit 19.7 % (39.0-53.0) 21.5 % (39.0-53.0) Mean Corpuscular Volume 94 fL (79-100) 92 fL (79-100) Mean Corpuscular Hemoglobin 33 pg (25-35) 33 pg (25-35) Mean Corpuscular Hemoglobin Concent 35 g/dL (31-37) 36 g/dL (31-37) Red Cell Distribution Width 16.2 % (11.5-14.5) 15.2 % (11.5-14.5) Platelet Count 21 x10^3/uL (140-400) 15 x10^3/uL (140-400) Neutrophils (%) (Auto) 5 % (31-73) 30 % (31-73) Lymphocytes (%) (Auto) 67 % (24-48) 67 % (24-48) Monocytes (%) (Auto) 27 % (0-9) 1 % (0-9) Eosinophils (%) (Auto) 1 % (0-3) 3 % (0-3) Basophils (%) (Auto) 0 % (0-3) 0 % (0-3) Neutrophils # (Auto) 0.0 x10^3uL (1.8-7.7) 0.1 x10^3uL (1.8-7.7) Lymphocytes # (Auto) 0.2 x10^3/uL (1.0-4.8) 0.2 x10^3/uL (1.0-4.8) Monocytes # (Auto) 0.1 x10^3/uL (0.0-1.1) 0.0 x10^3/uL (0.0-1.1) Eosinophils # (Auto) 0.0 x10^3/uL (0.0-0.7) 0.0 x10^3/uL (0.0-0.7) Basophils # (Auto) 0.0 x10^3/uL (0.0-0.2) 0.0 x10^3/uL (0.0-0.2) Platelet Estimate Decreased (ADEQUATE) Poikilocytosis Slight Anisocytosis Slight Prothrombin Time 16.4 SEC (11.7-14.0) Prothromb Time International Ratio 1.4 (0.8-1.1) Activated Partial Thromboplast Time 44 SEC (24-38) Sodium Level 129 mmol/L (136-145) 133 mmol/L (136-145) Potassium Level 3.3 mmol/L (3.5-5.1) 3.3 mmol/L (3.5-5.1) Chloride Level 93 mmol/L (98-107) 98 mmol/L (98-107) Carbon Dioxide Level 31 mmol/L (21-32) 31 mmol/L (21-32) Anion Gap 5 (6-14) 4 (6-14) Blood Urea Nitrogen 67 mg/dL (8-26) 61 mg/dL (8-26) Creatinine 3.4 mg/dL (0.7-1.3) 2.8 mg/dL (0.7-1.3) Estimated GFR (Cockcroft-Gault) 17.9 22.4 BUN/Creatinine Ratio 20 (6-20) Glucose Level 127 mg/dL (70-99) 122 mg/dL (70-99) Lactic Acid Level 1.6 mmol/L (0.4-2.0) Calcium Level 8.6 mg/dL (8.5-10.1) 8.5 mg/dL (8.5-10.1) Magnesium Level 2.0 mg/dL (1.8-2.4) Total Bilirubin 0.8 mg/dL (0.2-1.0) Aspartate Amino Transf (AST/SGOT) 81 U/L (15-37) Alanine Aminotransferase (ALT/SGPT) 71 U/L (16-63) Alkaline Phosphatase 128 U/L (46-116) Ammonia 12 mcmol/L (11-34) Total Protein 6.2 g/dL (6.4-8.2) Albumin 2.2 g/dL (3.4-5.0) Albumin/Globulin Ratio 0.6 (1.0-1.7) Procalcitonin 0.70 ng/mL (0.00-0.10) Assessment/Plan Assessment/Plan IMP CKD STAGE 3 TO 4 AML PANCYTOPENIA PNEUMONIA MET ENCEPHALOPATHY BPH-ON FLOMAX PULMONARY VASCULAR CONGESTION HYPOKALEMIA MILD HYPONATREMIA DUE TO HYPERVOLEMIA PLAN ANTIBIOTICS CONT WITH DIURETICS AND K SUPPLEMENTS MAY NEED TO BACK OFF DIURETICS IF PO INTAKE REMAINS POOR HEME ONC FOLLOWING WILL FOLLOW SANGEETHA PHILLIPS MD Apr 16, 2018 11:08
--- NOTE | 2018-04-16 13:11 | RAD ---
Bilateral lower extremity venous duplex study 04/16/2018 11:36 AM Clinical History: bilateral lower extremity edema Comparison: None Technique: Using a combination of real time ultrasound imaging and color-flow and pulse Doppler imaging techniques along with graded compression and augmentation, duplex evaluation of the deep venous system of the both lower extremities was performed. Multiple images were obtained. Findings: There is no sonographic evidence of deep venous thrombosis involving the visualized deep venous structures of either lower extremity. Impression: No evidence of deep venous thrombosis Electronically signed by: Josias Chamorro MD (04/16/2018 1:07 PM) [id number]
[2018-04-16 13:28] LABS: % LYMPHS 85 % (24-48); % MONOS 10 % (0-10); % SEGS 5 % (35-66)
[2018-04-16 13:29] LABS: PLT ESTIMATE DECREASED (ADEQUATE)
--- NOTE | 2018-04-16 13:32 | PDOC ---
Provider Note Provider Note full note dictated KANDY ALEXANDER MD Apr 16, 2018 13:32
--- NOTE | 2018-04-16 17:43 | RAD ---
HIP RIGHT 2V WITH PELVIS Clinical Indication: FALL ONTO RIGHT HIP Comparison: None. Findings: There is right hip screw and short intramedullary valerio. No acute fracture or dislocation of the right hip. There is degenerative arthropathy of the bilateral hips. No acute pelvic fracture is appreciated. Degenerative spondylosis of L5/S1. IMPRESSION: No acute fracture. If there is high clinical suspicion of fracture, recommend CT. Electronically signed by: Akbar Becerra MD (04/16/2018 5:39 PM) [id number]
--- NOTE | 2018-04-16 18:00 | CONS ---
DATE OF CONSULTATION: 04/16/2018 REQUESTING PHYSICIAN: Dr. Deluca. REASON FOR CONSULTATION: Pneumonia and neutropenia. HISTORY OF PRESENT ILLNESS: This is a 72-year-old gentleman, who has AML undergoing chemotherapy, who was at Oncology Office with confused, weak, unable to walk and found to have pneumonia and fever, hence admission. The patient is lethargic. The patient's is at the bedside. She denied any nausea, vomiting, diarrhea. Denied any chest pain, but he was so weak and debilitated that he could not stand, and he was found to have fever. PAST MEDICAL HISTORY: Positive for acute myelogenous leukemia, on chemotherapy. The patient has coronary artery disease, gastroesophageal reflux disease, hyperlipidemia, hypertension, history of pancreatitis, benign prostatic hypertrophy, mitral valve replacement, pacemaker in place, coronary artery bypass grafting. SOCIAL HISTORY: Negative for smoking, alcohol, illicit drug use. ALLERGIES: LISTED ALLERGIC TO SULFA. REVIEW OF SYSTEMS: As per HPI, all other systems reviewed are negative. CURRENT MEDICATIONS: The patient is on vancomycin and meropenem. PHYSICAL EXAMINATION: GENERAL: Arousable, but lethargic gentleman, not in any distress. VITAL SIGNS: Temperature max is 101.3. Rest of vital signs stable. HEENT: anicteric. NECK: Supple, no JVP, no lymphadenopathy. LUNGS: Clear. HEART: S1, S2 regular. ABDOMEN: Benign. EXTREMITIES: No edema, cyanosis. SKIN: Unremarkable other than bruising present. The patient does have a Port-A-Cath in the left upper chest. There is some redness and a scab present. NEUROLOGIC: Intact. The patient does have chronic venous insufficiency changes on the legs. LABORATORY DATA: White count is 0.3, hemoglobin 6.9, platelets are 21,000. BUN and creatinine are 67 and 3.4. Chest x-ray showed a new right midlung infiltrate. IMPRESSION: 1. Fever. 2. Encephalopathy. 3. Neutropenia. 4. AML, on chemotherapy. 5. Community-acquired pneumonia. 6. Coronary artery disease. 7. Renal insufficiency. RECOMMENDATION: Would continue meropenem, discontinue vancomycin since going to be very difficult to control the level with renal insufficiency and it may damage more kidney. If needed, right now, it is going to linger in the system. If needed, will use daptomycin and or Zyvox depending upon whether he is bacteremic or not. Supportive care. Discussion with the patient's done at the bedside. Thank you very much, Dr. Deluca, for giving me the opportunity to participate in this patient's care. CHRISTIE OSHEA MD DR: HUA/juancho JOB#: [id number] / [id number]
--- NOTE | 2018-04-16 19:05 | CONS ---
DATE OF CONSULTATION: ATTENDING PHYSICIAN: Dr. Deluca. REASON FOR CONSULTATION: Pneumonia. HISTORY OF PRESENT ILLNESS: The patient is a 72-year-old male who has a history of acute myelogenous leukemia. He has been on chemo. He was in yesterday for his labs and was noted to be confused and weak. The patient was also noted to have been coughing and had some blood-tinged sputum. He was seen in the ER and his chest x-ray revealed an overall improved vascular markings, but a new right mid lung airspace infiltrates. He had a fever up to 101 yesterday. As a result, he was hospitalized for further care. He was noted to be pancytopenic with a severely low platelet count of 15,000 and a white cell count of 0.3 and hemoglobin of 7.7. The patient was started on broad-spectrum antibiotic, vancomycin and Zosyn and today, he was started on meropenem and I have been asked to see him for further evaluation. The does not think that he has any increased shortness of breath. He has been recently placed on home oxygen. No nausea, no vomiting, no diarrhea. He has chronic lower extremity edema with erythema. He has stage IV kidney disease. No history of deep vein thrombosis or pulmonary embolism. He remains on 3 liters at home. PAST MEDICAL HISTORY: Significant for history of acute myelogenous leukemia; history of CHF; history of chronic renal failure, not on hemodialysis; history of BPH; history of C. diff; history of osteomyelitis on the back, on prophylaxis; GERD; gout; pneumonia; mitral regurgitation; pacemaker and atrial fibrillation. PAST SURGICAL HISTORY: Bone marrow biopsy, cholecystectomy, coronary artery bypass grafting, AV fistula, right femur fracture, bilateral knee and pacemaker. ALLERGIES: NONSTEROIDALS, SULFA AND HYDROXYZINE. CURRENT MEDICATIONS: Reviewed as listed in the MRAD. REVIEW OF SYSTEMS: Limited, but pertinent positives discussed in my history of present illness, otherwise noncontributory. All systems that were negative were reviewed as well. SOCIAL HISTORY: Denies tobacco history. PHYSICAL EXAMINATION: GENERAL: He is lethargic, but arousable, answers few questions. VITAL SIGNS: Showed a T-max of 101.3. Blood pressure latest 121/61, pulse ox 92% on 3 liters. HEENT: Sclerae nonicteric. NECK: Supple. LUNGS: With diminished breath sounds posteriorly. CARDIOVASCULAR: Regular rate. ABDOMEN: Soft, obese. EXTREMITIES: With 3+ pitting edema and venous stasis. LABORATORY DATA: Reviewed. White cell count 0.3, hemoglobin 7.7 and platelet count of 15,000 only. BUN is 61 and a creatinine of 2.8. Procalcitonin 0.70. IMPRESSION: 1. Dyspnea secondary to progressive weakness and early sepsis. 2. Acute myelogenous leukemia with persistent pancytopenia and now presents with fever and progressive dyspnea and weakness along with new right mid lung infiltrate consistent with pneumonia. Less likely alveolar Hemorrhage 3. Immunocompromised patient with acute myelogenous leukemia. 4. Chronic kidney disease. 5. No significant history of tobacco use. 6. Mitral regurgitation. 7. Pacemaker. 8. Atrial fibrillation. RECOMMENDATIONS: 1. Continue broad-spectrum antibiotics. 2. Continue home oxygen. 3. Follow Hematology recommendations. 4. Follow Infectious Disease recommendations. 5. P.r.n. bronchodilators. 6. 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 We will closely monitor her respiratory status. 7. Discussed with the patient's and will follow along with you. I would also recommend palliative care consult regarding goals of care. KANDY ALEXANDER MD DR: KORY/juancho JOB#: [id number] / [id number] NAYLA
[2018-04-16] MEDS: ATORVASTATIN CALCIUM 20 MG TABLET PO SCH (20:33)
[2018-04-17 02:49] VITALS: BP 115/55
[2018-04-17] MEDS: MEROPENEM 500 MG in IV NORMAL SALINE 50ML 50 ML IV SCH ×3 (06:13→21:02)
[2018-04-17 06:40] LABS: CALCIUM 8.8 mg/dL (8.5-10.1); CREATININE 3.4 mg/dL (0.7-1.3); GFR 17.9; MAGNESIUM 1.9 mg/dL (1.8-2.4)
[2018-04-17 06:47] LABS: POTASSIUM 2.9 mmol/L (3.5-5.1)
[2018-04-17 07:00] VITALS: BP 109/109
[2018-04-17] MEDS: POTASSIUM CHLORIDE 20 MEQ/15 ML ORAL LIQUID. PO SCH (08:00)
[2018-04-17] MEDS ORDERED: POTASSIUM CHLORIDE 20 MEQ/15 ML ORAL LIQUID. FT ONE (08:45)
[2018-04-17] MEDS ORDERED: POTASSIUM CHLORIDE 20 MEQ/15 ML ORAL LIQUID. PO SCH (09:00)
[2018-04-17] MEDS: LACTOBACILLUS RHAMNOSUS GG 1 CAPSULE. PO SCH (09:18)
[2018-04-17] MEDS: FUROSEMIDE 80 MG TABLET. PO SCH ×2 (09:18→14:45)
[2018-04-17] MEDS: CYANOCOBALAMIN (VITAMIN B-12) 1,000 MCG TABLET. PO SCH (09:18)
[2018-04-17] MEDS: FOLIC/VIT B COMP W-C (RENAL) TABLET. PO SCH (09:19)
[2018-04-17] MEDS: TAMSULOSIN 0.4 MG CAP.ER.24H. PO SCH ×2 (09:19→21:03)
[2018-04-17] MEDS: FAMOTIDINE 20 MG TABLET. PO SCH (09:19)
[2018-04-17] MEDS: CHOLECALCIFEROL (VITAMIN D3) 1,000 UNIT TABLET PO SCH (09:19)
[2018-04-17] MEDS: ALLOPURINOL 300 MG TABLET. PO SCH (09:19)
[2018-04-17] MEDS: ASPIRIN ENTERIC COATED 81 MG TABLET.DR. PO SCH (09:19)
[2018-04-17] MEDS: PANTOPRAZOLE 40 MG TABLET.DR. PO SCH ×2 (09:19→16:47)
[2018-04-17] MEDS: DICYCLOMINE HCL 10 MG CAPSULE PO SCH ×3 (09:19→21:03)
[2018-04-17] MEDS: FINASTERIDE 5 MG TABLET. PO SCH (09:20)
[2018-04-17] MEDS: CARVEDILOL 3.125 MG TABLET. PO SCH ×2 (09:20→16:48)
[2018-04-17] MEDS: MAGNESIUM OXIDE 400 MG TABLET PO SCH (09:20)
[2018-04-17] MEDS: LIDOCAINE/PRILOCAINE TOPICAL CREAM 5GM TUBE. TP SCH (09:21)
[2018-04-17] MEDS: HYDROCODONE BITARTRATE 10 MG PO SCH ×2 (09:21→21:12)
--- NOTE | 2018-04-17 09:41 | PDOC ---
PULMONARY PROGRESS NOTES Subjective is tired, has sob, cough, nasal congestion. is on home 02 3 lpm Vitals Vital Signs Date Time Temp Pulse Resp B/P (MAP) Pulse Ox O2 Delivery O2 Flow Rate FiO2 04/17/18 09:20 106 115/55 04/17/18 02:49 98.2 18 93 Nasal Cannula 3.0 98.2 ROS: No Nausea, No Chest Pain HEENT: Other (nc at perrl n) Lungs: Crackles, Other Cardiovascular: S1, S2 Abdomen: Soft, Non-tender Extremities: Other (+ edema) Skin: Warm Labs Laboratory Tests Test 04/15/18 12:25 04/16/18 09:40 04/17/18 06:18 White Blood Count 0.3 x10^3/uL (4.0-11.0) 0.3 x10^3/uL (4.0-11.0) Red Blood Count 2.10 x10^6/uL (4.30-5.70) 2.34 x10^6/uL (4.30-5.70) Hemoglobin 6.9 g/dL (13.0-17.5) 7.7 g/dL (13.0-17.5) Hematocrit 19.7 % (39.0-53.0) 21.5 % (39.0-53.0) Mean Corpuscular Volume 94 fL (79-100) 92 fL (79-100) Mean Corpuscular Hemoglobin 33 pg (25-35) 33 pg (25-35) Mean Corpuscular Hemoglobin Concent 35 g/dL (31-37) 36 g/dL (31-37) Red Cell Distribution Width 16.2 % (11.5-14.5) 15.2 % (11.5-14.5) Platelet Count 21 x10^3/uL (140-400) 15 x10^3/uL (140-400) Neutrophils (%) (Auto) 5 % (31-73) 30 % (31-73) Lymphocytes (%) (Auto) 67 % (24-48) 67 % (24-48) Monocytes (%) (Auto) 27 % (0-9) 1 % (0-9) Eosinophils (%) (Auto) 1 % (0-3) 3 % (0-3) Basophils (%) (Auto) 0 % (0-3) 0 % (0-3) Neutrophils # (Auto) 0.0 x10^3uL (1.8-7.7) 0.1 x10^3uL (1.8-7.7) Lymphocytes # (Auto) 0.2 x10^3/uL (1.0-4.8) 0.2 x10^3/uL (1.0-4.8) Monocytes # (Auto) 0.1 x10^3/uL (0.0-1.1) 0.0 x10^3/uL (0.0-1.1) Eosinophils # (Auto) 0.0 x10^3/uL (0.0-0.7) 0.0 x10^3/uL (0.0-0.7) Basophils # (Auto) 0.0 x10^3/uL (0.0-0.2) 0.0 x10^3/uL (0.0-0.2) Platelet Estimate Decreased (ADEQUATE) Decreased (ADEQUATE) Poikilocytosis Slight Anisocytosis Slight Prothrombin Time 16.4 SEC (11.7-14.0) Prothromb Time International Ratio 1.4 (0.8-1.1) Activated Partial Thromboplast Time 44 SEC (24-38) Sodium Level 129 mmol/L (136-145) 133 mmol/L (136-145) 135 mmol/L (136-145) Potassium Level 3.3 mmol/L (3.5-5.1) 3.3 mmol/L (3.5-5.1) 2.9 mmol/L (3.5-5.1) Chloride Level 93 mmol/L (98-107) 98 mmol/L (98-107) 96 mmol/L (98-107) Carbon Dioxide Level 31 mmol/L (21-32) 31 mmol/L (21-32) 34 mmol/L (21-32) Anion Gap 5 (6-14) 4 (6-14) 5 (6-14) Blood Urea Nitrogen 67 mg/dL (8-26) 61 mg/dL (8-26) 71 mg/dL (8-26) Creatinine 3.4 mg/dL (0.7-1.3) 2.8 mg/dL (0.7-1.3) 3.4 mg/dL (0.7-1.3) Estimated GFR (Cockcroft-Gault) 17.9 22.4 17.9 BUN/Creatinine Ratio 20 (6-20) Glucose Level 127 mg/dL (70-99) 122 mg/dL (70-99) 147 mg/dL (70-99) Lactic Acid Level 1.6 mmol/L (0.4-2.0) Calcium Level 8.6 mg/dL (8.5-10.1) 8.5 mg/dL (8.5-10.1) 8.8 mg/dL (8.5-10.1) Magnesium Level 2.0 mg/dL (1.8-2.4) 1.9 mg/dL (1.8-2.4) Total Bilirubin 0.8 mg/dL (0.2-1.0) Aspartate Amino Transf (AST/SGOT) 81 U/L (15-37) Alanine Aminotransferase (ALT/SGPT) 71 U/L (16-63) Alkaline Phosphatase 128 U/L (46-116) Ammonia 12 mcmol/L (11-34) Total Protein 6.2 g/dL (6.4-8.2) Albumin 2.2 g/dL (3.4-5.0) Albumin/Globulin Ratio 0.6 (1.0-1.7) Procalcitonin 0.70 ng/mL (0.00-0.10) Segmented Neutrophils % 5 % (35-66) Lymphocytes % 85 % (24-48) Monocytes % 10 % (0-10) Laboratory Tests Test 04/16/18 09:40 04/17/18 06:18 White Blood Count 0.3 x10^3/uL (4.0-11.0) Red Blood Count 2.34 x10^6/uL (4.30-5.70) Hemoglobin 7.7 g/dL (13.0-17.5) Hematocrit 21.5 % (39.0-53.0) Mean Corpuscular Volume 92 fL (79-100) Mean Corpuscular Hemoglobin 33 pg (25-35) Mean Corpuscular Hemoglobin Concent 36 g/dL (31-37) Red Cell Distribution Width 15.2 % (11.5-14.5) Platelet Count 15 x10^3/uL (140-400) Neutrophils (%) (Auto) 30 % (31-73) Lymphocytes (%) (Auto) 67 % (24-48) Monocytes (%) (Auto) 1 % (0-9) Eosinophils (%) (Auto) 3 % (0-3) Basophils (%) (Auto) 0 % (0-3) Neutrophils # (Auto) 0.1 x10^3uL (1.8-7.7) Lymphocytes # (Auto) 0.2 x10^3/uL (1.0-4.8) Monocytes # (Auto) 0.0 x10^3/uL (0.0-1.1) Eosinophils # (Auto) 0.0 x10^3/uL (0.0-0.7) Basophils # (Auto) 0.0 x10^3/uL (0.0-0.2) Segmented Neutrophils % 5 % (35-66) Lymphocytes % 85 % (24-48) Monocytes % 10 % (0-10) Platelet Estimate Decreased (ADEQUATE) Sodium Level 133 mmol/L (136-145) 135 mmol/L (136-145) Potassium Level 3.3 mmol/L (3.5-5.1) 2.9 mmol/L (3.5-5.1) Chloride Level 98 mmol/L (98-107) 96 mmol/L (98-107) Carbon Dioxide Level 31 mmol/L (21-32) 34 mmol/L (21-32) Anion Gap 4 (6-14) 5 (6-14) Blood Urea Nitrogen 61 mg/dL (8-26) 71 mg/dL (8-26) Creatinine 2.8 mg/dL (0.7-1.3) 3.4 mg/dL (0.7-1.3) Estimated GFR (Cockcroft-Gault) 22.4 17.9 Glucose Level 122 mg/dL (70-99) 147 mg/dL (70-99) Calcium Level 8.5 mg/dL (8.5-10.1) 8.8 mg/dL (8.5-10.1) Magnesium Level 1.9 mg/dL (1.8-2.4) Medications Active Scripts Medications Dose Route/Sig Max Daily Dose Days Date Category Dose Instructions Ondansetron Odt (Ondansetron) 4 Mg Tab.rapdis 1 Tab PO PRN Q8HRS PRN 04/09/18 Reported Levofloxacin 750 Mg Tablet 1 Tab PO QODAY 04/09/18 Reported Coreg (Carvedilol) 3.125 Mg Tablet 1 Tab PO BID 04/09/18 Reported Vitamin D3 (Cholecalciferol (Vitamin D3)) 1,000 Unit Tablet 1 Tab PO DAILY 03/28/18 Reported Lidocaine-Prilocaine Cream (Lidocaine/Prilocaine) 30 Gm Cream..g. 1 Meka TP UD 03/28/18 Reported Fluconazole 200 Mg Tablet 1 Tab PO DAILY 03/28/18 Reported Allopurinol 100 Mg Tablet 150 Mg PO DAILY 03/28/18 Reported Acyclovir 400 Mg Tablet 1 Tab PO BID 03/28/18 Reported [facility] Colon Health Capsule (L Gasseri/B Bifidum/B Longum) 1 Each Capsule 1 Each PO DAILY 03/02/18 Reported Not given on this admission May resume tomorrow Zohydro ER (Hydrocodone Bitartrate) 10 Mg Cap.er.12h 20 Mg PO BID 03/02/18 Reported LAST DOSE GIVEN: DATE: today TIME: 6:40 NEXT DOSE DUE: DATE: Tonight Magnesium (Magnesium Oxide) 400 Mg Capsule 1 Cap PO DAILY 03/02/18 Reported Medication not given here May resume tomorrow Potassium Chloride Packet (Potassium Chloride) 20 Meq Packet 20 Meq PO DAILY 03/02/18 Reported Not given today due to procedure Take a dose tonight Metolazone 2.5 Mg Tablet 2.5 Mg PO QMWF 03/02/18 Reported Dose given Thursday morning Take a dose Thursday morning Finasteride 5 Mg Tablet 5 Mg PO DAILY 03/02/18 Reported LAST DOSE GIVEN: DATE: last night TIME: 9pm NEXT DOSE DUE: DATE: Tonight TIME: 9 pm Furosemide 80 Mg Tablet 80 Mg PO BID 03/02/18 Reported LAST DOSE GIVEN: DATE: today TIME: 3pm NEXT DOSE DUE: DATE: Tomorrow TIME: 9 am Dicyclomine Hcl 10 Mg Capsule 1 Cap PO TID 03/02/18 Reported Not given on this admission Take this evening Vitamin B-12 (Cyanocobalamin (Vitamin B-12)) 1,000 Mcg Tablet.er 1,000 Mcg PO DAILY 03/02/18 Reported LAST DOSE GIVEN: DATE: today TIME: 3pm NEXT DOSE DUE: DATE: Tomorrow TIME: 9 am Lortab 10-325 mg Tablet (Hydrocodone/Acetaminophen) 1 Each Tablet 1 Tab PO PRN Q4HRS PRN 09/22/16 Reported LAST DOSE GIVEN: DATE: last night TIME: 11pm NEXT DOSE DUE: when needed Tamsulosin Hcl 0.4 Mg Cap.er.24h 0.4 Mg PO BID 06/12/15 Reported LAST DOSE GIVEN: DATE: last night TIME: 9 pm NEXT DOSE DUE: DATE: Tonight TIME: 9pm Famotidine 20 Mg Tablet 80 Mg PO BID 06/12/15 Reported Famotidine 20mg was given last night may take tonight Lipitor (Atorvastatin Calcium) 20 Mg Tablet 1 Tab PO HS 07/08/14 Reported LAST DOSE GIVEN: DATE: last night TIME: 9pm NEXT DOSE DUE: DATE: Tonight TIME: 9 pm Aspir 81 (Aspirin) 81 Mg Tablet.dr 1 Tab PO DAILY 07/08/14 Reported LAST DOSE GIVEN: DATE: today TIME: 3pm NEXT DOSE DUE: DATE: Tomorrow TIME: 9 am Omeprazole 40 Mg Capsule.dr 1 Cap PO BID 07/08/14 Reported Not given on this admission May resume in the morning TIME: 9:00 am NEXT DOSE DUE: DATE: 06-13-15 TIME: 9:00 pm Nephro-Brett Tablet (Folic Acid/Vitamin B Comp W-C) 0.8 Mg Tablet 1 Tab PO DAILY 07/08/14 Reported LAST DOSE GIVEN: DATE: today TIME: 3pm NEXT DOSE DUE: DATE: Tomorrow TIME: 9 am Impression . IMPRESSION: 1. Dyspnea secondary to progressive weakness and early sepsis. 2. Acute myelogenous leukemia with persistent pancytopenia and now presents with fever and progressive dyspnea and weakness along with new right mid lung infiltrate consistent with pneumonia. Less likely alveolar Hemorrhage 3. Immunocompromised patient with acute myelogenous leukemia. 4. Chronic kidney disease. 5. No significant history of tobacco use. 6. Mitral regurgitation. 7. Pacemaker. 8. Atrial fibrillation. 9. allergic rhinitis Plan . RECOMMENDATIONS: 1. Continue broad-spectrum antibiotics. 2. Continue home oxygen. 3. Follow Hematology recommendations. 4. Follow Infectious Disease recommendations. 5. P.r.n. bronchodilators. 6. 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 We will closely monitor her respiratory status. 7. add flonase, and singulair Discussed with the pt and his . I would also recommend palliative care consult regarding goals of care. CAMERON SHOEMAKER MD Apr 17, 2018 09:41
[2018-04-17] MEDS: FLUTICASONE 50MCG/NASAL SPRAY 16GM BOTTLE. NS SCH ×2 (10:00→10:21)
[2018-04-17] MEDS: POTASSIUM CHLORIDE PO SCH ×3 (10:09→14:46)
[2018-04-17 11:00] VITALS: BP 112/60
--- NOTE | 2018-04-17 11:27 | PDOC ---
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 Dyspnea secondary to progressive weakness and early sepsis. 4. Immunocompromised patient with acute myelogenous leukemia. 5. Chronic kidney disease. 6. No significant history of tobacco use. 7. Mitral regurgitation. 8. Pacemaker. 9. Atrial fibrillation. 10. hypokalemia replacing 11. run of V-Tach last night likely due to hypokalemia, consult CV, Mg++ ok 12. PNEUMONIA HCAP 13.severe protein malnutrition, with obesity, BMI 31 14. symptomatic anemia, improved s/p transfusion 15. CAD, 16.HLD 17. metabolic encephalopathy, 18.Uremia, 19.Thrombocytopenia 20.Pancytopenia History of Present Illness History of Present Illness White count still low, 0.3 on neutropenia precautions. Labs sodium 135 better, potassium 2.9 replacing , Creatinine 3.4, renal following Heme onc and infectious disease on board Plan: Follow subspecialists input Transfuse usually if febrile or less than 10,000 platelets Would keep hemoglobin greater than 7 if that is the goal also of heme Onc Neutropenic precautions Neupogen if needed per heme Onc Broad spectrum, antibiotics per ID PT OT Supportive care Replace potassium Stop Zaroxylyn Full code per chart prognosis still poor discussed with Vitals Vitals Vital Signs Date Time Temp Pulse Resp B/P (MAP) Pulse Ox O2 Delivery O2 Flow Rate FiO2 04/17/18 09:20 106 115/55 04/17/18 07:00 96.5 22 93 Nasal Cannula 3.0 96.5 Physical Exam General: Alert, Cooperative, mild distress Heart: Regular rate Lungs: Crackles, Other (+2 edema LE) Abdomen: Soft, No hepatosplenomegaly Extremities: No clubbing, Normal pulses, Other (+2 edema) Skin: No significant lesion, Other (easy bruisibility) Labs LABS Laboratory Tests Test 04/17/18 06:18 Sodium Level 135 mmol/L (136-145) Potassium Level 2.9 mmol/L (3.5-5.1) Chloride Level 96 mmol/L (98-107) Carbon Dioxide Level 34 mmol/L (21-32) Anion Gap 5 (6-14) Blood Urea Nitrogen 71 mg/dL (8-26) Creatinine 3.4 mg/dL (0.7-1.3) Estimated GFR (Cockcroft-Gault) 17.9 Glucose Level 147 mg/dL (70-99) Calcium Level 8.8 mg/dL (8.5-10.1) Magnesium Level 1.9 mg/dL (1.8-2.4) Assessment and Plan Assessmemt and Plan Problems Medical Problems: (1) Pneumonia Status: Acute (2) Weakness Status: Acute Comment Review of Relevant I have reviewed the following items zoey (where applicable) has been applied. Labs Laboratory Tests Test 04/15/18 12:25 04/16/18 09:40 04/17/18 06:18 White Blood Count 0.3 x10^3/uL (4.0-11.0) 0.3 x10^3/uL (4.0-11.0) Red Blood Count 2.10 x10^6/uL (4.30-5.70) 2.34 x10^6/uL (4.30-5.70) Hemoglobin 6.9 g/dL (13.0-17.5) 7.7 g/dL (13.0-17.5) Hematocrit 19.7 % (39.0-53.0) 21.5 % (39.0-53.0) Mean Corpuscular Volume 94 fL (79-100) 92 fL (79-100) Mean Corpuscular Hemoglobin 33 pg (25-35) 33 pg (25-35) Mean Corpuscular Hemoglobin Concent 35 g/dL (31-37) 36 g/dL (31-37) Red Cell Distribution Width 16.2 % (11.5-14.5) 15.2 % (11.5-14.5) Platelet Count 21 x10^3/uL (140-400) 15 x10^3/uL (140-400) Neutrophils (%) (Auto) 5 % (31-73) 30 % (31-73) Lymphocytes (%) (Auto) 67 % (24-48) 67 % (24-48) Monocytes (%) (Auto) 27 % (0-9) 1 % (0-9) Eosinophils (%) (Auto) 1 % (0-3) 3 % (0-3) Basophils (%) (Auto) 0 % (0-3) 0 % (0-3) Neutrophils # (Auto) 0.0 x10^3uL (1.8-7.7) 0.1 x10^3uL (1.8-7.7) Lymphocytes # (Auto) 0.2 x10^3/uL (1.0-4.8) 0.2 x10^3/uL (1.0-4.8) Monocytes # (Auto) 0.1 x10^3/uL (0.0-1.1) 0.0 x10^3/uL (0.0-1.1) Eosinophils # (Auto) 0.0 x10^3/uL (0.0-0.7) 0.0 x10^3/uL (0.0-0.7) Basophils # (Auto) 0.0 x10^3/uL (0.0-0.2) 0.0 x10^3/uL (0.0-0.2) Platelet Estimate Decreased (ADEQUATE) Decreased (ADEQUATE) Poikilocytosis Slight Anisocytosis Slight Prothrombin Time 16.4 SEC (11.7-14.0) Prothromb Time International Ratio 1.4 (0.8-1.1) Activated Partial Thromboplast Time 44 SEC (24-38) Sodium Level 129 mmol/L (136-145) 133 mmol/L (136-145) 135 mmol/L (136-145) Potassium Level 3.3 mmol/L (3.5-5.1) 3.3 mmol/L (3.5-5.1) 2.9 mmol/L (3.5-5.1) Chloride Level 93 mmol/L (98-107) 98 mmol/L (98-107) 96 mmol/L (98-107) Carbon Dioxide Level 31 mmol/L (21-32) 31 mmol/L (21-32) 34 mmol/L (21-32) Anion Gap 5 (6-14) 4 (6-14) 5 (6-14) Blood Urea Nitrogen 67 mg/dL (8-26) 61 mg/dL (8-26) 71 mg/dL (8-26) Creatinine 3.4 mg/dL (0.7-1.3) 2.8 mg/dL (0.7-1.3) 3.4 mg/dL (0.7-1.3) Estimated GFR (Cockcroft-Gault) 17.9 22.4 17.9 BUN/Creatinine Ratio 20 (6-20) Glucose Level 127 mg/dL (70-99) 122 mg/dL (70-99) 147 mg/dL (70-99) Lactic Acid Level 1.6 mmol/L (0.4-2.0) Calcium Level 8.6 mg/dL (8.5-10.1) 8.5 mg/dL (8.5-10.1) 8.8 mg/dL (8.5-10.1) Magnesium Level 2.0 mg/dL (1.8-2.4) 1.9 mg/dL (1.8-2.4) Total Bilirubin 0.8 mg/dL (0.2-1.0) Aspartate Amino Transf (AST/SGOT) 81 U/L (15-37) Alanine Aminotransferase (ALT/SGPT) 71 U/L (16-63) Alkaline Phosphatase 128 U/L (46-116) Ammonia 12 mcmol/L (11-34) Total Protein 6.2 g/dL (6.4-8.2) Albumin 2.2 g/dL (3.4-5.0) Albumin/Globulin Ratio 0.6 (1.0-1.7) Procalcitonin 0.70 ng/mL (0.00-0.10) Segmented Neutrophils % 5 % (35-66) Lymphocytes % 85 % (24-48) Monocytes % 10 % (0-10) Laboratory Tests Test 04/17/18 06:18 Sodium Level 135 mmol/L (136-145) Potassium Level 2.9 mmol/L (3.5-5.1) Chloride Level 96 mmol/L (98-107) Carbon Dioxide Level 34 mmol/L (21-32) Anion Gap 5 (6-14) Blood Urea Nitrogen 71 mg/dL (8-26) Creatinine 3.4 mg/dL (0.7-1.3) Estimated GFR (Cockcroft-Gault) 17.9 Glucose Level 147 mg/dL (70-99) Calcium Level 8.8 mg/dL (8.5-10.1) Magnesium Level 1.9 mg/dL (1.8-2.4) Microbiology 04/15/18 Blood Culture - Preliminary, Resulted NO GROWTH AFTER 1 DAY Medications Current Medications Piperacillin Sod/ Tazobactam Sod 3.375 gm/Sodium Chloride 50 ml @ 100 mls/hr 1X ONCE IV Last administered on 04/15/18at 13:57; Start 04/15/18 at 13:45; Stop 04/15/18 at 14:14; Status DC Vancomycin HCl (Vanco Per Pharmacy) 1 each PRN DAILY PRN MC SEE COMMENTS Last administered on 04/15/18at 15:19; Start 04/15/18 at 13:45; Stop 04/16/18 at 10:33 ; Status DC Vancomycin HCl 2 gm/Sodium Chloride 500 ml @ 250 mls/hr 1X ONCE IV Last administered on 04/15/18at 14:46; Start 04/15/18 at 13:45; Stop 04/15/18 at 15:44 ; Status DC Sodium Chloride 1,000 ml @ 1,000 mls/hr 1X ONCE IV Last administered on at 14:06; Start 04/15/18 at 14:00; Stop 04/15/18 at 14:59; Status DC Vancomycin HCl 1.5 gm/Sodium Chloride 500 ml @ 250 mls/hr Q48H IV ; Start 04/17 at 14:00; Stop 04/17/18 at 14:00; Status DC Vancomycin HCl (Vancomycin Trough Level) 1 each 1X ONCE MC ; Start 04/19/18 at 13:30; Stop 04/19/18 at 13:30; Status DC Meropenem 500 mg/ Sodium Chloride 50 ml @ 100 mls/hr Q8HRS IV Last administered on 04/17/18at 06:13; Start 04/15/18 at 18:00 Acetaminophen (Tylenol) 650 mg PRN Q6HRS PRN PO FEVER Last administered on 04/15at 20:57; Start 04/15/18 at 21:00; Stop 04/16/18 at 14:55; Status DC Acetaminophen (Tylenol) 500 mg PRN Q6HRS PRN PO MILD PAIN / TEMP; Start at 08:30 Ondansetron HCl (Zofran) 4 mg PRN Q6HRS PRN IV NAUSEA/VOMITING; Start 04/16/18 at 08:30 Ondansetron HCl (Zofran Odt) 4 mg PRN Q6HRS PRN PO NAUSEA/VOMITING; Start 04/16 at 08:30 Allopurinol (Zyloprim) 150 mg DAILY PO Last administered on 04/17/18 09:19; Start 04/16/18 at 09:00 Aspirin (Ecotrin) 81 mg DAILY PO Last administered on 04/17/18 09:19; Start at 09:00 Atorvastatin Calcium (Lipitor) 20 mg HS PO Last administered on 04/16/18 20:33 ; Start 04/16/18 at 21:00 Carvedilol (Coreg) 3.125 mg BIDWMEALS PO Last administered on 04/17/18 09:20; Start 04/16/18 at 09:00 Vitamin D (Vitamin D3) 1,000 unit DAILY PO Last administered on 04/17/18 09:19 ; Start 04/16/18 at 09:00 Dicyclomine HCl (Bentyl) 10 mg TID PO Last administered on 04/17/18 09:19; Start 04/16/18 at 09:00 Famotidine (Pepcid) 80 mg DAILY PO ; Start 04/16/18 at 09:00; Status Cancel Finasteride (Proscar) 5 mg DAILY PO Last administered on 04/17/18 09:20; Start 04/16/18 at 09:00 Vitamin B Complex/ Vitamin C (Lupis-Brett) 1 tab DAILY PO Last administered on 09:19; Start 04/16/18 at 09:00 Furosemide (Lasix) 80 mg [id number] PO Last administered on 04/17/18 09:18; Start 04/16/18 at 09:00 Lidocaine/ Prilocaine (Emla) 1 meka DAILY TP Last administered on 04/17/18 09: 21; Start 04/16/18 at 09:00 Tamsulosin HCl (Flomax) 0.4 mg BID PO Last administered on 04/17/18 09:19; Start 04/16/18 at 09:00 Cyanocobalamin (Vitamin B-12) 1,000 mcg DAILY PO Last administered on 09:18; Start 04/16/18 at 09:00 Non-Formulary Medication (Hydrocodone Bitartrate (Zohydro ER)) 20 mg BID PO Last administered on 8/18/18at 09:21; Start 04/16/18 at 09:00 Acetaminophen/ Hydrocodone Bitart (Lortab 10/325) 1 tab PRN Q4HRS PRN PO MODERATE PAIN Last administered on 04/16/18at 16:22; Start 04/16/18 at 09:00 Lactobacillus Rhamnosus (Culturelle) 1 cap DAILY PO Last administered on at 09:18; Start 04/16/18 at 09:00 Magnesium Oxide (Magnesium Oxide) 400 mg DAILY PO Last administered on at 09:20; Start 04/16/18 at 09:00 Metolazone (Zaroxolyn) 2.5 mg MoWeFr PO Last administered on 04/16/18at 10:47; Start 04/16/18 at 09:00; Stop 04/17/18 at 09:02; Status DC Pantoprazole Sodium (Protonix) 40 mg BIDAC PO Last administered on 04/17/18at 09 :19; Start 04/16/18 at 09:00 Potassium Chloride (Klor-Con) 20 meq [id number] PO ; Start 04/16/18 at 09:00; Status Cancel Famotidine (Pepcid) 20 mg DAILY PO Last administered on 04/17/18at 09:19; Start 04/16/18 at 09:00 Potassium Chloride (KCl Oral Soln) 20 meq DAILY08 PO Last administered on at 10:48; Start 04/16/18 at 11:00; Stop 04/17/18 at 09:35; Status DC Potassium Chloride (KCl Oral Soln) 40 meq 1X ONCE FT ; Start 04/17/18 at 08:45 ; Stop 04/17/18 at 08:46; Status UNV Potassium Chloride (KCl Oral Soln) 40 meq Q4H PO Last administered on at 09:20; Start 04/17/18 at 09:00; Stop 04/17/18 at 09:35; Status DC Non-Formulary Medication 1 ea DAILY08 PO ; Start 04/18/18 at 08:00 Non-Formulary Medication 2 ea Q4H PO Last administered on 04/17/18at 10:09; Start 04/17/18 at 10:00; Stop 04/17/18 at 14:01 Fluticasone Propionate (Flonase) 2 spray DAILY NS Last administered on at 10:00; Start 04/17/18 at 10:00 Montelukast Sodium (Singulair) 10 mg QHS PO ; Start 04/17/18 at 21:00 Active Scripts Active Reported Ondansetron Odt (Ondansetron) 4 Mg Tab.rapdis 1 Tab PO PRN Q8HRS PRN Levofloxacin 750 Mg Tablet 1 Tab PO QODAY Coreg (Carvedilol) 3.125 Mg Tablet 1 Tab PO BID Vitamin D3 (Cholecalciferol (Vitamin D3)) 1,000 Unit Tablet 1 Tab PO DAILY Lidocaine-Prilocaine Cream (Lidocaine/Prilocaine) 30 Gm Cream..g. 1 Meka TP UD Fluconazole 200 Mg Tablet 1 Tab PO DAILY Allopurinol 100 Mg Tablet 150 Mg PO DAILY Acyclovir 400 Mg Tablet 1 Tab PO BID smartclip Capsule (L Gasseri/B Bifidum/B Longum) 1 Each Capsule 1 Each PO DAILY Not given on this admission May resume tomorrow Zohydro ER (Hydrocodone Bitartrate) 10 Mg Cap.er.12h 20 Mg PO BID LAST DOSE GIVEN: DATE: today TIME: 6:40 NEXT DOSE DUE: DATE: Tonight Magnesium (Magnesium Oxide) 400 Mg Capsule 1 Cap PO DAILY Medication not given here May resume tomorrow Potassium Chloride Packet (Potassium Chloride) 20 Meq Packet 20 Meq PO DAILY Not given today due to procedure Take a dose tonight Metolazone 2.5 Mg Tablet 2.5 Mg PO QMWF Dose given Thursday morning Take a dose Thursday morning Finasteride 5 Mg Tablet 5 Mg PO DAILY LAST DOSE GIVEN: DATE: last night TIME: 9pm NEXT DOSE DUE: DATE: Tonight TIME: 9 pm Furosemide 80 Mg Tablet 80 Mg PO BID LAST DOSE GIVEN: DATE: today TIME: 3pm NEXT DOSE DUE: DATE: Tomorrow TIME: 9 am Dicyclomine Hcl 10 Mg Capsule 1 Cap PO TID Not given on this admission Take this evening Vitamin B-12 (Cyanocobalamin (Vitamin B-12)) 1,000 Mcg Tablet.er 1,000 Mcg PO DAILY LAST DOSE GIVEN: DATE: today TIME: 3pm NEXT DOSE DUE: DATE: Tomorrow TIME: 9 am Lortab 10-325 mg Tablet (Hydrocodone/Acetaminophen) 1 Each Tablet 1 Tab PO PRN Q4HRS PRN LAST DOSE GIVEN: DATE: last night TIME: 11pm NEXT DOSE DUE: when needed Tamsulosin Hcl 0.4 Mg Cap.er.24h 0.4 Mg PO BID LAST DOSE GIVEN: DATE: last night TIME: 9 pm NEXT DOSE DUE: DATE: Tonight TIME: 9pm Famotidine 20 Mg Tablet 80 Mg PO BID Famotidine 20mg was given last night may take tonight Lipitor (Atorvastatin Calcium) 20 Mg Tablet 1 Tab PO HS LAST DOSE GIVEN: DATE: last night TIME: 9pm NEXT DOSE DUE: DATE: Tonight TIME: 9 pm Aspir 81 (Aspirin) 81 Mg Tablet.dr 1 Tab PO DAILY LAST DOSE GIVEN: DATE: today TIME: 3pm NEXT DOSE DUE: DATE: Tomorrow TIME: 9 am Omeprazole 40 Mg Capsule.dr 1 Cap PO BID Not given on this admission May resume in the morning TIME: 9:00 am NEXT DOSE DUE: DATE: 06-13-15 TIME: 9:00 pm Nephro-Brett Tablet (Folic Acid/Vitamin B Comp W-C) 0.8 Mg Tablet 1 Tab PO DAILY LAST DOSE GIVEN: DATE: today TIME: 3pm NEXT DOSE DUE: DATE: Tomorrow TIME: 9 am Vitals/I & O Vital Sign - Last 24 Hours 04/16/18 04/16/18 04/16/18 04/16/18 15:00 16:21 16:22 17:39 Temp 98.8 98.8 Pulse 100 101 Resp 20 B/P (MAP) 127/59 (81) 133/59 Pulse Ox 94 O2 Delivery Nasal Cannula Nasal Cannula Nasal Cannula O2 Flow Rate 3.0 4.0 4.0 04/16/18 04/16/18 04/16/18 04/17/18 19:00 20:00 22:53 02:49 Temp 97.9 98.4 98.2 97.9 98.4 98.2 Pulse 92 87 106 Resp 18 18 18 B/P (MAP) 109/53 (71) 104/53 (70) 115/55 (75) Pulse Ox 90 89 93 O2 Delivery Nasal Cannula Nasal Cannula Nasal Cannula Nasal Cannula O2 Flow Rate 3.0 3.0 3.0 3.0 04/17/18 04/17/18 07:00 09:20 Temp 96.5 96.5 Pulse 105 106 Resp 22 B/P (MAP) 109/109 (109) 115/55 Pulse Ox 93 O2 Delivery Nasal Cannula O2 Flow Rate 3.0 Intake and Output 04/16/18 04/16/18 04/17/18 15:00 23:00 07:00 Intake Total 550 ml 180 ml Output Total 550 ml 1050 ml Balance 550 ml -370 ml -1050 ml PEYTON OLIVIA MD Apr 17, 2018 11:27
--- NOTE | 2018-04-17 12:39 | PDOC ---
PROGRESS NOTES Subjective Subjective SEEN IN FOLLOW UP OF CKD3 Objective Objective Vital Signs Date Time Temp Pulse Resp B/P (MAP) Pulse Ox O2 Delivery O2 Flow Rate FiO2 04/17/18 11:00 97.7 98 22 112/60 (77) 95 Nasal Cannula 3.0 97.7 Intake and Output 04/17/18 07:00 Intake Total 730 ml Output Total 1600 ml Balance -870 ml Intake Oral 360 ml Blood Product IV Normal Saline Flush 370 ml Output Urine Total 1600 ml # Voids 1 # Bowel Movements 1 Physical Exam Abdomen: Normal bowel sounds, Soft, No tenderness, No hepatosplenomegaly, No masses Heart: Regular rate, Normal S1, Normal S2, No murmurs, Gallops Extremities: No clubbing, No cyanosis, No edema, Normal pulses, No tenderness/ swelling General: Alert, Cooperative Lungs: Clear to auscultation, Normal air movement Diagnosis RENAL FAILURE: Chronic (CKD stage IV) Assessment Assessment Problems Medical Problems: (1) Pneumonia Status: Acute (2) Weakness Status: Acute Plan Plan of Care 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 HE IS VERY WEAK. RENAL FUNCTION IS WORSENING. CONT SUPPORT, Comment Review of Relevant I have reviewed the following items zoey (where applicable) has been applied. Labs Laboratory Tests Test 04/16/18 09:40 04/17/18 06:18 White Blood Count 0.3 x10^3/uL (4.0-11.0) Red Blood Count 2.34 x10^6/uL (4.30-5.70) Hemoglobin 7.7 g/dL (13.0-17.5) Hematocrit 21.5 % (39.0-53.0) Mean Corpuscular Volume 92 fL (79-100) Mean Corpuscular Hemoglobin 33 pg (25-35) Mean Corpuscular Hemoglobin Concent 36 g/dL (31-37) Red Cell Distribution Width 15.2 % (11.5-14.5) Platelet Count 15 x10^3/uL (140-400) Neutrophils (%) (Auto) 30 % (31-73) Lymphocytes (%) (Auto) 67 % (24-48) Monocytes (%) (Auto) 1 % (0-9) Eosinophils (%) (Auto) 3 % (0-3) Basophils (%) (Auto) 0 % (0-3) Neutrophils # (Auto) 0.1 x10^3uL (1.8-7.7) Lymphocytes # (Auto) 0.2 x10^3/uL (1.0-4.8) Monocytes # (Auto) 0.0 x10^3/uL (0.0-1.1) Eosinophils # (Auto) 0.0 x10^3/uL (0.0-0.7) Basophils # (Auto) 0.0 x10^3/uL (0.0-0.2) Segmented Neutrophils % 5 % (35-66) Lymphocytes % 85 % (24-48) Monocytes % 10 % (0-10) Platelet Estimate Decreased (ADEQUATE) Sodium Level 133 mmol/L (136-145) 135 mmol/L (136-145) Potassium Level 3.3 mmol/L (3.5-5.1) 2.9 mmol/L (3.5-5.1) Chloride Level 98 mmol/L (98-107) 96 mmol/L (98-107) Carbon Dioxide Level 31 mmol/L (21-32) 34 mmol/L (21-32) Anion Gap 4 (6-14) 5 (6-14) Blood Urea Nitrogen 61 mg/dL (8-26) 71 mg/dL (8-26) Creatinine 2.8 mg/dL (0.7-1.3) 3.4 mg/dL (0.7-1.3) Estimated GFR (Cockcroft-Gault) 22.4 17.9 Glucose Level 122 mg/dL (70-99) 147 mg/dL (70-99) Calcium Level 8.5 mg/dL (8.5-10.1) 8.8 mg/dL (8.5-10.1) Magnesium Level 1.9 mg/dL (1.8-2.4) Laboratory Tests Test 04/17/18 06:18 Sodium Level 135 mmol/L (136-145) Potassium Level 2.9 mmol/L (3.5-5.1) Chloride Level 96 mmol/L (98-107) Carbon Dioxide Level 34 mmol/L (21-32) Anion Gap 5 (6-14) Blood Urea Nitrogen 71 mg/dL (8-26) Creatinine 3.4 mg/dL (0.7-1.3) Estimated GFR (Cockcroft-Gault) 17.9 Glucose Level 147 mg/dL (70-99) Calcium Level 8.8 mg/dL (8.5-10.1) Magnesium Level 1.9 mg/dL (1.8-2.4) Microbiology 04/15/18 Blood Culture - Preliminary, Resulted NO GROWTH AFTER 1 DAY Medications Current Medications Piperacillin Sod/ Tazobactam Sod 3.375 gm/Sodium Chloride 50 ml @ 100 mls/hr 1X ONCE IV Last administered on 04/15/18at 13:57; Start 04/15/18 at 13:45; Stop 04/15/18 at 14:14; Status DC Vancomycin HCl (Vanco Per Pharmacy) 1 each PRN DAILY PRN MC SEE COMMENTS Last administered on 04/15/18at 15:19; Start 04/15/18 at 13:45; Stop 04/16/18 at 10:33 ; Status DC Vancomycin HCl 2 gm/Sodium Chloride 500 ml @ 250 mls/hr 1X ONCE IV Last administered on 04/15/18at 14:46; Start 04/15/18 at 13:45; Stop 04/15/18 at 15:44 ; Status DC Sodium Chloride 1,000 ml @ 1,000 mls/hr 1X ONCE IV Last administered on at 14:06; Start 04/15/18 at 14:00; Stop 04/15/18 at 14:59; Status DC Vancomycin HCl 1.5 gm/Sodium Chloride 500 ml @ 250 mls/hr Q48H IV ; Start 04/17 at 14:00; Stop 04/17/18 at 14:00; Status DC Vancomycin HCl (Vancomycin Trough Level) 1 each 1X ONCE MC ; Start 04/19/18 at 13:30; Stop 04/19/18 at 13:30; Status DC Meropenem 500 mg/ Sodium Chloride 50 ml @ 100 mls/hr Q8HRS IV Last administered on 04/17/18at 06:13; Start 04/15/18 at 18:00 Acetaminophen (Tylenol) 650 mg PRN Q6HRS PRN PO FEVER Last administered on 04/15at 20:57; Start 04/15/18 at 21:00; Stop 04/16/18 at 14:55; Status DC Acetaminophen (Tylenol) 500 mg PRN Q6HRS PRN PO MILD PAIN / TEMP; Start at 08:30 Ondansetron HCl (Zofran) 4 mg PRN Q6HRS PRN IV NAUSEA/VOMITING; Start 04/16/18 at 08:30 Ondansetron HCl (Zofran Odt) 4 mg PRN Q6HRS PRN PO NAUSEA/VOMITING; Start 04/16 at 08:30 Allopurinol (Zyloprim) 150 mg DAILY PO Last administered on 04/17/18 09:19; Start 04/16/18 at 09:00 Aspirin (Ecotrin) 81 mg DAILY PO Last administered on 04/17/18 09:19; Start at 09:00 Atorvastatin Calcium (Lipitor) 20 mg HS PO Last administered on 04/16/18at 20:33 ; Start 04/16/18 at 21:00 Carvedilol (Coreg) 3.125 mg BIDWMEALS PO Last administered on 04/17/18 09:20; Start 04/16/18 at 09:00 Vitamin D (Vitamin D3) 1,000 unit DAILY PO Last administered on 04/17/18 09:19 ; Start 04/16/18 at 09:00 Dicyclomine HCl (Bentyl) 10 mg TID PO Last administered on 04/17/18 09:19; Start 04/16/18 at 09:00 Famotidine (Pepcid) 80 mg DAILY PO ; Start 04/16/18 at 09:00; Status Cancel Finasteride (Proscar) 5 mg DAILY PO Last administered on 04/17/18 09:20; Start 04/16/18 at 09:00 Vitamin B Complex/ Vitamin C (Lupis-Brett) 1 tab DAILY PO Last administered on 09:19; Start 04/16/18 at 09:00 Furosemide (Lasix) 80 mg BID92 PO Last administered on 04/17/18 09:18; Start 04/16/18 at 09:00 Lidocaine/ Prilocaine (Emla) 1 meka DAILY TP Last administered on 04/17/18 09: 21; Start 04/16/18 at 09:00 Tamsulosin HCl (Flomax) 0.4 mg BID PO Last administered on 04/17/18 09:19; Start 04/16/18 at 09:00 Cyanocobalamin (Vitamin B-12) 1,000 mcg DAILY PO Last administered on 09:18; Start 04/16/18 at 09:00 Non-Formulary Medication (Hydrocodone Bitartrate (Zohydro ER)) 20 mg BID PO Last administered on 04/17/18 09:21; Start 04/16/18 at 09:00 Acetaminophen/ Hydrocodone Bitart (Lortab 10/325) 1 tab PRN Q4HRS PRN PO MODERATE PAIN Last administered on 04/16/18at 16:22; Start 04/16/18 at 09:00 Lactobacillus Rhamnosus (Culturelle) 1 cap DAILY PO Last administered on 09:18; Start 04/16/18 at 09:00 Magnesium Oxide (Magnesium Oxide) 400 mg DAILY PO Last administered on at 09:20; Start 04/16/18 at 09:00 Metolazone (Zaroxolyn) 2.5 mg MoWeFr PO Last administered on 04/16/18at 10:47; Start 04/16/18 at 09:00; Stop 04/17/18 at 09:02; Status DC Pantoprazole Sodium (Protonix) 40 mg BIDAC PO Last administered on 04/17/18 09 :19; Start 04/16/18 at 09:00 Potassium Chloride (Klor-Con) 20 meq DAILYWBKFT PO ; Start 04/16/18 at 09:00; Status Cancel Famotidine (Pepcid) 20 mg DAILY PO Last administered on 04/17/18at 09:19; Start 04/16/18 at 09:00 Potassium Chloride (KCl Oral Soln) 20 meq DAILY08 PO Last administered on at 10:48; Start 04/16/18 at 11:00; Stop 04/17/18 at 09:35; Status DC Potassium Chloride (KCl Oral Soln) 40 meq 1X ONCE FT ; Start 04/17/18 at 08:45 ; Stop 04/17/18 at 08:46; Status UNV Potassium Chloride (KCl Oral Soln) 40 meq Q4H PO Last administered on at 09:20; Start 04/17/18 at 09:00; Stop 04/17/18 at 09:35; Status DC Non-Formulary Medication 1 ea DAILY08 PO ; Start 04/18/18 at 08:00 Non-Formulary Medication 2 ea Q4H PO Last administered on 04/17/18at 10:09; Start 04/17/18 at 10:00; Stop 04/17/18 at 14:01 Fluticasone Propionate (Flonase) 2 spray DAILY NS Last administered on at 10:00; Start 04/17/18 at 10:00 Montelukast Sodium (Singulair) 10 mg QHS PO ; Start 04/17/18 at 21:00 Active Scripts Active Reported Ondansetron Odt (Ondansetron) 4 Mg Tab.rapdis 1 Tab PO PRN Q8HRS PRN Levofloxacin 750 Mg Tablet 1 Tab PO QODAY Coreg (Carvedilol) 3.125 Mg Tablet 1 Tab PO BID Vitamin D3 (Cholecalciferol (Vitamin D3)) 1,000 Unit Tablet 1 Tab PO DAILY Lidocaine-Prilocaine Cream (Lidocaine/Prilocaine) 30 Gm Cream..g. 1 Meka TP UD Fluconazole 200 Mg Tablet 1 Tab PO DAILY Allopurinol 100 Mg Tablet 150 Mg PO DAILY Acyclovir 400 Mg Tablet 1 Tab PO BID [employer] Capsule (L Gasseri/B Bifidum/B Longum) 1 Each Capsule 1 Each PO DAILY Not given on this admission May resume tomorrow Zohydro ER (Hydrocodone Bitartrate) 10 Mg Cap.er.12h 20 Mg PO BID LAST DOSE GIVEN: DATE: today TIME: 6:40 NEXT DOSE DUE: DATE: Tonight Magnesium (Magnesium Oxide) 400 Mg Capsule 1 Cap PO DAILY Medication not given here May resume tomorrow Potassium Chloride Packet (Potassium Chloride) 20 Meq Packet 20 Meq PO DAILY Not given today due to procedure Take a dose tonight Metolazone 2.5 Mg Tablet 2.5 Mg PO QMWF Dose given Thursday morning Take a dose Thursday morning Finasteride 5 Mg Tablet 5 Mg PO DAILY LAST DOSE GIVEN: DATE: last night TIME: 9pm NEXT DOSE DUE: DATE: Tonight TIME: 9 pm Furosemide 80 Mg Tablet 80 Mg PO BID LAST DOSE GIVEN: DATE: today TIME: 3pm NEXT DOSE DUE: DATE: Tomorrow TIME: 9 am Dicyclomine Hcl 10 Mg Capsule 1 Cap PO TID Not given on this admission Take this evening Vitamin B-12 (Cyanocobalamin (Vitamin B-12)) 1,000 Mcg Tablet.er 1,000 Mcg PO DAILY LAST DOSE GIVEN: DATE: today TIME: 3pm NEXT DOSE DUE: DATE: Tomorrow TIME: 9 am Lortab 10-325 mg Tablet (Hydrocodone/Acetaminophen) 1 Each Tablet 1 Tab PO PRN Q4HRS PRN LAST DOSE GIVEN: DATE: last night TIME: 11pm NEXT DOSE DUE: when needed Tamsulosin Hcl 0.4 Mg Cap.er.24h 0.4 Mg PO BID LAST DOSE GIVEN: DATE: last night TIME: 9 pm NEXT DOSE DUE: DATE: Tonight TIME: 9pm Famotidine 20 Mg Tablet 80 Mg PO BID Famotidine 20mg was given last night may take tonight Lipitor (Atorvastatin Calcium) 20 Mg Tablet 1 Tab PO HS LAST DOSE GIVEN: DATE: last night TIME: 9pm NEXT DOSE DUE: DATE: Tonight TIME: 9 pm Aspir 81 (Aspirin) 81 Mg Tablet.dr 1 Tab PO DAILY LAST DOSE GIVEN: DATE: today TIME: 3pm NEXT DOSE DUE: DATE: Tomorrow TIME: 9 am Omeprazole 40 Mg Capsule.dr 1 Cap PO BID Not given on this admission May resume in the morning TIME: 9:00 am NEXT DOSE DUE: DATE: 06-13-15 TIME: 9:00 pm Nephro-Brett Tablet (Folic Acid/Vitamin B Comp W-C) 0.8 Mg Tablet 1 Tab PO DAILY LAST DOSE GIVEN: DATE: today TIME: 3pm NEXT DOSE DUE: DATE: Tomorrow TIME: 9 am Vitals/I & O Vital Sign - Last 24 Hours 04/16/18 04/16/18 04/16/18 04/16/18 15:00 16:21 16:22 17:39 Temp 98.8 98.8 Pulse 100 101 Resp 20 B/P (MAP) 127/59 (81) 133/59 Pulse Ox 94 O2 Delivery Nasal Cannula Nasal Cannula Nasal Cannula O2 Flow Rate 3.0 4.0 4.0 04/16/18 04/16/18 04/16/18 04/17/18 19:00 20:00 22:53 02:49 Temp 97.9 98.4 98.2 97.9 98.4 98.2 Pulse 92 87 106 Resp 18 18 18 B/P (MAP) 109/53 (71) 104/53 (70) 115/55 (75) Pulse Ox 90 89 93 O2 Delivery Nasal Cannula Nasal Cannula Nasal Cannula Nasal Cannula O2 Flow Rate 3.0 3.0 3.0 3.0 04/17/18 04/17/18 04/17/18 07:00 09:20 11:00 Temp 96.5 97.7 96.5 97.7 Pulse 105 106 98 Resp 22 22 B/P (MAP) 109/109 (109) 115/55 112/60 (77) Pulse Ox 93 95 O2 Delivery Nasal Cannula Nasal Cannula O2 Flow Rate 3.0 3.0 Intake and Output 04/16/18 04/16/18 04/17/18 15:00 23:00 07:00 Intake Total 550 ml 180 ml Output Total 550 ml 1050 ml Balance 550 ml -370 ml -1050 ml LALA LUNA MD Apr 17, 2018 12:39
[2018-04-17] MEDS ORDERED: VANCOMYCIN 1.5 GM in IV NORMAL SALINE 500ML BAG 500 ML IV SCH (14:00)
--- NOTE | 2018-04-17 14:33 | PDOC2 ---
CONSULT Date of Consult Date of Consult DATE: 04/17/18 TIME: 14:32 Reason for Consult Reason for Consult: Possible ventricular tachycardia Referring Physician Referring Physician: Dr. Toledo Identification/Chief Complaint Chief Complaint Weakness Source Source: Chart review, Patient History of Present Illness Reason for Visit: 72-year-old male with history of coronary artery disease s/p coronary artery bypass surgery, peripheral artery disease, bioprosthetic mitral valve replacement, paroxysmal atrial fibrillation and acute myelogenous leukemia presented with generalized weakness, cough and dyspnea and was found to have pneumonia and pancytopenia. Cardiology has been consulted for wide-complex rhythm noted on telemetry. Patient denied any palpitations or syncope. Past Medical History Cardiovascular: AFIB, CAD, HTN, Hyperlipidemia, Valve insufficiency, Other GI: GERD Heme/Onc: Anemia NOS, Cancer Hepatobiliary: No pertinent hx Psych: No pertinent hx Musculoskeletal: Other Rheumatologic: Gout Infectious disease: Other Renal/: Chronic renal insuff Endocrine: No pertinent hx Past Surgical History Past Surgical History: Pacemaker, CABG Family History Family History: No Significant, Other Social History No ALCOHOL: none Drugs: None Lives: with Family Current Problem List Problem List Problems Medical Problems: (1) Pneumonia Status: Acute (2) Weakness Status: Acute Current Medications Current Medications Current Medications Piperacillin Sod/ Tazobactam Sod 3.375 gm/Sodium Chloride 50 ml @ 100 mls/hr 1X ONCE IV Last administered on 04/15/18at 13:57; Start 04/15/18 at 13:45; Stop 04/15/18 at 14:14; Status DC Vancomycin HCl (Vanco Per Pharmacy) 1 each PRN DAILY PRN MC SEE COMMENTS Last administered on 04/15/18at 15:19; Start 04/15/18 at 13:45; Stop 04/16/18 at 10:33 ; Status DC Vancomycin HCl 2 gm/Sodium Chloride 500 ml @ 250 mls/hr 1X ONCE IV Last administered on 04/15/18at 14:46; Start 04/15/18 at 13:45; Stop 04/15/18 at 15:44 ; Status DC Sodium Chloride 1,000 ml @ 1,000 mls/hr 1X ONCE IV Last administered on at 14:06; Start 04/15/18 at 14:00; Stop 04/15/18 at 14:59; Status DC Vancomycin HCl 1.5 gm/Sodium Chloride 500 ml @ 250 mls/hr Q48H IV ; Start 04/17 at 14:00; Stop 04/17/18 at 14:00; Status DC Vancomycin HCl (Vancomycin Trough Level) 1 each 1X ONCE MC ; Start 04/19/18 at 13:30; Stop 04/19/18 at 13:30; Status DC Meropenem 500 mg/ Sodium Chloride 50 ml @ 100 mls/hr Q8HRS IV Last administered on 04/17/18at 06:13; Start 04/15/18 at 18:00 Acetaminophen (Tylenol) 650 mg PRN Q6HRS PRN PO FEVER Last administered on 04/15at 20:57; Start 04/15/18 at 21:00; Stop 04/16/18 at 14:55; Status DC Acetaminophen (Tylenol) 500 mg PRN Q6HRS PRN PO MILD PAIN / TEMP; Start at 08:30 Ondansetron HCl (Zofran) 4 mg PRN Q6HRS PRN IV NAUSEA/VOMITING; Start 04/16/18 at 08:30 Ondansetron HCl (Zofran Odt) 4 mg PRN Q6HRS PRN PO NAUSEA/VOMITING; Start 04/16 at 08:30 Allopurinol (Zyloprim) 150 mg DAILY PO Last administered on 04/17/18at 09:19; Start 04/16/18 at 09:00 Aspirin (Ecotrin) 81 mg DAILY PO Last administered on 04/17/18at 09:19; Start at 09:00 Atorvastatin Calcium (Lipitor) 20 mg HS PO Last administered on 04/16/18at 20:33 ; Start 04/16/18 at 21:00 Carvedilol (Coreg) 3.125 mg BIDWMEALS PO Last administered on 04/17/18at 09:20; Start 04/16/18 at 09:00 Vitamin D (Vitamin D3) 1,000 unit DAILY PO Last administered on 04/17/18at 09:19 ; Start 04/16/18 at 09:00 Dicyclomine HCl (Bentyl) 10 mg TID PO Last administered on 04/17/18at 09:19; Start 04/16/18 at 09:00 Famotidine (Pepcid) 80 mg DAILY PO ; Start 04/16/18 at 09:00; Status Cancel Finasteride (Proscar) 5 mg DAILY PO Last administered on 04/17/18 09:20; Start 04/16/18 at 09:00 Vitamin B Complex/ Vitamin C (Lupis-Brett) 1 tab DAILY PO Last administered on 09:19; Start 04/16/18 at 09:00 Furosemide (Lasix) 80 mg BID92 PO Last administered on 04/17/18 09:18; Start 04/16/18 at 09:00 Lidocaine/ Prilocaine (Emla) 1 meka DAILY TP Last administered on 04/17/18 09: 21; Start 04/16/18 at 09:00 Tamsulosin HCl (Flomax) 0.4 mg BID PO Last administered on 04/17/18 09:19; Start 04/16/18 at 09:00 Cyanocobalamin (Vitamin B-12) 1,000 mcg DAILY PO Last administered on 09:18; Start 04/16/18 at 09:00 Non-Formulary Medication (Hydrocodone Bitartrate (Zohydro ER)) 20 mg BID PO Last administered on 04/17/18 09:21; Start 04/16/18 at 09:00 Acetaminophen/ Hydrocodone Bitart (Lortab 10/325) 1 tab PRN Q4HRS PRN PO MODERATE PAIN Last administered on 04/16/18 16:22; Start 04/16/18 at 09:00 Lactobacillus Rhamnosus (Culturelle) 1 cap DAILY PO Last administered on 09:18; Start 04/16/18 at 09:00 Magnesium Oxide (Magnesium Oxide) 400 mg DAILY PO Last administered on 09:20; Start 04/16/18 at 09:00 Metolazone (Zaroxolyn) 2.5 mg MoWeFr PO Last administered on 04/16/18at 10:47; Start 04/16/18 at 09:00; Stop 04/17/18 at 09:02; Status DC Pantoprazole Sodium (Protonix) 40 mg BIDAC PO Last administered on 04/17/18 09 :19; Start 04/16/18 at 09:00 Potassium Chloride (Klor-Con) 20 meq DAILYWBKFT PO ; Start 04/16/18 at 09:00; Status Cancel Famotidine (Pepcid) 20 mg DAILY PO Last administered on 04/17/18at 09:19; Start 04/16/18 at 09:00 Potassium Chloride (KCl Oral Soln) 20 meq DAILY08 PO Last administered on at 10:48; Start 04/16/18 at 11:00; Stop 04/17/18 at 09:35; Status DC Potassium Chloride (KCl Oral Soln) 40 meq 1X ONCE FT ; Start 04/17/18 at 08:45 ; Stop 04/17/18 at 08:46; Status UNV Potassium Chloride (KCl Oral Soln) 40 meq Q4H PO Last administered on at 09:20; Start 04/17/18 at 09:00; Stop 04/17/18 at 09:35; Status DC Non-Formulary Medication 1 ea DAILY08 PO ; Start 04/18/18 at 08:00 Non-Formulary Medication 2 ea Q4H PO Last administered on 04/17/18at 10:09; Start 04/17/18 at 10:00; Stop 04/17/18 at 14:01; Status DC Fluticasone Propionate (Flonase) 2 spray DAILY NS Last administered on at 10:00; Start 04/17/18 at 10:00 Montelukast Sodium (Singulair) 10 mg QHS PO ; Start 04/17/18 at 21:00 Active Scripts Active Reported Ondansetron Odt (Ondansetron) 4 Mg Tab.rapdis 1 Tab PO PRN Q8HRS PRN Levofloxacin 750 Mg Tablet 1 Tab PO QODAY Coreg (Carvedilol) 3.125 Mg Tablet 1 Tab PO BID Vitamin D3 (Cholecalciferol (Vitamin D3)) 1,000 Unit Tablet 1 Tab PO DAILY Lidocaine-Prilocaine Cream (Lidocaine/Prilocaine) 30 Gm Cream..g. 1 Meka TP UD Fluconazole 200 Mg Tablet 1 Tab PO DAILY Allopurinol 100 Mg Tablet 150 Mg PO DAILY Acyclovir 400 Mg Tablet 1 Tab PO BID Acumatica Capsule (L Gasseri/B Bifidum/B Longum) 1 Each Capsule 1 Each PO DAILY Not given on this admission May resume tomorrow Zohydro ER (Hydrocodone Bitartrate) 10 Mg Cap.er.12h 20 Mg PO BID LAST DOSE GIVEN: DATE: today TIME: 6:40 NEXT DOSE DUE: DATE: Tonight Magnesium (Magnesium Oxide) 400 Mg Capsule 1 Cap PO DAILY Medication not given here May resume tomorrow Potassium Chloride Packet (Potassium Chloride) 20 Meq Packet 20 Meq PO DAILY Not given today due to procedure Take a dose tonight Metolazone 2.5 Mg Tablet 2.5 Mg PO QMWF Dose given Thursday Take a dose Thursday morning Finasteride 5 Mg Tablet 5 Mg PO DAILY LAST DOSE GIVEN: DATE: last night TIME: 9pm NEXT DOSE DUE: DATE: Tonight TIME: 9 pm Furosemide 80 Mg Tablet 80 Mg PO BID LAST DOSE GIVEN: DATE: today TIME: 3pm NEXT DOSE DUE: DATE: Tomorrow TIME: 9 am Dicyclomine Hcl 10 Mg Capsule 1 Cap PO TID Not given on this admission Take this evening Vitamin B-12 (Cyanocobalamin (Vitamin B-12)) 1,000 Mcg Tablet.er 1,000 Mcg PO DAILY LAST DOSE GIVEN: DATE: today TIME: 3pm NEXT DOSE DUE: DATE: Tomorrow TIME: 9 am Lortab 10-325 mg Tablet (Hydrocodone/Acetaminophen) 1 Each Tablet 1 Tab PO PRN Q4HRS PRN LAST DOSE GIVEN: DATE: last night TIME: 11pm NEXT DOSE DUE: when needed Tamsulosin Hcl 0.4 Mg Cap.er.24h 0.4 Mg PO BID LAST DOSE GIVEN: DATE: last night TIME: 9 pm NEXT DOSE DUE: DATE: Tonight TIME: 9pm Famotidine 20 Mg Tablet 80 Mg PO BID Famotidine 20mg was given last night may take tonight Lipitor (Atorvastatin Calcium) 20 Mg Tablet 1 Tab PO HS LAST DOSE GIVEN: DATE: last night TIME: 9pm NEXT DOSE DUE: DATE: Tonight TIME: 9 pm Aspir 81 (Aspirin) 81 Mg Tablet.dr 1 Tab PO DAILY LAST DOSE GIVEN: DATE: today TIME: 3pm NEXT DOSE DUE: DATE: Tomorrow TIME: 9 am Omeprazole 40 Mg Capsule.dr 1 Cap PO BID Not given on this admission May resume in the morning TIME: 9:00 am NEXT DOSE DUE: DATE: 06-13-15 TIME: 9:00 pm Nephro-Brett Tablet (Folic Acid/Vitamin B Comp W-C) 0.8 Mg Tablet 1 Tab PO DAILY LAST DOSE GIVEN: DATE: today TIME: 3pm NEXT DOSE DUE: DATE: Tomorrow TIME: 9 am Allergies Allergies: Coded Allergies: NSAIDS (Non-Steroidal Anti-Inflamma (Verified Allergy, Intermediate, Hives , 04/05/18) Sulfa (Sulfonamide Antibiotics) (Verified Allergy, Intermediate, HIVES, 04/05/18) I S O L A T I O N *CONTACT* (Verified Allergy, Unknown, 04/05/18) mrsa hydroxyzine (Verified Adverse Reaction, Intermediate, insomnia, 04/05/18) ROS General: YES: Fatigue, Malaise PSYCHOLOGICAL ROS: No: Hallucinations Eyes: No Loss of vision HEENT: No: Epistaxis Respiratory: YES: Cough, Shortness of breath Cardiovascular: No Palpitations Gastrointestinal: No Vomiting Genitourinary: No Hematuria Neurological: No Seizures Skin: No Rash Physical Exam General: Alert, No acute distress HEENT: Atraumatic Lungs: Other (scattered crepitations bilaterally) Heart: Other (heart rate slightly irregular) Abdomen: Soft Extremities: Other (2+ pitting edema) Psych/Mental Status: Mood NL Vitals VITALS Vital Signs Date Time Temp Pulse Resp B/P (MAP) Pulse Ox O2 Delivery O2 Flow Rate FiO2 04/17/18 11:00 97.7 98 22 112/60 (77) 95 Nasal Cannula 3.0 97.7 Labs Labs Laboratory Tests Test 04/16/18 09:40 04/17/18 06:18 White Blood Count 0.3 x10^3/uL (4.0-11.0) Red Blood Count 2.34 x10^6/uL (4.30-5.70) Hemoglobin 7.7 g/dL (13.0-17.5) Hematocrit 21.5 % (39.0-53.0) Mean Corpuscular Volume 92 fL (79-100) Mean Corpuscular Hemoglobin 33 pg (25-35) Mean Corpuscular Hemoglobin Concent 36 g/dL (31-37) Red Cell Distribution Width 15.2 % (11.5-14.5) Platelet Count 15 x10^3/uL (140-400) Neutrophils (%) (Auto) 30 % (31-73) Lymphocytes (%) (Auto) 67 % (24-48) Monocytes (%) (Auto) 1 % (0-9) Eosinophils (%) (Auto) 3 % (0-3) Basophils (%) (Auto) 0 % (0-3) Neutrophils # (Auto) 0.1 x10^3uL (1.8-7.7) Lymphocytes # (Auto) 0.2 x10^3/uL (1.0-4.8) Monocytes # (Auto) 0.0 x10^3/uL (0.0-1.1) Eosinophils # (Auto) 0.0 x10^3/uL (0.0-0.7) Basophils # (Auto) 0.0 x10^3/uL (0.0-0.2) Segmented Neutrophils % 5 % (35-66) Lymphocytes % 85 % (24-48) Monocytes % 10 % (0-10) Platelet Estimate Decreased (ADEQUATE) Sodium Level 133 mmol/L (136-145) 135 mmol/L (136-145) Potassium Level 3.3 mmol/L (3.5-5.1) 2.9 mmol/L (3.5-5.1) Chloride Level 98 mmol/L (98-107) 96 mmol/L (98-107) Carbon Dioxide Level 31 mmol/L (21-32) 34 mmol/L (21-32) Anion Gap 4 (6-14) 5 (6-14) Blood Urea Nitrogen 61 mg/dL (8-26) 71 mg/dL (8-26) Creatinine 2.8 mg/dL (0.7-1.3) 3.4 mg/dL (0.7-1.3) Estimated GFR (Cockcroft-Gault) 22.4 17.9 Glucose Level 122 mg/dL (70-99) 147 mg/dL (70-99) Calcium Level 8.5 mg/dL (8.5-10.1) 8.8 mg/dL (8.5-10.1) Magnesium Level 1.9 mg/dL (1.8-2.4) Laboratory Tests Test 04/17/18 06:18 Sodium Level 135 mmol/L (136-145) Potassium Level 2.9 mmol/L (3.5-5.1) Chloride Level 96 mmol/L (98-107) Carbon Dioxide Level 34 mmol/L (21-32) Anion Gap 5 (6-14) Blood Urea Nitrogen 71 mg/dL (8-26) Creatinine 3.4 mg/dL (0.7-1.3) Estimated GFR (Cockcroft-Gault) 17.9 Glucose Level 147 mg/dL (70-99) Calcium Level 8.8 mg/dL (8.5-10.1) Magnesium Level 1.9 mg/dL (1.8-2.4) Assessment/Plan Assessment/Plan 1. Pneumonia in an immunocompromised patient: Continue broad-spectrum antibiotics per ID team 2. Acute myelogenous leukemia s/p chemotherapy: Oncology following 3. Wide complex rhythm: Doubt ventricular tachycardia since this is irregular. Most probably patient had atrial fibrillation with aberrant conduction during this episode. Replace potassium 4. Paroxysmal atrial fibrillation. Telemetry showed intermittent atrial fibrillation with controlled heart rate. Presently in sinus rhythm. He is a poor candidate for long-term anticoagulation 5. SSS s/p permanent pacemaker implantation: Recent interrogation showed normal function 6. CAD s/p CABG: Cardiac catheterization August 2016 showed patent CHU-LAD, SVG-RCA, seq SVG-D/OM/LPDA. He is presently chest pain-free. 7. Acute on chronic systolic heart failure. Better compensated. 2-D echo in December 2017 showed LVEF 45%. BUN/creatinine worsening. Defer diuretics to nephrology. Persistent lower extremity edema probably due to combination of venous insufficiency and lymphedema. 8. s/p MVR: Recent 2-D echo showed normally functioning bioprosthetic mitral valve 9. PAD: Clinically stable 10. Acute myelogenous leukemia s/p chemotherapy presently with pancytopenia. Hematology/oncology team following Thank you for your consultation JUNIOR BURRIS MD Apr 17, 2018 14:33
[2018-04-17 15:00] VITALS: BP 101/52
--- NOTE | 2018-04-17 16:14 | PDOC ---
Infectious Disease Note Subjective Subjective Tired, ready to go back to bed. No appetite No fever last 24 hours Denies SOA/cough Denies N/V/D Denies chills/sweats ROS ROS per HPI otherwise negative Vital Sign Vital Signs Vital Signs Date Time Temp Pulse Resp B/P (MAP) Pulse Ox O2 Delivery O2 Flow Rate FiO2 04/17/18 11:00 97.7 98 22 112/60 (77) 95 Nasal Cannula 3.0 97.7 Physical Exam PHYSICAL EXAM GENERAL: In chair, NAD LUNGS: Clear. HEART: S1, S2 regular. ABDOMEN: Soft, NT EXTREMITIES: BLE edema and chronic venous insufficiency changes SKIN: without rash NEUROLOGIC: Sleepy, responds appropriately Port clean Labs Lab Laboratory Tests Test 04/17/18 06:18 Sodium Level 135 mmol/L (136-145) Potassium Level 2.9 mmol/L (3.5-5.1) Chloride Level 96 mmol/L (98-107) Carbon Dioxide Level 34 mmol/L (21-32) Anion Gap 5 (6-14) Blood Urea Nitrogen 71 mg/dL (8-26) Creatinine 3.4 mg/dL (0.7-1.3) Estimated GFR (Cockcroft-Gault) 17.9 Glucose Level 147 mg/dL (70-99) Calcium Level 8.8 mg/dL (8.5-10.1) Magnesium Level 1.9 mg/dL (1.8-2.4) Micro Microbiology 04/15/18 Blood Culture - Preliminary, Resulted NO GROWTH AFTER 2 DAYS Objective Assessment 1. Fever - better 2. Encephalopathy. 3. Neutropenia. 4. AML, on chemotherapy. 5. Community-acquired pneumonia. 6. Coronary artery disease. 7. Renal insufficiency. Plan Plan of Care cont Meropenem BC NGTD Supportive care d/w Patient seen and examined. Chart reviewed in detail. Case discussed with RADIO MECHANIC. Agree with above plan. MARTINEZ DOLL APRN Apr 17, 2018 16:14 AMINTA FLOREZ MD Apr 17, 2018 19:45
[2018-04-17 19:20] VITALS: BP 116/66
[2018-04-17] MEDS: ATORVASTATIN CALCIUM 20 MG TABLET PO SCH (21:03)
[2018-04-17] MEDS: MONTELUKAST SODIUM 10 MG TABLET. PO SCH (21:03)
[2018-04-17 23:00] VITALS: BP 118/69
[2018-04-18 03:24] VITALS: BP 105/49
[2018-04-18] MEDS: MEROPENEM 500 MG in IV NORMAL SALINE 50ML 50 ML IV SCH ×3 (06:16→23:08)
[2018-04-18 07:00] VITALS: BP 120/52
[2018-04-18] MEDS: POTASSIUM CHLORIDE PO SCH ×3 (08:00→23:27)
[2018-04-18] MEDS: FUROSEMIDE 80 MG TABLET. PO SCH ×2 (08:57→16:08)
[2018-04-18] MEDS: HYDROCODONE BITARTRATE 10 MG PO SCH ×2 (08:57→23:09)
[2018-04-18] MEDS: CYANOCOBALAMIN (VITAMIN B-12) 1,000 MCG TABLET. PO SCH (08:57)
[2018-04-18] MEDS: FAMOTIDINE 20 MG TABLET. PO SCH (08:57)
[2018-04-18] MEDS: CARVEDILOL 3.125 MG TABLET. PO SCH ×2 (08:58→16:07)
[2018-04-18] MEDS: ALLOPURINOL 300 MG TABLET. PO SCH (08:58)
[2018-04-18] MEDS: CHOLECALCIFEROL (VITAMIN D3) 1,000 UNIT TABLET PO SCH (08:58)
[2018-04-18] MEDS: FOLIC/VIT B COMP W-C (RENAL) TABLET. PO SCH (08:58)
[2018-04-18] MEDS: TAMSULOSIN 0.4 MG CAP.ER.24H. PO SCH ×2 (08:58→23:09)
[2018-04-18] MEDS: FINASTERIDE 5 MG TABLET. PO SCH (08:59)
[2018-04-18] MEDS: DICYCLOMINE HCL 10 MG CAPSULE PO SCH ×3 (08:59→23:09)
[2018-04-18] MEDS: LACTOBACILLUS RHAMNOSUS GG 1 CAPSULE. PO SCH (08:59)
[2018-04-18] MEDS: MAGNESIUM OXIDE 400 MG TABLET PO SCH (08:59)
[2018-04-18] MEDS: PANTOPRAZOLE 40 MG TABLET.DR. PO SCH ×2 (08:59→16:07)
[2018-04-18] MEDS: LIDOCAINE/PRILOCAINE TOPICAL CREAM 5GM TUBE. TP SCH (09:03)
--- NOTE | 2018-04-18 09:19 | PDOC ---
PULMONARY PROGRESS NOTES Subjective is tired, sob better. has cough. nasal congestion better. is on home 02 3 lpm Vitals Vital Signs Date Time Temp Pulse Resp B/P (MAP) Pulse Ox O2 Delivery O2 Flow Rate FiO2 04/18/18 08:58 70 120/52 04/18/18 07:00 97.7 16 100 97.7 04/18/18 03:24 Nasal Cannula 3.0 ROS: No Nausea, No Chest Pain HEENT: Other (nc at perrl n) Lungs: Crackles, Other Cardiovascular: S1, S2 Abdomen: Soft, Non-tender Neuro Exam: Alert Extremities: Other (+ edema, chronic changes) Skin: Warm Labs Laboratory Tests Test 04/16/18 09:40 04/17/18 06:18 04/17/18 10:19 White Blood Count 0.3 x10^3/uL (4.0-11.0) Red Blood Count 2.34 x10^6/uL (4.30-5.70) Hemoglobin 7.7 g/dL (13.0-17.5) Hematocrit 21.5 % (39.0-53.0) Mean Corpuscular Volume 92 fL (79-100) Mean Corpuscular Hemoglobin 33 pg (25-35) Mean Corpuscular Hemoglobin Concent 36 g/dL (31-37) Red Cell Distribution Width 15.2 % (11.5-14.5) Platelet Count 15 x10^3/uL (140-400) Neutrophils (%) (Auto) 30 % (31-73) Lymphocytes (%) (Auto) 67 % (24-48) Monocytes (%) (Auto) 1 % (0-9) Eosinophils (%) (Auto) 3 % (0-3) Basophils (%) (Auto) 0 % (0-3) Neutrophils # (Auto) 0.1 x10^3uL (1.8-7.7) Lymphocytes # (Auto) 0.2 x10^3/uL (1.0-4.8) Monocytes # (Auto) 0.0 x10^3/uL (0.0-1.1) Eosinophils # (Auto) 0.0 x10^3/uL (0.0-0.7) Basophils # (Auto) 0.0 x10^3/uL (0.0-0.2) Segmented Neutrophils % 5 % (35-66) Lymphocytes % 85 % (24-48) Monocytes % 10 % (0-10) Platelet Estimate Decreased (ADEQUATE) Sodium Level 133 mmol/L (136-145) 135 mmol/L (136-145) Potassium Level 3.3 mmol/L (3.5-5.1) 2.9 mmol/L (3.5-5.1) Chloride Level 98 mmol/L (98-107) 96 mmol/L (98-107) Carbon Dioxide Level 31 mmol/L (21-32) 34 mmol/L (21-32) Anion Gap 4 (6-14) 5 (6-14) Blood Urea Nitrogen 61 mg/dL (8-26) 71 mg/dL (8-26) Creatinine 2.8 mg/dL (0.7-1.3) 3.4 mg/dL (0.7-1.3) Estimated GFR (Cockcroft-Gault) 22.4 17.9 Glucose Level 122 mg/dL (70-99) 147 mg/dL (70-99) Calcium Level 8.5 mg/dL (8.5-10.1) 8.8 mg/dL (8.5-10.1) Magnesium Level 1.9 mg/dL (1.8-2.4) Nasal Screen MRSA (PCR) Negative (Negative) Laboratory Tests Test 04/17/18 10:19 Nasal Screen MRSA (PCR) Negative (Negative) Medications Active Scripts Medications Dose Route/Sig Max Daily Dose Days Date Category Dose Instructions Ondansetron Odt (Ondansetron) 4 Mg Tab.rapdis 1 Tab PO PRN Q8HRS PRN 04/09/18 Reported Levofloxacin 750 Mg Tablet 1 Tab PO QODAY 04/09/18 Reported Coreg (Carvedilol) 3.125 Mg Tablet 1 Tab PO BID 04/09/18 Reported Vitamin D3 (Cholecalciferol (Vitamin D3)) 1,000 Unit Tablet 1 Tab PO DAILY 03/28/18 Reported Lidocaine-Prilocaine Cream (Lidocaine/Prilocaine) 30 Gm Cream..g. 1 Meka TP UD 03/28/18 Reported Fluconazole 200 Mg Tablet 1 Tab PO DAILY 03/28/18 Reported Allopurinol 100 Mg Tablet 150 Mg PO DAILY 03/28/18 Reported Acyclovir 400 Mg Tablet 1 Tab PO BID 03/28/18 Reported [facility] Capsule (L Gasseri/B Bifidum/B Longum) 1 Each Capsule 1 Each PO DAILY 03/02/18 Reported Not given on this admission May resume tomorrow Zohydro ER (Hydrocodone Bitartrate) 10 Mg Cap.er.12h 20 Mg PO BID 03/02/18 Reported LAST DOSE GIVEN: DATE: today TIME: 6:40 NEXT DOSE DUE: DATE: Tonight Magnesium (Magnesium Oxide) 400 Mg Capsule 1 Cap PO DAILY 03/02/18 Reported Medication not given here May resume tomorrow Potassium Chloride Packet (Potassium Chloride) 20 Meq Packet 20 Meq PO DAILY 03/02/18 Reported Not given today due to procedure Take a dose tonight Metolazone 2.5 Mg Tablet 2.5 Mg PO QMWF 03/02/18 Reported Dose given Thursday morning Take a dose Thursday morning Finasteride 5 Mg Tablet 5 Mg PO DAILY 03/02/18 Reported LAST DOSE GIVEN: DATE: last night TIME: 9pm NEXT DOSE DUE: DATE: Tonight TIME: 9 pm Furosemide 80 Mg Tablet 80 Mg PO BID 03/02/18 Reported LAST DOSE GIVEN: DATE: today TIME: 3pm NEXT DOSE DUE: DATE: Tomorrow TIME: 9 am Dicyclomine Hcl 10 Mg Capsule 1 Cap PO TID 03/02/18 Reported Not given on this admission Take this evening Vitamin B-12 (Cyanocobalamin (Vitamin B-12)) 1,000 Mcg Tablet.er 1,000 Mcg PO DAILY 03/02/18 Reported LAST DOSE GIVEN: DATE: today TIME: 3pm NEXT DOSE DUE: DATE: Tomorrow TIME: 9 am Lortab 10-325 mg Tablet (Hydrocodone/Acetaminophen) 1 Each Tablet 1 Tab PO PRN Q4HRS PRN 09/22/16 Reported LAST DOSE GIVEN: DATE: last night TIME: 11pm NEXT DOSE DUE: when needed Tamsulosin Hcl 0.4 Mg Cap.er.24h 0.4 Mg PO BID 06/12/15 Reported LAST DOSE GIVEN: DATE: last night TIME: 9 pm NEXT DOSE DUE: DATE: Tonight TIME: 9pm Famotidine 20 Mg Tablet 80 Mg PO BID 06/12/15 Reported Famotidine 20mg was given last night may take tonight Lipitor (Atorvastatin Calcium) 20 Mg Tablet 1 Tab PO HS 07/08/14 Reported LAST DOSE GIVEN: DATE: last night TIME: 9pm NEXT DOSE DUE: DATE: Tonight TIME: 9 pm Aspir 81 (Aspirin) 81 Mg Tablet.dr 1 Tab PO DAILY 07/08/14 Reported LAST DOSE GIVEN: DATE: today TIME: 3pm NEXT DOSE DUE: DATE: Tomorrow TIME: 9 am Omeprazole 40 Mg Capsule. 1 Cap PO BID 07/08/14 Reported Not given on this admission May resume in the morning TIME: 9:00 am NEXT DOSE DUE: DATE: 06-13-15 TIME: 9:00 pm Nephro-Brett Tablet (Folic Acid/Vitamin B Comp W-C) 0.8 Mg Tablet 1 Tab PO DAILY 07/08/14 Reported LAST DOSE GIVEN: DATE: today TIME: 3pm NEXT DOSE DUE: DATE: Tomorrow TIME: 9 am Impression . IMPRESSION: 1. Dyspnea secondary to progressive weakness and early sepsis. 2. Acute myelogenous leukemia with persistent pancytopenia and now presents with fever and progressive dyspnea and weakness along with new right mid lung infiltrate consistent with pneumonia. Less likely alveolar Hemorrhage 3. Immunocompromised patient with acute myelogenous leukemia. 4. Chronic kidney disease. 5. No significant history of tobacco use. 6. Mitral regurgitation. 7. Pacemaker. 8. Atrial fibrillation. 9. allergic rhinitis Plan . RECOMMENDATIONS: 1. Continue broad-spectrum antibiotics. 2. Continue oxygen. 3. Follow Hematology recommendations. 4. Follow Infectious Disease recommendations. 5. change bronchodilators to qid. 6. 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 We will closely monitor her respiratory status. 7. cont flonase, and singulair Discussed with the pt and his . may consider palliative care consult regarding goals of care. CAMERON SHOEMAKER MD Apr 18, 2018 09:19
--- NOTE | 2018-04-18 10:37 | PDOC ---
Infectious Disease Note Subjective Subjective Spilt some water on the floor per He says he's tired and wants to go back to bed No appetite No fever last 24 hours Denies SOA/cough Denies N/V/D Denies chills/sweats Vital Sign Vital Signs Vital Signs Date Time Temp Pulse Resp B/P (MAP) Pulse Ox O2 Delivery O2 Flow Rate FiO2 04/18/18 08:58 70 120/52 04/18/18 07:00 97.7 16 100 97.7 04/18/18 03:24 Nasal Cannula 3.0 Physical Exam PHYSICAL EXAM GENERAL: In chair, cursing HENT: Dry LUNGS: Clear. HEART: S1, S2 regular. ABDOMEN: Soft, NT EXTREMITIES: BLE edema and chronic venous insufficiency changes SKIN: without rash NEUROLOGIC: Alert, responds appropriately Port clean Labs Micro Microbiology 04/15/18 Blood Culture - Preliminary, Resulted NO GROWTH AFTER 2 DAYS Objective Assessment 1. Fever - better 2. Encephalopathy. 3. Neutropenia. 4. AML, on chemotherapy. 5. Community-acquired pneumonia. 6. Coronary artery disease. 7. Renal insufficiency. Plan Plan of Care cont Meropenem BC NGTD am CBC Supportive care d/w d/w RN Patient seen and examined. Chart reviewed in detail. Case discussed with TELECOMMUNICATIONS EQUIPMENT INSTALLER. Agree with above plan. MARTINEZ DOLL APRN Apr 18, 2018 10:37 AMINTA FLOREZ MD Apr 18, 2018 21:23
[2018-04-18 11:00] VITALS: BP 124/80
[2018-04-18 11:03] LABS: CALCIUM 9.2 mg/dL (8.5-10.1); CREATININE 3.2 mg/dL (0.7-1.3); GFR 19.2
[2018-04-18 11:06] LABS: POTASSIUM 2.9 mmol/L (3.5-5.1)
[2018-04-18] MEDS: IPRATRPIUM/ALBUTEROL 0.5/2.5MG 3 ML NEBU. NEB SCH ×4 (11:20→19:43)
--- NOTE | 2018-04-18 14:53 | PDOC ---
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 Dyspnea secondary to progressive weakness and early sepsis. 4. Immunocompromised patient with acute myelogenous leukemia. 5. Chronic kidney disease. 6. No significant history of tobacco use. 7. Mitral regurgitation. 8. Pacemaker. 9. Atrial fibrillation. 10. hypokalemia replacing 11. run of V-Tach last night likely due to hypokalemia, consult CV, Mg++ ok 12. PNEUMONIA HCAP 13.severe protein malnutrition, with obesity, BMI 31 14. symptomatic anemia, improved s/p transfusion 15. CAD, 16.HLD 17. metabolic encephalopathy, 18.Uremia, 19.Thrombocytopenia 20.Pancytopenia History of Present Illness History of Present Illness White count still low, 0.3 on neutropenia precautions. Labs sodium 135 better, potassium 2.9 replacing , Creatinine 3.4, renal following Heme onc and infectious disease on board Plan: Follow subspecialists input Transfuse usually if febrile or less than 10,000 platelets Would keep hemoglobin greater than 7 if that is the goal also of heme Onc Neutropenic precautions Neupogen if needed per heme Onc Broad spectrum, antibiotics per ID PT OT Supportive care Replace potassium Stop Zaroxylyn Full code per chart prognosis still poor discussed with Vitals Vitals Vital Signs Date Time Temp Pulse Resp B/P (MAP) Pulse Ox O2 Delivery O2 Flow Rate FiO2 04/18/18 11:22 100 Nasal Cannula 3.0 04/18/18 11:00 97.5 90 16 124/80 (95) 97.5 Physical Exam Physical Exam GENERAL: in bed today HENT: Dry LUNGS: Clear. HEART: S1, S2 regular. ABDOMEN: Soft, NT EXTREMITIES: BLE edema and chronic venous insufficiency changes SKIN: bruises and ecchymosis NEUROLOGIC: Alert, responds appropriately Port clean General: Alert, No acute distress Heart: Other (heart rate slightly irregular) Lungs: Crackles, Other Abdomen: Soft Extremities: Other (2+ pitting edema) Skin: No significant lesion, Other (easy bruisibility) Labs LABS Laboratory Tests Test 04/18/18 10:30 Sodium Level 132 mmol/L (136-145) Potassium Level 2.9 mmol/L (3.5-5.1) Chloride Level 94 mmol/L (98-107) Carbon Dioxide Level 32 mmol/L (21-32) Anion Gap 6 (6-14) Blood Urea Nitrogen 85 mg/dL (8-26) Creatinine 3.2 mg/dL (0.7-1.3) Estimated GFR (Cockcroft-Gault) 19.2 Glucose Level 184 mg/dL (70-99) Calcium Level 9.2 mg/dL (8.5-10.1) Assessment and Plan Assessmemt and Plan Problems Medical Problems: (1) Pneumonia Status: Acute (2) Weakness Status: Acute Comment Review of Relevant I have reviewed the following items zoey (where applicable) has been applied. Labs Laboratory Tests Test 04/17/18 06:18 04/17/18 10:19 04/18/18 10:30 Sodium Level 135 mmol/L (136-145) 132 mmol/L (136-145) Potassium Level 2.9 mmol/L (3.5-5.1) 2.9 mmol/L (3.5-5.1) Chloride Level 96 mmol/L (98-107) 94 mmol/L (98-107) Carbon Dioxide Level 34 mmol/L (21-32) 32 mmol/L (21-32) Anion Gap 5 (6-14) 6 (6-14) Blood Urea Nitrogen 71 mg/dL (8-26) 85 mg/dL (8-26) Creatinine 3.4 mg/dL (0.7-1.3) 3.2 mg/dL (0.7-1.3) Estimated GFR (Cockcroft-Gault) 17.9 19.2 Glucose Level 147 mg/dL (70-99) 184 mg/dL (70-99) Calcium Level 8.8 mg/dL (8.5-10.1) 9.2 mg/dL (8.5-10.1) Magnesium Level 1.9 mg/dL (1.8-2.4) Nasal Screen MRSA (PCR) Negative (Negative) Laboratory Tests Test 04/18/18 10:30 Sodium Level 132 mmol/L (136-145) Potassium Level 2.9 mmol/L (3.5-5.1) Chloride Level 94 mmol/L (98-107) Carbon Dioxide Level 32 mmol/L (21-32) Anion Gap 6 (6-14) Blood Urea Nitrogen 85 mg/dL (8-26) Creatinine 3.2 mg/dL (0.7-1.3) Estimated GFR (Cockcroft-Gault) 19.2 Glucose Level 184 mg/dL (70-99) Calcium Level 9.2 mg/dL (8.5-10.1) Microbiology 04/15/18 Blood Culture - Preliminary, Resulted NO GROWTH AFTER 3 DAYS Medications Current Medications Piperacillin Sod/ Tazobactam Sod 3.375 gm/Sodium Chloride 50 ml @ 100 mls/hr 1X ONCE IV Last administered on 04/15/18at 13:57; Start 04/15/18 at 13:45; Stop 04/15/18 at 14:14; Status DC Vancomycin HCl (Vanco Per Pharmacy) 1 each PRN DAILY PRN MC SEE COMMENTS Last administered on 04/15/18at 15:19; Start 04/15/18 at 13:45; Stop 04/16/18 at 10:33 ; Status DC Vancomycin HCl 2 gm/Sodium Chloride 500 ml @ 250 mls/hr 1X ONCE IV Last administered on 04/15/18at 14:46; Start 04/15/18 at 13:45; Stop 04/15/18 at 15:44 ; Status DC Sodium Chloride 1,000 ml @ 1,000 mls/hr 1X ONCE IV Last administered on at 14:06; Start 04/15/18 at 14:00; Stop 04/15/18 at 14:59; Status DC Vancomycin HCl 1.5 gm/Sodium Chloride 500 ml @ 250 mls/hr Q48H IV ; Start 04/17 at 14:00; Stop 04/17/18 at 14:00; Status DC Vancomycin HCl (Vancomycin Trough Level) 1 each 1X ONCE MC ; Start 04/19/18 at 13:30; Stop 04/19/18 at 13:30; Status DC Meropenem 500 mg/ Sodium Chloride 50 ml @ 100 mls/hr Q8HRS IV Last administered on 04/18/18at 13:35; Start 04/15/18 at 18:00 Acetaminophen (Tylenol) 650 mg PRN Q6HRS PRN PO FEVER Last administered on 04/15at 20:57; Start 04/15/18 at 21:00; Stop 04/16/18 at 14:55; Status DC Acetaminophen (Tylenol) 500 mg PRN Q6HRS PRN PO MILD PAIN / TEMP; Start at 08:30 Ondansetron HCl (Zofran) 4 mg PRN Q6HRS PRN IV NAUSEA/VOMITING; Start 04/16/18 at 08:30 Ondansetron HCl (Zofran Odt) 4 mg PRN Q6HRS PRN PO NAUSEA/VOMITING; Start 04/16 at 08:30 Allopurinol (Zyloprim) 150 mg DAILY PO Last administered on 04/18/18 08:58; Start 04/16/18 at 09:00 Aspirin (Ecotrin) 81 mg DAILY PO Last administered on 04/17/18 09:19; Start at 09:00; Stop 04/17/18 at 17:00; Status DC Atorvastatin Calcium (Lipitor) 20 mg HS PO Last administered on 04/17/18at 21:03 ; Start 04/16/18 at 21:00 Carvedilol (Coreg) 3.125 mg BIDWMEALS PO Last administered on 04/18/18 08:58; Start 04/16/18 at 09:00 Vitamin D (Vitamin D3) 1,000 unit DAILY PO Last administered on 04/18/18 08:58 ; Start 04/16/18 at 09:00 Dicyclomine HCl (Bentyl) 10 mg TID PO Last administered on 04/18/18 08:59; Start 04/16/18 at 09:00 Famotidine (Pepcid) 80 mg DAILY PO ; Start 04/16/18 at 09:00; Status Cancel Finasteride (Proscar) 5 mg DAILY PO Last administered on 04/18/18at 08:59; Start 04/16/18 at 09:00 Vitamin B Complex/ Vitamin C (Lupis-Brett) 1 tab DAILY PO Last administered on 08:58; Start 04/16/18 at 09:00 Furosemide (Lasix) 80 mg [id number] PO Last administered on 04/18/18 08:57; Start 04/16/18 at 09:00 Lidocaine/ Prilocaine (Emla) 1 meka DAILY TP Last administered on 04/18/18at 09: 03; Start 04/16/18 at 09:00 Tamsulosin HCl (Flomax) 0.4 mg BID PO Last administered on 04/18/18 08:58; Start 04/16/18 at 09:00 Cyanocobalamin (Vitamin B-12) 1,000 mcg DAILY PO Last administered on at 08:57; Start 04/16/18 at 09:00 Non-Formulary Medication (Hydrocodone Bitartrate (Zohydro ER)) 20 mg BID PO Last administered on 04/18/18 08:57; Start 04/16/18 at 09:00 Acetaminophen/ Hydrocodone Bitart (Lortab 10/325) 1 tab PRN Q4HRS PRN PO MODERATE PAIN Last administered on 04/16/18at 16:22; Start 04/16/18 at 09:00 Lactobacillus Rhamnosus (Culturelle) 1 cap DAILY PO Last administered on 08:59; Start 04/16/18 at 09:00 Magnesium Oxide (Magnesium Oxide) 400 mg DAILY PO Last administered on at 08:59; Start 04/16/18 at 09:00 Metolazone (Zaroxolyn) 2.5 mg MoWeFr PO Last administered on 04/16/18at 10:47; Start 04/16/18 at 09:00; Stop 04/17/18 at 09:02; Status DC Pantoprazole Sodium (Protonix) 40 mg BIDAC PO Last administered on 04/18/18at 08 :59; Start 04/16/18 at 09:00 Potassium Chloride (Klor-Con) 20 meq [id number] PO ; Start 04/16/18 at 09:00; Status Cancel Famotidine (Pepcid) 20 mg DAILY PO Last administered on 04/18/18at 08:57; Start 04/16/18 at 09:00 Potassium Chloride (KCl Oral Soln) 20 meq DAILY08 PO Last administered on at 10:48; Start 04/16/18 at 11:00; Stop 04/17/18 at 09:35; Status DC Potassium Chloride (KCl Oral Soln) 40 meq 1X ONCE FT ; Start 04/17/18 at 08:45 ; Stop 04/17/18 at 08:46; Status UNV Potassium Chloride (KCl Oral Soln) 40 meq Q4H PO Last administered on at 09:20; Start 04/17/18 at 09:00; Stop 04/17/18 at 09:35; Status DC Non-Formulary Medication 1 ea DAILY08 PO Last administered on 04/17/18at 14:46; Start 04/18/18 at 08:00 Non-Formulary Medication 2 ea Q4H PO Last administered on 04/17/18at 10:09; Start 04/17/18 at 10:00; Stop 04/17/18 at 14:01; Status DC Fluticasone Propionate (Flonase) 2 spray DAILY NS Last administered on at 10:00; Start 04/17/18 at 10:00 Montelukast Sodium (Singulair) 10 mg QHS PO Last administered on 04/17/18at 21: 03; Start 04/17/18 at 21:00 Albuterol/ Ipratropium (Duoneb) 3 ml RTQID NEB Last administered on 04/18/18at 11:20; Start 04/18/18 at 09:30 Active Scripts Active Reported Ondansetron Odt (Ondansetron) 4 Mg Tab.rapdis 1 Tab PO PRN Q8HRS PRN Levofloxacin 750 Mg Tablet 1 Tab PO QODAY Coreg (Carvedilol) 3.125 Mg Tablet 1 Tab PO BID Vitamin D3 (Cholecalciferol (Vitamin D3)) 1,000 Unit Tablet 1 Tab PO DAILY Lidocaine-Prilocaine Cream (Lidocaine/Prilocaine) 30 Gm Cream..g. 1 Meka TP UD Fluconazole 200 Mg Tablet 1 Tab PO DAILY Allopurinol 100 Mg Tablet 150 Mg PO DAILY Acyclovir 400 Mg Tablet 1 Tab PO BID [facility] [employer] Capsule (L Gasseri/B Bifidum/B Longum) 1 Each Capsule 1 Each PO DAILY Not given on this admission May resume tomorrow Zohydro ER (Hydrocodone Bitartrate) 10 Mg Cap.er.12h 20 Mg PO BID LAST DOSE GIVEN: DATE: today TIME: 6:40 NEXT DOSE DUE: DATE: Tonight Magnesium (Magnesium Oxide) 400 Mg Capsule 1 Cap PO DAILY Medication not given here May resume tomorrow Potassium Chloride Packet (Potassium Chloride) 20 Meq Packet 20 Meq PO DAILY Not given today due to procedure Take a dose tonight Metolazone 2.5 Mg Tablet 2.5 Mg PO QMWF Dose given Thursday Take a dose Thursday morning Finasteride 5 Mg Tablet 5 Mg PO DAILY LAST DOSE GIVEN: DATE: last night TIME: 9pm NEXT DOSE DUE: DATE: Tonight TIME: 9 pm Furosemide 80 Mg Tablet 80 Mg PO BID LAST DOSE GIVEN: DATE: today TIME: 3pm NEXT DOSE DUE: DATE: Tomorrow TIME: 9 am Dicyclomine Hcl 10 Mg Capsule 1 Cap PO TID Not given on this admission Take this evening Vitamin B-12 (Cyanocobalamin (Vitamin B-12)) 1,000 Mcg Tablet.er 1,000 Mcg PO DAILY LAST DOSE GIVEN: DATE: today TIME: 3pm NEXT DOSE DUE: DATE: Tomorrow TIME: 9 am Lortab 10-325 mg Tablet (Hydrocodone/Acetaminophen) 1 Each Tablet 1 Tab PO PRN Q4HRS PRN LAST DOSE GIVEN: DATE: last night TIME: 11pm NEXT DOSE DUE: when needed Tamsulosin Hcl 0.4 Mg Cap.er.24h 0.4 Mg PO BID LAST DOSE GIVEN: DATE: last night TIME: 9 pm NEXT DOSE DUE: DATE: Tonight TIME: 9pm Famotidine 20 Mg Tablet 80 Mg PO BID Famotidine 20mg was given last night may take tonight Lipitor (Atorvastatin Calcium) 20 Mg Tablet 1 Tab PO HS LAST DOSE GIVEN: DATE: last night TIME: 9pm NEXT DOSE DUE: DATE: Tonight TIME: 9 pm Aspir 81 (Aspirin) 81 Mg Tablet.dr 1 Tab PO DAILY LAST DOSE GIVEN: DATE: today TIME: 3pm NEXT DOSE DUE: DATE: Tomorrow TIME: 9 am Omeprazole 40 Mg Capsule.dr 1 Cap PO BID Not given on this admission May resume in the morning TIME: 9:00 am NEXT DOSE DUE: DATE: 06-13-15 TIME: 9:00 pm Nephro-Brett Tablet (Folic Acid/Vitamin B Comp W-C) 0.8 Mg Tablet 1 Tab PO DAILY LAST DOSE GIVEN: DATE: today TIME: 3pm NEXT DOSE DUE: DATE: Tomorrow TIME: 9 am Vitals/I & O Vital Sign - Last 24 Hours 04/17/18 04/17/18 04/17/18 04/17/18 15:00 16:48 19:20 19:58 Temp 97.7 97.4 97.7 97.4 Pulse 64 98 80 Resp 20 20 B/P (MAP) 101/52 (68) 112/60 116/66 (83) Pulse Ox 94 90 O2 Delivery Nasal Cannula Nasal Cannula Nasal Cannula O2 Flow Rate 3.0 3.0 04/17/18 04/18/18 04/18/18 04/18/18 23:00 03:24 07:00 08:00 Temp 98.3 96.6 97.7 98.3 96.6 97.7 Pulse 103 92 70 Resp 22 20 16 B/P (MAP) 118/69 (85) 105/49 (67) 120/52 (74) Pulse Ox 93 91 100 O2 Delivery Nasal Cannula Nasal Cannula O2 Flow Rate 3.0 3.0 04/18/18 04/18/18 04/18/18 08:58 11:00 11:22 Temp 97.5 97.5 Pulse 70 90 Resp 16 B/P (MAP) 120/52 124/80 (95) Pulse Ox 94 100 O2 Delivery Nasal Cannula Nasal Cannula O2 Flow Rate 3.0 3.0 Intake and Output 04/17/18 04/17/18 04/18/18 15:01 23:01 07:01 Intake Total 170 ml 110 ml Output Total 800 ml 200 ml Balance -630 ml -90 ml PEYTON OLIVIA MD Apr 18, 2018 14:53
[2018-04-18 15:00] VITALS: BP 119/45
[2018-04-18 19:00] VITALS: BP 115/60
[2018-04-18 22:36] VITALS: BP 117/55
[2018-04-18] MEDS: MONTELUKAST SODIUM 10 MG TABLET. PO SCH (23:09)
[2018-04-18] MEDS: ATORVASTATIN CALCIUM 20 MG TABLET PO SCH (23:09)
[2018-04-19] VITALS (9 sets, daily range): BP systolic 88–141; BP diastolic 42–87
[2018-04-19] MEDS: MEROPENEM 500 MG in IV NORMAL SALINE 50ML 50 ML IV SCH ×3 (05:35→21:33)
[2018-04-19 07:10] LABS: BASO % 1 % (0-3); EOS % 5 % (0-3); HEMATOCRIT 21.2 % (39.0-53.0); HEMOGLOBIN 7.4 g/dL (13.0-17.5); LYMPH # 0.2 x10^3/uL (1.0-4.8); LYMPH % 61 % (24-48); MEAN CORPUSCULAR HEMOGLOBIN 32 pg (25-35); MEAN CORPUSCULAR HGB CONC 35 g/dL (31-37); MEAN CORPUSCULAR VOLUME 93 fL (79-100); MONO % 13 % (0-9); NEUT # 0.1 x10^3uL (1.8-7.7); NEUT % 20 % (31-73); RED BLOOD COUNT 2.29 x10^6/uL (4.30-5.70); RED CELL DISTRIBUTION WIDTH 15.4 % (11.5-14.5)
[2018-04-19 07:11] LABS: ALBUMIN 1.8 g/dL (3.4-5.0); ALBUMIN/GLOBULIN RATIO 0.5 (1.0-1.7); CALCIUM 9.1 mg/dL (8.5-10.1); GFR 20.7; TOTAL BILIRUBIN 1.1 mg/dL (0.2-1.0); TOTAL PROTEIN 5.8 g/dL (6.4-8.2)
[2018-04-19 07:16] LABS: POTASSIUM 2.8 mmol/L (3.5-5.1)
[2018-04-19 07:20] LABS: PLATELET COUNT 11 x10^3/uL (140-400); WHITE BLOOD COUNT 0.4 x10^3/uL (4.0-11.0)
[2018-04-19] MEDS: IPRATRPIUM/ALBUTEROL 0.5/2.5MG 3 ML NEBU. NEB SCH ×4 (07:47→19:43)
[2018-04-19] MEDS: CARVEDILOL 3.125 MG TABLET. PO SCH ×2 (08:00→17:00)
[2018-04-19] MEDS: POTASSIUM CHLORIDE PO SCH (08:00)
--- NOTE | 2018-04-19 08:56 | PDOC ---
SUBJECTIVE Subjective S: Angry, irritable, agreeing to stop chemotherapy O: Physical exam: Gen.: Eating breakfast, at side of bed, no acute distress Lungs: Breathing comfortably Extremities: Bilateral lower extremity edema w/ PVD changes Psychiatric: Very irritable Labs: White count 0.4, hemoglobin 7.4, platelets 11 Assessment and Plan: He is a 72-year-old male with acute myelogenous leukemia, he would be due for cycle 2 day 1 of decitabine 10 day dosing on 21 April though we will stop chemo due to mult admissions, due to CHF and infections, he is now ready to consider palliative care Pneumonia: On broad-spectrum antibiotics, he is fine for discharge from my standpoint as soon as his other providers are okay completing pneumonia treatment as an outpatient Neutropenia: Related to acute leukemia, would not give G-CSF due to underlying leukemia, on neut precautions Anemia: Would transfuse when necessary hemoglobin less than 7, anticipate getting one more unit of blood prior to discharge Thrombocytopenia: Would transfuse if platelet count less than 50,000 with bleeding, less than 20,000 with fever, or less than 10,000 spontaneously, he has had frequent epistaxis and platelet count is 11,000 today, getting transfused with plts today Poor prognosis with acute leukemia and frequent admissions: He and his have agreed to stopping chemotherapy and giving palliative care at home. May transition to hospice in the near future but cannot do hospice and blood transfusions at the same time. He would like to, for now, continue blood transfusions. Palliative care has seen him already and I do appreciate their help in his care. disposition: when palliative care at home has been set up, and he has been optimally transfused, and other providers are okay with outpatient treatment of pneumonia Thank you kindly, and please don't hesitate to call with any further questions. OBJECTIVE Vital Signs Vital Signs Date Time Temp Pulse Resp B/P (MAP) Pulse Ox O2 Delivery O2 Flow Rate FiO2 04/19/18 07:51 91 Nasal Cannula 3.0 04/19/18 02:36 97.6 109 20 98/48 (65) 92 Nasal Cannula 3.0 97.6 04/18/18 22:36 98.2 81 17 117/55 (75) 93 Nasal Cannula 3.0 98.2 04/18/18 20:04 Nasal Cannula 3.0 04/18/18 19:49 Nasal Cannula 3.0 04/18/18 19:00 97.2 96 17 115/60 (78) 93 Nasal Cannula 3.0 97.2 04/18/18 16:07 91 119/45 04/18/18 15:00 98.2 91 20 119/45 (69) 94 Nasal Cannula 3.0 98.2 04/18/18 11:22 100 Nasal Cannula 3.0 04/18/18 11:00 97.5 90 16 124/80 (95) 94 Nasal Cannula 3.0 97.5 04/18/18 08:58 70 120/52 I & O Intake and Output 04/19/18 07:01 Intake Total 340 ml Output Total 1000 ml Balance -660 ml Intake Oral 240 ml IV Total 100 ml Output Urine Total 1000 ml # Voids 6 COMMENT Lab Laboratory Tests Test 04/18/18 10:30 04/19/18 06:45 Sodium Level 132 mmol/L (136-145) 136 mmol/L (136-145) Potassium Level 2.9 mmol/L (3.5-5.1) 2.8 mmol/L (3.5-5.1) Chloride Level 94 mmol/L (98-107) 94 mmol/L (98-107) Carbon Dioxide Level 32 mmol/L (21-32) 35 mmol/L (21-32) Anion Gap 6 (6-14) 7 (6-14) Blood Urea Nitrogen 85 mg/dL (8-26) 83 mg/dL (8-26) Creatinine 3.2 mg/dL (0.7-1.3) 3.0 mg/dL (0.7-1.3) Estimated GFR (Cockcroft-Gault) 19.2 20.7 Glucose Level 184 mg/dL (70-99) 133 mg/dL (70-99) Calcium Level 9.2 mg/dL (8.5-10.1) 9.1 mg/dL (8.5-10.1) White Blood Count 0.4 x10^3/uL (4.0-11.0) Red Blood Count 2.29 x10^6/uL (4.30-5.70) Hemoglobin 7.4 g/dL (13.0-17.5) Hematocrit 21.2 % (39.0-53.0) Mean Corpuscular Volume 93 fL (79-100) Mean Corpuscular Hemoglobin 32 pg (25-35) Mean Corpuscular Hemoglobin Concent 35 g/dL (31-37) Red Cell Distribution Width 15.4 % (11.5-14.5) Platelet Count 11 x10^3/uL (140-400) Neutrophils (%) (Auto) 20 % (31-73) Lymphocytes (%) (Auto) 61 % (24-48) Monocytes (%) (Auto) 13 % (0-9) Eosinophils (%) (Auto) 5 % (0-3) Basophils (%) (Auto) 1 % (0-3) Neutrophils # (Auto) 0.1 x10^3uL (1.8-7.7) Lymphocytes # (Auto) 0.2 x10^3/uL (1.0-4.8) Monocytes # (Auto) 0.0 x10^3/uL (0.0-1.1) Eosinophils # (Auto) 0.0 x10^3/uL (0.0-0.7) Basophils # (Auto) 0.0 x10^3/uL (0.0-0.2) BUN/Creatinine Ratio 28 (6-20) Total Bilirubin 1.1 mg/dL (0.2-1.0) Aspartate Amino Transf (AST/SGOT) 79 U/L (15-37) Alanine Aminotransferase (ALT/SGPT) 77 U/L (16-63) Alkaline Phosphatase 161 U/L (46-116) Total Protein 5.8 g/dL (6.4-8.2) Albumin 1.8 g/dL (3.4-5.0) Albumin/Globulin Ratio 0.5 (1.0-1.7) BASILIO GARCIA MD Apr 19, 2018 08:56
[2018-04-19] MEDS: HYDROCODONE BITARTRATE 10 MG PO SCH ×2 (09:00→21:00)
[2018-04-19] MEDS: PANTOPRAZOLE 40 MG TABLET.DR. PO SCH ×2 (09:03→17:40)
[2018-04-19] MEDS: FAMOTIDINE 20 MG TABLET. PO SCH (09:03)
[2018-04-19] MEDS: CYANOCOBALAMIN (VITAMIN B-12) 1,000 MCG TABLET. PO SCH (09:04)
[2018-04-19] MEDS: CHOLECALCIFEROL (VITAMIN D3) 1,000 UNIT TABLET PO SCH (09:04)
[2018-04-19] MEDS: FINASTERIDE 5 MG TABLET. PO SCH (09:04)
[2018-04-19] MEDS: DICYCLOMINE HCL 10 MG CAPSULE PO SCH ×3 (09:04→21:32)
[2018-04-19] MEDS: FOLIC/VIT B COMP W-C (RENAL) TABLET. PO SCH (09:04)
[2018-04-19] MEDS: MAGNESIUM OXIDE 400 MG TABLET PO SCH (09:04)
[2018-04-19] MEDS: FUROSEMIDE 80 MG TABLET. PO SCH ×2 (09:04→14:45)
[2018-04-19] MEDS: ALLOPURINOL 300 MG TABLET. PO SCH (09:04)
[2018-04-19] MEDS: LACTOBACILLUS RHAMNOSUS GG 1 CAPSULE. PO SCH (09:04)
[2018-04-19] MEDS: FLUTICASONE 50MCG/NASAL SPRAY 16GM BOTTLE. NS SCH (09:05)
[2018-04-19] MEDS: TAMSULOSIN 0.4 MG CAP.ER.24H. PO SCH ×2 (09:05→21:32)
[2018-04-19] MEDS: LIDOCAINE/PRILOCAINE TOPICAL CREAM 5GM TUBE. TP SCH (09:07)
--- NOTE | 2018-04-19 10:05 | PDOC ---
PULMONARY PROGRESS NOTES Subjective is tired, sob better. has cough. nasal congestion better. is on home 02 3 lpm Vitals Vital Signs Date Time Temp Pulse Resp B/P (MAP) Pulse Ox O2 Delivery O2 Flow Rate FiO2 04/19/18 08:00 115 88/42 04/19/18 07:51 91 Nasal Cannula 3.0 04/19/18 07:00 98.7 18 98.7 ROS: No Nausea, No Chest Pain HEENT: Other (nc at perrl n) Lungs: Other (decrease bs) Cardiovascular: S1, S2 Abdomen: Soft, Non-tender Neuro Exam: Alert Extremities: Other (+ edema, chronic changes) Skin: Warm Labs Laboratory Tests Test 04/17/18 10:19 04/18/18 10:30 04/19/18 06:45 Nasal Screen MRSA (PCR) Negative (Negative) Sodium Level 132 mmol/L (136-145) 136 mmol/L (136-145) Potassium Level 2.9 mmol/L (3.5-5.1) 2.8 mmol/L (3.5-5.1) Chloride Level 94 mmol/L (98-107) 94 mmol/L (98-107) Carbon Dioxide Level 32 mmol/L (21-32) 35 mmol/L (21-32) Anion Gap 6 (6-14) 7 (6-14) Blood Urea Nitrogen 85 mg/dL (8-26) 83 mg/dL (8-26) Creatinine 3.2 mg/dL (0.7-1.3) 3.0 mg/dL (0.7-1.3) Estimated GFR (Cockcroft-Gault) 19.2 20.7 Glucose Level 184 mg/dL (70-99) 133 mg/dL (70-99) Calcium Level 9.2 mg/dL (8.5-10.1) 9.1 mg/dL (8.5-10.1) White Blood Count 0.4 x10^3/uL (4.0-11.0) Red Blood Count 2.29 x10^6/uL (4.30-5.70) Hemoglobin 7.4 g/dL (13.0-17.5) Hematocrit 21.2 % (39.0-53.0) Mean Corpuscular Volume 93 fL (79-100) Mean Corpuscular Hemoglobin 32 pg (25-35) Mean Corpuscular Hemoglobin Concent 35 g/dL (31-37) Red Cell Distribution Width 15.4 % (11.5-14.5) Platelet Count 11 x10^3/uL (140-400) Neutrophils (%) (Auto) 20 % (31-73) Lymphocytes (%) (Auto) 61 % (24-48) Monocytes (%) (Auto) 13 % (0-9) Eosinophils (%) (Auto) 5 % (0-3) Basophils (%) (Auto) 1 % (0-3) Neutrophils # (Auto) 0.1 x10^3uL (1.8-7.7) Lymphocytes # (Auto) 0.2 x10^3/uL (1.0-4.8) Monocytes # (Auto) 0.0 x10^3/uL (0.0-1.1) Eosinophils # (Auto) 0.0 x10^3/uL (0.0-0.7) Basophils # (Auto) 0.0 x10^3/uL (0.0-0.2) Erythrocyte Sedimentation Rate 80 (0-15) BUN/Creatinine Ratio 28 (6-20) Total Bilirubin 1.1 mg/dL (0.2-1.0) Aspartate Amino Transf (AST/SGOT) 79 U/L (15-37) Alanine Aminotransferase (ALT/SGPT) 77 U/L (16-63) Alkaline Phosphatase 161 U/L (46-116) Total Protein 5.8 g/dL (6.4-8.2) Albumin 1.8 g/dL (3.4-5.0) Albumin/Globulin Ratio 0.5 (1.0-1.7) Laboratory Tests Test 04/18/18 10:30 04/19/18 06:45 Sodium Level 132 mmol/L (136-145) 136 mmol/L (136-145) Potassium Level 2.9 mmol/L (3.5-5.1) 2.8 mmol/L (3.5-5.1) Chloride Level 94 mmol/L (98-107) 94 mmol/L (98-107) Carbon Dioxide Level 32 mmol/L (21-32) 35 mmol/L (21-32) Anion Gap 6 (6-14) 7 (6-14) Blood Urea Nitrogen 85 mg/dL (8-26) 83 mg/dL (8-26) Creatinine 3.2 mg/dL (0.7-1.3) 3.0 mg/dL (0.7-1.3) Estimated GFR (Cockcroft-Gault) 19.2 20.7 Glucose Level 184 mg/dL (70-99) 133 mg/dL (70-99) Calcium Level 9.2 mg/dL (8.5-10.1) 9.1 mg/dL (8.5-10.1) White Blood Count 0.4 x10^3/uL (4.0-11.0) Red Blood Count 2.29 x10^6/uL (4.30-5.70) Hemoglobin 7.4 g/dL (13.0-17.5) Hematocrit 21.2 % (39.0-53.0) Mean Corpuscular Volume 93 fL (79-100) Mean Corpuscular Hemoglobin 32 pg (25-35) Mean Corpuscular Hemoglobin Concent 35 g/dL (31-37) Red Cell Distribution Width 15.4 % (11.5-14.5) Platelet Count 11 x10^3/uL (140-400) Neutrophils (%) (Auto) 20 % (31-73) Lymphocytes (%) (Auto) 61 % (24-48) Monocytes (%) (Auto) 13 % (0-9) Eosinophils (%) (Auto) 5 % (0-3) Basophils (%) (Auto) 1 % (0-3) Neutrophils # (Auto) 0.1 x10^3uL (1.8-7.7) Lymphocytes # (Auto) 0.2 x10^3/uL (1.0-4.8) Monocytes # (Auto) 0.0 x10^3/uL (0.0-1.1) Eosinophils # (Auto) 0.0 x10^3/uL (0.0-0.7) Basophils # (Auto) 0.0 x10^3/uL (0.0-0.2) Erythrocyte Sedimentation Rate 80 (0-15) BUN/Creatinine Ratio 28 (6-20) Total Bilirubin 1.1 mg/dL (0.2-1.0) Aspartate Amino Transf (AST/SGOT) 79 U/L (15-37) Alanine Aminotransferase (ALT/SGPT) 77 U/L (16-63) Alkaline Phosphatase 161 U/L (46-116) Total Protein 5.8 g/dL (6.4-8.2) Albumin 1.8 g/dL (3.4-5.0) Albumin/Globulin Ratio 0.5 (1.0-1.7) Medications Active Scripts Medications Dose Route/Sig Max Daily Dose Days Date Category Dose Instructions Ondansetron Odt (Ondansetron) 4 Mg Tab.rapdis 1 Tab PO PRN Q8HRS PRN 04/09/18 Reported Levofloxacin 750 Mg Tablet 1 Tab PO QODAY 04/09/18 Reported Coreg (Carvedilol) 3.125 Mg Tablet 1 Tab PO BID 04/09/18 Reported Vitamin D3 (Cholecalciferol (Vitamin D3)) 1,000 Unit Tablet 1 Tab PO DAILY 03/28/18 Reported Lidocaine-Prilocaine Cream (Lidocaine/Prilocaine) 30 Gm Cream..g. 1 Meka TP UD 03/28/18 Reported Fluconazole 200 Mg Tablet 1 Tab PO DAILY 03/28/18 Reported Allopurinol 100 Mg Tablet 150 Mg PO DAILY 03/28/18 Reported Acyclovir 400 Mg Tablet 1 Tab PO BID 03/28/18 Reported [facility] Colon Health Capsule (L Gasseri/B Bifidum/B Longum) 1 Each Capsule 1 Each PO DAILY 03/02/18 Reported Not given on this admission May resume tomorrow Zohydro ER (Hydrocodone Bitartrate) 10 Mg Cap.er.12h 20 Mg PO BID 03/02/18 Reported LAST DOSE GIVEN: DATE: today TIME: 6:40 NEXT DOSE DUE: DATE: Tonight Magnesium (Magnesium Oxide) 400 Mg Capsule 1 Cap PO DAILY 03/02/18 Reported Medication not given here May resume tomorrow Potassium Chloride Packet (Potassium Chloride) 20 Meq Packet 20 Meq PO DAILY 03/02/18 Reported Not given today due to procedure Take a dose tonight Metolazone 2.5 Mg Tablet 2.5 Mg PO QMWF 03/02/18 Reported Dose given Thursday morning Take a dose Thursday morning Finasteride 5 Mg Tablet 5 Mg PO DAILY 03/02/18 Reported LAST DOSE GIVEN: DATE: last night TIME: 9pm NEXT DOSE DUE: DATE: Tonight TIME: 9 pm Furosemide 80 Mg Tablet 80 Mg PO BID 03/02/18 Reported LAST DOSE GIVEN: DATE: today TIME: 3pm NEXT DOSE DUE: DATE: Tomorrow TIME: 9 am Dicyclomine Hcl 10 Mg Capsule 1 Cap PO TID 03/02/18 Reported Not given on this admission Take this evening Vitamin B-12 (Cyanocobalamin (Vitamin B-12)) 1,000 Mcg Tablet.er 1,000 Mcg PO DAILY 03/02/18 Reported LAST DOSE GIVEN: DATE: today TIME: 3pm NEXT DOSE DUE: DATE: Tomorrow TIME: 9 am Lortab 10-325 mg Tablet (Hydrocodone/Acetaminophen) 1 Each Tablet 1 Tab PO PRN Q4HRS PRN 09/22/16 Reported LAST DOSE GIVEN: DATE: last night TIME: 11pm NEXT DOSE DUE: when needed Tamsulosin Hcl 0.4 Mg Cap.er.24h 0.4 Mg PO BID 06/12/15 Reported LAST DOSE GIVEN: DATE: last night TIME: 9 pm NEXT DOSE DUE: DATE: Tonight TIME: 9pm Famotidine 20 Mg Tablet 80 Mg PO BID 06/12/15 Reported Famotidine 20mg was given last night may take tonight Lipitor (Atorvastatin Calcium) 20 Mg Tablet 1 Tab PO HS 07/08/14 Reported LAST DOSE GIVEN: DATE: last night TIME: 9pm NEXT DOSE DUE: DATE: Tonight TIME: 9 pm Aspir 81 (Aspirin) 81 Mg Tablet.dr 1 Tab PO DAILY 07/08/14 Reported LAST DOSE GIVEN: DATE: today TIME: 3pm NEXT DOSE DUE: DATE: Tomorrow TIME: 9 am Omeprazole 40 Mg Capsule.dr 1 Cap PO BID 07/08/14 Reported Not given on this admission May resume in the morning TIME: 9:00 am NEXT DOSE DUE: DATE: 06-13-15 TIME: 9:00 pm Nephro-Brett Tablet (Folic Acid/Vitamin B Comp W-C) 0.8 Mg Tablet 1 Tab PO DAILY 07/08/14 Reported LAST DOSE GIVEN: DATE: today TIME: 3pm NEXT DOSE DUE: DATE: Tomorrow TIME: 9 am Impression . IMPRESSION: 1. Dyspnea secondary to progressive weakness and early sepsis. 2. Acute myelogenous leukemia with persistent pancytopenia and now presents with fever and progressive dyspnea and weakness along with new right mid lung infiltrate consistent with pneumonia. Less likely alveolar Hemorrhage 3. Immunocompromised patient with acute myelogenous leukemia. 4. Chronic kidney disease. 5. No significant history of tobacco use. 6. Mitral regurgitation. 7. Pacemaker. 8. Atrial fibrillation. 9. allergic rhinitis Plan . RECOMMENDATIONS: 1. Continue broad-spectrum antibiotics. 2. Continue oxygen. 3. Follow Hematology recommendations. 4. Follow Infectious Disease recommendations. 5. bronchodilators 6. The patient is also at risk of alveolar hemorrhage and [employer] hemorrhage. We will closely monitor her respiratory status. 7. cont flonase, and singulair Discussed with the pt and his . may consider palliative care consult regarding goals of care. KANDY ALEXANDER MD Apr 19, 2018 10:05
--- NOTE | 2018-04-19 10:39 | PDOC ---
SUBJECTIVE ROS No new concerns OBJECTIVE Vital Signs Vital Signs Date Time Temp Pulse Resp B/P (MAP) Pulse Ox O2 Delivery O2 Flow Rate FiO2 04/19/18 08:00 115 88/42 04/19/18 07:51 91 Nasal Cannula 3.0 04/19/18 07:00 98.7 18 98.7 I & 0 Intake and Output 04/19/18 07:00 Intake Total 340 ml Output Total 1000 ml Balance -660 ml Intake Oral 240 ml IV Total 100 ml Output Urine Total 1000 ml # Voids 6 PHYSICAL EXAM Physical Exam General: mild distress HEENT: OM moist Lungs: CTA ant Heart: Regular rate, Murmur Abdomen: Soft, No hepatosplenomegaly Extremities: Chr LE edema Skin: No rashes, Neuro: stable DIAGNOSIS/ASSESSMENT Assessment & Plan 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 Acute myelogenous leukemia with persistent pancytopenia Immunocompromised patient with acute myelogenous leukemia. Pancytopenia- due to above BPH-On Flomax Discussed with Pt's COMMENT/RELEVANT DATA Meds Current Medications Medications (Trade) Dose Ordered Sig/Toña Start Time Stop Time Status Last Admin Dose Admin Acetaminophen (Tylenol) 500 mg PRN Q6HRS PRN 04/16/18 08:30 Acetaminophen/ Hydrocodone Bitart (Lortab 10/325) 1 tab PRN Q4HRS PRN 04/16/18 09:00 04/16/18 16:22 1 TAB Albuterol/ Ipratropium (Duoneb) 3 ml RTQID 04/18/18 09:30 04/19/18 07:47 3 ML Allopurinol (Zyloprim) 150 mg DAILY 04/16/18 09:00 04/19/18 09:04 150 MG Aspirin (Ecotrin) 81 mg DAILY 04/16/18 09:00 04/17/18 17:00 DC 04/17/18 09:19 81 MG Atorvastatin Calcium (Lipitor) 20 mg HS 04/16/18 21:00 04/18/18 23:09 20 MG Carvedilol (Coreg) 3.125 mg BIDWMEALS 04/16/18 09:00 04/18/18 16:07 3.125 MG Cyanocobalamin (Vitamin B-12) 1,000 mcg DAILY 04/16/18 09:00 04/19/18 09:04 1,000 MCG Dicyclomine HCl (Bentyl) 10 mg TID 04/16/18 09:00 04/19/18 09:04 10 MG Famotidine (Pepcid) 20 mg DAILY 04/16/18 09:00 04/19/18 09:03 20 MG Finasteride (Proscar) 5 mg DAILY 04/16/18 09:00 04/19/18 09:04 5 MG Fluticasone Propionate (Flonase) 2 spray DAILY 04/17/18 10:00 04/19/18 09:05 2 SPRAY Furosemide (Lasix) 80 mg [id number] 04/16/18 09:00 04/19/18 09:04 80 MG Lactobacillus Rhamnosus (Culturelle) 1 cap DAILY 04/16/18 09:00 04/19/18 09:04 1 CAP Lidocaine/ Prilocaine (Emla) 1 malcolm DAILY 04/16/18 09:00 04/19/18 09:07 1 MALCOLM Magnesium Oxide (Magnesium Oxide) 400 mg DAILY 04/16/18 09:00 04/19/18 09:04 400 MG Meropenem 500 mg/ Sodium Chloride 50 ml @ 100 mls/hr Q8HRS 04/15/18 18:00 04/19/18 05:35 100 MLS/HR Metolazone (Zaroxolyn) 2.5 mg MoWeFr 04/16/18 09:00 04/17/18 09:02 DC 04/16/18 10:47 2.5 MG Montelukast Sodium (Singulair) 10 mg QHS 04/17/18 21:00 04/18/18 23:09 10 MG Non-Formulary Medication 2 ea BID@1730,2200 04/18/18 17:30 04/18/18 22:01 DC 04/18/18 23:27 2 EA Non-Formulary Medication (Hydrocodone Bitartrate (Zohydro ER)) 20 mg BID 04/16/18 09:00 04/18/18 23:09 20 MG Ondansetron HCl (Zofran Odt) 4 mg PRN Q6HRS PRN 04/16/18 08:30 Ondansetron HCl (Zofran) 4 mg PRN Q6HRS PRN 04/16/18 08:30 Pantoprazole Sodium (Protonix) 40 mg BIDAC 04/16/18 09:00 04/19/18 09:03 40 MG Piperacillin Sod/ Tazobactam Sod 3.375 gm/Sodium Chloride 50 ml @ 100 mls/hr 1X ONCE 04/15/18 13:45 04/15/18 14:14 DC 04/15/18 13:57 100 MLS/HR Potassium Chloride (KCl Oral Soln) 40 meq Q4H 04/17/18 09:00 04/17/18 09:35 DC 04/17/18 09:20 40 MEQ Potassium Chloride (Klor-Con) 20 meq [id number] 04/16/18 09:00 Cancel Sodium Chloride 1,000 ml @ 1,000 mls/hr 1X ONCE 04/15/18 14:00 04/15/18 14:59 DC 04/15/18 14:06 1,000 MLS/HR Tamsulosin HCl (Flomax) 0.4 mg BID 04/16/18 09:00 04/19/18 09:05 0.4 MG Vancomycin HCl (Vanco Per Pharmacy) 1 each PRN DAILY PRN 04/15/18 13:45 04/16/18 10:33 DC 04/15/18 15:19 1 EACH Vancomycin HCl (Vancomycin Trough Level) 1 each 1X ONCE 04/19/18 13:30 04/19/18 13:30 DC Vancomycin HCl 1.5 gm/Sodium Chloride 500 ml @ 250 mls/hr Q48H 04/17/18 14:00 04/17/18 14:00 DC Vancomycin HCl 2 gm/Sodium Chloride 500 ml @ 250 mls/hr 1X ONCE 04/15/18 13:45 04/15/18 15:44 DC 04/15/18 14:46 250 MLS/HR Vitamin B Complex/ Vitamin C (Lupis-Brett) 1 tab DAILY 04/16/18 09:00 04/19/18 09:04 1 TAB Vitamin D (Vitamin D3) 1,000 unit DAILY 04/16/18 09:00 04/19/18 09:04 1,000 UNIT Lab Laboratory Tests Test 04/19/18 06:45 White Blood Count 0.4 x10^3/uL (4.0-11.0) Red Blood Count 2.29 x10^6/uL (4.30-5.70) Hemoglobin 7.4 g/dL (13.0-17.5) Hematocrit 21.2 % (39.0-53.0) Mean Corpuscular Volume 93 fL (79-100) Mean Corpuscular Hemoglobin 32 pg (25-35) Mean Corpuscular Hemoglobin Concent 35 g/dL (31-37) Red Cell Distribution Width 15.4 % (11.5-14.5) Platelet Count 11 x10^3/uL (140-400) Neutrophils (%) (Auto) 20 % (31-73) Lymphocytes (%) (Auto) 61 % (24-48) Monocytes (%) (Auto) 13 % (0-9) Eosinophils (%) (Auto) 5 % (0-3) Basophils (%) (Auto) 1 % (0-3) Neutrophils # (Auto) 0.1 x10^3uL (1.8-7.7) Lymphocytes # (Auto) 0.2 x10^3/uL (1.0-4.8) Monocytes # (Auto) 0.0 x10^3/uL (0.0-1.1) Eosinophils # (Auto) 0.0 x10^3/uL (0.0-0.7) Basophils # (Auto) 0.0 x10^3/uL (0.0-0.2) Erythrocyte Sedimentation Rate 80 (0-15) Sodium Level 136 mmol/L (136-145) Potassium Level 2.8 mmol/L (3.5-5.1) Chloride Level 94 mmol/L (98-107) Carbon Dioxide Level 35 mmol/L (21-32) Anion Gap 7 (6-14) Blood Urea Nitrogen 83 mg/dL (8-26) Creatinine 3.0 mg/dL (0.7-1.3) Estimated GFR (Cockcroft-Gault) 20.7 BUN/Creatinine Ratio 28 (6-20) Glucose Level 133 mg/dL (70-99) Calcium Level 9.1 mg/dL (8.5-10.1) Total Bilirubin 1.1 mg/dL (0.2-1.0) Aspartate Amino Transf (AST/SGOT) 79 U/L (15-37) Alanine Aminotransferase (ALT/SGPT) 77 U/L (16-63) Alkaline Phosphatase 161 U/L (46-116) Total Protein 5.8 g/dL (6.4-8.2) Albumin 1.8 g/dL (3.4-5.0) Albumin/Globulin Ratio 0.5 (1.0-1.7) Results All relevant outside records, renal labs, imaging studies, telemetry/EKG's were reviewed. FREDI MINOR MD Apr 19, 2018 10:39
--- NOTE | 2018-04-19 11:07 | PDOC ---
Infectious Disease Note Subjective Subjective awake, wants to sleep says, palliative care decided , though pt says I don't know ROS ROS no n/v/d/fever Vital Sign Vital Signs Vital Signs Date Time Temp Pulse Resp B/P (MAP) Pulse Ox O2 Delivery O2 Flow Rate FiO2 04/19/18 08:00 115 88/42 04/19/18 07:51 91 Nasal Cannula 3.0 04/19/18 07:00 98.7 18 98.7 Physical Exam PHYSICAL EXAM GENERAL: in bed today HENT: Dry LUNGS: Clear. HEART: S1, S2 regular. ABDOMEN: Soft, NT EXTREMITIES: BLE edema and chronic venous insufficiency changes SKIN: bruises and ecchymosis NEUROLOGIC: Alert, responds appropriately Port clean Labs Lab Laboratory Tests Test 04/19/18 06:45 White Blood Count 0.4 x10^3/uL (4.0-11.0) Red Blood Count 2.29 x10^6/uL (4.30-5.70) Hemoglobin 7.4 g/dL (13.0-17.5) Hematocrit 21.2 % (39.0-53.0) Mean Corpuscular Volume 93 fL (79-100) Mean Corpuscular Hemoglobin 32 pg (25-35) Mean Corpuscular Hemoglobin Concent 35 g/dL (31-37) Red Cell Distribution Width 15.4 % (11.5-14.5) Platelet Count 11 x10^3/uL (140-400) Neutrophils (%) (Auto) 20 % (31-73) Lymphocytes (%) (Auto) 61 % (24-48) Monocytes (%) (Auto) 13 % (0-9) Eosinophils (%) (Auto) 5 % (0-3) Basophils (%) (Auto) 1 % (0-3) Neutrophils # (Auto) 0.1 x10^3uL (1.8-7.7) Lymphocytes # (Auto) 0.2 x10^3/uL (1.0-4.8) Monocytes # (Auto) 0.0 x10^3/uL (0.0-1.1) Eosinophils # (Auto) 0.0 x10^3/uL (0.0-0.7) Basophils # (Auto) 0.0 x10^3/uL (0.0-0.2) Erythrocyte Sedimentation Rate 80 (0-15) Sodium Level 136 mmol/L (136-145) Potassium Level 2.8 mmol/L (3.5-5.1) Chloride Level 94 mmol/L (98-107) Carbon Dioxide Level 35 mmol/L (21-32) Anion Gap 7 (6-14) Blood Urea Nitrogen 83 mg/dL (8-26) Creatinine 3.0 mg/dL (0.7-1.3) Estimated GFR (Cockcroft-Gault) 20.7 BUN/Creatinine Ratio 28 (6-20) Glucose Level 133 mg/dL (70-99) Calcium Level 9.1 mg/dL (8.5-10.1) Total Bilirubin 1.1 mg/dL (0.2-1.0) Aspartate Amino Transf (AST/SGOT) 79 U/L (15-37) Alanine Aminotransferase (ALT/SGPT) 77 U/L (16-63) Alkaline Phosphatase 161 U/L (46-116) Total Protein 5.8 g/dL (6.4-8.2) Albumin 1.8 g/dL (3.4-5.0) Albumin/Globulin Ratio 0.5 (1.0-1.7) Micro Microbiology 04/15/18 Blood Culture - Preliminary, Resulted NO GROWTH AFTER 3 DAYS Objective Assessment Fever Encephalopathy Pneumonia Neutropenia Debility 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 CHRISTIE OSHEA MD Apr 19, 2018 11:07
--- NOTE | 2018-04-19 12:36 | PDOC2 ---
CARDIAC CONSULT DATE OF CONSULT Date of Consult DATE: 04/19/18 TIME: 12:32 REASON FOR CONSULT Reason for Consult: atrial fib REFERRING PHYSICIAN Referring Physician: [place] SOURCE Source: Chart review, Patient (is unable to provide any information; indicates he does not know where he is) HISTORY OF PRESENT ILLNESS HISTORY OF PRESENT ILLNESS 72 year old with multiple hospitalizations recently related to AML and profound anemia. Readmitted from Heme-Onc office through ER with generalized weakness. Profound anemia and hypokalemia. Hgb of 6.9 and transfused 2 units; pancytopenic. K of 2.9 and 2.8 treated with oral KCL without significant increase in levels. EKG with SR, however, telemetry demonstrates atrial fib with RVR. Reason for Visit: atrial fib PAST MEDICAL HISTORY Past Medical History Cardiovascular: AFIB, CAD (with previous CABG/MVR), HTN, Hyperlipidemia, Valve insufficiency (mitral regurg with MVR), Other ([employer]tronic PPM) GI: GERD Heme/Onc: Anemia NOS, Cancer (AML) Hepatobiliary: No pertinent hx Psych: No pertinent hx Musculoskeletal: Other (chronic pain ) Rheumatologic: Gout Infectious disease: Other (C diff) ENT: No pertinent hx Renal/: Chronic renal insuff (with previous HD) Endocrine: No pertinent hx Dermatology: Other (venous stasis) PAST SURGICAL HISTORY Past Surgical History: Pacemaker (Medtronic), CABG (with MVR) FAMILY HISTORY Family History: Other (not pertinent) SOCIAL HISTORY Lives: with Family CURRENT MEDICATIONS CURRENT MEDICATIONS Current Medications Medications (Trade) Dose Ordered Sig/Toña Route PRN Reason Start Time Stop Time Status Last Admin Dose Admin Non-Formulary Medication 2 ea BID@1730,2200 PO 04/18/18 17:30 04/18/18 22:01 DC 04/18/18 23:27 ALLERGIES ALLERGIES: Coded Allergies: NSAIDS (Non-Steroidal Anti-Inflamma (Verified Allergy, Intermediate, Hives , 04/05/18) Sulfa (Sulfonamide Antibiotics) (Verified Allergy, Intermediate, HIVES, 04/05/18) I S O L A T I O N *CONTACT* (Verified Allergy, Unknown, 04/05/18) mrsa hydroxyzine (Verified Adverse Reaction, Intermediate, insomnia, 04/05/18) ROS Review of System unobtainable due to confusion/disorientation PHYSICAL EXAM General: Cooperative HEENT: Atraumatic Lungs: Other (diminished anteriorly) Heart: Normal S1, Normal S2, Other (tele: atrial fib) Abdomen: Soft Extremities: Other (3-4+ LE edema) Skin: Other (stasis changes) Psych/Mental Status: Other (unable to identify location, date or events) MUSCULOSKELETAL: Osteoarthritic changes both hands VITALS VITALS Vital Signs Date Time Temp Pulse Resp B/P (MAP) Pulse Ox O2 Delivery O2 Flow Rate FiO2 04/19/18 08:00 115 88/42 04/19/18 07:51 91 Nasal Cannula 3.0 04/19/18 07:00 98.7 18 98.7 LABS Lab: Laboratory Tests Test 04/19/18 06:45 White Blood Count 0.4 x10^3/uL (4.0-11.0) Red Blood Count 2.29 x10^6/uL (4.30-5.70) Hemoglobin 7.4 g/dL (13.0-17.5) Hematocrit 21.2 % (39.0-53.0) Mean Corpuscular Volume 93 fL (79-100) Mean Corpuscular Hemoglobin 32 pg (25-35) Mean Corpuscular Hemoglobin Concent 35 g/dL (31-37) Red Cell Distribution Width 15.4 % (11.5-14.5) Platelet Count 11 x10^3/uL (140-400) Neutrophils (%) (Auto) 20 % (31-73) Lymphocytes (%) (Auto) 61 % (24-48) Monocytes (%) (Auto) 13 % (0-9) Eosinophils (%) (Auto) 5 % (0-3) Basophils (%) (Auto) 1 % (0-3) Neutrophils # (Auto) 0.1 x10^3uL (1.8-7.7) Lymphocytes # (Auto) 0.2 x10^3/uL (1.0-4.8) Monocytes # (Auto) 0.0 x10^3/uL (0.0-1.1) Eosinophils # (Auto) 0.0 x10^3/uL (0.0-0.7) Basophils # (Auto) 0.0 x10^3/uL (0.0-0.2) Erythrocyte Sedimentation Rate 80 (0-15) Sodium Level 136 mmol/L (136-145) Potassium Level 2.8 mmol/L (3.5-5.1) Chloride Level 94 mmol/L (98-107) Carbon Dioxide Level 35 mmol/L (21-32) Anion Gap 7 (6-14) Blood Urea Nitrogen 83 mg/dL (8-26) Creatinine 3.0 mg/dL (0.7-1.3) Estimated GFR (Cockcroft-Gault) 20.7 BUN/Creatinine Ratio 28 (6-20) Glucose Level 133 mg/dL (70-99) Calcium Level 9.1 mg/dL (8.5-10.1) Total Bilirubin 1.1 mg/dL (0.2-1.0) Aspartate Amino Transf (AST/SGOT) 79 U/L (15-37) Alanine Aminotransferase (ALT/SGPT) 77 U/L (16-63) Alkaline Phosphatase 161 U/L (46-116) Total Protein 5.8 g/dL (6.4-8.2) Albumin 1.8 g/dL (3.4-5.0) Albumin/Globulin Ratio 0.5 (1.0-1.7) IMAGES IMAGES CXR: 04/15/2018: Findings: Stable median sternotomy wires. Left chest Port-A-Cath the right chest dual-chamber pacer is stable. Tortuous and atherosclerotic thoracic aorta. Cardiac size upper limits of normal. Pulmonary vascular congestion and interstitial opacities are improved. There is right midlung airspace disease. No pleural abnormality. IMPRESSION: 1. Pulmonary vascular congestion and interstitial edema are improved. 2. There is new right midlung airspace disease. EKG EKG 04/17/2018: Interpretive Statements SINUS RHYTHM PROBABLE 1ST DEGREE AVB LEFT ANTERIOR FASCICULAR BLOCK RIGHT BUNDLE BRANCH BLOCK RVH WITH REPOLARIZATION ABNORMALITY ECHOCARDIOGRAM ECHOCARDIOGRAM 01/19/2018: TTE: Mild global hypokinesis. EF 45%. Septal motion suggestive of conduction defect and prior CABG. There is a pacemaker lead noted in the RV/RA Cannot rule out bioprosthetic mitral valve. There is flow turbulence noted in diastole without significant mitral stenosis (MG 5 mm Hg). No significant regurgitation. Doppler and Color Flow revealed mild to moderate tricuspid regurgitation. RVSP 55 mm Hg. HEART CATH HEART CATH 09/22/2016: FINDINGS 1. The left main coronary artery arose from the left sinus of Valsalva, gave rise to the left anterior descending and left circumflex arteries and did not show any significant stenosis. 2. The left anterior descending artery showed 80% stenosis in the midsegment followed by 100% chronic occlusion in the mid to distal segment. 3. The left circumflex artery appeared to be a codominant vessel that showed 80 % stenosis in the proximal segment and 90% stenosis in the midsegment. 4. The right coronary artery showed 100% chronic occlusion in the midsegment. 5. The saphenous vein graft to the right coronary artery was widely patent. Distal to the anastomosis, the distal segment and the posterior descending branch did not show any significant stenosis. 6. The sequential saphenous vein graft to the diagonal branch, second obtuse marginal branch and left posterior descending branch of left circumflex artery did not show any significant stenosis. 7. The left internal mammary artery graft to the left anterior descending artery was widely patent. Distal to the anastomosis, the left anterior descending artery did not show any significant stenosis. Conclusion Severe bois forte vessel coronary artery disease s/p coronary artery bypass surgery as stated above with patent left internal mammary artery graft to the left anterior descending artery, patent saphenous vein graft to the right coronary artery, patent sequential saphenous vein graft to the diagonal branch of LAD/ second obtuse marginal and left posterior descending branches of LCx. ASSESSMENT/PLAN ASSESSMENT/PLAN 1. atrial fibrillation, with RVR, not new, in the setting of profound anemia and hypokalemia --correct K with IV replacement, even though, Cr = 3 --check Mg and replace IV indicated --transfused up to about 7.5 --will give dig 0.25 mg IV X 1 for rate control as BP will not consistently support BB or CCB --re-evaluate labs in a.m. --no OAC due to continuing anemia/pancytopenia 2. profound anemia with pancytopenia and AML --defer to heme-onc --? hospice care 3. chronic systolic HF, LVEF 45% --treated with diuretics 4. CKD Cr of 3 stable compared to previous hospitalizations 5. CAD with previous CABG/MVR --stable ROLANDA WYNN [employer] Apr 19, 2018 12:36
[2018-04-19] MEDS ORDERED: DIGOXIN IV 500 MCG/2 ML AMPUL. IV ONE (13:15)
--- NOTE | 2018-04-19 13:22 | PDOC ---
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 Dyspnea secondary to progressive weakness and early sepsis. 4. Immunocompromised patient with acute myelogenous leukemia. 5. Chronic kidney disease. 6. pneumonia 7. symptomatic anemia, improved s/p transfusion 8. metabolic encephalopathy, 9. Atrial fibrillation. 10. hypokalemia replacing 11.severe protein malnutrition, with obesity, BMI 31 History of Present Illness History of Present Illness on neutropenia precautions. replacing lytes PRBC as needed Heme onc and infectious disease following, palliative care at home has been recommended Transfuse usually if febrile or less than 10,000 platelets Would keep hemoglobin greater than 7 Supportive care Replace potassium still full code Vitals Vitals Vital Signs Date Time Temp Pulse Resp B/P (MAP) Pulse Ox O2 Delivery O2 Flow Rate FiO2 04/19/18 13:05 98.1 75 18 122/87 98.1 04/19/18 12:52 Nasal Cannula 3.0 04/19/18 11:00 95 Physical Exam Physical Exam GENERAL: in bed today HENT: Dry LUNGS: Clear. HEART: S1, S2 regular. ABDOMEN: Soft, NT EXTREMITIES: BLE edema and chronic venous insufficiency changes SKIN: bruises and ecchymosis NEUROLOGIC: Alert, responds appropriately Port clean General: Alert, No acute distress Heart: Other (heart rate slightly irregular) Lungs: Other (decrease bs) Abdomen: Soft Extremities: Other (2+ pitting edema) Skin: No significant lesion, Other (easy bruisibility) Labs LABS Laboratory Tests Test 04/19/18 06:45 White Blood Count 0.4 x10^3/uL (4.0-11.0) Red Blood Count 2.29 x10^6/uL (4.30-5.70) Hemoglobin 7.4 g/dL (13.0-17.5) Hematocrit 21.2 % (39.0-53.0) Mean Corpuscular Volume 93 fL (79-100) Mean Corpuscular Hemoglobin 32 pg (25-35) Mean Corpuscular Hemoglobin Concent 35 g/dL (31-37) Red Cell Distribution Width 15.4 % (11.5-14.5) Platelet Count 11 x10^3/uL (140-400) Neutrophils (%) (Auto) 20 % (31-73) Lymphocytes (%) (Auto) 61 % (24-48) Monocytes (%) (Auto) 13 % (0-9) Eosinophils (%) (Auto) 5 % (0-3) Basophils (%) (Auto) 1 % (0-3) Neutrophils # (Auto) 0.1 x10^3uL (1.8-7.7) Lymphocytes # (Auto) 0.2 x10^3/uL (1.0-4.8) Monocytes # (Auto) 0.0 x10^3/uL (0.0-1.1) Eosinophils # (Auto) 0.0 x10^3/uL (0.0-0.7) Basophils # (Auto) 0.0 x10^3/uL (0.0-0.2) Erythrocyte Sedimentation Rate 80 (0-15) Sodium Level 136 mmol/L (136-145) Potassium Level 2.8 mmol/L (3.5-5.1) Chloride Level 94 mmol/L (98-107) Carbon Dioxide Level 35 mmol/L (21-32) Anion Gap 7 (6-14) Blood Urea Nitrogen 83 mg/dL (8-26) Creatinine 3.0 mg/dL (0.7-1.3) Estimated GFR (Cockcroft-Gault) 20.7 BUN/Creatinine Ratio 28 (6-20) Glucose Level 133 mg/dL (70-99) Calcium Level 9.1 mg/dL (8.5-10.1) Magnesium Level 2.1 mg/dL (1.8-2.4) Total Bilirubin 1.1 mg/dL (0.2-1.0) Aspartate Amino Transf (AST/SGOT) 79 U/L (15-37) Alanine Aminotransferase (ALT/SGPT) 77 U/L (16-63) Alkaline Phosphatase 161 U/L (46-116) Total Protein 5.8 g/dL (6.4-8.2) Albumin 1.8 g/dL (3.4-5.0) Albumin/Globulin Ratio 0.5 (1.0-1.7) Assessment and Plan Assessmemt and Plan Problems Medical Problems: (1) Pneumonia Status: Acute (2) Weakness Status: Acute Comment Review of Relevant I have reviewed the following items zoey (where applicable) has been applied. Labs Laboratory Tests Test 04/18/18 10:30 8/20/18 06:45 Sodium Level 132 mmol/L (136-145) 136 mmol/L (136-145) Potassium Level 2.9 mmol/L (3.5-5.1) 2.8 mmol/L (3.5-5.1) Chloride Level 94 mmol/L (98-107) 94 mmol/L (98-107) Carbon Dioxide Level 32 mmol/L (21-32) 35 mmol/L (21-32) Anion Gap 6 (6-14) 7 (6-14) Blood Urea Nitrogen 85 mg/dL (8-26) 83 mg/dL (8-26) Creatinine 3.2 mg/dL (0.7-1.3) 3.0 mg/dL (0.7-1.3) Estimated GFR (Cockcroft-Gault) 19.2 20.7 Glucose Level 184 mg/dL (70-99) 133 mg/dL (70-99) Calcium Level 9.2 mg/dL (8.5-10.1) 9.1 mg/dL (8.5-10.1) White Blood Count 0.4 x10^3/uL (4.0-11.0) Red Blood Count 2.29 x10^6/uL (4.30-5.70) Hemoglobin 7.4 g/dL (13.0-17.5) Hematocrit 21.2 % (39.0-53.0) Mean Corpuscular Volume 93 fL (79-100) Mean Corpuscular Hemoglobin 32 pg (25-35) Mean Corpuscular Hemoglobin Concent 35 g/dL (31-37) Red Cell Distribution Width 15.4 % (11.5-14.5) Platelet Count 11 x10^3/uL (140-400) Neutrophils (%) (Auto) 20 % (31-73) Lymphocytes (%) (Auto) 61 % (24-48) Monocytes (%) (Auto) 13 % (0-9) Eosinophils (%) (Auto) 5 % (0-3) Basophils (%) (Auto) 1 % (0-3) Neutrophils # (Auto) 0.1 x10^3uL (1.8-7.7) Lymphocytes # (Auto) 0.2 x10^3/uL (1.0-4.8) Monocytes # (Auto) 0.0 x10^3/uL (0.0-1.1) Eosinophils # (Auto) 0.0 x10^3/uL (0.0-0.7) Basophils # (Auto) 0.0 x10^3/uL (0.0-0.2) Erythrocyte Sedimentation Rate 80 (0-15) BUN/Creatinine Ratio 28 (6-20) Magnesium Level 2.1 mg/dL (1.8-2.4) Total Bilirubin 1.1 mg/dL (0.2-1.0) Aspartate Amino Transf (AST/SGOT) 79 U/L (15-37) Alanine Aminotransferase (ALT/SGPT) 77 U/L (16-63) Alkaline Phosphatase 161 U/L (46-116) Total Protein 5.8 g/dL (6.4-8.2) Albumin 1.8 g/dL (3.4-5.0) Albumin/Globulin Ratio 0.5 (1.0-1.7) Laboratory Tests Test 04/19/18 06:45 White Blood Count 0.4 x10^3/uL (4.0-11.0) Red Blood Count 2.29 x10^6/uL (4.30-5.70) Hemoglobin 7.4 g/dL (13.0-17.5) Hematocrit 21.2 % (39.0-53.0) Mean Corpuscular Volume 93 fL (79-100) Mean Corpuscular Hemoglobin 32 pg (25-35) Mean Corpuscular Hemoglobin Concent 35 g/dL (31-37) Red Cell Distribution Width 15.4 % (11.5-14.5) Platelet Count 11 x10^3/uL (140-400) Neutrophils (%) (Auto) 20 % (31-73) Lymphocytes (%) (Auto) 61 % (24-48) Monocytes (%) (Auto) 13 % (0-9) Eosinophils (%) (Auto) 5 % (0-3) Basophils (%) (Auto) 1 % (0-3) Neutrophils # (Auto) 0.1 x10^3uL (1.8-7.7) Lymphocytes # (Auto) 0.2 x10^3/uL (1.0-4.8) Monocytes # (Auto) 0.0 x10^3/uL (0.0-1.1) Eosinophils # (Auto) 0.0 x10^3/uL (0.0-0.7) Basophils # (Auto) 0.0 x10^3/uL (0.0-0.2) Erythrocyte Sedimentation Rate 80 (0-15) Sodium Level 136 mmol/L (136-145) Potassium Level 2.8 mmol/L (3.5-5.1) Chloride Level 94 mmol/L (98-107) Carbon Dioxide Level 35 mmol/L (21-32) Anion Gap 7 (6-14) Blood Urea Nitrogen 83 mg/dL (8-26) Creatinine 3.0 mg/dL (0.7-1.3) Estimated GFR (Cockcroft-Gault) 20.7 BUN/Creatinine Ratio 28 (6-20) Glucose Level 133 mg/dL (70-99) Calcium Level 9.1 mg/dL (8.5-10.1) Magnesium Level 2.1 mg/dL (1.8-2.4) Total Bilirubin 1.1 mg/dL (0.2-1.0) Aspartate Amino Transf (AST/SGOT) 79 U/L (15-37) Alanine Aminotransferase (ALT/SGPT) 77 U/L (16-63) Alkaline Phosphatase 161 U/L (46-116) Total Protein 5.8 g/dL (6.4-8.2) Albumin 1.8 g/dL (3.4-5.0) Albumin/Globulin Ratio 0.5 (1.0-1.7) Microbiology 04/15/18 Blood Culture - Preliminary, Resulted NO GROWTH AFTER 3 DAYS Medications Current Medications Piperacillin Sod/ Tazobactam Sod 3.375 gm/Sodium Chloride 50 ml @ 100 mls/hr 1X ONCE IV Last administered on 04/15/18at 13:57; Start 04/15/18 at 13:45; Stop 04/15/18 at 14:14; Status DC Vancomycin HCl (Vanco Per Pharmacy) 1 each PRN DAILY PRN MC SEE COMMENTS Last administered on 04/15/18at 15:19; Start 04/15/18 at 13:45; Stop 04/16/18 at 10:33 ; Status DC Vancomycin HCl 2 gm/Sodium Chloride 500 ml @ 250 mls/hr 1X ONCE IV Last administered on 04/15/18at 14:46; Start 04/15/18 at 13:45; Stop 04/15/18 at 15:44 ; Status DC Sodium Chloride 1,000 ml @ 1,000 mls/hr 1X ONCE IV Last administered on at 14:06; Start 04/15/18 at 14:00; Stop 04/15/18 at 14:59; Status DC Vancomycin HCl 1.5 gm/Sodium Chloride 500 ml @ 250 mls/hr Q48H IV ; Start 04/17 at 14:00; Stop 04/17/18 at 14:00; Status DC Vancomycin HCl (Vancomycin Trough Level) 1 each 1X ONCE MC ; Start 04/19/18 at 13:30; Stop 04/19/18 at 13:30; Status DC Meropenem 500 mg/ Sodium Chloride 50 ml @ 100 mls/hr Q8HRS IV Last administered on 04/19/18at 05:35; Start 04/15/18 at 18:00 Acetaminophen (Tylenol) 650 mg PRN Q6HRS PRN PO FEVER Last administered on 04/15at 20:57; Start 04/15/18 at 21:00; Stop 04/16/18 at 14:55; Status DC Acetaminophen (Tylenol) 500 mg PRN Q6HRS PRN PO MILD PAIN / TEMP; Start at 08:30 Ondansetron HCl (Zofran) 4 mg PRN Q6HRS PRN IV NAUSEA/VOMITING; Start 04/16/18 at 08:30 Ondansetron HCl (Zofran Odt) 4 mg PRN Q6HRS PRN PO NAUSEA/VOMITING; Start 04/16 at 08:30 Allopurinol (Zyloprim) 150 mg DAILY PO Last administered on 04/19/18at 09:04; Start 04/16/18 at 09:00 Aspirin (Ecotrin) 81 mg DAILY PO Last administered on 04/17/18at 09:19; Start at 09:00; Stop 04/17/18 at 17:00; Status DC Atorvastatin Calcium (Lipitor) 20 mg HS PO Last administered on 04/18/18at 23:09 ; Start 04/16/18 at 21:00 Carvedilol (Coreg) 3.125 mg BIDWMEALS PO Last administered on 04/18/18 16:07; Start 04/16/18 at 09:00 Vitamin D (Vitamin D3) 1,000 unit DAILY PO Last administered on 04/19/18 09:04 ; Start 04/16/18 at 09:00 Dicyclomine HCl (Bentyl) 10 mg TID PO Last administered on 04/19/18 09:04; Start 04/16/18 at 09:00 Famotidine (Pepcid) 80 mg DAILY PO ; Start 04/16/18 at 09:00; Status Cancel Finasteride (Proscar) 5 mg DAILY PO Last administered on 04/19/18 09:04; Start 04/16/18 at 09:00 Vitamin B Complex/ Vitamin C (Lupis-Brett) 1 tab DAILY PO Last administered on 09:04; Start 04/16/18 at 09:00 Furosemide (Lasix) 80 mg BID92 PO Last administered on 04/19/18 09:04; Start 04/16/18 at 09:00 Lidocaine/ Prilocaine (Emla) 1 meka DAILY TP Last administered on 04/19/18 09: 07; Start 04/16/18 at 09:00 Tamsulosin HCl (Flomax) 0.4 mg BID PO Last administered on 04/19/18 09:05; Start 04/16/18 at 09:00 Cyanocobalamin (Vitamin B-12) 1,000 mcg DAILY PO Last administered on 09:04; Start 04/16/18 at 09:00 Non-Formulary Medication (Hydrocodone Bitartrate (Zohydro ER)) 20 mg BID PO Last administered on 04/18/18 23:09; Start 04/16/18 at 09:00 Acetaminophen/ Hydrocodone Bitart (Lortab 10/325) 1 tab PRN Q4HRS PRN PO MODERATE PAIN Last administered on 04/16/18 16:22; Start 04/16/18 at 09:00 Lactobacillus Rhamnosus (Culturelle) 1 cap DAILY PO Last administered on 09:04; Start 04/16/18 at 09:00 Magnesium Oxide (Magnesium Oxide) 400 mg DAILY PO Last administered on 09:04; Start 04/16/18 at 09:00 Metolazone (Zaroxolyn) 2.5 mg MoWeFr PO Last administered on 04/16/18at 10:47; Start 04/16/18 at 09:00; Stop 04/17/18 at 09:02; Status DC Pantoprazole Sodium (Protonix) 40 mg BIDAC PO Last administered on 04/19/18at 09 :03; Start 04/16/18 at 09:00 Potassium Chloride (Klor-Con) 20 meq [id number] PO ; Start 04/16/18 at 09:00; Status Cancel Famotidine (Pepcid) 20 mg DAILY PO Last administered on 04/19/18at 09:03; Start 04/16/18 at 09:00 Potassium Chloride (KCl Oral Soln) 20 meq DAILY08 PO Last administered on at 10:48; Start 04/16/18 at 11:00; Stop 04/17/18 at 09:35; Status DC Potassium Chloride (KCl Oral Soln) 40 meq 1X ONCE FT ; Start 04/17/18 at 08:45 ; Stop 04/17/18 at 08:46; Status UNV Potassium Chloride (KCl Oral Soln) 40 meq Q4H PO Last administered on at 09:20; Start 04/17/18 at 09:00; Stop 04/17/18 at 09:35; Status DC Non-Formulary Medication 1 ea DAILY08 PO Last administered on 04/19/18at 08:00; Start 04/18/18 at 08:00 Non-Formulary Medication 2 ea Q4H PO Last administered on 04/17/18at 10:09; Start 04/17/18 at 10:00; Stop 04/17/18 at 14:01; Status DC Fluticasone Propionate (Flonase) 2 spray DAILY NS Last administered on at 09:05; Start 04/17/18 at 10:00 Montelukast Sodium (Singulair) 10 mg QHS PO Last administered on 04/18/18at 23: 09; Start 04/17/18 at 21:00 Albuterol/ Ipratropium (Duoneb) 3 ml RTQID NEB Last administered on 04/19/18at 11:50; Start 04/18/18 at 09:30 Non-Formulary Medication 2 ea BID@1730,2200 PO Last administered on 04/18/18at 23:27; Start 04/18/18 at 17:30; Stop 04/18/18 at 22:01; Status DC Potassium Chloride/Water 50 ml @ 50 mls/hr Q2HR IV ; Start 04/19/18 at 14:00; Stop 04/19/18 at 16:59 Digoxin (Lanoxin) 250 mcg 1X ONCE IV ; Start 04/19/18 at 13:15; Stop 04/19/18 at 13:16; Status DC Active Scripts Active Reported Ondansetron Odt (Ondansetron) 4 Mg Tab.rapdis 1 Tab PO PRN Q8HRS PRN Levofloxacin 750 Mg Tablet 1 Tab PO QODAY Coreg (Carvedilol) 3.125 Mg Tablet 1 Tab PO BID Vitamin D3 (Cholecalciferol (Vitamin D3)) 1,000 Unit Tablet 1 Tab PO DAILY Lidocaine-Prilocaine Cream (Lidocaine/Prilocaine) 30 Gm Cream..g. 1 Meka TP UD Fluconazole 200 Mg Tablet 1 Tab PO DAILY Allopurinol 100 Mg Tablet 150 Mg PO DAILY Acyclovir 400 Mg Tablet 1 Tab PO BID [employer] Capsule (L Gasseri/B Bifidum/B Longum) 1 Each Capsule 1 Each PO DAILY Not given on this admission May resume tomorrow Zohydro ER (Hydrocodone Bitartrate) 10 Mg Cap.er.12h 20 Mg PO BID LAST DOSE GIVEN: DATE: today TIME: 6:40 NEXT DOSE DUE: DATE: Tonight Magnesium (Magnesium Oxide) 400 Mg Capsule 1 Cap PO DAILY Medication not given here May resume tomorrow Potassium Chloride Packet (Potassium Chloride) 20 Meq Packet 20 Meq PO DAILY Not given today due to procedure Take a dose tonight Metolazone 2.5 Mg Tablet 2.5 Mg PO QMWF Dose given Thursday morning Take a dose Thursday morning Finasteride 5 Mg Tablet 5 Mg PO DAILY LAST DOSE GIVEN: DATE: last night TIME: 9pm NEXT DOSE DUE: DATE: Tonight TIME: 9 pm Furosemide 80 Mg Tablet 80 Mg PO BID LAST DOSE GIVEN: DATE: today TIME: 3pm NEXT DOSE DUE: DATE: Tomorrow TIME: 9 am Dicyclomine Hcl 10 Mg Capsule 1 Cap PO TID Not given on this admission Take this evening Vitamin B-12 (Cyanocobalamin (Vitamin B-12)) 1,000 Mcg Tablet.er 1,000 Mcg PO DAILY LAST DOSE GIVEN: DATE: today TIME: 3pm NEXT DOSE DUE: DATE: Tomorrow TIME: 9 am Lortab 10-325 mg Tablet (Hydrocodone/Acetaminophen) 1 Each Tablet 1 Tab PO PRN Q4HRS PRN LAST DOSE GIVEN: DATE: last night TIME: 11pm NEXT DOSE DUE: when needed Tamsulosin Hcl 0.4 Mg Cap.er.24h 0.4 Mg PO BID LAST DOSE GIVEN: DATE: last night TIME: 9 pm NEXT DOSE DUE: DATE: Tonight TIME: 9pm Famotidine 20 Mg Tablet 80 Mg PO BID Famotidine 20mg was given last night may take tonight Lipitor (Atorvastatin Calcium) 20 Mg Tablet 1 Tab PO HS LAST DOSE GIVEN: DATE: last night TIME: 9pm NEXT DOSE DUE: DATE: Tonight TIME: 9 pm Aspir 81 (Aspirin) 81 Mg Tablet.dr 1 Tab PO DAILY LAST DOSE GIVEN: DATE: today TIME: 3pm NEXT DOSE DUE: DATE: Tomorrow TIME: 9 am Omeprazole 40 Mg Capsule.dr 1 Cap PO BID Not given on this admission May resume in the morning TIME: 9:00 am NEXT DOSE DUE: DATE: 06-13-15 TIME: 9:00 pm Nephro-Brett Tablet (Folic Acid/Vitamin B Comp W-C) 0.8 Mg Tablet 1 Tab PO DAILY LAST DOSE GIVEN: DATE: today TIME: 3pm NEXT DOSE DUE: DATE: Tomorrow TIME: 9 am Vitals/I & O Vital Sign - Last 24 Hours 04/18/18 04/18/18 04/18/18 04/18/18 15:00 16:07 19:00 19:49 Temp 98.2 97.2 98.2 97.2 Pulse 91 91 96 Resp 20 17 B/P (MAP) 119/45 (69) 119/45 115/60 (78) Pulse Ox 94 93 O2 Delivery Nasal Cannula Nasal Cannula Nasal Cannula O2 Flow Rate 3.0 3.0 3.0 04/18/18 04/18/18 04/19/18 04/19/18 20:04 22:36 02:36 07:00 Temp 98.2 97.6 98.7 98.2 97.6 98.7 Pulse 81 109 115 Resp 17 20 18 B/P (MAP) 117/55 (75) 98/48 (65) 88/42 (57) Pulse Ox 93 92 94 O2 Delivery Nasal Cannula Nasal Cannula Nasal Cannula Nasal Cannula O2 Flow Rate 3.0 3.0 3.0 3.0 04/19/18 04/19/18 04/19/18 04/19/18 07:51 08:00 11:00 12:52 Temp 98.1 98.1 Pulse 115 51 Resp 18 B/P (MAP) 88/42 120/60 (80) Pulse Ox 91 95 O2 Delivery Nasal Cannula Nasal Cannula Nasal Cannula O2 Flow Rate 3.0 3.0 3.0 04/19/18 13:05 Temp 98.1 98.1 Pulse 75 Resp 18 B/P (MAP) 122/87 Intake and Output 04/18/18 04/18/18 04/19/18 15:01 23:01 07:01 Intake Total 120 ml 220 ml Output Total 1000 ml Balance 120 ml -780 ml CORWIN BHAKTA MD Apr 19, 2018 13:22
[2018-04-19] MEDS: POTASSIUM CHLORIDE 20MEQ 50 ML IV SCH ×2 (14:45→17:41)
[2018-04-19] MEDS: ATORVASTATIN CALCIUM 20 MG TABLET PO SCH (21:32)
[2018-04-19] MEDS: MONTELUKAST SODIUM 10 MG TABLET. PO SCH (21:33)
[2018-04-19] MEDS ORDERED: IV NORMAL SALINE 1000ML BAG 1,000 ML IV ONE (23:00)
[2018-04-20 03:00] VITALS: BP 131/47
[2018-04-20] MEDS: MEROPENEM 500 MG in IV NORMAL SALINE 50ML 50 ML IV SCH (05:14)
[2018-04-20 06:03] LABS: CALCIUM 9.3 mg/dL (8.5-10.1); CREATININE 2.6 mg/dL (0.7-1.3); GFR 24.4
[2018-04-20 07:00] VITALS: BP 94/53
[2018-04-20] MEDS: IPRATRPIUM/ALBUTEROL 0.5/2.5MG 3 ML NEBU. NEB SCH ×4 (07:15→19:28)
[2018-04-20 07:47] LABS: BASO % 1 % (0-3); EOS % 3 % (0-3); HEMOGLOBIN 7.4 g/dL (13.0-17.5); LYMPH # 0.3 x10^3/uL (1.0-4.8); LYMPH % 67 % (24-48); MEAN CORPUSCULAR HEMOGLOBIN 33 pg (25-35); MEAN CORPUSCULAR HGB CONC 36 g/dL (31-37); MEAN CORPUSCULAR VOLUME 93 fL (79-100); MONO # 0.1 x10^3/uL (0.0-1.1); MONO % 14 % (0-9); NEUT # 0.1 x10^3uL (1.8-7.7); NEUT % 15 % (31-73); PLATELET COUNT 37 x10^3/uL (140-400); RED BLOOD COUNT 2.25 x10^6/uL (4.30-5.70)
[2018-04-20 07:51] LABS: HEMATOCRIT 20.9 % (39.0-53.0); WHITE BLOOD COUNT 0.5 x10^3/uL (4.0-11.0)
[2018-04-20] MEDS: POTASSIUM CHLORIDE PO SCH (08:00)
--- NOTE | 2018-04-20 08:07 | PDOC ---
SUBJECTIVE Subjective S: calmer this am, all agreeing to inpt hospice this am, cannot walk, was on floor last night trying to get out of bed O: Physical exam: Gen.: resting in bed, no acute distress Lungs: Breathing comfortably Extremities: Bilateral lower extremity edema w/ PVD changes Psychiatric: calmer today Labs: White count 0.4, hemoglobin 7.4, platelets 11 yesterday Assessment and Plan: He is a 72-year-old male with acute myelogenous leukemia, w / rapidly declining status, very poor px Pneumonia: per ID Neutropenia: Related to acute leukemia, would not give G-CSF due to underlying leukemia, on neut precautions Anemia: Would transfuse when necessary hemoglobin less than 7, anticipate getting one more unit of blood prior to discharge Thrombocytopenia: Would transfuse if platelet count less than 50,000 with bleeding, less than 20,000 with fever, or less than 10,000 spontaneously, had plt's on 04/19 Poor prognosis with acute leukemia and frequent admissions, his is unable to care for him at home: will see if pall care can help w/ hospice house admit disposition: per palliative care, i apprec their assistance Thank you kindly, and please don't hesitate to call with any further questions. OBJECTIVE Vital Signs Vital Signs Date Time Temp Pulse Resp B/P (MAP) Pulse Ox O2 Delivery O2 Flow Rate FiO2 04/20/18 07:17 94 Nasal Cannula 3.0 04/20/18 03:00 98.4 76 16 131/47 (75) Nasal Cannula 3.0 98.4 04/19/18 23:00 98.3 94 17 137/61 (86) Nasal Cannula 3.0 98.3 04/19/18 20:00 Nasal Cannula 3.0 04/19/18 19:45 94 Nasal Cannula 3.0 04/19/18 19:00 98.1 101 17 141/57 (85) 94 Nasal Cannula 3.0 98.1 04/19/18 17:00 113 98/52 04/19/18 15:51 113 98/52 04/19/18 15:38 Nasal Cannula 3.0 04/19/18 15:00 98.1 113 18 95/53 (67) 97 Nasal Cannula 3.0 98.1 04/19/18 14:20 98.1 113 18 98/52 98.1 8/20/18 13:20 98.1 113 20 121/52 98.1 04/19/18 13:05 98.1 75 18 122/87 98.1 04/19/18 12:52 Nasal Cannula 3.0 04/19/18 11:00 98.1 51 18 120/60 (80) 95 Nasal Cannula 3.0 98.1 I & O Intake and Output 04/20/18 07:00 Intake Total 150 ml Balance 150 ml Blood Product IV Normal Saline Flush 150 ml # Voids 4 # Bowel Movements 2 COMMENT Lab Laboratory Tests Test 04/20/18 05:20 White Blood Count 0.5 x10^3/uL (4.0-11.0) Red Blood Count 2.25 x10^6/uL (4.30-5.70) Hemoglobin 7.4 g/dL (13.0-17.5) Hematocrit 20.9 % (39.0-53.0) Mean Corpuscular Volume 93 fL (79-100) Mean Corpuscular Hemoglobin 33 pg (25-35) Mean Corpuscular Hemoglobin Concent 36 g/dL (31-37) Red Cell Distribution Width 15.0 % (11.5-14.5) Platelet Count 37 x10^3/uL (140-400) Neutrophils (%) (Auto) 15 % (31-73) Lymphocytes (%) (Auto) 67 % (24-48) Monocytes (%) (Auto) 14 % (0-9) Eosinophils (%) (Auto) 3 % (0-3) Basophils (%) (Auto) 1 % (0-3) Neutrophils # (Auto) 0.1 x10^3uL (1.8-7.7) Lymphocytes # (Auto) 0.3 x10^3/uL (1.0-4.8) Monocytes # (Auto) 0.1 x10^3/uL (0.0-1.1) Eosinophils # (Auto) 0.0 x10^3/uL (0.0-0.7) Basophils # (Auto) 0.0 x10^3/uL (0.0-0.2) Sodium Level 136 mmol/L (136-145) Potassium Level 3.0 mmol/L (3.5-5.1) Chloride Level 94 mmol/L (98-107) Carbon Dioxide Level 33 mmol/L (21-32) Anion Gap 9 (6-14) Blood Urea Nitrogen 79 mg/dL (8-26) Creatinine 2.6 mg/dL (0.7-1.3) Estimated GFR (Cockcroft-Gault) 24.4 Glucose Level 130 mg/dL (70-99) Calcium Level 9.3 mg/dL (8.5-10.1) BASILIO GARCIA MD Apr 20, 2018 08:07
[2018-04-20] MEDS ORDERED: HYDR10CA3 PO (08:38)
[2018-04-20] MEDS: HYDROCODONE BITARTRATE 10 MG PO SCH (09:00)
[2018-04-20] MEDS: FOLIC/VIT B COMP W-C (RENAL) TABLET. PO SCH (09:58)
[2018-04-20] MEDS: CYANOCOBALAMIN (VITAMIN B-12) 1,000 MCG TABLET. PO SCH (09:59)
[2018-04-20] MEDS: TAMSULOSIN 0.4 MG CAP.ER.24H. PO SCH ×2 (10:00→21:00)
[2018-04-20] MEDS: LACTOBACILLUS RHAMNOSUS GG 1 CAPSULE. PO SCH (10:00)
[2018-04-20] MEDS: DICYCLOMINE HCL 10 MG CAPSULE PO SCH ×3 (10:00→21:00)
[2018-04-20] MEDS: FAMOTIDINE 20 MG TABLET. PO SCH (10:01)
[2018-04-20] MEDS: MAGNESIUM OXIDE 400 MG TABLET PO SCH (10:01)
[2018-04-20] MEDS: FINASTERIDE 5 MG TABLET. PO SCH (10:01)
[2018-04-20] MEDS: PANTOPRAZOLE 40 MG TABLET.DR. PO SCH ×2 (10:01→16:30)
[2018-04-20] MEDS: FUROSEMIDE 80 MG TABLET. PO SCH ×2 (10:01→14:00)
[2018-04-20] MEDS: ALLOPURINOL 300 MG TABLET. PO SCH (10:01)
[2018-04-20] MEDS: CARVEDILOL 3.125 MG TABLET. PO SCH (10:02)
[2018-04-20] MEDS: FLUTICASONE 50MCG/NASAL SPRAY 16GM BOTTLE. NS SCH (10:02)
[2018-04-20] MEDS: CHOLECALCIFEROL (VITAMIN D3) 1,000 UNIT TABLET PO SCH (10:03)
[2018-04-20] MEDS: LIDOCAINE/PRILOCAINE TOPICAL CREAM 5GM TUBE. TP SCH (10:04)
[2018-04-20 11:00] VITALS: BP 139/59
--- NOTE | 2018-04-20 11:17 | PDOC ---
SUBJECTIVE ROS Looking pale , Hospice today OBJECTIVE Vital Signs Vital Signs Date Time Temp Pulse Resp B/P (MAP) Pulse Ox O2 Delivery O2 Flow Rate FiO2 04/20/18 10:02 76 131/47 04/20/18 07:17 94 Nasal Cannula 3.0 04/20/18 03:00 98.4 16 98.4 I & 0 Intake and Output 04/20/18 07:00 Intake Total 150 ml Balance 150 ml Blood Product IV Normal Saline Flush 150 ml # Voids 4 # Bowel Movements 2 PHYSICAL EXAM Physical Exam General: NAD HEENT: On o2 By NC Lungs: CTA ant Heart: Regular rate, Murmur Abdomen: Soft, No hepatosplenomegaly Extremities: Chr LE edema Skin: No rashes, Neuro: stable DIAGNOSIS/ASSESSMENT Assessment & Plan CKD stage 3/4- Intermittent SONNY Multiple Hospitalizations, Stable today Diuretics on Hold Hypokalemia- On KCL replacement at home 40 BID Replace as needed Dyspnea dyspnea and weakness along with new right mid lung infiltrate consistent with pneumonia. Acute myelogenous leukemia with persistent pancytopenia Immunocompromised patient with acute myelogenous leukemia. Pancytopenia- due to above BPH-On Flomax Discussed with Pt's , poor prognosis, likely Hospice today COMMENT/RELEVANT DATA Meds Current Medications Medications (Trade) Dose Ordered Sig/Toña Start Time Stop Time Status Last Admin Dose Admin Acetaminophen (Tylenol) 500 mg PRN Q6HRS PRN 04/16/18 08:30 Acetaminophen/ Hydrocodone Bitart (Lortab 10/325) 1 tab PRN Q4HRS PRN 04/16/18 09:00 04/16/18 16:22 1 TAB Albuterol/ Ipratropium (Duoneb) 3 ml RTQID 04/18/18 09:30 04/20/18 07:15 3 ML Allopurinol (Zyloprim) 150 mg DAILY 04/16/18 09:00 04/20/18 10:01 150 MG Aspirin (Ecotrin) 81 mg DAILY 04/16/18 09:00 04/17/18 17:00 DC 04/17/18 09:19 81 MG Atorvastatin Calcium (Lipitor) 20 mg HS 04/16/18 21:00 04/19/18 21:32 20 MG Carvedilol (Coreg) 3.125 mg BIDWMEALS 04/16/18 09:00 04/20/18 10:02 3.125 MG Cyanocobalamin (Vitamin B-12) 1,000 mcg DAILY 04/16/18 09:00 04/20/18 09:59 1,000 MCG Dicyclomine HCl (Bentyl) 10 mg TID 04/16/18 09:00 04/20/18 10:00 10 MG Digoxin (Lanoxin) 250 mcg 1X ONCE 04/19/18 13:15 04/19/18 13:16 DC 04/19/18 15:51 250 MCG Famotidine (Pepcid) 20 mg DAILY 04/16/18 09:00 04/20/18 10:01 20 MG Finasteride (Proscar) 5 mg DAILY 04/16/18 09:00 04/20/18 10:01 5 MG Fluticasone Propionate (Flonase) 2 spray DAILY 04/17/18 10:00 04/20/18 10:02 2 SPRAY Furosemide (Lasix) 80 mg [id number] 04/16/18 09:00 04/20/18 10:01 80 MG Lactobacillus Rhamnosus (Culturelle) 1 cap DAILY 04/16/18 09:00 04/20/18 10:00 1 CAP Lidocaine/ Prilocaine (Emla) 1 malcolm DAILY 04/16/18 09:00 04/20/18 10:04 1 MALCOLM Magnesium Oxide (Magnesium Oxide) 400 mg DAILY 04/16/18 09:00 04/20/18 10:01 400 MG Meropenem 500 mg/ Sodium Chloride 50 ml @ 100 mls/hr Q8HRS 04/15/18 18:00 04/20/18 05:14 100 MLS/HR Metolazone (Zaroxolyn) 2.5 mg MoWeFr 04/16/18 09:00 04/17/18 09:02 DC 04/16/18 10:47 2.5 MG Montelukast Sodium (Singulair) 10 mg QHS 04/17/18 21:00 04/19/18 21:33 10 MG Non-Formulary Medication 2 ea BID@1730,2200 04/18/18 17:30 04/18/18 22:01 DC 04/18/18 23:27 2 EA Non-Formulary Medication (Hydrocodone Bitartrate (Zohydro ER)) 20 mg BID 04/16/18 09:00 04/18/18 23:09 20 MG Ondansetron HCl (Zofran Odt) 4 mg PRN Q6HRS PRN 04/16/18 08:30 Ondansetron HCl (Zofran) 4 mg PRN Q6HRS PRN 04/16/18 08:30 Pantoprazole Sodium (Protonix) 40 mg BIDAC 04/16/18 09:00 04/20/18 10:01 40 MG Piperacillin Sod/ Tazobactam Sod 3.375 gm/Sodium Chloride 50 ml @ 100 mls/hr 1X ONCE 04/15/18 13:45 04/15/18 14:14 DC 04/15/18 13:57 100 MLS/HR Potassium Chloride/Water 50 ml @ 50 mls/hr Q2HR 04/19/18 14:00 04/19/18 16:59 DC 04/19/18 17:41 50 MLS/HR Potassium Chloride (KCl Oral Soln) 40 meq Q4H 04/17/18 09:00 04/17/18 09:35 DC 04/17/18 09:20 40 MEQ Potassium Chloride (Klor-Con) 20 meq [id number] 04/16/18 09:00 Cancel Sodium Chloride 1,000 ml @ 150 mls/hr 1X ONCE 04/19/18 23:00 04/20/18 05:39 DC 04/19/18 23:16 150 MLS/HR Tamsulosin HCl (Flomax) 0.4 mg BID 04/16/18 09:00 04/20/18 10:00 0.4 MG Vancomycin HCl (Vanco Per Pharmacy) 1 each PRN DAILY PRN 04/15/18 13:45 04/16/18 10:33 DC 04/15/18 15:19 1 EACH Vancomycin HCl (Vancomycin Trough Level) 1 each 1X ONCE 04/19/18 13:30 04/19/18 13:30 DC Vancomycin HCl 1.5 gm/Sodium Chloride 500 ml @ 250 mls/hr Q48H 04/17/18 14:00 04/17/18 14:00 DC Vancomycin HCl 2 gm/Sodium Chloride 500 ml @ 250 mls/hr 1X ONCE 04/15/18 13:45 04/15/18 15:44 DC 04/15/18 14:46 250 MLS/HR Vitamin B Complex/ Vitamin C (Lupis-Brett) 1 tab DAILY 04/16/18 09:00 04/20/18 09:58 1 TAB Vitamin D (Vitamin D3) 1,000 unit DAILY 04/16/18 09:00 04/20/18 10:03 1,000 UNIT Lab Laboratory Tests Test 04/20/18 05:20 White Blood Count 0.5 x10^3/uL (4.0-11.0) Red Blood Count 2.25 x10^6/uL (4.30-5.70) Hemoglobin 7.4 g/dL (13.0-17.5) Hematocrit 20.9 % (39.0-53.0) Mean Corpuscular Volume 93 fL (79-100) Mean Corpuscular Hemoglobin 33 pg (25-35) Mean Corpuscular Hemoglobin Concent 36 g/dL (31-37) Red Cell Distribution Width 15.0 % (11.5-14.5) Platelet Count 37 x10^3/uL (140-400) Neutrophils (%) (Auto) 15 % (31-73) Lymphocytes (%) (Auto) 67 % (24-48) Monocytes (%) (Auto) 14 % (0-9) Eosinophils (%) (Auto) 3 % (0-3) Basophils (%) (Auto) 1 % (0-3) Neutrophils # (Auto) 0.1 x10^3uL (1.8-7.7) Lymphocytes # (Auto) 0.3 x10^3/uL (1.0-4.8) Monocytes # (Auto) 0.1 x10^3/uL (0.0-1.1) Eosinophils # (Auto) 0.0 x10^3/uL (0.0-0.7) Basophils # (Auto) 0.0 x10^3/uL (0.0-0.2) Sodium Level 136 mmol/L (136-145) Potassium Level 3.0 mmol/L (3.5-5.1) Chloride Level 94 mmol/L (98-107) Carbon Dioxide Level 33 mmol/L (21-32) Anion Gap 9 (6-14) Blood Urea Nitrogen 79 mg/dL (8-26) Creatinine 2.6 mg/dL (0.7-1.3) Estimated GFR (Cockcroft-Gault) 24.4 Glucose Level 130 mg/dL (70-99) Calcium Level 9.3 mg/dL (8.5-10.1) Results All relevant outside records, renal labs, imaging studies, telemetry/EKG's were reviewed. FREDI MINOR MD Apr 20, 2018 11:17
--- NOTE | 2018-04-20 11:37 | PDOC2 ---
PALLIATIVE CARE Palliative Care Note Palliative Care Consult requested by Dr. Demarco oncologist to assist with discharge to IP Hospice facility. Medical Assessment per medical record; -acute myelogenous leukemia on decitabine which began February, with pancytopenia 2-acute on chronic systolic CHF with exacerbation , LE edema 3. Dyspnea secondary to progressive weakness and early sepsis. 4. Immunocompromised patient with acute myelogenous leukemia. 5. Chronic kidney disease. 6. pneumonia 7. symptomatic anemia, improved s/p transfusion 8. metabolic encephalopathy, 9. Atrial fibrillation. 10. hypokalemia replacing 11.severe protein malnutrition patient confused. restless at times. Spoke with . She has discussed with oncologist today goal of care. Hospice facilities discussed. Donna - would like patient to go to [facility] for comfort care. Discussed Code Status: /DPOA requests DNR/DNI. Understands without this attempt patient likely would . Outside the Hospital DNR/DNI signed by . Spoke with son Tejas. Reviewed above medical condition. He is supportive of plan Dr. Dickerson and Ivan DISLA will assist with discharge plan. ELINOR LEE Apr 20, 2018 11:37
--- NOTE | 2018-04-20 12:10 | PDOC ---
PULMONARY PROGRESS NOTES Subjective not responsive Vitals Vital Signs Date Time Temp Pulse Resp B/P (MAP) Pulse Ox O2 Delivery O2 Flow Rate FiO2 04/20/18 11:19 Nasal Cannula 3.0 04/20/18 10:02 76 131/47 04/20/18 07:17 94 04/20/18 03:00 98.4 16 98.4 HEENT: Other (nc at perrl n) Lungs: Other (decrease bs) Cardiovascular: S1, S2 Abdomen: Soft, Non-tender Extremities: Other (+ edema, chronic changes) Skin: Warm Labs Laboratory Tests Test 04/19/18 06:45 04/20/18 05:20 White Blood Count 0.4 x10^3/uL (4.0-11.0) 0.5 x10^3/uL (4.0-11.0) Red Blood Count 2.29 x10^6/uL (4.30-5.70) 2.25 x10^6/uL (4.30-5.70) Hemoglobin 7.4 g/dL (13.0-17.5) 7.4 g/dL (13.0-17.5) Hematocrit 21.2 % (39.0-53.0) 20.9 % (39.0-53.0) Mean Corpuscular Volume 93 fL (79-100) 93 fL (79-100) Mean Corpuscular Hemoglobin 32 pg (25-35) 33 pg (25-35) Mean Corpuscular Hemoglobin Concent 35 g/dL (31-37) 36 g/dL (31-37) Red Cell Distribution Width 15.4 % (11.5-14.5) 15.0 % (11.5-14.5) Platelet Count 11 x10^3/uL (140-400) 37 x10^3/uL (140-400) Neutrophils (%) (Auto) 20 % (31-73) 15 % (31-73) Lymphocytes (%) (Auto) 61 % (24-48) 67 % (24-48) Monocytes (%) (Auto) 13 % (0-9) 14 % (0-9) Eosinophils (%) (Auto) 5 % (0-3) 3 % (0-3) Basophils (%) (Auto) 1 % (0-3) 1 % (0-3) Neutrophils # (Auto) 0.1 x10^3uL (1.8-7.7) 0.1 x10^3uL (1.8-7.7) Lymphocytes # (Auto) 0.2 x10^3/uL (1.0-4.8) 0.3 x10^3/uL (1.0-4.8) Monocytes # (Auto) 0.0 x10^3/uL (0.0-1.1) 0.1 x10^3/uL (0.0-1.1) Eosinophils # (Auto) 0.0 x10^3/uL (0.0-0.7) 0.0 x10^3/uL (0.0-0.7) Basophils # (Auto) 0.0 x10^3/uL (0.0-0.2) 0.0 x10^3/uL (0.0-0.2) Erythrocyte Sedimentation Rate 80 (0-15) Sodium Level 136 mmol/L (136-145) 136 mmol/L (136-145) Potassium Level 2.8 mmol/L (3.5-5.1) 3.0 mmol/L (3.5-5.1) Chloride Level 94 mmol/L (98-107) 94 mmol/L (98-107) Carbon Dioxide Level 35 mmol/L (21-32) 33 mmol/L (21-32) Anion Gap 7 (6-14) 9 (6-14) Blood Urea Nitrogen 83 mg/dL (8-26) 79 mg/dL (8-26) Creatinine 3.0 mg/dL (0.7-1.3) 2.6 mg/dL (0.7-1.3) Estimated GFR (Cockcroft-Gault) 20.7 24.4 BUN/Creatinine Ratio 28 (6-20) Glucose Level 133 mg/dL (70-99) 130 mg/dL (70-99) Calcium Level 9.1 mg/dL (8.5-10.1) 9.3 mg/dL (8.5-10.1) Magnesium Level 2.1 mg/dL (1.8-2.4) Total Bilirubin 1.1 mg/dL (0.2-1.0) Aspartate Amino Transf (AST/SGOT) 79 U/L (15-37) Alanine Aminotransferase (ALT/SGPT) 77 U/L (16-63) Alkaline Phosphatase 161 U/L (46-116) Total Protein 5.8 g/dL (6.4-8.2) Albumin 1.8 g/dL (3.4-5.0) Albumin/Globulin Ratio 0.5 (1.0-1.7) Laboratory Tests Test 04/20/18 05:20 White Blood Count 0.5 x10^3/uL (4.0-11.0) Red Blood Count 2.25 x10^6/uL (4.30-5.70) Hemoglobin 7.4 g/dL (13.0-17.5) Hematocrit 20.9 % (39.0-53.0) Mean Corpuscular Volume 93 fL (79-100) Mean Corpuscular Hemoglobin 33 pg (25-35) Mean Corpuscular Hemoglobin Concent 36 g/dL (31-37) Red Cell Distribution Width 15.0 % (11.5-14.5) Platelet Count 37 x10^3/uL (140-400) Neutrophils (%) (Auto) 15 % (31-73) Lymphocytes (%) (Auto) 67 % (24-48) Monocytes (%) (Auto) 14 % (0-9) Eosinophils (%) (Auto) 3 % (0-3) Basophils (%) (Auto) 1 % (0-3) Neutrophils # (Auto) 0.1 x10^3uL (1.8-7.7) Lymphocytes # (Auto) 0.3 x10^3/uL (1.0-4.8) Monocytes # (Auto) 0.1 x10^3/uL (0.0-1.1) Eosinophils # (Auto) 0.0 x10^3/uL (0.0-0.7) Basophils # (Auto) 0.0 x10^3/uL (0.0-0.2) Sodium Level 136 mmol/L (136-145) Potassium Level 3.0 mmol/L (3.5-5.1) Chloride Level 94 mmol/L (98-107) Carbon Dioxide Level 33 mmol/L (21-32) Anion Gap 9 (6-14) Blood Urea Nitrogen 79 mg/dL (8-26) Creatinine 2.6 mg/dL (0.7-1.3) Estimated GFR (Cockcroft-Gault) 24.4 Glucose Level 130 mg/dL (70-99) Calcium Level 9.3 mg/dL (8.5-10.1) Medications Active Scripts Medications Dose Route/Sig Max Daily Dose Days Date Category Dose Instructions Ondansetron Odt (Ondansetron) 4 Mg Tab.rapdis 1 Tab PO PRN Q8HRS PRN 04/09/18 Reported Levofloxacin 750 Mg Tablet 1 Tab PO QODAY 04/09/18 Reported Coreg (Carvedilol) 3.125 Mg Tablet 1 Tab PO BID 04/09/18 Reported Vitamin D3 (Cholecalciferol (Vitamin D3)) 1,000 Unit Tablet 1 Tab PO DAILY 03/28/18 Reported Lidocaine-Prilocaine Cream (Lidocaine/Prilocaine) 30 Gm Cream..g. 1 Meka TP UD 03/28/18 Reported Fluconazole 200 Mg Tablet 1 Tab PO DAILY 03/28/18 Reported Allopurinol 100 Mg Tablet 150 Mg PO DAILY 03/28/18 Reported Acyclovir 400 Mg Tablet 1 Tab PO BID 03/28/18 Reported [facility] Capsule (L Gasseri/B Bifidum/B Longum) 1 Each Capsule 1 Each PO DAILY 03/02/18 Reported Not given on this admission May resume tomorrow Zohydro ER (Hydrocodone Bitartrate) 10 Mg Cap.er.12h 20 Mg PO BID 03/02/18 Reported LAST DOSE GIVEN: DATE: today TIME: 6:40 NEXT DOSE DUE: DATE: Tonight Magnesium (Magnesium Oxide) 400 Mg Capsule 1 Cap PO DAILY 03/02/18 Reported Medication not given here May resume tomorrow Potassium Chloride Packet (Potassium Chloride) 20 Meq Packet 20 Meq PO DAILY 03/02/18 Reported Not given today due to procedure Take a dose tonight Metolazone 2.5 Mg Tablet 2.5 Mg PO QMWF 03/02/18 Reported Dose given Thursday morning Take a dose Thursday morning Finasteride 5 Mg Tablet 5 Mg PO DAILY 03/02/18 Reported LAST DOSE GIVEN: DATE: last night TIME: 9pm NEXT DOSE DUE: DATE: Tonight TIME: 9 pm Furosemide 80 Mg Tablet 80 Mg PO BID 03/02/18 Reported LAST DOSE GIVEN: DATE: today TIME: 3pm NEXT DOSE DUE: DATE: Tomorrow TIME: 9 am Dicyclomine Hcl 10 Mg Capsule 1 Cap PO TID 03/02/18 Reported Not given on this admission Take this evening Vitamin B-12 (Cyanocobalamin (Vitamin B-12)) 1,000 Mcg Tablet.er 1,000 Mcg PO DAILY 03/02/18 Reported LAST DOSE GIVEN: DATE: today TIME: 3pm NEXT DOSE DUE: DATE: Tomorrow TIME: 9 am Lortab 10-325 mg Tablet (Hydrocodone/Acetaminophen) 1 Each Tablet 1 Tab PO PRN Q4HRS PRN 09/22/16 Reported LAST DOSE GIVEN: DATE: last night TIME: 11pm NEXT DOSE DUE: when needed Tamsulosin Hcl 0.4 Mg Cap.er.24h 0.4 Mg PO BID 06/12/15 Reported LAST DOSE GIVEN: DATE: last night TIME: 9 pm NEXT DOSE DUE: DATE: Tonight TIME: 9pm Famotidine 20 Mg Tablet 80 Mg PO BID 06/12/15 Reported Famotidine 20mg was given last night may take tonight Lipitor (Atorvastatin Calcium) 20 Mg Tablet 1 Tab PO HS 07/08/14 Reported LAST DOSE GIVEN: DATE: last night TIME: 9pm NEXT DOSE DUE: DATE: Tonight TIME: 9 pm Aspir 81 (Aspirin) 81 Mg Tablet.dr 1 Tab PO DAILY 07/08/14 Reported LAST DOSE GIVEN: DATE: today TIME: 3pm NEXT DOSE DUE: DATE: Tomorrow TIME: 9 am Omeprazole 40 Mg Capsule.dr 1 Cap PO BID 07/08/14 Reported Not given on this admission May resume in the morning TIME: 9:00 am NEXT DOSE DUE: DATE: 06-13-15 TIME: 9:00 pm Nephro-Brett Tablet (Folic Acid/Vitamin B Comp W-C) 0.8 Mg Tablet 1 Tab PO DAILY 07/08/14 Reported LAST DOSE GIVEN: DATE: today TIME: 3pm NEXT DOSE DUE: DATE: Tomorrow TIME: 9 am Impression . IMPRESSION: 1. Dyspnea secondary to progressive weakness and early sepsis. 2. Acute myelogenous leukemia with persistent pancytopenia and now presents with fever and progressive dyspnea and weakness along with new right mid lung infiltrate consistent with pneumonia. Less likely alveolar Hemorrhage 3. Immunocompromised patient with acute myelogenous leukemia. 4. Chronic kidney disease. 5. No significant history of tobacco use. 6. Mitral regurgitation. 7. Pacemaker. 8. Atrial fibrillation. 9. allergic rhinitis Plan . d/w agree with comfort care/ hospice will sign off KANDY ALEXANDER MD Apr 20, 2018 12:10
[2018-04-20] MEDS ORDERED: LORazepam INTENSOL 2 MG/ML ORAL.CONC SL PRN (12:45)
[2018-04-20] MEDS: MORPHINE SULFATE 10 MG/5 ML ORAL SOLUTION. PO PRN (12:54)
--- NOTE | 2018-04-20 12:57 | PDOC ---
Infectious Disease Note Subjective Subjective awake, wants to sleep says, palliative care decided , Vital Sign Vital Signs Vital Signs Date Time Temp Pulse Resp B/P (MAP) Pulse Ox O2 Delivery O2 Flow Rate FiO2 04/20/18 12:54 Nasal Cannula 4.0 04/20/18 11:00 100.6 103 20 139/59 (85) 86 100.6 Physical Exam PHYSICAL EXAM GENERAL: in bed today HENT: Dry LUNGS: Clear. HEART: S1, S2 regular. ABDOMEN: Soft, NT EXTREMITIES: BLE edema and chronic venous insufficiency changes SKIN: bruises and ecchymosis NEUROLOGIC: Alert, responds appropriately Port clean Labs Lab Laboratory Tests Test 04/20/18 05:20 White Blood Count 0.5 x10^3/uL (4.0-11.0) Red Blood Count 2.25 x10^6/uL (4.30-5.70) Hemoglobin 7.4 g/dL (13.0-17.5) Hematocrit 20.9 % (39.0-53.0) Mean Corpuscular Volume 93 fL (79-100) Mean Corpuscular Hemoglobin 33 pg (25-35) Mean Corpuscular Hemoglobin Concent 36 g/dL (31-37) Red Cell Distribution Width 15.0 % (11.5-14.5) Platelet Count 37 x10^3/uL (140-400) Neutrophils (%) (Auto) 15 % (31-73) Lymphocytes (%) (Auto) 67 % (24-48) Monocytes (%) (Auto) 14 % (0-9) Eosinophils (%) (Auto) 3 % (0-3) Basophils (%) (Auto) 1 % (0-3) Neutrophils # (Auto) 0.1 x10^3uL (1.8-7.7) Lymphocytes # (Auto) 0.3 x10^3/uL (1.0-4.8) Monocytes # (Auto) 0.1 x10^3/uL (0.0-1.1) Eosinophils # (Auto) 0.0 x10^3/uL (0.0-0.7) Basophils # (Auto) 0.0 x10^3/uL (0.0-0.2) Sodium Level 136 mmol/L (136-145) Potassium Level 3.0 mmol/L (3.5-5.1) Chloride Level 94 mmol/L (98-107) Carbon Dioxide Level 33 mmol/L (21-32) Anion Gap 9 (6-14) Blood Urea Nitrogen 79 mg/dL (8-26) Creatinine 2.6 mg/dL (0.7-1.3) Estimated GFR (Cockcroft-Gault) 24.4 Glucose Level 130 mg/dL (70-99) Calcium Level 9.3 mg/dL (8.5-10.1) Micro Microbiology 04/15/18 Blood Culture - Preliminary, Resulted NO GROWTH AFTER 3 DAYS Objective Assessment Fever Encephalopathy Pneumonia Neutropenia Debility AML on chemo Plan Plan of Care cont Meropenem BC NGTD am CBC Supportive care d/w d/w auto care center manager decided. CHRISTIE OSHEA MD Apr 20, 2018 12:57
[2018-04-20 15:00] VITALS: BP 113/57
[2018-04-20] MEDS ORDERED: MORPHINE SULFATE 4 MG/ML VIAL. IV PRN (15:30)
--- NOTE | 2018-04-20 15:44 | PDOC ---
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 Dyspnea secondary to progressive weakness and early sepsis. 4. Immunocompromised patient with acute myelogenous leukemia. 5. Chronic kidney disease. 6. pneumonia 7. symptomatic anemia, improved s/p transfusion 8. metabolic encephalopathy, 9. Atrial fibrillation. 10. hypokalemia replacing 11.severe protein malnutrition, with obesity, BMI 31 History of Present Illness History of Present Illness plan to DC to hospice inpatient still having agitation and a lot of pain, Heme onc and infectious disease following, palliative care Supportive care will DC all treatment meds out of hospital DNR signed Vitals Vitals Vital Signs Date Time Temp Pulse Resp B/P (MAP) Pulse Ox O2 Delivery O2 Flow Rate FiO2 04/20/18 14:59 Nasal Cannula 3.0 04/20/18 11:00 100.6 103 20 139/59 (85) 86 100.6 Physical Exam Physical Exam GENERAL: in bed today HENT: Dry LUNGS: Clear. HEART: S1, S2 regular. ABDOMEN: Soft, NT EXTREMITIES: BLE edema and chronic venous insufficiency changes SKIN: bruises and ecchymosis NEUROLOGIC: Alert, responds appropriately Port clean General: Cooperative Heart: Normal S1, Normal S2, Other (tele: atrial fib) Lungs: Other (decrease bs) Abdomen: Soft Extremities: Other (3-4+ LE edema) Skin: Other (stasis changes) Labs LABS Laboratory Tests Test 04/20/18 05:20 White Blood Count 0.5 x10^3/uL (4.0-11.0) Red Blood Count 2.25 x10^6/uL (4.30-5.70) Hemoglobin 7.4 g/dL (13.0-17.5) Hematocrit 20.9 % (39.0-53.0) Mean Corpuscular Volume 93 fL (79-100) Mean Corpuscular Hemoglobin 33 pg (25-35) Mean Corpuscular Hemoglobin Concent 36 g/dL (31-37) Red Cell Distribution Width 15.0 % (11.5-14.5) Platelet Count 37 x10^3/uL (140-400) Neutrophils (%) (Auto) 15 % (31-73) Lymphocytes (%) (Auto) 67 % (24-48) Monocytes (%) (Auto) 14 % (0-9) Eosinophils (%) (Auto) 3 % (0-3) Basophils (%) (Auto) 1 % (0-3) Neutrophils # (Auto) 0.1 x10^3uL (1.8-7.7) Lymphocytes # (Auto) 0.3 x10^3/uL (1.0-4.8) Monocytes # (Auto) 0.1 x10^3/uL (0.0-1.1) Eosinophils # (Auto) 0.0 x10^3/uL (0.0-0.7) Basophils # (Auto) 0.0 x10^3/uL (0.0-0.2) Sodium Level 136 mmol/L (136-145) Potassium Level 3.0 mmol/L (3.5-5.1) Chloride Level 94 mmol/L (98-107) Carbon Dioxide Level 33 mmol/L (21-32) Anion Gap 9 (6-14) Blood Urea Nitrogen 79 mg/dL (8-26) Creatinine 2.6 mg/dL (0.7-1.3) Estimated GFR (Cockcroft-Gault) 24.4 Glucose Level 130 mg/dL (70-99) Calcium Level 9.3 mg/dL (8.5-10.1) Assessment and Plan Assessmemt and Plan Problems Medical Problems: (1) Pneumonia Status: Acute (2) Weakness Status: Acute Comment Review of Relevant I have reviewed the following items zoey (where applicable) has been applied. Labs Laboratory Tests Test 04/19/18 06:45 04/20/18 05:20 White Blood Count 0.4 x10^3/uL (4.0-11.0) 0.5 x10^3/uL (4.0-11.0) Red Blood Count 2.29 x10^6/uL (4.30-5.70) 2.25 x10^6/uL (4.30-5.70) Hemoglobin 7.4 g/dL (13.0-17.5) 7.4 g/dL (13.0-17.5) Hematocrit 21.2 % (39.0-53.0) 20.9 % (39.0-53.0) Mean Corpuscular Volume 93 fL (79-100) 93 fL (79-100) Mean Corpuscular Hemoglobin 32 pg (25-35) 33 pg (25-35) Mean Corpuscular Hemoglobin Concent 35 g/dL (31-37) 36 g/dL (31-37) Red Cell Distribution Width 15.4 % (11.5-14.5) 15.0 % (11.5-14.5) Platelet Count 11 x10^3/uL (140-400) 37 x10^3/uL (140-400) Neutrophils (%) (Auto) 20 % (31-73) 15 % (31-73) Lymphocytes (%) (Auto) 61 % (24-48) 67 % (24-48) Monocytes (%) (Auto) 13 % (0-9) 14 % (0-9) Eosinophils (%) (Auto) 5 % (0-3) 3 % (0-3) Basophils (%) (Auto) 1 % (0-3) 1 % (0-3) Neutrophils # (Auto) 0.1 x10^3uL (1.8-7.7) 0.1 x10^3uL (1.8-7.7) Lymphocytes # (Auto) 0.2 x10^3/uL (1.0-4.8) 0.3 x10^3/uL (1.0-4.8) Monocytes # (Auto) 0.0 x10^3/uL (0.0-1.1) 0.1 x10^3/uL (0.0-1.1) Eosinophils # (Auto) 0.0 x10^3/uL (0.0-0.7) 0.0 x10^3/uL (0.0-0.7) Basophils # (Auto) 0.0 x10^3/uL (0.0-0.2) 0.0 x10^3/uL (0.0-0.2) Erythrocyte Sedimentation Rate 80 (0-15) Sodium Level 136 mmol/L (136-145) 136 mmol/L (136-145) Potassium Level 2.8 mmol/L (3.5-5.1) 3.0 mmol/L (3.5-5.1) Chloride Level 94 mmol/L (98-107) 94 mmol/L (98-107) Carbon Dioxide Level 35 mmol/L (21-32) 33 mmol/L (21-32) Anion Gap 7 (6-14) 9 (6-14) Blood Urea Nitrogen 83 mg/dL (8-26) 79 mg/dL (8-26) Creatinine 3.0 mg/dL (0.7-1.3) 2.6 mg/dL (0.7-1.3) Estimated GFR (Cockcroft-Gault) 20.7 24.4 BUN/Creatinine Ratio 28 (6-20) Glucose Level 133 mg/dL (70-99) 130 mg/dL (70-99) Calcium Level 9.1 mg/dL (8.5-10.1) 9.3 mg/dL (8.5-10.1) Magnesium Level 2.1 mg/dL (1.8-2.4) Total Bilirubin 1.1 mg/dL (0.2-1.0) Aspartate Amino Transf (AST/SGOT) 79 U/L (15-37) Alanine Aminotransferase (ALT/SGPT) 77 U/L (16-63) Alkaline Phosphatase 161 U/L (46-116) Total Protein 5.8 g/dL (6.4-8.2) Albumin 1.8 g/dL (3.4-5.0) Albumin/Globulin Ratio 0.5 (1.0-1.7) Laboratory Tests Test 04/20/18 05:20 White Blood Count 0.5 x10^3/uL (4.0-11.0) Red Blood Count 2.25 x10^6/uL (4.30-5.70) Hemoglobin 7.4 g/dL (13.0-17.5) Hematocrit 20.9 % (39.0-53.0) Mean Corpuscular Volume 93 fL (79-100) Mean Corpuscular Hemoglobin 33 pg (25-35) Mean Corpuscular Hemoglobin Concent 36 g/dL (31-37) Red Cell Distribution Width 15.0 % (11.5-14.5) Platelet Count 37 x10^3/uL (140-400) Neutrophils (%) (Auto) 15 % (31-73) Lymphocytes (%) (Auto) 67 % (24-48) Monocytes (%) (Auto) 14 % (0-9) Eosinophils (%) (Auto) 3 % (0-3) Basophils (%) (Auto) 1 % (0-3) Neutrophils # (Auto) 0.1 x10^3uL (1.8-7.7) Lymphocytes # (Auto) 0.3 x10^3/uL (1.0-4.8) Monocytes # (Auto) 0.1 x10^3/uL (0.0-1.1) Eosinophils # (Auto) 0.0 x10^3/uL (0.0-0.7) Basophils # (Auto) 0.0 x10^3/uL (0.0-0.2) Sodium Level 136 mmol/L (136-145) Potassium Level 3.0 mmol/L (3.5-5.1) Chloride Level 94 mmol/L (98-107) Carbon Dioxide Level 33 mmol/L (21-32) Anion Gap 9 (6-14) Blood Urea Nitrogen 79 mg/dL (8-26) Creatinine 2.6 mg/dL (0.7-1.3) Estimated GFR (Cockcroft-Gault) 24.4 Glucose Level 130 mg/dL (70-99) Calcium Level 9.3 mg/dL (8.5-10.1) Microbiology 04/15/18 Blood Culture - Final, Complete NO GROWTH AFTER 5 DAYS Medications Current Medications Piperacillin Sod/ Tazobactam Sod 3.375 gm/Sodium Chloride 50 ml @ 100 mls/hr 1X ONCE IV Last administered on 04/15/18at 13:57; Start 04/15/18 at 13:45; Stop 04/15/18 at 14:14; Status DC Vancomycin HCl (Vanco Per Pharmacy) 1 each PRN DAILY PRN MC SEE COMMENTS Last administered on 04/15/18at 15:19; Start 04/15/18 at 13:45; Stop 04/16/18 at 10:33 ; Status DC Vancomycin HCl 2 gm/Sodium Chloride 500 ml @ 250 mls/hr 1X ONCE IV Last administered on 04/15/18at 14:46; Start 04/15/18 at 13:45; Stop 04/15/18 at 15:44 ; Status DC Sodium Chloride 1,000 ml @ 1,000 mls/hr 1X ONCE IV Last administered on at 14:06; Start 04/15/18 at 14:00; Stop 04/15/18 at 14:59; Status DC Vancomycin HCl 1.5 gm/Sodium Chloride 500 ml @ 250 mls/hr Q48H IV ; Start 04/17 at 14:00; Stop 04/17/18 at 14:00; Status DC Vancomycin HCl (Vancomycin Trough Level) 1 each 1X ONCE MC ; Start 04/19/18 at 13:30; Stop 04/19/18 at 13:30; Status DC Meropenem 500 mg/ Sodium Chloride 50 ml @ 100 mls/hr Q8HRS IV Last administered on 04/20/18at 05:14; Start 04/15/18 at 18:00; Stop 04/20/18 at 12:37 ; Status DC Acetaminophen (Tylenol) 650 mg PRN Q6HRS PRN PO FEVER Last administered on 04/15at 20:57; Start 04/15/18 at 21:00; Stop 04/16/18 at 14:55; Status DC Acetaminophen (Tylenol) 500 mg PRN Q6HRS PRN PO MILD PAIN / TEMP; Start at 08:30 Ondansetron HCl (Zofran) 4 mg PRN Q6HRS PRN IV NAUSEA/VOMITING; Start 04/16/18 at 08:30 Ondansetron HCl (Zofran Odt) 4 mg PRN Q6HRS PRN PO NAUSEA/VOMITING; Start 04/16 at 08:30; Stop 04/20/18 at 12:37; Status DC Allopurinol (Zyloprim) 150 mg DAILY PO Last administered on 04/20/18at 10:01; Start 04/16/18 at 09:00 Aspirin (Ecotrin) 81 mg DAILY PO Last administered on 04/17/18at 09:19; Start at 09:00; Stop 04/17/18 at 17:00; Status DC Atorvastatin Calcium (Lipitor) 20 mg HS PO Last administered on 04/19/18at 21:32 ; Start 04/16/18 at 21:00; Stop 04/20/18 at 12:37; Status DC Carvedilol (Coreg) 3.125 mg BIDWMEALS PO Last administered on 04/20/18at 10:02; Start 04/16/18 at 09:00; Stop 04/20/18 at 12:37; Status DC Vitamin D (Vitamin D3) 1,000 unit DAILY PO Last administered on 04/20/18 10:03 ; Start 04/16/18 at 09:00; Stop 04/20/18 at 12:37; Status DC Dicyclomine HCl (Bentyl) 10 mg TID PO Last administered on 04/20/18at 10:00; Start 04/16/18 at 09:00 Famotidine (Pepcid) 80 mg DAILY PO ; Start 04/16/18 at 09:00; Status Cancel Finasteride (Proscar) 5 mg DAILY PO Last administered on 04/20/18 10:01; Start 04/16/18 at 09:00 Vitamin B Complex/ Vitamin C (Lupis-Brett) 1 tab DAILY PO Last administered on 09:58; Start 04/16/18 at 09:00; Stop 04/20/18 at 12:37; Status DC Furosemide (Lasix) 80 mg BID92 PO Last administered on 04/20/18 10:01; Start 04/16/18 at 09:00 Lidocaine/ Prilocaine (Emla) 1 mkea DAILY TP Last administered on 04/20/18 10: 04; Start 04/16/18 at 09:00 Tamsulosin HCl (Flomax) 0.4 mg BID PO Last administered on 04/20/18at 10:00; Start 04/16/18 at 09:00 Cyanocobalamin (Vitamin B-12) 1,000 mcg DAILY PO Last administered on at 09:59; Start 04/16/18 at 09:00; Stop 04/20/18 at 12:37; Status DC Non-Formulary Medication (Hydrocodone Bitartrate (Zohydro ER)) 20 mg BID PO Last administered on 04/18/18at 23:09; Start 04/16/18 at 09:00; Stop 04/20/18 at 12:37; Status DC Acetaminophen/ Hydrocodone Bitart (Lortab 10/325) 1 tab PRN Q4HRS PRN PO MODERATE-SEVERE PAIN Last administered on 04/16/18at 16:22; Start 04/16/18 at 09: 00 Lactobacillus Rhamnosus (Culturelle) 1 cap DAILY PO Last administered on at 10:00; Start 04/16/18 at 09:00; Stop 04/20/18 at 12:37; Status DC Magnesium Oxide (Magnesium Oxide) 400 mg DAILY PO Last administered on at 10:01; Start 04/16/18 at 09:00; Stop 04/20/18 at 12:37; Status DC Metolazone (Zaroxolyn) 2.5 mg MoWeFr PO Last administered on 04/16/18at 10:47; Start 04/16/18 at 09:00; Stop 04/17/18 at 09:02; Status DC Pantoprazole Sodium (Protonix) 40 mg BIDAC PO Last administered on 04/20/18at 10 :01; Start 04/16/18 at 09:00 Potassium Chloride (Klor-Con) 20 meq DAILYWBKFT PO ; Start 04/16/18 at 09:00; Status Cancel Famotidine (Pepcid) 20 mg DAILY PO Last administered on 04/20/18at 10:01; Start 04/16/18 at 09:00 Potassium Chloride (KCl Oral Soln) 20 meq DAILY08 PO Last administered on at 10:48; Start 04/16/18 at 11:00; Stop 04/17/18 at 09:35; Status DC Potassium Chloride (KCl Oral Soln) 40 meq 1X ONCE FT ; Start 04/17/18 at 08:45 ; Stop 04/17/18 at 08:46; Status UNV Potassium Chloride (KCl Oral Soln) 40 meq Q4H PO Last administered on at 09:20; Start 04/17/18 at 09:00; Stop 04/17/18 at 09:35; Status DC Non-Formulary Medication 1 ea DAILY08 PO Last administered on 04/20/18at 08:00; Start 04/18/18 at 08:00; Stop 04/20/18 at 12:37; Status DC Non-Formulary Medication 2 ea Q4H PO Last administered on 04/17/18at 10:09; Start 04/17/18 at 10:00; Stop 04/17/18 at 14:01; Status DC Fluticasone Propionate (Flonase) 2 spray DAILY NS Last administered on at 10:02; Start 04/17/18 at 10:00 Montelukast Sodium (Singulair) 10 mg QHS PO Last administered on 04/19/18at 21: 33; Start 04/17/18 at 21:00 Albuterol/ Ipratropium (Duoneb) 3 ml RTQID NEB Last administered on 04/20/18at 14:58; Start 04/18/18 at 09:30 Non-Formulary Medication 2 ea BID@1730,2200 PO Last administered on 04/18/18at 23:27; Start 04/18/18 at 17:30; Stop 04/18/18 at 22:01; Status DC Potassium Chloride/Water 50 ml @ 50 mls/hr Q2HR IV Last administered on at 17:41; Start 04/19/18 at 14:00; Stop 04/19/18 at 16:59; Status DC Digoxin (Lanoxin) 250 mcg 1X ONCE IV Last administered on 04/19/18at 15:51; Start 04/19/18 at 13:15; Stop 04/19/18 at 13:16; Status DC Sodium Chloride 1,000 ml @ 150 mls/hr 1X ONCE IV Last administered on at 23:16; Start 04/19/18 at 23:00; Stop 04/20/18 at 05:39; Status DC Lorazepam (Ativan) 2 mg PRN Q4HRS PRN IV ANXIETY / AGITATION; Start 04/20/18 at 12:30 Lorazepam (Ativan Intensol) 2 mg PRN Q4HRS PRN SL ANXIETY / AGITATION; Start at 12:45 Morphine Sulfate (Morphine Oral Solution) 15 mg PRN Q4HRS PRN PO PAIN Last administered on 04/20/18at 12:54; Start 04/20/18 at 12:45 Morphine Sulfate (Morphine Sulfate) 4 mg PRN Q2HR PRN IV PAIN; Start 04/20/18 at 15:30 Active Scripts Active Zohydro ER (Hydrocodone Bitartrate) 10 Mg Cap.er.12h 20 Mg PO BID Reported Ondansetron Odt (Ondansetron) 4 Mg Tab.rapdis 1 Tab PO PRN Q8HRS PRN Levofloxacin 750 Mg Tablet 1 Tab PO QODAY Coreg (Carvedilol) 3.125 Mg Tablet 1 Tab PO BID Vitamin D3 (Cholecalciferol (Vitamin D3)) 1,000 Unit Tablet 1 Tab PO DAILY Lidocaine-Prilocaine Cream (Lidocaine/Prilocaine) 30 Gm Cream..g. 1 Meka TP UD Fluconazole 200 Mg Tablet 1 Tab PO DAILY Allopurinol 100 Mg Tablet 150 Mg PO DAILY Acyclovir 400 Mg Tablet 1 Tab PO BID [employer] Capsule (L Gasseri/B Bifidum/B Longum) 1 Each Capsule 1 Each PO DAILY Not given on this admission May resume tomorrow Magnesium (Magnesium Oxide) 400 Mg Capsule 1 Cap PO DAILY Medication not given here May resume tomorrow Potassium Chloride Packet (Potassium Chloride) 20 Meq Packet 20 Meq PO DAILY Not given today due to procedure Take a dose tonight Metolazone 2.5 Mg Tablet 2.5 Mg PO QMWF Dose given Thursday morning Take a dose Thursday morning Finasteride 5 Mg Tablet 5 Mg PO DAILY LAST DOSE GIVEN: DATE: last night TIME: 9pm NEXT DOSE DUE: DATE: Tonight TIME: 9 pm Furosemide 80 Mg Tablet 80 Mg PO BID LAST DOSE GIVEN: DATE: today TIME: 3pm NEXT DOSE DUE: DATE: Tomorrow TIME: 9 am Dicyclomine Hcl 10 Mg Capsule 1 Cap PO TID Not given on this admission Take this evening Vitamin B-12 (Cyanocobalamin (Vitamin B-12)) 1,000 Mcg Tablet.er 1,000 Mcg PO DAILY LAST DOSE GIVEN: DATE: today TIME: 3pm NEXT DOSE DUE: DATE: Tomorrow TIME: 9 am Lortab 10-325 mg Tablet (Hydrocodone/Acetaminophen) 1 Each Tablet 1 Tab PO PRN Q4HRS PRN LAST DOSE GIVEN: DATE: last night TIME: 11pm NEXT DOSE DUE: when needed Tamsulosin Hcl 0.4 Mg Cap.er.24h 0.4 Mg PO BID LAST DOSE GIVEN: DATE: last night TIME: 9 pm NEXT DOSE DUE: DATE: Tonight TIME: 9pm Famotidine 20 Mg Tablet 80 Mg PO BID Famotidine 20mg was given last night may take tonight Lipitor (Atorvastatin Calcium) 20 Mg Tablet 1 Tab PO HS LAST DOSE GIVEN: DATE: last night TIME: 9pm NEXT DOSE DUE: DATE: Tonight TIME: 9 pm Aspir 81 (Aspirin) 81 Mg Tablet.dr 1 Tab PO DAILY LAST DOSE GIVEN: DATE: today TIME: 3pm NEXT DOSE DUE: DATE: Tomorrow TIME: 9 am Omeprazole 40 Mg Capsule.dr 1 Cap PO BID Not given on this admission May resume in the morning TIME: 9:00 am NEXT DOSE DUE: DATE: 06-13-15 TIME: 9:00 pm Nephro-Brett Tablet (Folic Acid/Vitamin B Comp W-C) 0.8 Mg Tablet 1 Tab PO DAILY LAST DOSE GIVEN: DATE: today TIME: 3pm NEXT DOSE DUE: DATE: Tomorrow TIME: 9 am Vitals/I & O Vital Sign - Last 24 Hours 04/19/18 04/19/18 04/19/18 04/19/18 15:51 17:00 19:00 19:45 Temp 98.1 98.1 Pulse 113 113 101 Resp 17 B/P (MAP) 98/52 98/52 141/57 (85) Pulse Ox 94 94 O2 Delivery Nasal Cannula Nasal Cannula O2 Flow Rate 3.0 3.0 04/19/18 04/19/18 04/20/18 04/20/18 20:00 23:00 03:00 07:00 Temp 98.3 98.4 97.5 98.3 98.4 97.5 Pulse 94 76 Resp 17 16 24 B/P (MAP) 137/61 (86) 131/47 (75) 94/53 (67) Pulse Ox 89 O2 Delivery Nasal Cannula Nasal Cannula Nasal Cannula Nasal Cannula O2 Flow Rate 3.0 3.0 3.0 4.0 04/20/18 04/20/18 04/20/18 04/20/18 07:17 08:00 10:02 11:00 Temp 100.6 100.6 Pulse 76 103 Resp 20 B/P (MAP) 131/47 139/59 (85) Pulse Ox 94 86 O2 Delivery Nasal Cannula Nasal Cannula Nasal Cannula O2 Flow Rate 3.0 4.0 4.0 04/20/18 04/20/18 04/20/18 04/20/18 11:19 12:54 13:54 14:59 O2 Delivery Nasal Cannula Nasal Cannula Nasal Cannula Nasal Cannula O2 Flow Rate 3.0 4.0 4.0 3.0 Intake and Output 04/19/18 04/19/18 04/20/18 15:00 23:00 07:00 Intake Total 150 ml Balance 150 ml CORWIN BHAKTA MD Apr 20, 2018 15:44
[2018-04-20] MEDS: MORPHINE SULFATE 4 MG/ML VIAL. IV PRN (17:09)
[2018-04-20 19:00] VITALS: BP 86/44
[2018-04-20] MEDS: MONTELUKAST SODIUM 10 MG TABLET. PO SCH (21:00)
[2018-04-20 23:00] VITALS: BP 92/45
[2018-04-21 03:00] VITALS: BP 128/59
[2018-04-21] MEDS: MORPHINE SULFATE 10 MG/5 ML ORAL SOLUTION. PO PRN (06:28)
[2018-04-21 07:00] VITALS: BP 107/49
[2018-04-21] MEDS: IPRATRPIUM/ALBUTEROL 0.5/2.5MG 3 ML NEBU. NEB SCH ×2 (07:15→10:49)
[2018-04-21] MEDS: PANTOPRAZOLE 40 MG TABLET.DR. PO SCH (07:30)
--- NOTE | 2018-04-21 08:35 | PDOC ---
SUBJECTIVE Subjective S: Resting peacefully, had a Hernandez placed with relief as he had had some urinary retention, transitioning to the hospice house in [place] later this morning likely, blood transfusion withheld due to temperature 100.6 yesterday O: Physical exam: Gen.: resting in bed, no acute distress Lungs: Breathing comfortably, occasional cough, on facemask oxygen Assessment and Plan: He is a 72-year-old male with acute myelogenous leukemia, w / rapidly declining status, very poor px AML: Prior Agent [place] exposure was likely contributory to his current acute myelogenous leukemia (poss MDS prior) Pneumonia: On antibiotics Neutropenia: Related to acute leukemia, on neut precautions Anemia: Likely will withhold further blood products as he is transitioning to inpatient hospice this morning Thrombocytopenia: No active bleeding disposition: To hospice today Thank you kindly, and please don't hesitate to call with any further questions. OBJECTIVE Vital Signs Vital Signs Date Time Temp Pulse Resp B/P (MAP) Pulse Ox O2 Delivery O2 Flow Rate FiO2 04/21/18 07:54 Mask 5.0 04/21/18 07:28 Simple Mask 5.0 04/21/18 07:17 92 Nasal Cannula 5.0 04/21/18 06:28 94 Simple Mask 5.0 04/21/18 03:00 99.9 104 18 128/59 (82) 95 99.9 04/20/18 23:00 99.8 96 24 92/45 (61) 93 99.8 04/20/18 19:45 Nasal Cannula 4.0 04/20/18 19:28 90 Nasal Cannula 4.0 04/20/18 19:00 98.9 97 16 86/44 (58) 91 98.9 04/20/18 17:39 Nasal Cannula 4.0 04/20/18 17:09 Nasal Cannula 4.0 04/20/18 15:00 98.4 94 20 113/57 (75) 87 Nasal Cannula 4.0 98.4 04/20/18 14:59 Nasal Cannula 3.0 04/20/18 12:54 Nasal Cannula 4.0 04/20/18 11:19 Nasal Cannula 3.0 04/20/18 11:00 100.6 103 20 139/59 (85) 86 Nasal Cannula 4.0 100.6 04/20/18 10:02 76 131/47 I & O Intake and Output 04/21/18 07:00 Intake Total 490 ml Output Total 2225 ml Balance -1735 ml Intake Oral 490 ml Output Urine Total 2225 ml BASILIO GARCIA MD Apr 21, 2018 08:35
[2018-04-21] MEDS: DICYCLOMINE HCL 10 MG CAPSULE PO SCH (09:00)
[2018-04-21] MEDS: LIDOCAINE/PRILOCAINE TOPICAL CREAM 5GM TUBE. TP SCH (09:00)
[2018-04-21] MEDS: FLUTICASONE 50MCG/NASAL SPRAY 16GM BOTTLE. NS SCH (09:00)
[2018-04-21] MEDS: FAMOTIDINE 20 MG TABLET. PO SCH (09:00)
[2018-04-21] MEDS: FINASTERIDE 5 MG TABLET. PO SCH (09:00)
[2018-04-21] MEDS: TAMSULOSIN 0.4 MG CAP.ER.24H. PO SCH (09:00)
[2018-04-21] MEDS: ALLOPURINOL 300 MG TABLET. PO SCH (09:00)
[2018-04-21] MEDS: FUROSEMIDE 80 MG TABLET. PO SCH (09:00)
--- NOTE | 2018-04-21 10:55 | PDOC ---
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 Dyspnea secondary to progressive weakness and early sepsis. 4. Immunocompromised patient with acute myelogenous leukemia. 5. Chronic kidney disease. 6. pneumonia 7. symptomatic anemia, improved s/p transfusion 8. metabolic encephalopathy, 9. Atrial fibrillation. 10. hypokalemia replacing 11.severe protein malnutrition, with obesity, BMI 31 plan transfer to hospice house in [place] History of Present Illness History of Present Illness plan to DC to hospice inpatient in [place] appears comfortable Heme onc and infectious disease following, palliative care Supportive care will DC all treatment meds out of hospital DNR signed Vitals Vitals Vital Signs Date Time Temp Pulse Resp B/P (MAP) Pulse Ox O2 Delivery O2 Flow Rate FiO2 04/21/18 07:54 Mask 5.0 04/21/18 07:17 92 04/21/18 07:00 97.9 99 20 107/49 (68) 97.9 Physical Exam Physical Exam GENERAL: in bed today HENT: Dry LUNGS: Clear. HEART: S1, S2 regular. ABDOMEN: Soft, NT EXTREMITIES: BLE edema and chronic venous insufficiency changes SKIN: bruises and ecchymosis NEUROLOGIC: Alert, responds appropriately Port clean General: Cooperative, mild distress Heart: Normal S1, Normal S2, Other (tele: atrial fib) Lungs: Clear, Other (decrease bs) Abdomen: Normal bowel sounds, Soft Extremities: No cyanosis, Other (3-4+ LE edema) Skin: No significant lesion, Other (stasis changes) Assessment and Plan Assessmemt and Plan Problems Medical Problems: (1) Pneumonia Status: Acute (2) Weakness Status: Acute Comment Review of Relevant I have reviewed the following items zoey (where applicable) has been applied. Labs Laboratory Tests Test 04/20/18 05:20 White Blood Count 0.5 x10^3/uL (4.0-11.0) Red Blood Count 2.25 x10^6/uL (4.30-5.70) Hemoglobin 7.4 g/dL (13.0-17.5) Hematocrit 20.9 % (39.0-53.0) Mean Corpuscular Volume 93 fL (79-100) Mean Corpuscular Hemoglobin 33 pg (25-35) Mean Corpuscular Hemoglobin Concent 36 g/dL (31-37) Red Cell Distribution Width 15.0 % (11.5-14.5) Platelet Count 37 x10^3/uL (140-400) Neutrophils (%) (Auto) 15 % (31-73) Lymphocytes (%) (Auto) 67 % (24-48) Monocytes (%) (Auto) 14 % (0-9) Eosinophils (%) (Auto) 3 % (0-3) Basophils (%) (Auto) 1 % (0-3) Neutrophils # (Auto) 0.1 x10^3uL (1.8-7.7) Lymphocytes # (Auto) 0.3 x10^3/uL (1.0-4.8) Monocytes # (Auto) 0.1 x10^3/uL (0.0-1.1) Eosinophils # (Auto) 0.0 x10^3/uL (0.0-0.7) Basophils # (Auto) 0.0 x10^3/uL (0.0-0.2) Sodium Level 136 mmol/L (136-145) Potassium Level 3.0 mmol/L (3.5-5.1) Chloride Level 94 mmol/L (98-107) Carbon Dioxide Level 33 mmol/L (21-32) Anion Gap 9 (6-14) Blood Urea Nitrogen 79 mg/dL (8-26) Creatinine 2.6 mg/dL (0.7-1.3) Estimated GFR (Cockcroft-Gault) 24.4 Glucose Level 130 mg/dL (70-99) Calcium Level 9.3 mg/dL (8.5-10.1) Microbiology 04/15/18 Blood Culture - Final, Complete NO GROWTH AFTER 5 DAYS Medications Current Medications Piperacillin Sod/ Tazobactam Sod 3.375 gm/Sodium Chloride 50 ml @ 100 mls/hr 1X ONCE IV Last administered on 04/15/18at 13:57; Start 04/15/18 at 13:45; Stop 04/15/18 at 14:14; Status DC Vancomycin HCl (Vanco Per Pharmacy) 1 each PRN DAILY PRN MC SEE COMMENTS Last administered on 04/15/18at 15:19; Start 04/15/18 at 13:45; Stop 04/16/18 at 10:33 ; Status DC Vancomycin HCl 2 gm/Sodium Chloride 500 ml @ 250 mls/hr 1X ONCE IV Last administered on 04/15/18at 14:46; Start 04/15/18 at 13:45; Stop 04/15/18 at 15:44 ; Status DC Sodium Chloride 1,000 ml @ 1,000 mls/hr 1X ONCE IV Last administered on at 14:06; Start 04/15/18 at 14:00; Stop 04/15/18 at 14:59; Status DC Vancomycin HCl 1.5 gm/Sodium Chloride 500 ml @ 250 mls/hr Q48H IV ; Start 04/17 at 14:00; Stop 04/17/18 at 14:00; Status DC Vancomycin HCl (Vancomycin Trough Level) 1 each 1X ONCE MC ; Start 04/19/18 at 13:30; Stop 04/19/18 at 13:30; Status DC Meropenem 500 mg/ Sodium Chloride 50 ml @ 100 mls/hr Q8HRS IV Last administered on 04/20/18at 05:14; Start 04/15/18 at 18:00; Stop 04/20/18 at 12:37 ; Status DC Acetaminophen (Tylenol) 650 mg PRN Q6HRS PRN PO FEVER Last administered on 04/15at 20:57; Start 04/15/18 at 21:00; Stop 04/16/18 at 14:55; Status DC Acetaminophen (Tylenol) 500 mg PRN Q6HRS PRN PO MILD PAIN / TEMP; Start at 08:30 Ondansetron HCl (Zofran) 4 mg PRN Q6HRS PRN IV NAUSEA/VOMITING; Start 04/16/18 at 08:30 Ondansetron HCl (Zofran Odt) 4 mg PRN Q6HRS PRN PO NAUSEA/VOMITING; Start 04/16 at 08:30; Stop 04/20/18 at 12:37; Status DC Allopurinol (Zyloprim) 150 mg DAILY PO Last administered on 04/20/18at 10:01; Start 04/16/18 at 09:00 Aspirin (Ecotrin) 81 mg DAILY PO Last administered on 04/17/18at 09:19; Start at 09:00; Stop 04/17/18 at 17:00; Status DC Atorvastatin Calcium (Lipitor) 20 mg HS PO Last administered on 04/19/18 21:32 ; Start 04/16/18 at 21:00; Stop 04/20/18 at 12:37; Status DC Carvedilol (Coreg) 3.125 mg BIDWMEALS PO Last administered on 04/20/18 10:02; Start 04/16/18 at 09:00; Stop 04/20/18 at 12:37; Status DC Vitamin D (Vitamin D3) 1,000 unit DAILY PO Last administered on 04/20/18 10:03 ; Start 04/16/18 at 09:00; Stop 04/20/18 at 12:37; Status DC Dicyclomine HCl (Bentyl) 10 mg TID PO Last administered on 04/20/18 14:00; Start 04/16/18 at 09:00 Famotidine (Pepcid) 80 mg DAILY PO ; Start 04/16/18 at 09:00; Status Cancel Finasteride (Proscar) 5 mg DAILY PO Last administered on 04/20/18 10:01; Start 04/16/18 at 09:00 Vitamin B Complex/ Vitamin C (Lupis-Brett) 1 tab DAILY PO Last administered on 09:58; Start 04/16/18 at 09:00; Stop 04/20/18 at 12:37; Status DC Furosemide (Lasix) 80 mg BID92 PO Last administered on 04/20/18 14:00; Start 04/16/18 at 09:00 Lidocaine/ Prilocaine (Emla) 1 meka DAILY TP Last administered on 04/20/18 10: 04; Start 04/16/18 at 09:00 Tamsulosin HCl (Flomax) 0.4 mg BID PO Last administered on 04/20/18 10:00; Start 04/16/18 at 09:00 Cyanocobalamin (Vitamin B-12) 1,000 mcg DAILY PO Last administered on 09:59; Start 04/16/18 at 09:00; Stop 04/20/18 at 12:37; Status DC Non-Formulary Medication (Hydrocodone Bitartrate (Zohydro ER)) 20 mg BID PO Last administered on 04/18/18at 23:09; Start 04/16/18 at 09:00; Stop 04/20/18 at 12:37; Status DC Acetaminophen/ Hydrocodone Bitart (Lortab 10/325) 1 tab PRN Q4HRS PRN PO MODERATE-SEVERE PAIN Last administered on 04/16/18at 16:22; Start 04/16/18 at 09: 00 Lactobacillus Rhamnosus (Culturelle) 1 cap DAILY PO Last administered on at 10:00; Start 04/16/18 at 09:00; Stop 04/20/18 at 12:37; Status DC Magnesium Oxide (Magnesium Oxide) 400 mg DAILY PO Last administered on at 10:01; Start 04/16/18 at 09:00; Stop 04/20/18 at 12:37; Status DC Metolazone (Zaroxolyn) 2.5 mg MoWeFr PO Last administered on 04/16/18at 10:47; Start 04/16/18 at 09:00; Stop 04/17/18 at 09:02; Status DC Pantoprazole Sodium (Protonix) 40 mg BIDAC PO Last administered on 04/20/18at 16 :30; Start 04/16/18 at 09:00 Potassium Chloride (Klor-Con) 20 meq DAILYWBKFT PO ; Start 04/16/18 at 09:00; Status Cancel Famotidine (Pepcid) 20 mg DAILY PO Last administered on 04/20/18at 10:01; Start 04/16/18 at 09:00 Potassium Chloride (KCl Oral Soln) 20 meq DAILY08 PO Last administered on at 10:48; Start 04/16/18 at 11:00; Stop 04/17/18 at 09:35; Status DC Potassium Chloride (KCl Oral Soln) 40 meq 1X ONCE FT ; Start 04/17/18 at 08:45 ; Stop 04/17/18 at 08:46; Status UNV Potassium Chloride (KCl Oral Soln) 40 meq Q4H PO Last administered on at 09:20; Start 04/17/18 at 09:00; Stop 04/17/18 at 09:35; Status DC Non-Formulary Medication 1 ea DAILY08 PO Last administered on 04/20/18at 08:00; Start 04/18/18 at 08:00; Stop 04/20/18 at 12:37; Status DC Non-Formulary Medication 2 ea Q4H PO Last administered on 04/17/18at 10:09; Start 04/17/18 at 10:00; Stop 04/17/18 at 14:01; Status DC Fluticasone Propionate (Flonase) 2 spray DAILY NS Last administered on at 10:02; Start 04/17/18 at 10:00 Montelukast Sodium (Singulair) 10 mg QHS PO Last administered on 04/19/18at 21: 33; Start 04/17/18 at 21:00 Albuterol/ Ipratropium (Duoneb) 3 ml RTQID NEB Last administered on 04/21/18at 10:49; Start 04/18/18 at 09:30 Non-Formulary Medication 2 ea BID@1730,2200 PO Last administered on 04/18/18at 23:27; Start 04/18/18 at 17:30; Stop 04/18/18 at 22:01; Status DC Potassium Chloride/Water 50 ml @ 50 mls/hr Q2HR IV Last administered on at 17:41; Start 04/19/18 at 14:00; Stop 04/19/18 at 16:59; Status DC Digoxin (Lanoxin) 250 mcg 1X ONCE IV Last administered on 04/19/18at 15:51; Start 04/19/18 at 13:15; Stop 04/19/18 at 13:16; Status DC Sodium Chloride 1,000 ml @ 150 mls/hr 1X ONCE IV Last administered on at 23:16; Start 04/19/18 at 23:00; Stop 04/20/18 at 05:39; Status DC Lorazepam (Ativan) 2 mg PRN Q4HRS PRN IV ANXIETY / AGITATION Last administered on 04/21/18at 06:27; Start 04/20/18 at 12:30 Lorazepam (Ativan Intensol) 2 mg PRN Q4HRS PRN SL ANXIETY / AGITATION; Start at 12:45 Morphine Sulfate (Morphine Oral Solution) 15 mg PRN Q4HRS PRN PO PAIN Last administered on 04/21/18at 06:28; Start 04/20/18 at 12:45 Morphine Sulfate (Morphine Sulfate) 4 mg PRN Q2HR PRN IV PAIN; Start 04/20/18 at 15:30; Stop 04/20/18 at 16:35; Status DC Morphine Sulfate (Morphine Sulfate) 4 mg PRN Q2HR PRN IV PAIN Last administered on 04/20/18at 17:09; Start 04/20/18 at 15:45 Active Scripts Active Zohydro ER (Hydrocodone Bitartrate) 10 Mg Cap.er.12h 20 Mg PO BID Reported Ondansetron Odt (Ondansetron) 4 Mg Tab.rapdis 1 Tab PO PRN Q8HRS PRN Levofloxacin 750 Mg Tablet 1 Tab PO QODAY Coreg (Carvedilol) 3.125 Mg Tablet 1 Tab PO BID Vitamin D3 (Cholecalciferol (Vitamin D3)) 1,000 Unit Tablet 1 Tab PO DAILY Lidocaine-Prilocaine Cream (Lidocaine/Prilocaine) 30 Gm Cream..g. 1 Meka TP UD Fluconazole 200 Mg Tablet 1 Tab PO DAILY Allopurinol 100 Mg Tablet 150 Mg PO DAILY Acyclovir 400 Mg Tablet 1 Tab PO BID [email or web address] Capsule (L Gasseri/B Bifidum/B Longum) 1 Each Capsule 1 Each PO DAILY Not given on this admission May resume tomorrow Magnesium (Magnesium Oxide) 400 Mg Capsule 1 Cap PO DAILY Medication not given here May resume tomorrow Potassium Chloride Packet (Potassium Chloride) 20 Meq Packet 20 Meq PO DAILY Not given today due to procedure Take a dose tonight Metolazone 2.5 Mg Tablet 2.5 Mg PO QMWF Dose given Thursday morning Take a dose Thursday morning Finasteride 5 Mg Tablet 5 Mg PO DAILY LAST DOSE GIVEN: DATE: last night TIME: 9pm NEXT DOSE DUE: DATE: Tonight TIME: 9 pm Furosemide 80 Mg Tablet 80 Mg PO BID LAST DOSE GIVEN: DATE: today TIME: 3pm NEXT DOSE DUE: DATE: Tomorrow TIME: 9 am Dicyclomine Hcl 10 Mg Capsule 1 Cap PO TID Not given on this admission Take this evening Vitamin B-12 (Cyanocobalamin (Vitamin B-12)) 1,000 Mcg Tablet.er 1,000 Mcg PO DAILY LAST DOSE GIVEN: DATE: today TIME: 3pm NEXT DOSE DUE: DATE: Tomorrow TIME: 9 am Lortab 10-325 mg Tablet (Hydrocodone/Acetaminophen) 1 Each Tablet 1 Tab PO PRN Q4HRS PRN LAST DOSE GIVEN: DATE: last night TIME: 11pm NEXT DOSE DUE: when needed Tamsulosin Hcl 0.4 Mg Cap.er.24h 0.4 Mg PO BID LAST DOSE GIVEN: DATE: last night TIME: 9 pm NEXT DOSE DUE: DATE: Tonight TIME: 9pm Famotidine 20 Mg Tablet 80 Mg PO BID Famotidine 20mg was given last night may take tonight Lipitor (Atorvastatin Calcium) 20 Mg Tablet 1 Tab PO HS LAST DOSE GIVEN: DATE: last night TIME: 9pm NEXT DOSE DUE: DATE: Tonight TIME: 9 pm Aspir 81 (Aspirin) 81 Mg Tablet.dr 1 Tab PO DAILY LAST DOSE GIVEN: DATE: today TIME: 3pm NEXT DOSE DUE: DATE: Tomorrow TIME: 9 am Omeprazole 40 Mg Capsule.dr 1 Cap PO BID Not given on this admission May resume in the morning TIME: 9:00 am NEXT DOSE DUE: DATE: 06-13-15 TIME: 9:00 pm Nephro-Brett Tablet (Folic Acid/Vitamin B Comp W-C) 0.8 Mg Tablet 1 Tab PO DAILY LAST DOSE GIVEN: DATE: today TIME: 3pm NEXT DOSE DUE: DATE: Tomorrow TIME: 9 am Vitals/I & O Vital Sign - Last 24 Hours 04/20/18 04/20/18 04/20/18 04/20/18 11:00 11:19 12:54 14:59 Temp 100.6 100.6 Pulse 103 Resp 20 B/P (MAP) 139/59 (85) Pulse Ox 86 O2 Delivery Nasal Cannula Nasal Cannula Nasal Cannula Nasal Cannula O2 Flow Rate 4.0 3.0 4.0 3.0 04/20/18 04/20/18 04/20/18 04/20/18 15:00 17:09 17:39 19:00 Temp 98.4 98.9 98.4 98.9 Pulse 94 97 Resp 20 16 B/P (MAP) 113/57 (75) 86/44 (58) Pulse Ox 87 91 O2 Delivery Nasal Cannula Nasal Cannula Nasal Cannula O2 Flow Rate 4.0 4.0 4.0 04/20/18 04/20/18 04/20/18 04/21/18 19:28 19:45 23:00 03:00 Temp 99.8 99.9 99.8 99.9 Pulse 96 104 Resp 24 18 B/P (MAP) 92/45 (61) 128/59 (82) Pulse Ox 90 93 95 O2 Delivery Nasal Cannula Nasal Cannula O2 Flow Rate 4.0 4.0 04/21/18 04/21/18 04/21/18 04/21/18 06:28 07:00 07:17 07:28 Temp 97.9 97.9 Pulse 99 Resp 20 B/P (MAP) 107/49 (68) Pulse Ox 94 95 92 O2 Delivery Simple Mask Room Air Nasal Cannula Simple Mask O2 Flow Rate 5.0 5.0 5.0 5.0 04/21/18 07:54 O2 Delivery Mask O2 Flow Rate 5.0 Intake and Output 04/20/18 04/20/18 04/21/18 15:00 23:00 07:00 Intake Total 290 ml 200 ml Output Total 825 ml 1400 ml Balance 290 ml -625 ml -1400 ml LITZY STEVENS MD Apr 21, 2018 10:55
[2018-04-21 11:21] VITALS: BP 111/60
--- NOTE | 2018-04-21 11:30 | PDOC3 ---
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 Dyspnea secondary to progressive weakness and early sepsis. 4. Immunocompromised patient with acute myelogenous leukemia. 5. Chronic kidney disease. 6. pneumonia 7. symptomatic anemia, improved s/p transfusion 8. metabolic encephalopathy, 9. Atrial fibrillation. 10. hypokalemia replacing 11.severe protein malnutrition, with obesity, BMI 28 plan transfer to hospice house in [place] History of Present Illness History of Present Illness plan to DC to hospice inpatient in [place] appears comfortable on palliative care Supportive care out of hospital DNR signed Vitals Vitals Vital Signs Date Time Temp Pulse Resp B/P (MAP) Pulse Ox O2 Delivery O2 Flow Rate FiO2 04/21/18 07:54 Mask 5.0 04/21/18 07:17 92 04/21/18 07:00 97.9 99 20 107/49 (68) 97.9 Physical Exam Physical Exam GENERAL: in bed today, not awake HEeNT: Dry LUNGS: Clear. HEART: S1, S2 regular. ABDOMEN: Soft, NT EXTREMITIES: BLE edema and chronic venous insufficiency changes SKIN: bruises and ecchymosis NEUROLOGIC: sedated, calm Port clean Heart: Normal S1, Normal S2, Other (tele: atrial fib) Lungs: Clear, Other (decrease bs) Abdomen: Normal bowel sounds, Soft Extremities: No cyanosis, Other (3-4+ LE edema) Skin: No significant lesion, Other (stasis changes) FINAL DIAGNOSIS Problems Medical Problems: (1) Pneumonia Status: Acute (2) Weakness Status: Acute Brief Hospital Course Mr. Dubois is a 72 old [sex] who presented with [ ] Discharge Medications Current Medications Piperacillin Sod/ Tazobactam Sod 3.375 gm/Sodium Chloride 50 ml @ 100 mls/hr 1X ONCE IV Last administered on 04/15/18at 13:57; Start 04/15/18 at 13:45; Stop 04/15/18 at 14:14; Status DC Vancomycin HCl (Vanco Per Pharmacy) 1 each PRN DAILY PRN MC SEE COMMENTS Last administered on 04/15/18at 15:19; Start 04/15/18 at 13:45; Stop 04/16/18 at 10:33 ; Status DC Vancomycin HCl 2 gm/Sodium Chloride 500 ml @ 250 mls/hr 1X ONCE IV Last administered on 04/15/18at 14:46; Start 04/15/18 at 13:45; Stop 04/15/18 at 15:44 ; Status DC Sodium Chloride 1,000 ml @ 1,000 mls/hr 1X ONCE IV Last administered on at 14:06; Start 04/15/18 at 14:00; Stop 04/15/18 at 14:59; Status DC Vancomycin HCl 1.5 gm/Sodium Chloride 500 ml @ 250 mls/hr Q48H IV ; Start 04/17 at 14:00; Stop 04/17/18 at 14:00; Status DC Vancomycin HCl (Vancomycin Trough Level) 1 each 1X ONCE MC ; Start 04/19/18 at 13:30; Stop 04/19/18 at 13:30; Status DC Meropenem 500 mg/ Sodium Chloride 50 ml @ 100 mls/hr Q8HRS IV Last administered on 04/20/18at 05:14; Start 04/15/18 at 18:00; Stop 04/20/18 at 12:37 ; Status DC Acetaminophen (Tylenol) 650 mg PRN Q6HRS PRN PO FEVER Last administered on 04/15at 20:57; Start 04/15/18 at 21:00; Stop 04/16/18 at 14:55; Status DC Acetaminophen (Tylenol) 500 mg PRN Q6HRS PRN PO MILD PAIN / TEMP; Start at 08:30 Ondansetron HCl (Zofran) 4 mg PRN Q6HRS PRN IV NAUSEA/VOMITING; Start 04/16/18 at 08:30 Ondansetron HCl (Zofran Odt) 4 mg PRN Q6HRS PRN PO NAUSEA/VOMITING; Start 04/16 at 08:30; Stop 04/20/18 at 12:37; Status DC Allopurinol (Zyloprim) 150 mg DAILY PO Last administered on 04/20/18at 10:01; Start 04/16/18 at 09:00 Aspirin (Ecotrin) 81 mg DAILY PO Last administered on 04/17/18at 09:19; Start at 09:00; Stop 04/17/18 at 17:00; Status DC Atorvastatin Calcium (Lipitor) 20 mg HS PO Last administered on 04/19/18 21:32 ; Start 04/16/18 at 21:00; Stop 04/20/18 at 12:37; Status DC Carvedilol (Coreg) 3.125 mg BIDWMEALS PO Last administered on 04/20/18 10:02; Start 04/16/18 at 09:00; Stop 04/20/18 at 12:37; Status DC Vitamin D (Vitamin D3) 1,000 unit DAILY PO Last administered on 04/20/18 10:03 ; Start 04/16/18 at 09:00; Stop 04/20/18 at 12:37; Status DC Dicyclomine HCl (Bentyl) 10 mg TID PO Last administered on 04/20/18at 14:00; Start 04/16/18 at 09:00 Famotidine (Pepcid) 80 mg DAILY PO ; Start 04/16/18 at 09:00; Status Cancel Finasteride (Proscar) 5 mg DAILY PO Last administered on 04/20/18at 10:01; Start 04/16/18 at 09:00 Vitamin B Complex/ Vitamin C (Lupis-Brett) 1 tab DAILY PO Last administered on 09:58; Start 04/16/18 at 09:00; Stop 04/20/18 at 12:37; Status DC Furosemide (Lasix) 80 mg BID92 PO Last administered on 04/20/18 14:00; Start 04/16/18 at 09:00 Lidocaine/ Prilocaine (Emla) 1 meka DAILY TP Last administered on 04/20/18 10: 04; Start 04/16/18 at 09:00 Tamsulosin HCl (Flomax) 0.4 mg BID PO Last administered on 04/20/18at 10:00; Start 04/16/18 at 09:00 Cyanocobalamin (Vitamin B-12) 1,000 mcg DAILY PO Last administered on 09:59; Start 04/16/18 at 09:00; Stop 04/20/18 at 12:37; Status DC Non-Formulary Medication (Hydrocodone Bitartrate (Zohydro ER)) 20 mg BID PO Last administered on 04/18/18at 23:09; Start 04/16/18 at 09:00; Stop 04/20/18 at 12:37; Status DC Acetaminophen/ Hydrocodone Bitart (Lortab 10/325) 1 tab PRN Q4HRS PRN PO MODERATE-SEVERE PAIN Last administered on 04/16/18at 16:22; Start 04/16/18 at 09: 00 Lactobacillus Rhamnosus (Culturelle) 1 cap DAILY PO Last administered on at 10:00; Start 04/16/18 at 09:00; Stop 04/20/18 at 12:37; Status DC Magnesium Oxide (Magnesium Oxide) 400 mg DAILY PO Last administered on at 10:01; Start 04/16/18 at 09:00; Stop 04/20/18 at 12:37; Status DC Metolazone (Zaroxolyn) 2.5 mg MoWeFr PO Last administered on 04/16/18at 10:47; Start 04/16/18 at 09:00; Stop 04/17/18 at 09:02; Status DC Pantoprazole Sodium (Protonix) 40 mg BIDAC PO Last administered on 04/20/18at 16 :30; Start 04/16/18 at 09:00 Potassium Chloride (Klor-Con) 20 meq DAILYWBKFT PO ; Start 04/16/18 at 09:00; Status Cancel Famotidine (Pepcid) 20 mg DAILY PO Last administered on 04/20/18at 10:01; Start 04/16/18 at 09:00 Potassium Chloride (KCl Oral Soln) 20 meq DAILY08 PO Last administered on at 10:48; Start 04/16/18 at 11:00; Stop 04/17/18 at 09:35; Status DC Potassium Chloride (KCl Oral Soln) 40 meq 1X ONCE FT ; Start 04/17/18 at 08:45 ; Stop 04/17/18 at 08:46; Status UNV Potassium Chloride (KCl Oral Soln) 40 meq Q4H PO Last administered on at 09:20; Start 04/17/18 at 09:00; Stop 04/17/18 at 09:35; Status DC Non-Formulary Medication 1 ea DAILY08 PO Last administered on 04/20/18at 08:00; Start 04/18/18 at 08:00; Stop 04/20/18 at 12:37; Status DC Non-Formulary Medication 2 ea Q4H PO Last administered on 04/17/18at 10:09; Start 04/17/18 at 10:00; Stop 04/17/18 at 14:01; Status DC Fluticasone Propionate (Flonase) 2 spray DAILY NS Last administered on 10:02; Start 04/17/18 at 10:00 Montelukast Sodium (Singulair) 10 mg QHS PO Last administered on 04/19/18 21: 33; Start 04/17/18 at 21:00 Albuterol/ Ipratropium (Duoneb) 3 ml RTQID NEB Last administered on 04/21/18at 10:49; Start 04/18/18 at 09:30 Non-Formulary Medication 2 ea BID@1730,2200 PO Last administered on 04/18/18at 23:27; Start 04/18/18 at 17:30; Stop 04/18/18 at 22:01; Status DC Potassium Chloride/Water 50 ml @ 50 mls/hr Q2HR IV Last administered on 17:41; Start 04/19/18 at 14:00; Stop 04/19/18 at 16:59; Status DC Digoxin (Lanoxin) 250 mcg 1X ONCE IV Last administered on 04/19/18at 15:51; Start 04/19/18 at 13:15; Stop 04/19/18 at 13:16; Status DC Sodium Chloride 1,000 ml @ 150 mls/hr 1X ONCE IV Last administered on at 23:16; Start 04/19/18 at 23:00; Stop 04/20/18 at 05:39; Status DC Lorazepam (Ativan) 2 mg PRN Q4HRS PRN IV ANXIETY / AGITATION Last administered on 04/21/18at 06:27; Start 04/20/18 at 12:30 Lorazepam (Ativan Intensol) 2 mg PRN Q4HRS PRN SL ANXIETY / AGITATION; Start at 12:45 Morphine Sulfate (Morphine Oral Solution) 15 mg PRN Q4HRS PRN PO PAIN Last administered on 8/22/18at 06:28; Start 04/20/18 at 12:45 Morphine Sulfate (Morphine Sulfate) 4 mg PRN Q2HR PRN IV PAIN; Start 04/20/18 at 15:30; Stop 04/20/18 at 16:35; Status DC Morphine Sulfate (Morphine Sulfate) 4 mg PRN Q2HR PRN IV PAIN Last administered on 04/20/18at 17:09; Start 04/20/18 at 15:45 Active Scripts Active Zohydro ER (Hydrocodone Bitartrate) 10 Mg Cap.er.12h 20 Mg PO BID Reported Ondansetron Odt (Ondansetron) 4 Mg Tab.rapdis 1 Tab PO PRN Q8HRS PRN Levofloxacin 750 Mg Tablet 1 Tab PO QODAY Coreg (Carvedilol) 3.125 Mg Tablet 1 Tab PO BID Vitamin D3 (Cholecalciferol (Vitamin D3)) 1,000 Unit Tablet 1 Tab PO DAILY Lidocaine-Prilocaine Cream (Lidocaine/Prilocaine) 30 Gm Cream..g. 1 Meka TP UD Fluconazole 200 Mg Tablet 1 Tab PO DAILY Allopurinol 100 Mg Tablet 150 Mg PO DAILY Acyclovir 400 Mg Tablet 1 Tab PO BID Refinery29 Capsule (L Gasseri/B Bifidum/B Longum) 1 Each Capsule 1 Each PO DAILY Not given on this admission May resume tomorrow Magnesium (Magnesium Oxide) 400 Mg Capsule 1 Cap PO DAILY Medication not given here May resume tomorrow Potassium Chloride Packet (Potassium Chloride) 20 Meq Packet 20 Meq PO DAILY Not given today due to procedure Take a dose tonight Metolazone 2.5 Mg Tablet 2.5 Mg PO QMWF Dose given Thursday morning Take a dose Thursday morning Finasteride 5 Mg Tablet 5 Mg PO DAILY LAST DOSE GIVEN: DATE: last night TIME: 9pm NEXT DOSE DUE: DATE: Tonight TIME: 9 pm Furosemide 80 Mg Tablet 80 Mg PO BID LAST DOSE GIVEN: DATE: today TIME: 3pm NEXT DOSE DUE: DATE: Tomorrow TIME: 9 am Dicyclomine Hcl 10 Mg Capsule 1 Cap PO TID Not given on this admission Take this evening Vitamin B-12 (Cyanocobalamin (Vitamin B-12)) 1,000 Mcg Tablet.er 1,000 Mcg PO DAILY LAST DOSE GIVEN: DATE: today TIME: 3pm NEXT DOSE DUE: DATE: Tomorrow TIME: 9 am Lortab 10-325 mg Tablet (Hydrocodone/Acetaminophen) 1 Each Tablet 1 Tab PO PRN Q4HRS PRN LAST DOSE GIVEN: DATE: last night TIME: 11pm NEXT DOSE DUE: when needed Tamsulosin Hcl 0.4 Mg Cap.er.24h 0.4 Mg PO BID LAST DOSE GIVEN: DATE: last night TIME: 9 pm NEXT DOSE DUE: DATE: Tonight TIME: 9pm Famotidine 20 Mg Tablet 80 Mg PO BID Famotidine 20mg was given last night may take tonight Lipitor (Atorvastatin Calcium) 20 Mg Tablet 1 Tab PO HS LAST DOSE GIVEN: DATE: last night TIME: 9pm NEXT DOSE DUE: DATE: Tonight TIME: 9 pm Aspir 81 (Aspirin) 81 Mg Tablet.dr 1 Tab PO DAILY LAST DOSE GIVEN: DATE: today TIME: 3pm NEXT DOSE DUE: DATE: Tomorrow TIME: 9 am Omeprazole 40 Mg Capsule.dr 1 Cap PO BID Not given on this admission May resume in the morning TIME: 9:00 am NEXT DOSE DUE: DATE: 06-13-15 TIME: 9:00 pm Nephro-Brett Tablet (Folic Acid/Vitamin B Comp W-C) 0.8 Mg Tablet 1 Tab PO DAILY LAST DOSE GIVEN: DATE: today TIME: 3pm NEXT DOSE DUE: DATE: Tomorrow TIME: 9 am Vital Signs Vital Signs Date Time Temp Pulse Resp B/P (MAP) Pulse Ox O2 Delivery O2 Flow Rate FiO2 04/21/18 11:21 98.8 98 20 111/60 (77) 91 Venturi Mask 5.0 98.8 Labs Laboratory Tests Test 04/20/18 05:20 White Blood Count 0.5 x10^3/uL (4.0-11.0) Red Blood Count 2.25 x10^6/uL (4.30-5.70) Hemoglobin 7.4 g/dL (13.0-17.5) Hematocrit 20.9 % (39.0-53.0) Mean Corpuscular Volume 93 fL (79-100) Mean Corpuscular Hemoglobin 33 pg (25-35) Mean Corpuscular Hemoglobin Concent 36 g/dL (31-37) Red Cell Distribution Width 15.0 % (11.5-14.5) Platelet Count 37 x10^3/uL (140-400) Neutrophils (%) (Auto) 15 % (31-73) Lymphocytes (%) (Auto) 67 % (24-48) Monocytes (%) (Auto) 14 % (0-9) Eosinophils (%) (Auto) 3 % (0-3) Basophils (%) (Auto) 1 % (0-3) Neutrophils # (Auto) 0.1 x10^3uL (1.8-7.7) Lymphocytes # (Auto) 0.3 x10^3/uL (1.0-4.8) Monocytes # (Auto) 0.1 x10^3/uL (0.0-1.1) Eosinophils # (Auto) 0.0 x10^3/uL (0.0-0.7) Basophils # (Auto) 0.0 x10^3/uL (0.0-0.2) Sodium Level 136 mmol/L (136-145) Potassium Level 3.0 mmol/L (3.5-5.1) Chloride Level 94 mmol/L (98-107) Carbon Dioxide Level 33 mmol/L (21-32) Anion Gap 9 (6-14) Blood Urea Nitrogen 79 mg/dL (8-26) Creatinine 2.6 mg/dL (0.7-1.3) Estimated GFR (Cockcroft-Gault) 24.4 Glucose Level 130 mg/dL (70-99) Calcium Level 9.3 mg/dL (8.5-10.1) Allergies Allergies Coded Allergies Type Severity Reaction Last Updated Verified NSAIDS (Non-Steroidal Anti-Inflamma Allergy Intermediate Hives 04/05/18 Yes Sulfa (Sulfonamide Antibiotics) Allergy Intermediate HIVES 04/05/18 Yes I S O L A T I O N *CONTACT* Allergy Unknown 04/05/18 Yes hydroxyzine Adverse Reaction Intermediate insomnia 04/05/18 Yes Disposition/Orders: Other (d/c to [facility]), Instructions/Orders LITZY STEVENS MD Apr 21, 2018 11:30
[2018-04-21] MEDS: MORPHINE SULFATE 4 MG/ML VIAL. IV PRN (13:49)
== END 2018-04-21 16:17 | disposition hospice, inpatient (51) | DRG 871 ==
LOC: ER 11:36 → 5 SOUTH 14:09
PROVIDERS: ADMIT Family Medicine; ATTEND Family Medicine
PROC: 30233N1 Transfusion of Nonautologous Red Blood Cells into Peripheral Vein, Percutaneous Approach (ICD-10-PCS; 2018-04-16)
PROC: 30233R1 Transfusion of Nonautologous Platelets into Peripheral Vein, Percutaneous Approach (ICD-10-PCS; principal; 2018-04-19)
DX: A41.9 Sepsis, unspecified organism (principal); E43 Unspecified severe protein-calorie malnutrition; G93.41 Metabolic encephalopathy; J18.9 Pneumonia, unspecified organism; I50.23 Acute on chronic systolic (congestive) heart failure; D61.818 Other pancytopenia; E87.1 Hypo-osmolality and hyponatremia; I13.0 Hypertensive heart and chronic kidney disease with heart failure and stage 1 through stage 4 chronic kidney disease, or unspecified chronic kidney disease; I47.2 Ventricular tachycardia; N18.4 Chronic kidney disease, stage 4 (severe); C92.00 Acute myeloblastic leukemia, not having achieved remission; Z68.28 Body mass index [BMI] 28.0-28.9, adult; D89.9 Disorder involving the immune mechanism, unspecified; E66.9 Obesity, unspecified; E78.00 Pure hypercholesterolemia, unspecified; E78.5 Hyperlipidemia, unspecified; E87.6 Hypokalemia; I08.1 Rheumatic disorders of both mitral and tricuspid valves; I25.10 Atherosclerotic heart disease of native coronary artery without angina pectoris; I48.0 Paroxysmal atrial fibrillation; I87.2 Venous insufficiency (chronic) (peripheral); I73.9 Peripheral vascular disease, unspecified; I87.8 Other specified disorders of veins; I89.0 Lymphedema, not elsewhere classified; J30.9 Allergic rhinitis, unspecified; K21.9 Gastro-esophageal reflux disease without esophagitis; N40.1 Benign prostatic hyperplasia with lower urinary tract symptoms; R33.8 Other retention of urine; Y95 Nosocomial condition; Z51.5 Encounter for palliative care; Z66 Do not resuscitate; Z96.653 Presence of artificial knee joint, bilateral; G89.29 Other chronic pain; M10.9 Gout, unspecified; Z80.1 Family history of malignant neoplasm of trachea, bronchus and lung; Z82.49 Family history of ischemic heart disease and other diseases of the circulatory system; Z87.891 Personal history of nicotine dependence; Z92.21 Personal history of antineoplastic chemotherapy; Z93.0 Tracheostomy status; Z95.0 Presence of cardiac pacemaker; Z95.1 Presence of aortocoronary bypass graft; Z95.3 Presence of xenogenic heart valve; Z99.81 Dependence on supplemental oxygen; Z87.81 Personal history of (healed) traumatic fracture; Z90.49 Acquired absence of other specified parts of digestive tract; Z88.2 Allergy status to sulfonamides; Z88.8 Allergy status to other drugs, medicaments and biological substances; Z79.899 Other long term (current) drug therapy; Z79.82 Long term (current) use of aspirin
CPT/HCPCS: 36415; 71045; 73502; 80048; 80053; 82140; 83605; 83735; 84145; 85007; 85025; 85610; 85651; 85730; 86850; 86900; 86901; 86920; 87040; 87641; 93005; 93970; 94640; 94760; 96365; 96367; J1160; J2060; J2185; J2270; J2543; J3370; J3480; J7030; J7040; J7620; P9016; P9035; 97110; 97530; 99285-25